=== PATIENT | female | born 1935 | race Caucasian/White ===

== ENCOUNTER 2016-08-13 13:37 | Outpatient (CLI) | payer MEDICARE, OTHER | END 2016-08-13 13:38 | disposition home or self-care (01) | DX: R25.2 Cramp and spasm (principal); I50.9 Heart failure, unspecified; Z79.899 Other long term (current) drug therapy ==

== ENCOUNTER 2016-08-30 20:01 | Outpatient (CLI) | payer MEDICARE, OTHER | END 2016-08-30 20:02 | disposition critical access hospital (66) | DX: R53.1 Weakness (principal); R42 Dizziness and giddiness | CPT/HCPCS: A0425; A0427 ==

== ENCOUNTER 2016-08-30 20:23 | Emergency (ER) | payer MEDICARE, OTHER ==
[2016-08-30] MEDS ORDERED: FUROSEMIDE 40 MG/4 ML VIAL IVP STA (21:07)
[2016-08-30] MEDS ORDERED: FUROSEMIDE 40 MG/4 ML VIAL ONE (21:08)
[2016-08-30] MEDS ORDERED: PANTOPRAZOLE 80 MG in SODIUM CHLORIDE 0.9% 100ML 100 ML IV STA (23:14)
[2016-08-30] MEDS ORDERED: SODIUM CHLORIDE 0.9% MINIBAG 100 ML IV ONE (23:16)
[2016-08-30] MEDS ORDERED: PANTOPRAZOLE 40 MG VIAL ONE (23:16)
== END 2016-08-31 01:40 | disposition short-term general hospital (02) ==
DX: I11.0 Hypertensive heart disease with heart failure (principal); I50.21 Acute systolic (congestive) heart failure; K92.1 Melena; D62 Acute posthemorrhagic anemia; I45.10 Unspecified right bundle-branch block; I48.91 Unspecified atrial fibrillation; Z79.01 Long term (current) use of anticoagulants; Z87.891 Personal history of nicotine dependence
CPT/HCPCS: 36415; 36430; 51702; 71020; 80053; 81003; 83690; 83880; 84484; 85025; 86850; 86900; 86901; 86920; 93005; 93010; 96365; 96366; 96375; 99285; P9016

== ENCOUNTER 2016-08-31 01:45 | Outpatient (CLI) | payer MEDICARE, OTHER | END 2016-08-31 01:46 | disposition short-term general hospital (02) | DX: Z75.1 Person awaiting admission to adequate facility elsewhere (principal) | CPT/HCPCS: A0425; A0426 ==

== ENCOUNTER 2016-09-14 15:12 | Outpatient (CLI) | payer MEDICARE, OTHER | END 2016-09-14 23:59 | disposition home or self-care (01) | DX: K92.2 Gastrointestinal hemorrhage, unspecified (principal); Z79.899 Other long term (current) drug therapy ==

== ENCOUNTER 2016-09-24 08:00 | Outpatient (CLI) | payer MEDICARE, OTHER | END 2016-09-24 23:59 | disposition home or self-care (01) | DX: Z79.899 Other long term (current) drug therapy (principal); N39.0 Urinary tract infection, site not specified; R53.1 Weakness; D64.9 Anemia, unspecified ==

== ENCOUNTER 2016-10-14 13:42 | Outpatient (CLI) | payer MEDICARE, OTHER | END 2016-10-14 13:43 | disposition home or self-care (01) | DX: N28.9 Disorder of kidney and ureter, unspecified (principal); D64.9 Anemia, unspecified ==

== ENCOUNTER 2016-11-03 08:00 | Outpatient (CLI) | payer MEDICARE, OTHER ==
[2016-11-03 19:07] LABS: CALCIUM 9.8 mg/dL (8.5-10.3); CREATININE 1.1 mg/dL (0.4-1.0); POTASSIUM 4.1 mmol/L (3.5-5.0)
== END 2016-11-03 08:01 | disposition home or self-care (01) ==
LOC: LAB.WCP 08:00
PROVIDERS: ATTEND Internal Medicine Cardiovascular Disease
DX: I48.91 Unspecified atrial fibrillation (principal); I10 Essential (primary) hypertension; I50.30 Unspecified diastolic (congestive) heart failure; I49.3 Ventricular premature depolarization; G47.33 Obstructive sleep apnea (adult) (pediatric); I45.2 Bifascicular block; E78.00 Pure hypercholesterolemia, unspecified; D50.9 Iron deficiency anemia, unspecified
CPT/HCPCS: 36415; 80048

== ENCOUNTER 2017-08-22 14:13 | Outpatient (CLI) | payer MEDICARE, OTHER | END 2017-08-22 14:14 | disposition home or self-care (01) | LOC: SC 14:13 | PROVIDERS: ATTEND Internal Medicine Pulmonary Disease | DX: G47.33 Obstructive sleep apnea (adult) (pediatric) (principal) | CPT/HCPCS: 99213; G0463; 99212 ==

== ENCOUNTER 2017-10-15 15:18 | Outpatient (CLI) | payer MEDICARE, OTHER | END 2017-10-15 15:19 | disposition critical access hospital (66) | LOC: EMS 15:18 | PROVIDERS: ATTEND Surgery | DX: R06.02 Shortness of breath (principal); R07.89 Other chest pain | CPT/HCPCS: A0425; A0427 ==

== ENCOUNTER 2017-10-15 15:39 | Emergency (ER) | payer MEDICARE, OTHER ==
--- NOTE | 2017-10-15 16:29 | XRAY Report ---
EXAM: CHEST RADIOGRAPHY EXAM DATE: 10/15/2017 04:11 PM. CLINICAL HISTORY: Dyspnea. COMPARISON: 08/30/2016. TECHNIQUE: 1 view. FINDINGS: Lungs/Pleura: Mild pulmonary edema and bibasilar atelectasis. Superimposed infiltrate in the left cristela g base is not excluded. Mediastinum: Stable cardiomegaly. Other: None. IMPRESSION: Mild pulmonary edema. Cardiomegaly. [facility] Referring Provider Line: [phone] SITE ID: [id number]
[2017-10-15 16:34] LABS: BASOPHILS % (AUTO) 0.4 %; EOSINOPHILS # (AUTO) 0.1 10^3/uL (0.0-0.7); EOSINOPHILS % (AUTO) 1.3 %; HGB - HEMOGLOBIN 13.6 g/dL (12.0-16.0); LYMPHOCYTES # (AUTO) 0.7 10^3/uL (1.5-3.5); LYMPHOCYTES % (AUTO) 7.7 %; MEAN CORPUSCULAR HEMOGLOBIN 27.4 pg (27.0-31.0); MEAN CORPUSCULAR VOLUME 85.7 fL (81.0-99.0); MEAN PLATELET VOLUME 9.6 fL (7.9-10.8); MONOCYTES # (AUTO) 0.6 10^3/uL (0.0-1.0); MONOCYTES % (AUTO) 6.2 %; NEUTROPHILS # (AUTO) 7.5 10^3/uL (1.5-6.6); NEUTROPHILS % (AUTO) 84.4 %; PLT - PLATELET COUNT 196 10^3/uL (130-450); RED BLOOD COUNT 4.97 10^6/uL (4.20-5.40); RED CELL DISTRIBUTION WIDTH 14.7 % (12.0-15.0); WHITE BLOOD COUNT 8.9 x10^3/uL (4.8-10.8)
[2017-10-15 16:48] LABS: ALBUMIN 3.9 g/dL (3.2-5.5); ALBUMIN/GLOBULIN RATIO 1.2 (1.0-2.2); BILIRUBIN,TOTAL 0.8 mg/dL (0.2-1.0); CALCIUM 9.2 mg/dL (8.5-10.3); CREATININE 0.7 mg/dL (0.4-1.0); TOTAL PROTEIN 7.2 g/dL (6.7-8.2)
--- NOTE | 2017-10-15 16:51 | ED Physician Documentation ---
History of Present Illness - Stated complaint Stated Complaint: SOA - Chief complaint Chief Complaint: Resp - History obtained from History obtained from: Patient, EMS - History of Present Illness Timing: Today Pain level max: 0 Pain level now: 0 Improved by: duoneb Worsened by: nothing - Additonal information Additional information: 82 year old female who is feeling weak today and was having trouble breathing earlier. Also had chest tightness. Called 911 and EMS gave duoneb. Symptoms resolved. Now feeling much better. No fevers, no chills, no cough. Review of Systems Ten Systems: 10 systems reviewed and negative Constitutional: denies: Fever, Chills Ears: denies: Ear pain Nose: denies: Rhinorrhea / runny nose, Congestion Cardiac: denies: Chest pain / pressure (tightness before the neb treatment) Respiratory: reports: Dyspnea. 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 - Present Medications Home Medications: Ambulatory Orders Medication Instructions Recorded Confirmed Bupropion HCl [Wellbutrin Xl] 150 mg PO DAILY 04/19/15 08/30/16 Telmisartan [Micardis] 40 mg PO DAILY 04/19/15 04/19/15 Verapamil HCl [Verapamil ER] 240 mg PO DAILY 04/19/15 08/30/16 Cholecalciferol (Vitamin D3) 1 mg PO DAILY 08/30/16 08/30/16 [Vitamin D3] Colestipol HCl 1 gm PO DAILY 08/30/16 08/30/16 Ellipta` 1 mcg INH DAILY 08/30/16 08/30/16 Fluticasone/Vilanterol [Breo 1 mg INH DAILY 08/30/16 08/30/16 Ellipta 200-25 Mcg INH] Furosemide 80 mg PO DAILY 08/30/16 08/30/16 Magnesium Oxide [Magnesium] 400 mg PO DAILY 08/30/16 08/30/16 Metoprolol Tartrate 50 mg PO BID 08/30/16 08/30/16 Omeprazole 20 mg PO DAILY 08/30/16 08/30/16 Potassium Chloride [Klor-Con 10] 2 tab PO DAILY 08/30/16 08/30/16 Rivaroxaban [Xarelto] 1 mg PO DAILY 08/30/16 08/30/16 Sertraline [Zoloft] 50 mg PO DAILY 08/30/16 08/30/16 Albuterol Sulf [Ventolin Hfa 1 - 2 puffs INH Q4HR PRN #1 inhaler 10/15/17 Inhaler] predniSONE [Prednisone] 40 mg PO DAILY #10 tablet 10/15/17 - Allergies Allergies/Adverse Reactions: Allergies Allergy/AdvReac Type Severity Reaction Status Date / Time No Known Drug Allergies Allergy Verified 08/30/16 21:14 - Social History Does the pt smoke?: No Smoking Status: Never smoker Does the pt drink ETOH?: No Does the pt have substance abuse?: No - Immunizations Immunizations are current?: Yes - POLST Patient has POLST: No PD ED PE NORMAL - Vitals Vital signs reviewed: Yes - General General: Alert and oriented X 3, No acute distress, Well developed/nourished - HEENT HEENT: PERRL, Moist mucous membranes - Neck Neck: Supple, no meningeal sign - Cardiac Cardiac: RRR, Strong equal pulses - Respiratory Respiratory: No respiratory distress, Other (diminished breath sounds B. ) - Abdomen Abdomen: Soft, Non tender, Non distended - Back Back: No spinal TTP - Derm Derm: Warm and dry - Extremities Extremities: Other (3+ B LE edema) - Neuro Neuro: Alert and oriented X 3 - Psych Psych: Normal mood, Normal affect Results - Vitals Vitals: Vital Signs - 24 hr 10/15/17 10/15/17 10/15/17 15:45 17:07 17:10 Temperature 36.0 C L Heart Rate 60 49 L 58 L Respiratory 24 20 16 Rate Blood Pressure 151/100 H 142/82 H O2 Saturation 97 97 10/15/17 18:18 Temperature 36.7 C Heart Rate 66 Respiratory 23 Rate Blood Pressure 157/88 H O2 Saturation 98 Oxygen O2 Source Nasal cannula Oxygen Flow Rate 2 - EKG (time done) 1549 Rate: Rate (enter#) (53) Rhythm: Atrial fibrillation Intervals: RBBB - Labs Labs: Laboratory Tests 10/15/17 10/15/17 10/15/17 16:28 16:28 16:28 WBC 8.9 RBC 4.97 Hgb 13.6 Hct 42.6 MCV 85.7 MCH 27.4 MCHC 32.0 RDW 14.7 Plt Count 196 MPV 9.6 Neut # 7.5 H Lymph # 0.7 L Jennings # 0.6 Eos # 0.1 Baso # 0.0 Absolute Nucleated RBC 0.00 Nucleated RBC % 0.0 Sodium 135 Potassium 4.8 Chloride 100 L Carbon Dioxide 25 Anion Gap 10.0 BUN 15 Creatinine 0.7 Estimated GFR (MDRD) 81 L Glucose 139 H Calcium 9.2 Total Bilirubin 0.8 AST 20 ALT 18 Alkaline Phosphatase 92 Troponin I < 0.04 B-Natriuretic Peptide Total Protein 7.2 Albumin 3.9 Globulin 3.3 Albumin/Globulin Ratio 1.2 Lipase 18 L 10/15/17 16:28 WBC RBC Hgb Hct MCV MCH MCHC RDW Plt Count MPV Neut # Lymph # Jennings # Eos # Baso # Absolute Nucleated RBC Nucleated RBC % Sodium Potassium Chloride Carbon Dioxide Anion Gap BUN Creatinine Estimated GFR (MDRD) Glucose Calcium Total Bilirubin AST ALT Alkaline Phosphatase Troponin I B-Natriuretic Peptide 334 H Total Protein Albumin Globulin Albumin/Globulin Ratio Lipase - Rads (name of study) cxr Radiology: Prelim report reviewed, EMP read contemporaneously, See rad report ( Mild pulmonary edema. Cardiomegaly. ) PD MEDICAL DECISION MAKING - ED course Complexity details: reviewed results, re-evaluated patient, considered differential, d/w patient, d/w family ED course: Patient is an 82-year-old female who presents to the emergency department with what appears to be a combination of mild CHF exacerbation and COPD exacerbation. Feels better after nebulizer treatments, steroids and Lasix. She is normally on 3 L of home O2, but was able to be weaned to 2 L and maintain 98% on her oxygen saturations even with ambulation. Will prescribe an inhaler for home as well as a short course of steroids. No evidence of pneumonia. Patient is very well-appearing, nontoxic. Ambulating very well. Patient and family counseled regarding signs and symptoms for which I believe and urgent re-evaluation would be necessary. Patient with good understanding of and agreement to plan and is comfortable going home at this time This document was made in part using voice recognition software. While efforts are made to proofread this document, sound alike and grammatical errors may occur. Departure - Departure Disposition: Home, Self Care Clinical Impression: COPD exacerbation Failure, heart acute, congestive Qualifiers: Heart failure type: unspecified Qualified Code(s): I50.9 - Heart failure, unspecified Condition: Good Instructions: ED CHF General, ED COPD Flare Follow-Up: Daljit Brizuela MD [Primary Care Provider] - Within 1 week Prescriptions: Albuterol Sulf [Ventolin Hfa Inhaler] 1 - 2 puffs INH Q4HR PRN #1 inhaler PRN Reason: Shortness Of Air/Wheezing predniSONE [Prednisone] 40 mg PO DAILY #10 tablet Comments: Return if you worsen. Use the inhalers as prescribed. This should continue to improve over the next few days. Discharge Date/Time: 10/15/17 18:30
[2017-10-15] MEDS ORDERED: FUROSEMIDE 40 MG/4 ML VIAL IVP STA (16:53)
[2017-10-15] MEDS ORDERED: IPRATROPIUM/ALBUTEROL 3 ML NEB INH STA (17:08)
[2017-10-15] MEDS ORDERED: predniSONE 20 MG TABLET PO STA (17:30)
[2017-10-15 18:18] VITALS: BP 157/88
== END 2017-10-15 18:30 | disposition home or self-care (01) ==
LOC: ED 15:39 → EDUNIT# 15:39 → ED 18:30
DX: J44.1 Chronic obstructive pulmonary disease with (acute) exacerbation (principal); I11.0 Hypertensive heart disease with heart failure; I50.9 Heart failure, unspecified; I48.91 Unspecified atrial fibrillation; I45.10 Unspecified right bundle-branch block; I10 Essential (primary) hypertension
CPT/HCPCS: 36415; 71045; 80053; 83690; 83880; 84484; 85025; 93005; 94640; 94664; 96374; 99284; J7512

== ENCOUNTER 2018-08-21 14:14 | Outpatient (CLI) | payer MEDICARE, OTHER | END 2018-08-21 14:15 | disposition home or self-care (01) | LOC: SC 14:14 | PROVIDERS: ATTEND Internal Medicine Pulmonary Disease | DX: G47.33 Obstructive sleep apnea (adult) (pediatric) (principal) | CPT/HCPCS: 99213; G0463; 99212 ==

== ENCOUNTER 2018-12-29 17:25 | Outpatient (CLI) | payer MEDICARE, OTHER | END 2018-12-29 17:26 | disposition critical access hospital (66) | LOC: EMS 17:25 | PROVIDERS: ATTEND Surgery | DX: R06.00 Dyspnea, unspecified (principal) | CPT/HCPCS: A0425; A0427 ==

== ENCOUNTER 2018-12-29 17:45 | Inpatient (IN) | payer MEDICARE, OTHER ==
--- NOTE | 2018-12-29 17:57 | ED Physician Documentation ---
PD HPI DYSPNEA - Stated complaint Stated Complaint: DIFF BREATHING - History obtained from History obtained from: Patient - History of Present Illness Timing - onset: How many days ago (2-3) Timing - onset during: Rest, Light activity Timing - duration: Days (2-3) Timing - details: Gradual onset, Still present Inciting event(s): URI (some cough at home and wheezing, but no fevers. Has had leg edema. No recent travel.) Improved by: O2. No: Inhaler/neb Worsened by: Exertion Associated symptoms: Cough, Wheezing, Bilateral edema. No: Fever, Hemoptysis, Chest pain / discomfort, Palpitations Similar symptoms before: Diagnosis (CHF and COPD) Review of Systems Ten Systems: 10 systems reviewed and negative Constitutional: denies: Fever, Chills Nose: denies: Rhinorrhea / runny nose, Congestion Throat: denies: Sore throat Cardiac: reports: Palpitations, Pedal edema. denies: Chest pain / pressure, C [facility] pain Respiratory: reports: Dyspnea, Cough, Wheezing GI: denies: Nausea, Vomiting, Diarrhea, Bloody / black stool Skin: denies: Rash, Abrasion (s) Musculoskeletal: reports: Extremity swelling Neurologic: reports: Generalized weakness. 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 - Present Medications Home Medications: Ambulatory Orders Medication Instructions Recorded Confirmed Bupropion HCl [Wellbutrin Xl] 150 mg PO DAILY 04/19/15 12/30/18 Telmisartan [Micardis] 40 mg PO DAILY 04/19/15 12/30/18 Verapamil HCl [Verapamil ER] 240 mg PO DAILY 04/19/15 12/30/18 Cholecalciferol (Vitamin D3) 1,000 units PO DAILY 08/30/16 12/30/18 [Vitamin D3] Furosemide 80 mg PO DAILY 08/30/16 12/30/18 Magnesium Oxide [Magnesium] 800 mg PO QDBREAKFAST 08/30/16 12/30/18 Potassium Chloride [Klor-Con 10] 20 meq PO QDBREAKFAST 08/30/16 12/30/18 Rivaroxaban [Xarelto] 20 mg PO 1700 08/30/16 12/30/18 Sertraline [Zoloft] 50 mg PO DAILY 08/30/16 12/30/18 Potassium Chloride [Klor-Con 10] 10 meq PO QDDINNER 12/29/18 12/30/18 Ascorbic Acid 1,000 mg PO DAILY 12/30/18 12/30/18 Ferrous Sulfate [High Potency Iron] 27 mg PO DAILY 12/30/18 12/30/18 Loperamide HCl [Loperamide] 2 mg PO PRN PRN 12/30/18 12/30/18 Nitroglycerin [Nitrostat] 0.4 mg PO Q5MX3 PRN 12/30/18 12/30/18 - Allergies Allergies/Adverse Reactions: Allergies Allergy/AdvReac Type Severity Reaction Status Date / Time No Known Drug Allergies Allergy Verified 12/29/18 18:00 - Social History Does the pt smoke?: No Smoking Status: Never smoker Does the pt drink ETOH?: No Does the pt have substance abuse?: No - Immunizations Immunizations are current?: Yes - POLST Patient has POLST: No PD ED PE NORMAL - Vitals Vital signs reviewed: Yes (BP and heart rate elevated) - General General: Alert and oriented X 3, Well developed/nourished, Other (in distress, with work of breathing, partial sentence dyspnea, and sitting up in tripod position. BP elevated. ) Results - Vitals Vitals: Vital Signs - 24 hr 12/29/18 12/29/18 12/29/18 17:54 18:20 18:31 Temperature 36.9 C Heart Rate 120 H 104 H 104 H Respiratory 40 H 17 Rate Blood Pressure 221/157 H O2 Saturation 84 L 12/29/18 12/29/18 18:36 19:53 Temperature Heart Rate 106 H 84 Respiratory 20 17 Rate Blood Pressure 185/145 H 149/99 H O2 Saturation 90 L 97 Oxygen O2 Source BIPAP - EKG (time done) 18:07 Rate: Rate (enter#) (109) Rhythm: Atrial fibrillation Intervals: RBBB Ischemia: Non specific changes. No: ST elevation c/w ischemia Compare to prior EKG: Old EKG unavailable - Labs Labs: Laboratory Tests 12/29/18 12/29/18 12/29/18 18:28 18:28 18:28 WBC 13.4 H RBC 5.01 Hgb 13.9 Hct 44.3 MCV 88.4 MCH 27.7 MCHC 31.4 L RDW 13.7 Plt Count 215 MPV 11.4 H Neut # (Auto) 11.4 H Lymph # (Auto) 1.0 L Sutton # (Auto) 0.8 Eos # (Auto) 0.1 Baso # (Auto) 0.0 Absolute Nucleated RBC 0.00 Nucleated RBC % 0.0 Bld Gas Analysis Time Sample Site ABG pH ABG pCO2 ABG pO2 ABG HCO3 ABG Total CO2 ABG O2 Saturation ABG Base Excess Nikita Test O2 Delivery Device FiO2 EPAP IPAP Sodium 138 Potassium 5.1 H Chloride 104 Carbon Dioxide 22 Anion Gap 12.0 BUN 19 Creatinine 0.7 Estimated GFR (MDRD) 80 L Glucose 181 H Calcium 9.7 Magnesium 2.1 Total Bilirubin 1.3 H AST 38 ALT 25 Alkaline Phosphatase 86 Troponin I Troponin I High Sens B-Natriuretic Peptide 733 H Total Protein 7.5 Albumin 4.1 Globulin 3.4 Albumin/Globulin Ratio 1.2 Lipase 21 L 12/29/18 12/29/18 18:28 19:40 WBC RBC Hgb Hct MCV MCH MCHC RDW Plt Count MPV Neut # (Auto) Lymph # (Auto) Sutton # (Auto) Eos # (Auto) Baso # (Auto) Absolute Nucleated RBC Nucleated RBC % Bld Gas Analysis Time 1950 Sample Site RIGHT RADIAL ABG pH 7.34 L ABG pCO2 45 ABG pO2 122 H ABG HCO3 23.6 ABG Total CO2 24.9 ABG O2 Saturation 98 ABG Base Excess -2.3 L Nikita Test POSITIVE O2 Delivery Device BiPAP FiO2 50.00 EPAP 5 IPAP 12 Sodium Potassium Chloride Carbon Dioxide Anion Gap BUN Creatinine Estimated GFR (MDRD) Glucose Calcium Magnesium Total Bilirubin AST ALT Alkaline Phosphatase Troponin I < 0.04 Troponin I High Sens 27.0 H* B-Natriuretic Peptide Total Protein Albumin Globulin Albumin/Globulin Ratio Lipase - Rads (name of study) chest xray Radiology: Prelim report reviewed, EMP read contemporaneously (cardiomegaly, some congestive edema), See rad report PD MEDICAL DECISION MAKING - ED course Complexity details: reviewed old records, reviewed results, re-evaluated patient (improving with BP and heart rate down, neb treatment and also BiPAP. Resting more comfortably, with still good ventilations and improved oxygenation.), considered differential (CHF and /or COPD. GIven nebs and also nitro to lower BP, Metoprolol to help BP and heart rate. Initiate BiPAP. Brief targeted discussed to ensure no POLST or limitations.), d/w patient, d/w sales development consultant (Hospitalist about admission. ) - Critical Care Time(min): 45 Time Includes: Direct patient care, Reassess patient, Document care, Coordinate care, Medical consult, See progress note Data interpretation: Labs, Pulse ox, CXR Procedures excluded from critical care time: EKG Departure - Departure Disposition: 66 [facility] DC/Xfer Clinical Impression: COPD exacerbation, Acute respiratory distress Failure, heart acute, congestive Qualifiers: Heart failure type: unspecified Qualified Code(s): I50.9 - Heart failure, unspecified Dyspnea Qualifiers: Dyspnea type: shortness of breath Qualified Code(s): R06.02 - Shortness of breath Atrial fibrillation Qualifiers: Atrial fibrillation type: permanent Qualified Code(s): I48.2 - Chronic atrial fibrillation Condition: Stable Record reviewed to determine appropriate education?: Yes Discharge Date/Time: 12/29/18 20:38
[2018-12-29] MEDS ORDERED: MORPHINE 2 MG/ML CARPUJECT IVP STA (18:02)
[2018-12-29] MEDS ORDERED: IPRATROPIUM/ALBUTEROL 3 ML NEB INH STA (18:02)
[2018-12-29] MEDS ORDERED: NITROGLYCERIN SL 0.4 MG TABLET SL STA (18:03)
[2018-12-29 18:35] LABS: BASOPHILS % (AUTO) 0.2 %; EOSINOPHILS # (AUTO) 0.1 10^3/uL (0.0-0.7); EOSINOPHILS % (AUTO) 0.9 %; HGB - HEMOGLOBIN 13.9 g/dL (12.0-16.0); LYMPHOCYTES % (AUTO) 7.4 %; MEAN CORPUSCULAR HEMOGLOBIN 27.7 pg (27.0-31.0); MEAN CORPUSCULAR HGB CONC 31.4 g/dL (32.0-36.0); MEAN CORPUSCULAR VOLUME 88.4 fL (81.0-99.0); MEAN PLATELET VOLUME 11.4 fL (7.9-10.8); MONOCYTES # (AUTO) 0.8 10^3/uL (0.0-1.0); MONOCYTES % (AUTO) 5.8 %; NEUTROPHILS # (AUTO) 11.4 10^3/uL (1.5-6.6); NEUTROPHILS % (AUTO) 85.2 %; PLT - PLATELET COUNT 215 10^3/uL (130-450); RED BLOOD COUNT 5.01 10^6/uL (4.20-5.40); RED CELL DISTRIBUTION WIDTH 13.7 % (12.0-15.0); WHITE BLOOD COUNT 13.4 x10^3/uL (4.8-10.8)
[2018-12-29] MEDS ORDERED: METOPROLOL 5 MG/5 ML VIAL IVP STA (18:37)
--- NOTE | 2018-12-29 18:51 | XRAY Report ---
Reason: dyspnea and wheezing Procedure Date: 12/29/2018 Accession Number: [id number] / [id number] Procedure: XR - Chest 1 View X-Ray CPT Code: 47479 FULL RESULT: EXAM: CHEST RADIOGRAPHY EXAM DATE: 12/29/2018 06:27 PM. CLINICAL HISTORY: Dyspnea and wheezing. COMPARISON: CHEST 1 VIEW 10/15/2017 4:01 PM CHEST 2 VIEW PA/LAT 08/30/2016 9:20 PM. TECHNIQUE: 1 view. FINDINGS: Lungs/Pleura: Mild diffuse bilateral airspace disease, could represent mild pulmonary edema, slightly increased. Mild obscuration of the right lateral base, similar to the prior, could be overlap versus small pleural effusion. Mediastinum: Stable cardiomegaly. IMPRESSION: Lungs/Pleura: Mild diffuse bilateral airspace disease, could represent mild pulmonary edema, slightly increased. Mild obscuration of the right lateral base, similar to the prior, could be overlap versus small pleural effusion. Mediastinum: Stable cardiomegaly. [facility]
[2018-12-29 18:54] LABS: ALBUMIN 4.1 g/dL (3.2-5.5); ALBUMIN/GLOBULIN RATIO 1.2 (1.0-2.2); BILIRUBIN,TOTAL 1.3 mg/dL (0.2-1.0); CALCIUM 9.7 mg/dL (8.5-10.3); CREATININE 0.7 mg/dL (0.4-1.0); MAGNESIUM 2.1 mg/dL (1.7-2.8); TOTAL PROTEIN 7.5 g/dL (6.7-8.2)
[2018-12-29 19:09] LABS: TROPONIN I < 0.04 ng/mL (<0.49)
[2018-12-29] MEDS ORDERED: FUROSEMIDE 40 MG/4 ML VIAL IVP STA (19:09)
[2018-12-29 19:48] LABS: ABG BASE EXCESS -2.3 mmol/L (-2.0-3.0); ABG HCO3 23.6 mmol/L (22.0-26.0); ABG PCO2 45 mmHg (34-45); ABG PH 7.34 (7.35-7.45); ABG PO2 122 mmHg (80-100); ABG TCO2 24.9 MMOL/L (21.0-29.0)
[2018-12-29 19:49] LABS: ABG OXYGEN SATURATION 98 % (94-98); ALLEN TEST POSITIVE
[2018-12-29] MEDS ORDERED: SODIUM CHLORIDE FLUSH 0.9% 10 ML SYRINGE IVP PRN (19:56)
[2018-12-29] MEDS ORDERED: IPRATROPIUM/ALBUTEROL 3 ML NEB INH PRN (20:51)
[2018-12-29] MEDS ORDERED: METOPROLOL TARTRATE 50 MG TABLET PO SCH (21:00)
--- NOTE | 2018-12-29 21:05 | HISTORY & PHYSICAL EXAMINATION ---
Chief Complaint - Chief Complaint Chief Complaint: Shortness of breath History of Present Illness - Admitted From Admitted From:: Home - History Obtained From Records Reviewed: Yes History obtained from: Patient, Family Exam Limitations: Patient on BiPAP - History of Present Illness HPI Comment/Other: This is a 83 year old female with a past medical history significant for CHFpEF, atrial fibrillation (on Xarelto), COPD (on 3L), and GUILLERMO (on CPAP) who presents from home complaining of dyspnea that began yesterday. She reports feeling short of breath yesterday but that today it became more severe. She has occasional cough but denies fevers, chills, chest pain. She noticed worsening lower extremity edema but denies orthopnea. Her ambulation has been limited due to her dyspnea. She denies missing any of her medications or an increase in salt consumption. She denies wheezing but reports that she usually does not wheeze much. In the ER, she reportedly looked very ill and in respiratory distress. She was immediately placed on BiPAP. Her vitals were concerning for a systolic blood pressure >200. She was given nitroglycerin, Lasix IV, and a breathing treatment with improvement. Her chest x-ray showed mild pulmonary edema and possible small pleural effusion. Labs were significant for a BNP in the 700's. She will be admitted for further management for her acute on chronic respiratory failure with hypoxia. I spoke with the patient and her family at bedside to discuss code status. The patient would like to be full code and would want CPR or mechanical ventilation if deemed necessary. 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 Her parents lived well into their 80's. Living arrangement: At home Living Situation: Alone Social History Notes: She lives alone here on [address] although her family lives just down the street. She was a smoker but quit over 20 years ago. - Substance History Use: Uses substance without health or social issues: NONE - POLST Patient has POLST: No Meds/Allgy - Home Medications Home Medications: Ambulatory Orders Medication Instructions Recorded Confirmed Bupropion HCl [Wellbutrin Xl] 150 mg PO DAILY 04/19/15 08/30/16 Telmisartan [Micardis] 40 mg PO DAILY 04/19/15 04/19/15 Verapamil HCl [Verapamil ER] 240 mg PO DAILY 04/19/15 08/30/16 Cholecalciferol (Vitamin D3) 1 mg PO DAILY 08/30/16 08/30/16 [Vitamin D3] Colestipol HCl 1 gm PO DAILY 08/30/16 08/30/16 Ellipta` 1 mcg INH DAILY 08/30/16 08/30/16 Fluticasone/Vilanterol [Breo 1 mg INH DAILY 08/30/16 08/30/16 Ellipta 200-25 Mcg INH] Furosemide 80 mg PO DAILY 08/30/16 08/30/16 Magnesium Oxide [Magnesium] 400 mg PO DAILY 08/30/16 08/30/16 Metoprolol Tartrate 50 mg PO BID 08/30/16 08/30/16 Omeprazole 20 mg PO DAILY 08/30/16 08/30/16 Potassium Chloride [Klor-Con 10] 2 tab PO DAILY 08/30/16 08/30/16 Rivaroxaban [Xarelto] 1 mg PO DAILY 08/30/16 08/30/16 Sertraline [Zoloft] 50 mg PO DAILY 08/30/16 08/30/16 Albuterol Sulf [Ventolin Hfa 1 - 2 puffs INH Q4HR PRN #1 inhaler 10/15/17 Inhaler] predniSONE [Prednisone] 40 mg PO DAILY #10 tablet 10/15/17 - Allergies Allergies/Adverse Reactions: Allergies Allergy/AdvReac Type Severity Reaction Status Date / Time No Known Drug Allergies Allergy Verified 12/29/18 18:00 Review of Systems - Constitutional Constitutional: denies: Fever, Chills - Ears, Nose & Throat Ears, Nose & Throat: reports: Nasal congestion - Cardiovascular Cariovascular: reports: Palpitations, Edema, Exertional dyspnea, Decr. exercise tolerance. denies: Chest pain, Lightheadedness, Orthopnea - Respiratory Respiratory: reports: Cough, SOB with exertion. denies: Wheezing - Gastrointestinal Gastrointestinal: denies: Abdominal pain, Nausea, Vomiting - Genitourinary Genitourinary: denies: Dysuria, Frequency, Urgency - Integumentary Integumentary: denies: Rash - Neurological Neurological: denies: General weakness, Focal weakness - All Other Systems All Other Systems: reports: Reviewed and negative Prior Level of Functionality: Ambulates with a walker at baseline. Exam - Vital Signs Reviewed Vital Signs: Yes Vital Signs: Vital Signs x48h Temp Pulse Pulse Resp BP BP Pulse Ox 12/29/18 20:38 36.2 C L 80 18 143/97 H 97 12/29/18 20:04 96 149/99 H 97 12/29/18 19:53 84 17 149/99 H 97 12/29/18 18:36 106 H 20 185/145 H 90 L 12/29/18 18:31 104 H 17 12/29/18 18:20 104 H 12/29/18 17:54 36.9 C 120 H 40 H 221/157 H 84 L - Physical Exam General Appearance: positive: Alert. negative: Mild distress Eyes Bilateral: positive: Normal inspection ENT: positive: ENT inspection nml Respiratory: positive: No respiratory distress, Other (Diminished breath sounds bilaterally). negative: Wheezes, Rales Cardiovascular: positive: No murmur, Irregularly irregular, Tachycardia. negative: Bradycardia Abdomen: positive: Non-tender, No distention. negative: Tenderness Skin: positive: No rash, Warm, Dry. negative: Skin rash Extremities: positive: Pedal edema (+2 pitting edema in bilateral lower extremities up to her knees). negative: No pedal edema Neurologic/Psychiatric: positive: Oriented x3, Motor nml. negative: Disoriented to person, Disoriented to place, Disoriented to time Conclusion/Plan - Problem List (1) Acute on chronic respiratory failure with hypoxia Conclusion/Plan: Suspect that this is secondary to exacerbation of her diastolic heart failure than COPD exacerbation. Initially required BiPAP with FiO2 of 50%. X-ray concerning for mild pulmonary edema. BNP elevated in the 700's, baseline is 3- 400. Now off of BiPAP and saturating mid 90's on 5L NC. - IV diuresis with Lasix - Duoneb PRN - Fluid restriction - BiPAP as needed (2) Acute on chronic diastolic CHF (congestive heart failure) Conclusion/Plan: Suspect that her hypoxia is caused by acute on chronic CHFpEF given her elevated BNP and x-ray findings. Last Echo showed preserved EF, unable to assess diastolic function due to her atrial fibrillation. Troponin mildly elevated. EKG without ischemic changes. - IV diuresis with Lasix - Resume home metoprolol - Hold home cardizem in setting of heart failure exacerbation - Trend troponin - Check BNP prior to discharge - Will consider repeating echo on Tuesday given her clinical course and that echo is not available over the weekend (3) Hypertensive emergency Conclusion/Plan: Suspect that her poorly controlled blood pressure may have lead to exacerbation of her heart failure and consequently pulmonary edema. Presented with systolics >200. Now in the 150's after receiving Lasix and Nitro. - Hold off on IV antihypertensives as blood pressure has improved by 25% - Resume home oral antihypertensives except for cardizem - Goal reduction in blood pressure of 25% over next 24 hours (4) COPD (chronic obstructive pulmonary disease) Conclusion/Plan: She has history of COPD and requires 3L of O2 at baseline. On Breo at home. Does not appear to be in exacerbation. - Resume home inhalers - Duoneb PRN (5) Atrial fibrillation Conclusion/Plan: She appears to have permanent atrial fibrillation and is rate controlled with Cardizem and Metoprolol. On Xarelto for anticoagulation. EKG shows atrial fibrillation with RBBB which was present on prior EKG. - Resume Metoprolol and Xarelto - Restart Cardizem when she improves from heart failure standpoint Qualifiers: Atrial fibrillation type: permanent Qualified Code(s): I48.2 - Chronic atrial fibrillation (6) GERD (gastroesophageal reflux disease) Conclusion/Plan: Stable. On Omeprazole. - Continue Protonix (7) GUILLERMO (obstructive sleep apnea) Conclusion/Plan: Stable. On CPAP. - CPAP at night - Lab Results Lab results reviewed: Yes Fish Bones: 12/29/18 18:28 12/29/18 18:28 - Diagnostic Imaging Results Diagnostic Imaging Results: positive: Final report reviewed, Read independently - EKG Results EKG Interpreted Independently: Yes EKG Findings: Atrial fibrillation with right bundle branch block which was present on prior EKG. Core Measures - Anticipated LOS I expect patient to be DC'd or transferred within 96 hours.: Yes - Issues Hospital Issues and Management Plan: Acute on chronic respiratory failure w/ hypoxia secondary to acute on chronic CH FpEF requiring IV diuresis. - DVT/VTE - Prophylaxis VTE/DVT Device ordered at admit?: Yes VTE/DVT Prophylaxis med ordered at admit?: Yes
[2018-12-29] MEDS: RIVAROXABAN 10 MG TABLET PO SCH (21:57)
[2018-12-29] MEDS: SODIUM CHLORIDE FLUSH 0.9% 10 ML SYRINGE IVP SCH (22:06)
[2018-12-29] MEDS: NYSTATIN POWDER 15 GM TOP SCH (22:06)
[2018-12-30 00:33] LABS: BASOPHILS % (AUTO) 0.3 %; EOSINOPHILS % (AUTO) 0.2 %; HGB - HEMOGLOBIN 12.6 g/dL (12.0-16.0); LYMPHOCYTES # (AUTO) 0.7 10^3/uL (1.5-3.5); LYMPHOCYTES % (AUTO) 7.8 %; MEAN CORPUSCULAR HEMOGLOBIN 28.1 pg (27.0-31.0); MEAN CORPUSCULAR HGB CONC 31.3 g/dL (32.0-36.0); MEAN CORPUSCULAR VOLUME 89.5 fL (81.0-99.0); MEAN PLATELET VOLUME 11.7 fL (7.9-10.8); MONOCYTES # (AUTO) 0.9 10^3/uL (0.0-1.0); MONOCYTES % (AUTO) 9.3 %; NEUTROPHILS # (AUTO) 7.8 10^3/uL (1.5-6.6); NEUTROPHILS % (AUTO) 82.1 %; PLT - PLATELET COUNT 196 10^3/uL (130-450); RED BLOOD COUNT 4.49 10^6/uL (4.20-5.40); RED CELL DISTRIBUTION WIDTH 13.7 % (12.0-15.0); WHITE BLOOD COUNT 9.5 x10^3/uL (4.8-10.8)
[2018-12-30 00:49] LABS: CALCIUM 9.2 mg/dL (8.5-10.3); CREATININE 0.9 mg/dL (0.4-1.0); MAGNESIUM 1.8 mg/dL (1.7-2.8); PHOSPHORUS 4.1 mg/dL (2.5-4.6)
[2018-12-30 00:53] LABS: TROPONIN I < 0.04 ng/mL (<0.49)
--- NOTE | 2018-12-30 07:14 | CT Report ---
Reason: Left sided weakness Procedure Date: 12/30/2018 Accession Number: [id number] / [id number] Procedure: CT - HEAD WO CPT Code: FULL RESULT: EXAM: CT HEAD EXAM DATE: 12/30/2018 06:54 AM. CLINICAL HISTORY: Left-sided weakness. COMPARISON: None. TECHNIQUE: Multiaxial CT images were obtained from the foramen magnum to the vertex. Reformats: Sagittal and coronal. IV contrast: None. In accordance with CT protocol optimization, one or more of the following dose reduction techniques were utilized for this exam: automated exposure control, adjustment of mA and/or KV based on patient size, or use of iterative reconstructive technique. FINDINGS: There are mucous retention cyst demonstrated at the base of the right maxillary sinus. The bilateral mastoid air cells are normally aerated. There is no acute fracture of the calvaria. Bilateral parotid spaces exhibit normal densities. The imaged portions of the orbits are normal in appearance. There is loss of oropeza-white differentiation at the right frontoparietal junction (23, 3). This would be consistent with an area of late acute to early subacute cerebral infarction. Recommend correlation with the onset of the patient's symptoms. There is no evidence of overt hemorrhagic transformation within this area of suspected cerebral infarction. There are periventricular, subcortical, deep white matter hypodensities consistent with a moderate degree of chronic small vessel ischemia. There is moderate generalized volume loss. IMPRESSION: 1. There is loss of oropeza-white differentiation in the right frontoparietal junction involving areas of the precentral and postcentral gyrus. This would be consistent with an area of late acute to early subacute cerebral infarction. There is no evidence of overt hemorrhagic transformation. Recommend correlation with clinical symptoms. Further evaluation can be obtained with MRI of the brain as seen clinically appropriate. 2. There is a moderate degree of chronic small vessel ischemia and moderate generalized volume loss. The critical result notification system was initiated by Dr. Shar Francisco at 07:12 AM on 12/30/2018. The above critical result findings were discussed with Kiel Field by Dr. Shar Francisco at 07:15 AM on 12/30/2018.
[2018-12-30] MEDS ORDERED: ASPIRIN CHEW 81 MG TABLET PO SCH (07:23)
[2018-12-30 08:26] LABS: PT - PROTHROMBIN TIME 22.4 secs (9.9-12.6)
[2018-12-30] MEDS ORDERED: ATORVASTATIN 40 MG TABLET PO SCH ×2 (08:26→21:00)
[2018-12-30] MEDS ORDERED: NITROGLYCERIN SL 0.4 MG TABLET SL PRN (08:27)
[2018-12-30] MEDS: SERTRALINE 50 MG TABLET PO SCH (08:28)
[2018-12-30] MEDS: buPROPion XL 150 MG TABLET PO SCH (08:28)
[2018-12-30] MEDS: PANTOPRAZOLE 40 MG TABLET PO SCH (08:30)
[2018-12-30 08:33] LABS: PARTIAL THROMBOPLASTIN TIME 50.1 secs (24.9-33.3)
--- NOTE | 2018-12-30 08:34 | PROVIDER PROGRESS NOTE ---
Assessment/Plan - Problem List (1) Acute CVA (cerebrovascular accident) Assessment/Plan: The READING INTERVENTION TEACHER overnight noticed that the patient was using her left arm and hand and then unable to use it, which repeated itself. The Vulnerability Researcher was notified and she had a stat head CT to evaluate for stroke. The findings are positive for a subacute stroke. She received 4 baby aspirin and statin. I notified the patient of this new diagnosis. Plan to manage with starting daily baby aspirin and high-dose statin. Check a fasting lipid panel. Allow permissive HTN now. Her BP was finally controlled since the admission BP was malignant. But will stop the ARB now. Echo will be ordered, but Echo not available over the weekend, and it would not change her management. Plan to continue Xarelto. We will start OT and PT. She is [id number] therefore Social Work was informed that she may need SNF depending on evaluation of PT and OT. Remain in ICU today. (2) Acute on chronic diastolic CHF (congestive heart failure) Assessment/Plan: This patient's last Echo showed a preserved LVEF and diastolic dysfunction present. Her presentation is consistent with flash pulmonary edema due to malignant hypertension in a patient with underlying diastolic LV dysfunction. She needed BiPAP and IV diuresis. She was already able to be taken off BiPAP and back on her baseline nasal cannula supplemental oxygen at 3 to 4 L. Echo will be ordered, but Echo not available over the weekend (today is Sat), and it would not change her management. I am not suspecting new systolic heart f ailure, since she has neg troponins (she did not have an DE). Continue Lasix IV bid today. Continue a lower dose of her beta-nanette and Verapamil today (for permissive HTN for the stroke) in order to keep the heart rate controlled. Remain in ICU today (3) Flash pulmonary edema Assessment/Plan: As in #2 (4) Hypertensive emergency Assessment/Plan: She presented with a blood pressure of 230 systolic. This probably led to the flash pulmonary edema and to the stroke. Her BP was finally controlled since the admission BP was malignant. Allow permissive HTN now (170-180 systolic is OK), will stop the ARB for now. (5) COPD (chronic obstructive pulmonary disease) Assessment/Plan: She did not have a COPD exacerbation. We will continue her inhalers/nebulizers as needed or as she use them at home (6) Chronic a-fib Assessment/Plan: Heart rate is under control. Continue her HR meds but at a slightly lower dose temporarily, to allow pe rmissive HTN for 1-2 days, for the CVA. Continue Xarelto (7) GUILLERMO (obstructive sleep apnea) Assessment/Plan: Will order her home CPAP device to be brought in and used here. (8) Depression Assessment/Plan: She remains on her home dose of Wellbutrin XL while here - Current Meds Current Meds: Current Medications Generic Name Dose Route Start Last Admin Trade Name Dayana PRN Reason Stop Dose Admin Aspirin 324 mg 12/30/18 07:23 12/30/18 08:00 [place] Aspirin PO 12/30/18 09:00 324 mg ONCE ALVA Administration Nystatin 1 applic 12/29/18 22:00 12/29/18 22:06 Nystop TOP 1 applic BID ALVA Administration Rivaroxaban 20 mg 12/29/18 21:27 12/29/18 21:57 Xarelto PO 20 mg 1700 ALVA Administration Sodium Chloride 10 ml 12/30/18 01:00 12/29/18 22:06 Normal Saline Flush 0.9% IVP 10 ml 0100,0900,1700 ALVA Administration - Lab Result Fish Bone Diagrams: 12/30/18 00:25 12/30/18 09:50 - Diagnostic Imaging Results Diagnostic Imaging Results: Final report reviewed - Additional Planning My Orders: My Active Orders 12/30/18 05:00 BNP - B-NATRIURETIC PEPTIDE [IAI] Routine 12/30/18 08:26 Atorvastatin [Lipitor] 80 mg PO ONCE ONE 12/30/18 08:27 Nitroglycerin [Nitrostat] 0.4 mg SL [id number] PRN 12/30/18 09:00 Sertraline [Zoloft] 50 mg PO DAILY buPROPion [Wellbutrin Xl] 150 mg PO DAILY 12/31/18 21:00 Atorvastatin [Lipitor] 80 mg PO QPM Subjective - Subjective Patient Reports: Feeling Better Nursing Reports: Other (The left hand is occasionally in a contracted position. The physical therapist however noted she has fair strength and fine motor dexterity per) Objective Vital Signs: Vital Signs - 24 hr 12/29/18 12/29/18 12/29/18 17:54 18:20 18:31 Temperature 36.9 C Heart Rate 120 H 104 H 104 H Heart Rate [ Monitoring electrodes] Respiratory 40 H 17 Rate Blood Pressure 221/157 H Blood Pressure [Left Radial artery] O2 Saturation 84 L 12/29/18 12/29/18 12/29/18 18:36 19:53 20:04 Temperature Heart Rate 106 H 84 96 Heart Rate [ Monitoring electrodes] Respiratory 20 17 Rate Blood Pressure 185/145 H 149/99 H 149/99 H Blood Pressure [Left Radial artery] O2 Saturation 90 L 97 97 12/29/18 12/29/18 12/29/18 20:38 20:55 21:00 Temperature 36.2 C L Heart Rate 68 Heart Rate [ 80 72 Monitoring electrodes] Respiratory 18 17 17 Rate Blood Pressure Blood Pressure 143/97 H 144/83 H [Left Radial artery] O2 Saturation 97 98 12/29/18 12/29/18 12/29/18 21:57 22:00 22:13 Temperature Heart Rate Heart Rate [ 78 Monitoring electrodes] Respiratory 20 11 L Rate Blood Pressure 137/80 H Blood Pressure 146/82 H [Left Radial artery] O2 Saturation 97 96 12/29/18 12/30/18 12/30/18 23:00 00:00 00:15 Temperature 36.3 C L Heart Rate Heart Rate [ 68 81 Monitoring electrodes] Respiratory 17 16 Rate Blood Pressure Blood Pressure 121/82 H 123/83 H [Left Radial artery] O2 Saturation 98 4 L 12/30/18 12/30/18 12/30/18 01:00 01:57 03:05 Temperature Heart Rate Heart Rate [ 66 63 Monitoring electrodes] Respiratory 14 14 13 Rate Blood Pressure Blood Pressure 141/99 H 140/88 H [Left Radial artery] O2 Saturation 99 99 100 12/30/18 12/30/18 12/30/18 04:00 04:05 05:00 Temperature 36.4 C L Heart Rate Heart Rate [ 73 71 Monitoring electrodes] Respiratory 15 16 Rate Blood Pressure Blood Pressure 95/85 H 121/95 H [Left Radial artery] O2 Saturation 99 97 12/30/18 12/30/18 06:33 08:00 Temperature 36.4 C L 36.3 C L Heart Rate Heart Rate [ 85 84 Monitoring electrodes] Respiratory 16 22 Rate Blood Pressure Blood Pressure 166/110 H [Left Radial artery] O2 Saturation 100 100 Oxygen O2 Source Room air Oxygen Flow Rate 4 I&O (Last 24 Hrs): Intake and Output Totals x24h 12/28/18 12/29/18 12/30/18 23:59 23:59 23:59 Intake Total 500 Output Total 150 300 Balance -150 200 General: Alert, Oriented x3 HEENT: Mucous membr. moist/pink, Other (On O2 per n.c.) Neck: Supple, Other (Obese) Cardiovascular: No murmurs, Other (Irreg irreg) Respiratory: Other (Clear but she is using accessory muscles) Abdomen: Soft, Other (Obese with pannus) Extremities: Other (Trace ankle edema) - Results Results: Laboratory Results WBC 9.5 x10^3/uL (4.8-10.8) 12/30/18 00:25 RBC 4.49 10^6/uL (4.20-5.40) 12/30/18 00:25 Hgb 12.6 g/dL (12.0-16.0) 12/30/18 00:25 Hct 40.2 % (37.0-47.0) 12/30/18 00:25 MCV 89.5 fL (81.0-99.0) 12/30/18 00:25 MCH 28.1 pg (27.0-31.0) 12/30/18 00:25 MCHC 31.3 g/dL (32.0-36.0) L 12/30/18 00:25 RDW 13.7 % (12.0-15.0) 12/30/18 00:25 Plt Count 196 10^3/uL (130-450) 12/30/18 00:25 MPV 11.7 fL (7.9-10.8) H 12/30/18 00:25 Neut # (Auto) 7.8 10^3/uL (1.5-6.6) H 12/30/18 00:25 Lymph # (Auto) 0.7 10^3/uL (1.5-3.5) L 12/30/18 00:25 [place] # (Auto) 0.9 10^3/uL (0.0-1.0) 12/30/18 00:25 Eos # (Auto) 0.0 10^3/uL (0.0-0.7) 12/30/18 00:25 Baso # (Auto) 0.0 10^3/uL (0.0-0.1) 12/30/18 00:25 Absolute Nucleated RBC 0.00 x10^3/uL 12/30/18 00:25 Nucleated RBC % 0.0 /100WBC 12/30/18 00:25 Bld Gas Analysis Time 1950 12/29/18 19:40 Sample Site RIGHT RADIAL 12/29/18 19:40 ABG pH 7.34 (7.35-7.45) L 12/29/18 19:40 ABG pCO2 45 mmHg (34-45) 12/29/18 19:40 ABG pO2 122 mmHg (80-100) H 12/29/18 19:40 ABG HCO3 23.6 mmol/L (22.0-26.0) 12/29/18 19:40 ABG Total CO2 24.9 MMOL/L (21.0-29.0) 12/29/18 19:40 ABG O2 Saturation 98 % (94-98) 12/29/18 19:40 ABG Base Excess -2.3 mmol/L (-2.0-3.0) L 12/29/18 19:40 Nikita Test POSITIVE 12/29/18 19:40 O2 Delivery Device BiPAP 12/29/18 19:40 FiO2 50.00 12/29/18 19:40 EPAP 5 cmH2O 12/29/18 19:40 IPAP 12 cmH2O 12/29/18 19:40 Sodium 141 mmol/L (135-145) 12/30/18 00:25 Potassium 4.3 mmol/L (3.5-5.0) 12/30/18 00:25 Chloride 102 mmol/L (101-111) 12/30/18 00:25 Carbon Dioxide 26 mmol/L (21-32) 12/30/18 00:25 Anion Gap 13.0 (6-13) 12/30/18 00:25 BUN 18 mg/dL (6-20) 12/30/18 00:25 Creatinine 0.9 mg/dL (0.4-1.0) 12/30/18 00:25 Estimated GFR (MDRD) 60 (>89) L 12/30/18 00:25 Glucose 114 mg/dL (70-100) H 12/30/18 00:25 Calcium 9.2 mg/dL (8.5-10.3) 12/30/18 00:25 Phosphorus 4.1 mg/dL (2.5-4.6) 12/30/18 00:25 Magnesium 1.8 mg/dL (1.7-2.8) 12/30/18 00:25 Total Bilirubin 1.3 mg/dL (0.2-1.0) H 12/29/18 18:28 AST 38 IU/L (10-42) 12/29/18 18:28 ALT 25 IU/L (10-60) 12/29/18 18:28 Alkaline Phosphatase 86 IU/L (42-121) 12/29/18 18:28 Troponin I < 0.04 ng/mL (<0.49) 12/30/18 00:25 Troponin I High Sens 36.1 pg/mL (2.3-14.8) H* 12/30/18 06:05 B-Natriuretic Peptide 733 pg/mL (5-100) H 12/29/18 18:28 Total Protein 7.5 g/dL (6.7-8.2) 12/29/18 18:28 Albumin 4.1 g/dL (3.2-5.5) 12/29/18 18:28 Globulin 3.4 g/dL (2.1-4.2) 12/29/18 18:28 Albumin/Globulin Ratio 1.2 (1.0-2.2) 12/29/18 18:28 Lipase 21 U/L (22-51) L 12/29/18 18:28 Nasal Screen MRSA (PCR) NEGATIVE (NEGATIVE) 12/29/18 20:35
[2018-12-30] MEDS ORDERED: SERTRALINE 50 MG TABLET PO SCH (09:00)
[2018-12-30] MEDS ORDERED: LOSARTAN 50 MG TABLET PO SCH (09:00)
[2018-12-30] MEDS ORDERED: FUROSEMIDE 40 MG/4 ML VIAL IVP SCH (09:00)
[2018-12-30] MEDS ORDERED: buPROPion XL 150 MG TABLET PO SCH (09:00)
[2018-12-30] MEDS: SODIUM CHLORIDE FLUSH 0.9% 10 ML SYRINGE IVP SCH ×3 (09:01→21:33)
[2018-12-30 11:04] LABS: CALCIUM 9.2 mg/dL (8.5-10.3); CREATININE 0.8 mg/dL (0.4-1.0)
[2018-12-30] MEDS ORDERED: POTASSIUM CHLORIDE 20 MEQ TABLET PO SCH (11:42)
[2018-12-30] MEDS: METOPROLOL SUCCINATE 25 MG TABLET PO SCH ×2 (12:14→21:33)
[2018-12-30] MEDS: VERAPAMIL ER 120 MG TABLET PO SCH (15:59)
[2018-12-30] MEDS: NYSTATIN POWDER 15 GM TOP SCH ×2 (17:05→21:33)
[2018-12-30] MEDS: RIVAROXABAN 10 MG TABLET PO SCH (17:05)
[2018-12-31 05:17] LABS: LYMPHOCYTES # (AUTO) 0.9 10^3/uL (1.5-3.5); LYMPHOCYTES % (AUTO) 12.7 %; PLT - PLATELET COUNT 176 10^3/uL (130-450)
[2018-12-31 05:24] LABS: BASOPHILS % (AUTO) 0.1 %; EOSINOPHILS # (AUTO) 0.1 10^3/uL (0.0-0.7); EOSINOPHILS % (AUTO) 1.4 %; HGB - HEMOGLOBIN 12.4 g/dL (12.0-16.0); MEAN CORPUSCULAR HEMOGLOBIN 27.4 pg (27.0-31.0); MEAN CORPUSCULAR HGB CONC 31.2 g/dL (32.0-36.0); MEAN CORPUSCULAR VOLUME 87.9 fL (81.0-99.0); MEAN PLATELET VOLUME 12.2 fL (7.9-10.8); MONOCYTES # (AUTO) 0.8 10^3/uL (0.0-1.0); MONOCYTES % (AUTO) 11.4 %; NEUTROPHILS # (AUTO) 5.2 10^3/uL (1.5-6.6); NEUTROPHILS % (AUTO) 74.3 %; RED BLOOD COUNT 4.53 10^6/uL (4.20-5.40); RED CELL DISTRIBUTION WIDTH 13.9 % (12.0-15.0)
[2018-12-31 05:26] LABS: CALCIUM 9.1 mg/dL (8.5-10.3); CREATININE 0.8 mg/dL (0.4-1.0); MAGNESIUM 1.9 mg/dL (1.7-2.8); PHOSPHORUS 3.1 mg/dL (2.5-4.6)
[2018-12-31 05:35] LABS: CHOL/HDL RATIO 3.2 (<4.4); CHOLESTEROL 111 mg/dL; HDL CHOLESTEROL 35 mg/dL; LDL CHOLESTEROL,CALCULATED 51 mg/dL; LDL/HDL RATIO 1.5 (<4.4); VLDL CHOLESTEROL 25 mg/dL
--- NOTE | 2018-12-31 06:21 | XRAY Report ---
Reason: F/U CHF Procedure Date: 12/31/2018 Accession Number: [id number] / [id number] Procedure: XR - Chest 1 View X-Ray CPT Code: 08525 FULL RESULT: EXAM: CHEST RADIOGRAPHY EXAM DATE: 12/31/2018 05:43 AM. CLINICAL HISTORY: Follow-up congestive heart failure. COMPARISON: 12/29/2018. TECHNIQUE: 1 view. FINDINGS: Lungs/Pleura: Mild pulmonary vascular congestion. Possible mild atelectasis or infiltrate at the left base. Minimal pleural effusions are not excluded. No pneumothorax. Mediastinum: Within exam limitations, there is mild to moderate cardiomegaly. Aortic atherosclerosis is seen. Other: Osteopenia. IMPRESSION: 1. Cardiomegaly and mild pulmonary vascular congestion. 2. Possible mild atelectasis or infiltrate at the left base. RADIA
[2018-12-31] MEDS: PANTOPRAZOLE 40 MG TABLET PO SCH (06:30)
[2018-12-31] MEDS: ASPIRIN EC 81 MG TABLET PO SCH (08:27)
[2018-12-31] MEDS: SERTRALINE 50 MG TABLET PO SCH (08:28)
[2018-12-31] MEDS: POLYETHYLENE GLYCOL 3350 17 GM PACKET PO SCH (08:28)
[2018-12-31] MEDS: METOPROLOL SUCCINATE 25 MG TABLET PO SCH (08:28)
[2018-12-31] MEDS: buPROPion XL 150 MG TABLET PO SCH (08:28)
[2018-12-31] MEDS: VERAPAMIL ER 120 MG TABLET PO SCH (08:28)
[2018-12-31] MEDS: SODIUM CHLORIDE FLUSH 0.9% 10 ML SYRINGE IVP SCH ×2 (08:32→16:58)
[2018-12-31] MEDS: NYSTATIN POWDER 15 GM TOP SCH ×2 (08:54→21:14)
[2018-12-31] MEDS ORDERED: VERAPAMIL ER 120 MG TABLET PO SCH (09:00)
--- NOTE | 2018-12-31 11:44 | PROVIDER PROGRESS NOTE ---
Assessment/Plan - Problem List (1) Acute CVA (cerebrovascular accident) Assessment/Plan: There was improvement in her overall weakness when she walked with PT but she still had trouble coordinating utensils with breakfast. OT evaluation pending tomorrow. (2) Acute on chronic diastolic CHF (congestive heart failure) Assessment/Plan: IV Lasix today, changed to p.o. Lasix tomorrow. Continue her beta-nanette . (3) Dysuria Assessment/Plan: Will obtain urinalysis and culture if indicated. Start Pyridium (4) Flash pulmonary edema Assessment/Plan: Improved, will recheck a chest (5) Hypertensive emergency Assessment/Plan: Improved from the 200s at presentation. Now we are allowing permissive hypertension because of the acute stroke. We will start titrating up her blood pressure medication doses slowly (6) COPD (chronic obstructive pulmonary disease) Assessment/Plan: No wheezing, no cough or sputum. Continue PRN nebulized (7) Chronic a-fib Assessment/Plan: Heart rate is controlled. She continues on her anticoagulant. (8) GUILLERMO (obstructive sleep apnea) Assessment/Plan: She is using her home CPAP device while (9) Depression Assessment/Plan: She remains in good spirits. She is on her home antidepressants while here - Current Meds Current Meds: Current Medications Generic Name Dose Route Start Last Admin Trade Name Dayana PRN Reason Stop Dose Admin Aspirin 81 mg 12/31/18 09:00 12/31/18 08:27 Ecotrin PO 81 mg DAILY ALVA Administration Bupropion HCl 150 mg 12/30/18 09:00 12/31/18 08:28 Wellbutrin Xl PO 150 mg DAILY ALVA Administration Metoprolol Succinate 25 mg 12/30/18 12:00 12/31/18 08:28 Toprol Xl PO 12/31/18 16:00 25 mg BID ALVA Administration Nystatin 1 applic 12/29/18 22:00 12/31/18 08:54 Nystop TOP 1 applic BID ALVA Administration Pantoprazole Sodium 40 mg 12/30/18 07:00 12/31/18 06:30 Protonix PO 40 mg QDAC ALVA Administration Polyethylene Glycol 17 gm 12/31/18 09:00 12/31/18 08:28 Miralax PO 17 gm DAILY ALVA Administration Rivaroxaban 20 mg 12/29/18 21:27 12/30/18 17:05 Xarelto PO 20 mg 1700 ALVA Administration Sertraline HCl 50 mg 12/30/18 09:00 12/31/18 08:28 Zoloft PO 50 mg DAILY ALVA Administration Sodium Chloride 10 ml 12/30/18 01:00 12/31/18 08:32 Normal Saline Flush 0.9% IVP 10 ml 0100,0900,1700 ALVA Administration Verapamil HCl 120 mg 12/30/18 16:00 12/31/18 08:28 Calan Sa PO 12/31/18 20:00 120 mg DAILY ALVA Administration - Lab Result Fish Bone Diagrams: 12/31/18 04:25 12/31/18 04:25 - Additional Planning My Orders: My Active Orders 12/30/18 12:00 Metoprolol Succinate [Toprol Xl] 25 mg PO BID 12/30/18 16:00 Verapamil ER [Calan SA] 120 mg PO DAILY 12/31/18 09:00 Aspirin EC [Ecotrin] 81 mg PO DAILY 12/31/18 11:42 UA w/ MICROSCOPIC, CULT IF [URIN] Stat 12/31/18 12:00 Phenazopyridine [Pyridium] 100 mg PO TID 12/31/18 21:00 Atorvastatin [Lipitor] 80 mg PO QPM Metoprolol Tartrate [Lopressor] 50 mg PO BID 01/01/19 08:00 Echo Complete w/Bubble Study [ECHO] Routine 01/01/19 09:00 Verapamil ER [Calan SA] 240 mg PO DAILY Subjective - Subjective Patient Reports: Feeling Better, Other (c/o "urethral pain" reported to her RN, who noted area is redened) Objective Vital Signs: Vital Signs - 24 hr 12/30/18 12/30/18 12/30/18 11:53 12:00 13:00 Temperature Heart Rate Heart Rate [ 107 H Activity] Heart Rate [ 98 95 Monitoring electrodes] Respiratory 25 H 18 Rate Respiratory 14 Rate [With Activity] Blood Pressure 180/118 H [Activity] Blood Pressure 162/122 H 157/93 H [Left Radial artery] O2 Saturation 98 98 12/30/18 12/30/18 12/30/18 14:00 15:00 16:00 Temperature 97.6 C H Heart Rate Heart Rate [ Activity] Heart Rate [ 83 88 78 Monitoring electrodes] Respiratory 15 14 23 Rate Respiratory Rate [With Activity] Blood Pressure [Activity] Blood Pressure 160/98 H 172/125 H 171/107 H [Left Radial artery] O2 Saturation 98 100 100 12/30/18 12/30/18 12/30/18 17:00 18:00 19:00 Temperature Heart Rate Heart Rate [ Activity] Heart Rate [ 91 83 77 Monitoring electrodes] Respiratory 20 16 18 Rate Respiratory Rate [With Activity] Blood Pressure [Activity] Blood Pressure 181/131 H 154/87 H 161/95 H [Left Radial artery] O2 Saturation 99 100 97 12/30/18 12/30/18 12/30/18 20:00 20:30 21:00 Temperature Heart Rate 81 Heart Rate [ Activity] Heart Rate [ 75 81 Monitoring electrodes] Respiratory 12 18 18 Rate Respiratory Rate [With Activity] Blood Pressure [Activity] Blood Pressure 162/94 H 177/129 H [Left Radial artery] O2 Saturation 100 100 12/30/18 12/30/18 12/30/18 22:00 22:41 23:00 Temperature 36.4 C L Heart Rate Heart Rate [ Activity] Heart Rate [ 87 88 78 Monitoring electrodes] Respiratory 22 21 23 Rate Respiratory Rate [With Activity] Blood Pressure [Activity] Blood Pressure 189/116 H 167/94 H 158/96 H [Left Radial artery] O2 Saturation 95 96 99 12/31/18 12/31/18 12/31/18 00:00 01:00 02:00 Temperature Heart Rate Heart Rate [ Activity] Heart Rate [ 79 82 78 Monitoring electrodes] Respiratory 12 13 15 Rate Respiratory Rate [With Activity] Blood Pressure [Activity] Blood Pressure 154/82 H 146/91 H 155/101 H [Left Radial artery] O2 Saturation 95 99 100 12/31/18 12/31/18 12/31/18 03:00 03:30 04:00 Temperature 36.6 C Heart Rate Heart Rate [ Activity] Heart Rate [ 86 88 Monitoring electrodes] Respiratory 18 19 Rate Respiratory Rate [With Activity] Blood Pressure [Activity] Blood Pressure 164/92 H 172/101 H [Left Radial artery] O2 Saturation 99 100 12/31/18 12/31/18 12/31/18 05:00 05:59 06:08 Temperature Heart Rate Heart Rate [ Activity] Heart Rate [ 86 88 Monitoring electrodes] Respiratory 11 L 21 21 Rate Respiratory Rate [With Activity] Blood Pressure [Activity] Blood Pressure 163/94 H 166/98 H [Left Radial artery] O2 Saturation 100 99 100 12/31/18 12/31/18 07:00 08:00 Temperature Heart Rate Heart Rate [ Activity] Heart Rate [ 87 88 Monitoring electrodes] Respiratory 13 16 Rate Respiratory Rate [With Activity] Blood Pressure [Activity] Blood Pressure 160/112 H 169/119 H [Left Radial artery] O2 Saturation 100 100 Oxygen O2 Source [With Activity] Nasal cannula O2 Source NC with humidity Oxygen Flow Rate 4 I&O (Last 24 Hrs): Intake and Output Totals x24h 12/29/18 12/30/18 12/31/18 23:59 23:59 23:59 Intake Total 1340 400 Output Total 150 700 Balance -150 640 400 General: Alert, Oriented x3 HEENT: Mucous membr. moist/pink Neck: Supple, No JVD Neuro: Other (L hand strength 4/5 but discoordination) Cardiovascular: No murmurs Respiratory: Breath sounds nml, Other (RR 20's) Abdomen: Soft, Other (Obese) Extremities: No edema - Results Results: Laboratory Results WBC 7.0 x10^3/uL (4.8-10.8) 12/31/18 04:25 RBC 4.53 10^6/uL (4.20-5.40) 12/31/18 04:25 Hgb 12.4 g/dL (12.0-16.0) 12/31/18 04:25 Hct 39.8 % (37.0-47.0) 12/31/18 04:25 MCV 87.9 fL (81.0-99.0) 12/31/18 04:25 MCH 27.4 pg (27.0-31.0) 12/31/18 04:25 MCHC 31.2 g/dL (32.0-36.0) L 12/31/18 04:25 RDW 13.9 % (12.0-15.0) 12/31/18 04:25 Plt Count 176 10^3/uL (130-450) 12/31/18 04:25 MPV 12.2 fL (7.9-10.8) H 12/31/18 04:25 Neut # (Auto) 5.2 10^3/uL (1.5-6.6) 12/31/18 04:25 Lymph # (Auto) 0.9 10^3/uL (1.5-3.5) L 12/31/18 04:25 [place] # (Auto) 0.8 10^3/uL (0.0-1.0) 12/31/18 04:25 Eos # (Auto) 0.1 10^3/uL (0.0-0.7) 12/31/18 04:25 Baso # (Auto) 0.0 10^3/uL (0.0-0.1) 12/31/18 04:25 Absolute Nucleated RBC 0.00 x10^3/uL 12/31/18 04:25 Nucleated RBC % 0.0 /100WBC 12/31/18 04:25 PT 22.4 secs (9.9-12.6) H 12/30/18 08:15 INR 2.0 (0.8-1.2) H 12/30/18 08:15 APTT 50.1 secs (24.9-33.3) H 12/30/18 08:15 Bld Gas Analysis Time 1950 12/29/18 19:40 Sample Site RIGHT RADIAL 12/29/18 19:40 ABG pH 7.34 (7.35-7.45) L 12/29/18 19:40 ABG pCO2 45 mmHg (34-45) 12/29/18 19:40 ABG pO2 122 mmHg (80-100) H 12/29/18 19:40 ABG HCO3 23.6 mmol/L (22.0-26.0) 12/29/18 19:40 ABG Total CO2 24.9 MMOL/L (21.0-29.0) 12/29/18 19:40 ABG O2 Saturation 98 % (94-98) 12/29/18 19:40 ABG Base Excess -2.3 mmol/L (-2.0-3.0) L 12/29/18 19:40 Nikita Test POSITIVE 12/29/18 19:40 O2 Delivery Device BiPAP 12/29/18 19:40 FiO2 50.00 12/29/18 19:40 EPAP 5 cmH2O 12/29/18 19:40 IPAP 12 cmH2O 12/29/18 19:40 Sodium 139 mmol/L (135-145) 12/31/18 04:25 Potassium 4.2 mmol/L (3.5-5.0) 12/31/18 04:25 Chloride 102 mmol/L (101-111) 12/31/18 04:25 Carbon Dioxide 25 mmol/L (21-32) 12/31/18 04:25 Anion Gap 12.0 (6-13) 12/31/18 04:25 BUN 16 mg/dL (6-20) 12/31/18 04:25 Creatinine 0.8 mg/dL (0.4-1.0) 12/31/18 04:25 Estimated GFR (MDRD) 69 (>89) L 12/31/18 04:25 Glucose 115 mg/dL (70-100) H 12/31/18 04:25 Calcium 9.1 mg/dL (8.5-10.3) 12/31/18 04:25 Phosphorus 3.1 mg/dL (2.5-4.6) 12/31/18 04:25 Magnesium 1.9 mg/dL (1.7-2.8) 12/31/18 04:25 Total Bilirubin 1.3 mg/dL (0.2-1.0) H 12/29/18 18:28 AST 38 IU/L (10-42) 12/29/18 18:28 ALT 25 IU/L (10-60) 12/29/18 18:28 Alkaline Phosphatase 86 IU/L (42-121) 12/29/18 18:28 Troponin I < 0.04 ng/mL (<0.49) 12/30/18 00:25 Troponin I High Sens 36.1 pg/mL (2.3-14.8) H* 12/30/18 06:05 B-Natriuretic Peptide 689 pg/mL (5-100) H 12/31/18 04:25 Total Protein 7.5 g/dL (6.7-8.2) 12/29/18 18:28 Albumin 4.1 g/dL (3.2-5.5) 12/29/18 18:28 Globulin 3.4 g/dL (2.1-4.2) 12/29/18 18:28 Albumin/Globulin Ratio 1.2 (1.0-2.2) 12/29/18 18:28 Triglycerides 123 mg/dL (-149) 12/31/18 04:25 Cholesterol 111 mg/dL (-199) 12/31/18 04:25 LDL Cholesterol, Calc 51 mg/dL (-129) 12/31/18 04:25 VLDL Cholesterol 25 mg/dL 12/31/18 04:25 HDL Cholesterol 35 mg/dL (60-) L 12/31/18 04:25 LDL/HDL Ratio 1.5 (<4.4) 12/31/18 04:25 Cholesterol/HDL Ratio 3.2 (<4.4) 12/31/18 04:25 Lipase 21 U/L (22-51) L 12/29/18 18:28 Nasal Screen MRSA (PCR) NEGATIVE (NEGATIVE) 12/29/18 20:35
[2018-12-31] MEDS ORDERED: FUROSEMIDE 20 MG/2 ML VIAL IVP SCH (12:00)
[2018-12-31] MEDS: PHENAZOPYRIDINE 100 MG TABLET PO SCH ×3 (12:09→21:14)
[2018-12-31] MEDS: RIVAROXABAN 10 MG TABLET PO SCH (16:58)
[2018-12-31 18:33] LABS: BILIRUBIN,URINE NEGATIVE (NEGATIVE); GLUCOSE, URINE (UA) NEGATIVE (NEGATIVE); KETONES,URINE (UA) NEGATIVE (NEGATIVE); LEUKOCYTE ESTERASE, URINE SMALL (NEGATIVE); NITRITE,URINE POSITIVE (NEGATIVE); OCCULT BLOOD,URINE NEGATIVE (NEGATIVE); PROTEIN,URINE NEGATIVE (NEGATIVE); UROBILINOGEN,URINE 1 (NORMAL) E.U./dL (NORMAL)
[2018-12-31 18:43] LABS: BACTERIA,URINE Few /HPF (None Seen); CLARITY,URINE HAZY (CLEAR); RBC,URINE 0-5 /HPF (0-5); SQUAMOUS EPITHELIAL CELL,UR FEW Squamous (<= Few)
[2018-12-31] MEDS: ATORVASTATIN 40 MG TABLET PO SCH (21:13)
[2018-12-31] MEDS: METOPROLOL TARTRATE 50 MG TABLET PO SCH (21:13)
[2018-12-31] MEDS ORDERED: MIN OIL/DIMETHICON/COCONUT OIL 92 GM TUBE TOP PRN (22:33)
[2019-01-01] MEDS: SODIUM CHLORIDE FLUSH 0.9% 10 ML SYRINGE IVP SCH ×3 (02:09→16:34)
[2019-01-01] MEDS ORDERED: ACETAMINOPHEN 500 MG TABLET PO PRN (02:13)
[2019-01-01] MEDS: PHENAZOPYRIDINE 100 MG TABLET PO SCH ×3 (06:02→20:38)
[2019-01-01] MEDS: PANTOPRAZOLE 40 MG TABLET PO SCH (06:02)
[2019-01-01 06:22] LABS: BASOPHILS % (AUTO) 0.2 %; EOSINOPHILS # (AUTO) 0.1 10^3/uL (0.0-0.7); EOSINOPHILS % (AUTO) 1.8 %; LYMPHOCYTES # (AUTO) 0.8 10^3/uL (1.5-3.5); LYMPHOCYTES % (AUTO) 11.5 %; MEAN CORPUSCULAR HEMOGLOBIN 27.5 pg (27.0-31.0); MEAN CORPUSCULAR HGB CONC 31.3 g/dL (32.0-36.0); MEAN CORPUSCULAR VOLUME 87.6 fL (81.0-99.0); MEAN PLATELET VOLUME 12.1 fL (7.9-10.8); MONOCYTES # (AUTO) 0.7 10^3/uL (0.0-1.0); NEUTROPHILS # (AUTO) 4.9 10^3/uL (1.5-6.6); NEUTROPHILS % (AUTO) 75.3 %; PLT - PLATELET COUNT 176 10^3/uL (130-450); RED BLOOD COUNT 4.37 10^6/uL (4.20-5.40); RED CELL DISTRIBUTION WIDTH 13.6 % (12.0-15.0); WHITE BLOOD COUNT 6.5 x10^3/uL (4.8-10.8)
[2019-01-01 06:31] LABS: CREATININE 0.8 mg/dL (0.4-1.0); MAGNESIUM 1.9 mg/dL (1.7-2.8); PHOSPHORUS 3.4 mg/dL (2.5-4.6)
[2019-01-01] MEDS ORDERED: POTASSIUM CHLORIDE 20 MEQ TABLET PO ONE (06:40)
[2019-01-01] MEDS: METOPROLOL TARTRATE 50 MG TABLET PO SCH ×2 (06:51→20:39)
[2019-01-01] MEDS: SERTRALINE 50 MG TABLET PO SCH (09:38)
[2019-01-01] MEDS: buPROPion XL 150 MG TABLET PO SCH (09:38)
[2019-01-01] MEDS: ASPIRIN EC 81 MG TABLET PO SCH (09:39)
[2019-01-01] MEDS: NYSTATIN POWDER 15 GM TOP SCH ×2 (09:39→20:39)
[2019-01-01] MEDS: VERAPAMIL ER 120 MG TABLET PO SCH (09:40)
[2019-01-01] MEDS: POLYETHYLENE GLYCOL 3350 17 GM PACKET PO SCH (09:40)
[2019-01-01] MEDS: FUROSEMIDE 40 MG TABLET PO SCH (11:53)
[2019-01-01] MEDS: RIVAROXABAN 10 MG TABLET PO SCH (16:34)
--- NOTE | 2019-01-01 17:50 | PROVIDER PROGRESS NOTE ---
Assessment/Plan - Problem List (1) Acute CVA (cerebrovascular accident) Assessment/Plan: She has had some recovery of fine motor ability of the L hand, since admission, but needs more rehab. Special adaptions for fork and spoon were ordered by the Occupational Therapist for her, which she used for meals today. The patient wanted to go home with Home Health and therefore a Referral was ordered for Home Health yesterday. Today, when the daughter was at bedside, and they both heard what the caregiver will need to do to help her with ADLs, from the Occupational Therapist, and the daughter stated she could not perform those things, due to her own medical problems. Then the patient agreed to go to a SNF. I told SW, and they need to choice her. Possible DCh to SNF tomorrow. She was continued on her home anticoagulant this entire admission and baby ASA daily was started. (2) Acute on chronic diastolic CHF (congestive heart failure) Assessment/Plan: She is able to lay supine and is not SOBN. Continue with po Lasix and her other cardiac meds. (3) Dysuria Assessment/Plan: The Pyridium helped her symptoms. The urine culture grew skin organisms; no antibiotic had been started. (4) Flash pulmonary edema Assessment/Plan: Resolved with treatment of HTN and with iv diuretics. Continue po diuretics as pre-admission now. (5) Hypertensive emergency Assessment/Plan: Resolved with meds and BP improved to 120's systolic. Then her BP meds were put on hold and resumed by titrating up to her usual doses, to allow permissive HTN for several days, due to the he subacute CVA this admission. (6) COPD (chronic obstructive pulmonary disease) Assessment/Plan: No exacerbation. She is on nebs. (7) Chronic a-fib Assessment/Plan: Rate is controlled and she was continued on her home anticoagulant this entire admission. (8) GUILLERMO (obstructive sleep apnea) Assessment/Plan: Home CPAP device used while here. (9) Depression Assessment/Plan: Home anti-depressants used while here. - Current Meds Current Meds: Current Medications Generic Name Dose Route Start Last Admin Trade Name Freq PRN Reason Stop Dose Admin Acetaminophen 500 mg 01/01/19 02:13 01/01/19 09:39 Tylenol PO 500 mg Q4HR PRN Administration Pain or Fever > 38C (100.4F) Aspirin 81 mg 12/31/18 09:00 01/01/19 09:39 Ecotrin PO 81 mg DAILY ALVA Administration Atorvastatin Calcium 80 mg 12/31/18 21:00 12/31/18 21:13 Lipitor PO 80 mg QPM ALVA Administration Bupropion HCl 150 mg 12/30/18 09:00 01/01/19 09:38 Wellbutrin Xl PO 150 mg DAILY ALVA Administration Furosemide 80 mg 01/01/19 11:00 01/01/19 11:53 Lasix PO 80 mg DAILY ALVA Administration Metoprolol Tartrate 50 mg 12/31/18 21:00 01/01/19 06:51 Lopressor PO 50 mg BID ALVA Administration Nystatin 1 applic 12/29/18 22:00 01/01/19 09:39 Nystop TOP 1 applic BID ALVA Administration Pantoprazole Sodium 40 mg 12/30/18 07:00 01/01/19 06:02 Protonix PO 40 mg QDAC ALVA Administration Phenazopyridine HCl 100 mg 12/31/18 12:00 01/01/19 14:15 Pyridium PO 100 mg TID ALVA Administration Polyethylene Glycol 17 gm 12/31/18 09:00 01/01/19 09:40 Miralax PO 17 gm DAILY ALVA Administration Rivaroxaban 20 mg 12/29/18 21:27 01/01/19 16:34 Xarelto PO 20 mg 1700 ALVA Administration Sertraline HCl 50 mg 12/30/18 09:00 01/01/19 09:38 Zoloft PO 50 mg DAILY ALVA Administration Sodium Chloride 10 ml 12/29/18 19:56 01/01/19 09:39 Normal Saline Flush 0.9% IVP 10 ml PRN PRN Administration NEEDED PER PROVIDER ORDERS Sodium Chloride 10 ml 12/30/18 01:00 01/01/19 16:34 Normal Saline Flush 0.9% IVP 10 ml 0100,0900,1700 ALVA Administration Verapamil HCl 240 mg 01/01/19 09:00 01/01/19 09:40 Calan Sa PO 240 mg DAILY ALVA Administration - Lab Result Fish Bone Diagrams: 01/01/19 05:40 01/01/19 05:40 - Additional Planning My Orders: My Active Orders 12/31/18 17:51 CUL, URINE [RM] Stat 12/31/18 21:00 Atorvastatin [Lipitor] 80 mg PO QPM Metoprolol Tartrate [Lopressor] 50 mg PO BID 01/01/19 Home Health Referral [CONS] Routine 01/01/19 09:00 Verapamil ER [Calan SA] 240 mg PO DAILY 01/01/19 11:00 Furosemide [Lasix] 80 mg PO DAILY 01/02/19 08:00 Echo Complete w/Bubble Study [ECHO] Routine Subjective - Subjective Patient Reports: Feeling Better, Resting Comfortably Nursing Reports: Other (PT and OT both noted that she is very deconditioned and gets SOB easily.) Objective Vital Signs: Vital Signs - 24 hr 12/31/18 12/31/18 01/01/19 20:34 23:53 05:42 Temperature 36.7 C 36.9 C 36.8 C Heart Rate Heart Rate [ Activity] Heart Rate [ 94 87 91 Monitoring electrodes] Respiratory 20 18 18 Rate Respiratory Rate [With Activity] Blood Pressure Blood Pressure [Activity] Blood Pressure 152/85 H 156/97 H 169/106 H [Left Radial artery] Blood Pressure [Right Radial artery] O2 Saturation 100 98 93 01/01/19 01/01/19 01/01/19 06:13 06:51 07:50 Temperature 36.6 C Heart Rate Heart Rate [ Activity] Heart Rate [ 88 Monitoring electrodes] Respiratory 18 Rate Respiratory Rate [With Activity] Blood Pressure 180/99 H Blood Pressure [Activity] Blood Pressure 180/99 H 151/106 H [Left Radial artery] Blood Pressure [Right Radial artery] O2 Saturation 99 01/01/19 01/01/19 01/01/19 10:30 11:54 11:58 Temperature 36.4 C L Heart Rate 86 Heart Rate [ 107 H Activity] Heart Rate [ 71 Monitoring electrodes] Respiratory 16 18 Rate Respiratory 14 Rate [With Activity] Blood Pressure Blood Pressure 180/118 H [Activity] Blood Pressure 152/108 H [Left Radial artery] Blood Pressure [Right Radial artery] O2 Saturation 99 01/01/19 15:35 Temperature 36.6 C Heart Rate Heart Rate [ Activity] Heart Rate [ 78 Monitoring electrodes] Respiratory 18 Rate Respiratory Rate [With Activity] Blood Pressure Blood Pressure [Activity] Blood Pressure [Left Radial artery] Blood Pressure 148/81 H [Right Radial artery] O2 Saturation 98 Oxygen O2 Source [With Activity] Nasal cannula O2 Source Nasal cannula Oxygen Flow Rate 4 I&O (Last 24 Hrs): Intake and Output Totals x24h 12/30/18 12/31/18 01/01/19 23:59 23:59 23:59 Intake Total 1340 1030 480 Output Total 700 1300 275 Balance 640 -270 205 General: Alert, Oriented x3 HEENT: Mucous membr. moist/pink Neck: Supple Neuro: Other (L fingers have mild motor problems grossly.) Cardiovascular: No murmurs Respiratory: No respiratory distress, Breath sounds nml Abdomen: Soft, Other (Obese) Extremities: Other (Trace ankle edema) - Results Results: Laboratory Results WBC 6.5 x10^3/uL (4.8-10.8) 01/01/19 05:40 RBC 4.37 10^6/uL (4.20-5.40) 01/01/19 05:40 Hgb 12.0 g/dL (12.0-16.0) 01/01/19 05:40 Hct 38.3 % (37.0-47.0) 01/01/19 05:40 MCV 87.6 fL (81.0-99.0) 01/01/19 05:40 MCH 27.5 pg (27.0-31.0) 01/01/19 05:40 MCHC 31.3 g/dL (32.0-36.0) L 01/01/19 05:40 RDW 13.6 % (12.0-15.0) 01/01/19 05:40 Plt Count 176 10^3/uL (130-450) 01/01/19 05:40 MPV 12.1 fL (7.9-10.8) H 01/01/19 05:40 Neut # (Auto) 4.9 10^3/uL (1.5-6.6) 01/01/19 05:40 Lymph # (Auto) 0.8 10^3/uL (1.5-3.5) L 01/01/19 05:40 [place] # (Auto) 0.7 10^3/uL (0.0-1.0) 01/01/19 05:40 Eos # (Auto) 0.1 10^3/uL (0.0-0.7) 01/01/19 05:40 Baso # (Auto) 0.0 10^3/uL (0.0-0.1) 01/01/19 05:40 Absolute Nucleated RBC 0.00 x10^3/uL 01/01/19 05:40 Nucleated RBC % 0.0 /100WBC 01/01/19 05:40 PT 22.4 secs (9.9-12.6) H 12/30/18 08:15 INR 2.0 (0.8-1.2) H 12/30/18 08:15 APTT 50.1 secs (24.9-33.3) H 12/30/18 08:15 Bld Gas Analysis Time 1950 12/29/18 19:40 Sample Site RIGHT RADIAL 12/29/18 19:40 ABG pH 7.34 (7.35-7.45) L 12/29/18 19:40 ABG pCO2 45 mmHg (34-45) 12/29/18 19:40 ABG pO2 122 mmHg (80-100) H 12/29/18 19:40 ABG HCO3 23.6 mmol/L (22.0-26.0) 12/29/18 19:40 ABG Total CO2 24.9 MMOL/L (21.0-29.0) 12/29/18 19:40 ABG O2 Saturation 98 % (94-98) 12/29/18 19:40 ABG Base Excess -2.3 mmol/L (-2.0-3.0) L 12/29/18 19:40 Nikita Test POSITIVE 12/29/18 19:40 O2 Delivery Device BiPAP 12/29/18 19:40 FiO2 50.00 12/29/18 19:40 EPAP 5 cmH2O 12/29/18 19:40 IPAP 12 cmH2O 12/29/18 19:40 Sodium 139 mmol/L (135-145) 01/01/19 05:40 Potassium 3.5 mmol/L (3.5-5.0) 01/01/19 05:40 Chloride 99 mmol/L (101-111) L 01/01/19 05:40 Carbon Dioxide 27 mmol/L (21-32) 01/01/19 05:40 Anion Gap 13.0 (6-13) 01/01/19 05:40 BUN 14 mg/dL (6-20) 01/01/19 05:40 Creatinine 0.8 mg/dL (0.4-1.0) 01/01/19 05:40 Estimated GFR (MDRD) 69 (>89) L 01/01/19 05:40 Glucose 112 mg/dL (70-100) H 01/01/19 05:40 Calcium 9.0 mg/dL (8.5-10.3) 01/01/19 05:40 Phosphorus 3.4 mg/dL (2.5-4.6) 01/01/19 05:40 Magnesium 1.9 mg/dL (1.7-2.8) 01/01/19 05:40 Total Bilirubin 1.3 mg/dL (0.2-1.0) H 12/29/18 18:28 AST 38 IU/L (10-42) 12/29/18 18:28 ALT 25 IU/L (10-60) 12/29/18 18:28 Alkaline Phosphatase 86 IU/L (42-121) 12/29/18 18:28 Troponin I < 0.04 ng/mL (<0.49) 12/30/18 00:25 Troponin I High Sens 36.1 pg/mL (2.3-14.8) H* 12/30/18 06:05 B-Natriuretic Peptide 689 pg/mL (5-100) H 12/31/18 04:25 Total Protein 7.5 g/dL (6.7-8.2) 12/29/18 18:28 Albumin 4.1 g/dL (3.2-5.5) 12/29/18 18:28 Globulin 3.4 g/dL (2.1-4.2) 12/29/18 18:28 Albumin/Globulin Ratio 1.2 (1.0-2.2) 12/29/18 18:28 Triglycerides 123 mg/dL (-149) 12/31/18 04:25 Cholesterol 111 mg/dL (-199) 12/31/18 04:25 LDL Cholesterol, Calc 51 mg/dL (-129) 12/31/18 04:25 VLDL Cholesterol 25 mg/dL 12/31/18 04:25 HDL Cholesterol 35 mg/dL (60-) L 12/31/18 04:25 LDL/HDL Ratio 1.5 (<4.4) 12/31/18 04:25 Cholesterol/HDL Ratio 3.2 (<4.4) 12/31/18 04:25 Lipase 21 U/L (22-51) L 12/29/18 18:28 Urine Color ORANGE 12/31/18 17:51 Urine Clarity HAZY (CLEAR) 12/31/18 17:51 Urine pH 5.0 PH (5.0-7.5) 12/31/18 17:51 Ur Specific [place] 1.010 (1.002-1.030) 12/31/18 17:51 Urine Protein NEGATIVE mg/dL (NEGATIVE) 12/31/18 17:51 Urine Glucose (UA) NEGATIVE mg/dL (NEGATIVE) 12/31/18 17:51 Urine Ketones NEGATIVE mg/dL (NEGATIVE) 12/31/18 17:51 Urine Occult Blood NEGATIVE (NEGATIVE) 12/31/18 17:51 Urine Nitrite POSITIVE (NEGATIVE) H 12/31/18 17:51 Urine Bilirubin NEGATIVE (NEGATIVE) 12/31/18 17:51 Urine Urobilinogen 1 (NORMAL) E.U./dL (NORMAL) 12/31/18 17:51 Ur Leukocyte Esterase SMALL (NEGATIVE) H 12/31/18 17:51 Urine RBC 0-5 /HPF (0-5) 12/31/18 17:51 Urine WBC 6-10 /HPF (0-5) H 12/31/18 17:51 Ur Squamous Epith Cells FEW Squamous (<= Few) 12/31/18 17:51 Urine Bacteria Few /HPF (None Seen) 12/31/18 17:51 Urine Culture Comments INDICATED 12/31/18 17:51 Nasal Screen MRSA (PCR) NEGATIVE (NEGATIVE) 12/29/18 20:35
[2019-01-01] MEDS: ATORVASTATIN 40 MG TABLET PO SCH (20:39)
[2019-01-02] MEDS: SODIUM CHLORIDE FLUSH 0.9% 10 ML SYRINGE IVP SCH ×2 (00:18→10:09)
[2019-01-02] MEDS: PANTOPRAZOLE 40 MG TABLET PO SCH (06:06)
[2019-01-02] MEDS: PHENAZOPYRIDINE 100 MG TABLET PO SCH ×2 (06:06→14:47)
--- NOTE | 2019-01-02 09:22 | Discharge Plan ---
"Discharge Plan for SNF / [facility] - Discharge Plan And Transition Orders Problem Reviewed?: Yes Disposition: 03 SNF DC/Xfer Condition: Stable Allergies and Adverse Reactions: Allergies Allergy/AdvReac Type Severity Reaction Status Date / Time No Known Drug Allergies Allergy Verified 12/29/18 18:00 Health Concerns: You were brought to the hospital emergency room because of concerns of shortness of breath. After evaluating you we have found you to be with congestive heart failure, as well as a new stroke that is affected your left arm and has made you weak. Plan of Treatment: 1. For the acute congestive heart failure, your Lasix was changed to a pill to intravenous form. We also did an echocardiogram to reevaluate the pump function of your heart. We will try to see how strong the muscle is working. The results of that study, called an echocardiogram are pending at discharge. Please make sure Dr. Brizuela looks at that result to discuss that with you. You are now changed back to the pill form of Lasix. He will also take the other medications for congestive heart failure which include metoprolol and Micardis. Sometimes medicines like verapamil interfere with the treatment for congestive heart failure. Please discuss with your dice dealer if verapamil should be changed to something else. 2. CAT scan of your head is confirmed that you have had a small acute stroke. 3. Your atrial fibrillation rate was controlled with metoprolol. You are continued on Xarelto. 4. Because the stroke is left weekly, and needing help, he will be [facility] for a short time. 5. You have obstructive sleep apnea, has been using a CPAP machine while here. He will continue that at the rehab facility. Care Goals: To be able to be independent again, and to return to home. He will need to be able to dress herself, feed herself, and go to the bathroom by herself. - SNF / CUSTODIAL Transition Orders Admit to (Facility): [facility] Discharge Diagnosis: 1. Acute cerebrovascular accident with left body weakness 2. Acute on chronic diastolic congestive heart failure 3. Flash pulmonary edema 4. Hypertensive emergency 5. COPD without exacerbation 6. Chronic atrial fibrillation 7. Obstructive sleep apnea 8. Depression 9. Hypokalemia Medicare Certification Statement: I certify that [facility] is medically necessary on a continuing basis for any of the conditions for which she/he is receiving care during hospitalization. Notify PCP of admission and forward orders to primary provider for signature. Weight on admission and: Weekly Call PCP immediately if weight increases by: 2.2 kg Other Notification Orders: Call PCP immediately if patient develops dyspnea, chest pain/tightness or edema. House Bowel Program: Yes Additional Bowel Program Orders: If no BM after 2 days, nurse may give M.O.M. 30ml PO PRN and/or ducolax Supp 1 NV and/or MORGAN 250mg P.O., and/or senna 1-2 tabs PO. On day 3 nurse may give repeat above order until residents constipation is resolved. Annual Influenza Vaccine (between Jan 28 and August 27): Yes Two-step PPD per [facility] [id number] or approved exception documents: Yes Lab Tests or X-ray Orders: Weekly BMP and BNP Medication Orders: PLEASE REFER TO THE DISCHARGE MEDICATION LIST. Insulin Orders?: No - Medications New Prescriptions: Ipratropium/Albuterol [Duoneb] 3 ml INH Q6H PRN #1 neb PRN Reason: Wheezing - Diet Type: Geriatric Texture: Regular Liquids: Thin May have monthly special meal: Yes - Therapies | Activity Therapy: Evaluation | Treat if indicated: Speech, PT, OT Rehabilitation Potential: Return to independent living Activity: Activity as Tolerated Weight Bearing: Full Weight Assistance Devices: Wheelchair, Walker, Other (CPAP for GUILLERMO)"
[2019-01-02] MEDS: POLYETHYLENE GLYCOL 3350 17 GM PACKET PO SCH (10:07)
[2019-01-02] MEDS: buPROPion XL 150 MG TABLET PO SCH (10:07)
[2019-01-02] MEDS: SERTRALINE 50 MG TABLET PO SCH (10:08)
[2019-01-02] MEDS: METOPROLOL TARTRATE 50 MG TABLET PO SCH (10:08)
[2019-01-02] MEDS: FUROSEMIDE 40 MG TABLET PO SCH (10:08)
[2019-01-02] MEDS: VERAPAMIL ER 120 MG TABLET PO SCH (10:08)
[2019-01-02] MEDS: ASPIRIN EC 81 MG TABLET PO SCH (10:09)
[2019-01-02] MEDS: NYSTATIN POWDER 15 GM TOP SCH (10:09)
[2019-01-02 11:30] VITALS: BP 160/98
--- NOTE | 2019-01-08 01:48 | DISCHARGE SUMMARY ---
Physician: Juany Castillo MD DATE OF ADMISSION: 12/29/2018 DATE OF DISCHARGE: 01/02/2019 PRIMARY CARE PROVIDER: Daljit Brizuela MD DISCHARGE DIAGNOSES 1. Acute cerebrovascular accident with left body weakness. 2. Acute on chronic diastolic congestive heart failure. 3. Dysuria. 4. Acute pulmonary edema. 5. Hypertensive emergency. 6. Chronic obstructive pulmonary disease without exacerbation. 7. Chronic atrial fibrillation. 8. Obstructive sleep apnea. 9. Major depressive disorder. 10. Hypokalemia. DISCHARGE MEDICATIONS 1. Vitamin C 1000 mg daily. 2. Wellbutrin XL 150 mg daily. 3. Vitamin D 1000 units daily. 4. Ferrous sulfate 27 mg daily. 5. Lasix 80 mg daily. 6. Magnesium oxide 800 mg daily. 7. Metoprolol tartrate 50 mg p.o. b.i.d. 8. Sublingual nitroglycerin every 5 minutes p.r.n. chest pain. 9. KLor-Con 20 mEq in the morning and 10 mEq at night. 10. Xarelto 20 mg nightly. 11. Zoloft 50 mg daily. 12. Micardis 40 mg daily. 13. Verapamil extended release 240 mg daily. 14. Atorvastatin 80 mg nightly. 15. DuoNeb via nebulizer every 6 hours as needed. 16. Loperamide 2 mg p.r.n. diarrhea, max 6 a day. 17. Nystop application to affected [place]ah area b.i.d. topically. PRINCIPAL PROCEDURES 1. Echocardiogram with mild concentric left ventricular hypertrophy. Normal systolic function. Eje ction fraction 55%. Left atrium, mild to moderately dilated. Mild mitral and aortic regurgitation. Mild pulmonary hypertension with PASP 44 mmHg. 2. Chest x-ray: Stable cardiomegaly with mild diffuse bilateral airspace disease, could represent m ild pulmonary edema. Mild obscuration of right lateral base similar to prior x-ray. Second chest x- ray done 2 days later showed continued cardiomegaly and mild pulmonary edema/vascular congestion. 3. Head CT: Loss of oropeza-white differentiation at the right frontoparietal junction consistent with an area of late acute to early subacute cerebral infarction. Recommend correlation with the onset o f the patient's symptoms. There is no overt hemorrhagic transformation. Moderate degree of chronic small vessel ischemia and moderate generalized volume loss. 4. Urine culture with 10-50,000 colonies mL with polymicrobial growth indicating skin or other conta mination. REASON FOR ADMISSION: She is an 83-year-old female who has a past medical history for congestive hea rt failure with preserved ejection fraction, chronic atrial fibrillation on Xarelto, COPD on 3 liters per minute, obstructive sleep apnea on CPAP, who presents from home complaining of severe shortness of breath that began yesterday. Yesterday, it began mildly, but as the day progressed and into today , it became more severe. She has an occasional cough, but denies fever, chills, chest pain. She not iced worsening lower extremity edema, but denies orthopnea. Ambulation is limited due to her dyspnea . She says that she is compliant with her medications and she denies any increased salt consumption. She denies wheezing. In the emergency room, she looked very ill with respiratory distress. She wa s immediately placed on BiPAP. Vital signs were concerning for systolic blood pressure greater than 200. She was given nitroglycerin, Lasix IV, and DuoNeb with improvement. Chest x-ray showed mild pu lmonary edema and possible small pleural effusion. Labs were significant for a BNP in the 700s. She was admitted for further management of her acute on chronic respiratory failure with hypoxia. She w as felt to have had a hypertensive urgency causing the congestive heart failure. Family at the [facility] did discuss code status. The patient and the family wanted her to be a FULL CODE and they did wan t CPR or mechanical ventilation. HOSPITAL COURSE: The patient initially responded quite nicely to her treatment from the emergency ro om and that treatment was continued over the next day. Overnight, however, the patient began having left arm and hand weakness. She was unable to use it. She got better, and then the inability to use it was present again. Photograph Mounter was notified and she had a stat CT of the head to evaluate for str tej. CT confirmed subtle findings of stroke. She received 4 baby aspirin and a statin. She was robel nged to allow permissive hypertension. By then, blood pressure was much more controlled and ARB was discontinued to allow blood pressure to drift a little bit further up. Echocardiogram was ordered an d results were as above. OT and PT were started. She was able to sit with contact guard assist, nee ding verbal and tactile cues for positioning and technique. Able to perform a sit to stand transfer contact guard assist, but refused to walk for long distances because she was so tired and afraid of f alling. She walked maybe 20 feet. O2 tank was present with 3 liters of oxygen to ensure her saturat ion did not drop. Her acute on chronic diastolic heart failure improved on physical exam. BNP started at 733 and was 514 by the time of discharge. Echocardiogram is as above. She was kept on her Lasix with potassium supplement. She did complain of dysuria and was started on Pyridium. Urine culture was with contamination. She did not receive antibiotics. Her acute pulmonary edema/flash pulmonary edema was felt to be caused by her hypertensive urgency. I n retrospect, she may have been starting the beginnings of a stroke to cause the hypertensive emergen cy. That resolved. COPD remained without exacerbation during her stay. She received nebulizers on a scheduled basis 3 t imes a day, as well as p.r.n. She did not have any need for steroids or antibiotics. Chronic atrial fibrillation remained rate controlled. Xarelto had been present when she was admitted . Continued during her stay in spite of her stroke. Heart rate remained between the 80s and 90s. Obstructive sleep apnea was monitored. She did have her home CPAP brought in for her to use. When s he went to [facility] facility, that was sent with her. Major depressive disorder was without any exacerbation. She was continued on her home medications wh ile here. At discharge, temperature was 36.5, pulse 83 and irregular, blood pressure 160/98, respirations 20, 9 8% saturation with 2.5 liters nasal cannula. She required a 2-person assist to get out of bed, was a ble to follow commands. Oriented to place and why she was here. She used a walker to ambulate with two contact guard assist. She had prolonged exhalation on breathing, but no crackles, rhonchi, wheez ing or increased respiratory effort. She was irregularly irregular. Soft abdomen with hypoactive lito wel sounds. She was occasionally incontinent of urine and had a brief or a pad. She had mild nonpit ting bilateral lower extremity edema. Left body weakness in comparison to the right. No significant facial droop, and swallowing was still intact. On transfer to the [facility] facility, we are asking for PT, OT, and speech evaluation. We req uest her to followup with her primary care provider, Dr. Brizuela. Greater than 30 minutes was spent coordinating discharge. cc: Daljit Brizuela MD TD: 01/07/2019 15:30
== END 2019-01-02 14:40 | DRG 291 ==
LOC: EDUNIT# → ED 17:45 → ICU 19:56 → MS2 12-31 13:14
PROVIDERS: ADMIT Internal Medicine; ATTEND Specialist
DX: J44.1 Chronic obstructive pulmonary disease with (acute) exacerbation (principal); I11.0 Hypertensive heart disease with heart failure; I50.9 Heart failure, unspecified; J96.21 Acute and chronic respiratory failure with hypoxia; I63.9 Cerebral infarction, unspecified; I16.1 Hypertensive emergency; I50.33 Acute on chronic diastolic (congestive) heart failure; G83.22 Monoplegia of upper limb affecting left dominant side; R30.0 Dysuria; E87.5 Hyperkalemia; B37.9 Candidiasis, unspecified; J44.9 Chronic obstructive pulmonary disease, unspecified; I48.2 Chronic atrial fibrillation; G47.33 Obstructive sleep apnea (adult) (pediatric); F32.9 Major depressive disorder, single episode, unspecified; I27.20 Pulmonary hypertension, unspecified; I45.10 Unspecified right bundle-branch block; K21.9 Gastro-esophageal reflux disease without esophagitis; Z79.01 Long term (current) use of anticoagulants; Z99.81 Dependence on supplemental oxygen; Z79.899 Other long term (current) drug therapy; Z87.891 Personal history of nicotine dependence; Z79.51 Long term (current) use of inhaled steroids
CPT/HCPCS: 36415; 36600; 70450; 71045; 80048; 80053; 80061; 81001; 82803; 83690; 83735; 83880; 84100; 84484; 85025; 85610; 85730; 87086; 87150; 92610; 93005; 93306; 94660; 96374; 96375; 97116; 97162; 97166; 97530; 99285; 99291; A6250; A9270; 83721; 94640

== ENCOUNTER 2019-02-12 22:44 | Outpatient (CLI) | payer MEDICARE, OTHER | END 2019-02-12 22:45 | disposition critical access hospital (66) | LOC: EMS 22:44 | PROVIDERS: ATTEND Surgery | DX: R06.02 Shortness of breath (principal) | CPT/HCPCS: A0425; A0427 ==

== ENCOUNTER 2019-02-12 22:59 | Emergency (ER) | payer MEDICARE, OTHER ==
[2019-02-12] MEDS ORDERED: IPRATROPIUM/ALBUTEROL 3 ML NEB INH STA (23:05)
--- NOTE | 2019-02-12 23:05 | ED Physician Documentation ---
PD HPI DYSPNEA - Stated complaint Stated Complaint: SOA/ NAUSEA - History obtained from History obtained from: Patient, Family - History of Present Illness Timing - onset: Yesterday Timing - details: Gradual onset, Constant, Waxing and waning Pain level max: 0 Pain level now: 0 Inciting event(s): Other (no apparent inciting event) Improved by: Other (no ameliorating factors) Worsened by: Exertion Associated symptoms: Wheezing. No: Fever, Cough, Hemoptysis, Chest pain / discomfort, Palpitations Similar symptoms before: Diagnosis (CHF, COPD) Recently seen: Admitted (last month to [facility] for similar problem) - Additional information Additional information: BIBA. Patient c/o increasing dyspnea since yesterday, not improving with neb treatments at home. EMS gave duoneb en route without improvement. Patient uses 3 liters / minute [place] oxygen due to COPD. Review of Systems Constitutional: denies: Fever, Chills, Sweats Eyes: reports: Reviewed and negative Ears: reports: Reviewed and negative Nose: reports: Reviewed and negative Throat: reports: Reviewed and negative Cardiac: reports: Pedal edema. denies: Chest pain / pressure, Palpitations Respiratory: reports: Dyspnea, Wheezing. 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 - Present Medications Home Medications: Ambulatory Orders Medication Instructions Recorded Confirmed Bupropion HCl [Wellbutrin Xl] 150 mg PO DAILY 04/19/15 12/30/18 Telmisartan [Micardis] 40 mg PO DAILY 04/19/15 12/30/18 Nitroglycerin [Nitrostat] 0.4 mg PO Q5MX3 PRN 12/30/18 12/30/18 Atorvastatin [Lipitor] 80 mg PO QPM tablet 01/02/19 Metoprolol Tartrate 50 mg PO BID #1 01/02/19 12/30/18 Potassium Chloride [Klor-Con 10] 10 meq PO QDDINNER #1 01/02/19 12/30/18 Potassium Chloride [Klor-Con 10] 20 meq PO QDBREAKFAST 1 Days 01/02/19 12/30/18 Rivaroxaban [Xarelto] 20 mg PO 1700 #1 01/02/19 12/30/18 Verapamil HCl [Verapamil ER] 240 mg PO DAILY #1 01/02/19 12/30/18 Fluticasone/Salmeterol [Advair PRN 02/13/19 250-50 Diskus] Omeprazole 20 mg PO DAILY 02/13/19 02/13/19 - Allergies Allergies/Adverse Reactions: Allergies Allergy/AdvReac Type Severity Reaction Status Date / Time No Known Drug Allergies Allergy Verified 02/12/19 23:09 - Social History Does the pt smoke?: No Smoking Status: Never smoker Does the pt drink ETOH?: No Does the pt have substance abuse?: No - Immunizations Immunizations are current?: Yes - POLST Patient has POLST: No PD ED PE NORMAL - Vitals Vital signs reviewed: Yes - General General: Alert and oriented X 3, Well developed/nourished, Other (moderate respiratory distress, speaking in 1-2 word (abbreviated) answers) - HEENT HEENT: Moist mucous membranes - Neck Neck: Supple, no meningeal sign - Abdomen Abdomen: Soft, Non tender - Derm Derm: Other (mild cyanosis of bilateral feet, toes) - Neuro Neuro: Alert and oriented X 3 PD ED PE EXPANDED - Cardiac Cardiac: Tachy - Respiratory Respiratory: Distress, Wheezing, Rales, Decreased breath sounds - Extremities Extremities: Pedal edema bilateral (3+ BLE pitting edema with 3 second capillary refill, toes are cool and cyanotic) Results - Vitals Vitals: Vital Signs - 24 hr 02/12/19 02/12/19 02/13/19 23:02 23:52 00:02 Temperature 36.7 C Heart Rate 118 H 117 H 113 H Respiratory 28 H 20 Rate Blood Pressure 137/126 H 147/127 H O2 Saturation 99 98 02/13/19 02/13/19 02/13/19 00:09 00:39 00:42 Temperature Heart Rate 112 H 103 H 126 H Respiratory 12 12 25 H Rate Blood Pressure 164/122 H 146/86 H O2 Saturation 97 97 02/13/19 02/13/19 02/13/19 01:09 01:39 02:00 Temperature Heart Rate 90 98 95 Respiratory 11 L 21 16 Rate Blood Pressure 124/72 103/73 133/97 H O2 Saturation 93 93 93 02/13/19 02/13/19 02/13/19 02:30 03:00 03:30 Temperature Heart Rate 93 97 94 Respiratory 20 20 15 Rate Blood Pressure 153/97 H 156/108 H 154/97 H O2 Saturation 92 95 95 02/13/19 02/13/19 02/13/19 04:00 04:30 05:00 Temperature Heart Rate 94 89 91 Respiratory 15 16 20 Rate Blood Pressure 144/100 H 141/104 H 150/108 H O2 Saturation 95 96 96 02/13/19 02/13/19 05:30 06:00 Temperature Heart Rate 95 91 Respiratory 19 15 Rate Blood Pressure 148/97 H 154/96 H O2 Saturation 96 96 Oxygen O2 Source [With Activity] Nasal cannula O2 Source Nasal cannula Oxygen Flow Rate 15 - EKG (time done) No standard instances Rate: Rate (enter#) (125) Rhythm: Atrial fibrillation [place]: LAD, Anterior hemiblock Intervals: RBBB Ischemia: Q waves (II, III, aVF) Compare to prior EKG: Unchanged from prior EKG (unchanged compared to 12/29/18 (aside from heart rate)) - Labs Labs: Laboratory Tests 02/12/19 02/12/19 02/12/19 23:50 23:50 23:50 WBC 15.8 H RBC 5.27 Hgb 14.3 Hct 47.5 H MCV 90.1 MCH 27.1 MCHC 30.1 L RDW 14.0 Plt Count 253 MPV 11.7 H Neut # (Auto) 10.3 H Lymph # (Auto) 4.1 H [place] # (Auto) 1.0 Eos # (Auto) 0.2 Baso # (Auto) 0.0 Absolute Nucleated RBC 0.00 Nucleated RBC % 0.0 PT 17.4 H INR 1.5 H APTT 51.3 H VBG pH VBG pCO2 VBG pO2 VBG HCO3 VBG Total CO2 VBG O2 Saturation VBG Base Excess Sodium 137 Potassium 4.8 Chloride 101 Carbon Dioxide 22 Anion Gap 14.0 H BUN 15 Creatinine 0.8 Estimated GFR (MDRD) 69 L Glucose 350 H Calcium 9.9 Total Bilirubin 0.7 AST 26 ALT 20 Alkaline Phosphatase 94 Troponin I High Sens B-Natriuretic Peptide Total Protein 7.5 Albumin 3.9 Globulin 3.6 Albumin/Globulin Ratio 1.1 Lipase 27 02/12/19 02/12/19 02/13/19 23:50 23:50 01:56 WBC RBC Hgb Hct MCV MCH MCHC RDW Plt Count MPV Neut # (Auto) Lymph # (Auto) [place] # (Auto) Eos # (Auto) Baso # (Auto) Absolute Nucleated RBC Nucleated RBC % PT INR APTT VBG pH VBG pCO2 VBG pO2 VBG HCO3 VBG Total CO2 VBG O2 Saturation VBG Base Excess Sodium Potassium Chloride Carbon Dioxide Anion Gap BUN Creatinine Estimated GFR (MDRD) Glucose Calcium Total Bilirubin AST ALT Alkaline Phosphatase Troponin I High Sens 74.1 H* 92.9 H* B-Natriuretic Peptide 1341 H Total Protein Albumin Globulin Albumin/Globulin Ratio Lipase 02/13/19 01:56 WBC RBC Hgb Hct MCV MCH MCHC RDW Plt Count MPV Neut # (Auto) Lymph # (Auto) [place] # (Auto) Eos # (Auto) Baso # (Auto) Absolute Nucleated RBC Nucleated RBC % PT INR APTT VBG pH 7.303 L VBG pCO2 55.1 H VBG pO2 57.2 H VBG HCO3 26.7 VBG Total CO2 28.4 VBG O2 Saturation 89.6 H VBG Base Excess -0.7 Sodium Potassium Chloride Carbon Dioxide Anion Gap BUN Creatinine Estimated GFR (MDRD) Glucose Calcium Total Bilirubin AST ALT Alkaline Phosphatase Troponin I High Sens B-Natriuretic Peptide Total Protein Albumin Globulin Albumin/Globulin Ratio Lipase - Rads (name of study) chest xray Radiology: Prelim report reviewed, See rad report PD MEDICAL DECISION MAKING - ED course Complexity details: reviewed old records, reviewed results, re-evaluated patient, considered differential, d/w patient, d/w family ED course: arrives in moderate respiratory distress and steadily worsened early in ED stay despite IV solu-medrol, repeat duoneb, and 100% NRB oxygen. 1" NTP placed, IV morphine and ativan given (the latter to help tolerate BiPAP, which she initially could not tolerate). 40mg IV lasix given as well. Medications were prepared in anticipation of intubation due to her worsening respiratory distress. However, the morphine and ativan provided adequate anxiolysis such that she was able to tolerate the BiPAP, and she gradually but steadily improved with this and eventually was able to be weaned back to mask and then [place] oxygen. D/W Dr. Baxter ([facility] hospitalist); he is concerned regarding the elevated high- sensitivity troponin. The repeat (2-hour) level returned even higher, and thus I contacted [facility] / [place] for transfer. I d/w Dr. Lyon at [facility], he accepts transfer. [facility] and [place] were not options due to bed availability. Departure - Departure Disposition: 02 Transfer Acute Care Hosp Clinical Impression: COPD (chronic obstructive pulmonary disease) Qualifiers: COPD type: COPD with acute exacerbation Qualified Code(s): J44.1 - Chronic obstructive pulmonary disease with (acute) exacerbation Failure, heart acute, congestive Qualifiers: Heart failure type: unspecified Qualified Code(s): I50.9 - Heart failure, unspecified Condition: Stable Discharge Date/Time: 02/13/19 06:29
[2019-02-12] MEDS ORDERED: methylPREDNISolone SUCCINATE 125 MG/2 ML VIAL IVP STA (23:12)
[2019-02-12] MEDS ORDERED: FUROSEMIDE 40 MG/4 ML VIAL IVP STA (23:17)
[2019-02-12] MEDS ORDERED: NITROGLYCERIN 2% PASTE TOP STA (23:17)
[2019-02-12] MEDS ORDERED: MORPHINE 2 MG/ML CARPUJECT IVP STA (23:29)
[2019-02-12] MEDS ORDERED: LORazepam 2 MG/ML VIAL IVP STA (23:30)
[2019-02-12] MEDS ORDERED: MIDAZOLAM 2 MG/2 ML VIAL ONE (23:46)
[2019-02-12] MEDS ORDERED: SUCCINYLCHOLINE 200 MG/10 ML VIAL ONE (23:47)
[2019-02-12] MEDS ORDERED: PROPOFOL 1000 MG/100 ML 0 ML IV ONE (23:47)
--- NOTE | 2019-02-12 23:48 | XRAY Report ---
Reason: dyspnea Procedure Date: 02/12/2019 Accession Number: [id number] / [id number] Procedure: XR - Chest 1 View X-Ray CPT Code: 04653 FULL RESULT: EXAM: CHEST RADIOGRAPHY EXAM DATE: 02/12/2019 11:35 PM. CLINICAL HISTORY: Dyspnea. COMPARISON: CHEST 1 VIEW 12/31/2018 5:43 AM. TECHNIQUE: 1 view. FINDINGS: Lungs/Pleura: Basilar haziness. No focal opacities evident. Suspect small pleural effusions. No pneumothorax. Mediastinum: Large heart with venous congestion. Other: None. IMPRESSION: Mild CHF. RADIA
[2019-02-12 23:54] LABS: BASOPHILS % (AUTO) 0.3 %; EOSINOPHILS # (AUTO) 0.2 10^3/uL (0.0-0.7); EOSINOPHILS % (AUTO) 1.1 %; HGB - HEMOGLOBIN 14.3 g/dL (12.0-16.0); LYMPHOCYTES # (AUTO) 4.1 10^3/uL (1.5-3.5); MEAN CORPUSCULAR HEMOGLOBIN 27.1 pg (27.0-31.0); MEAN CORPUSCULAR HGB CONC 30.1 g/dL (32.0-36.0); MEAN CORPUSCULAR VOLUME 90.1 fL (81.0-99.0); MEAN PLATELET VOLUME 11.7 fL (7.9-10.8); MONOCYTES % (AUTO) 6.6 %; NEUTROPHILS # (AUTO) 10.3 10^3/uL (1.5-6.6); NEUTROPHILS % (AUTO) 65.5 %; PLT - PLATELET COUNT 253 10^3/uL (130-450); RED BLOOD COUNT 5.27 10^6/uL (4.20-5.40); WHITE BLOOD COUNT 15.8 x10^3/uL (4.8-10.8)
[2019-02-13 00:03] LABS: INR 1.5 (0.8-1.2); PT - PROTHROMBIN TIME 17.4 secs (9.9-12.6)
[2019-02-13 00:06] LABS: ALBUMIN 3.9 g/dL (3.2-5.5); ALBUMIN/GLOBULIN RATIO 1.1 (1.0-2.2); BILIRUBIN,TOTAL 0.7 mg/dL (0.2-1.0); CALCIUM 9.9 mg/dL (8.5-10.3); CREATININE 0.8 mg/dL (0.4-1.0); TOTAL PROTEIN 7.5 g/dL (6.7-8.2)
[2019-02-13 00:10] LABS: PARTIAL THROMBOPLASTIN TIME 51.3 secs (24.9-33.3)
[2019-02-13 02:02] LABS: VBG BASE EXCESS -0.7 mmol/L (-2 - +2); VBG PCO2 55.1 mmHg (41-51); VBG PH 7.303 (7.31-7.41); VBG PO2 57.2 mmHg (25-47); VBG TOTAL CO2 28.4 mmol/L (24-29)
[2019-02-13 06:17] VITALS: BP 154/96
== END 2019-02-13 06:29 | disposition short-term general hospital (02) ==
LOC: EDUNIT# → ED 22:59
DX: J44.1 Chronic obstructive pulmonary disease with (acute) exacerbation (principal); I50.9 Heart failure, unspecified; Z99.81 Dependence on supplemental oxygen
CPT/HCPCS: 36415; 71045; 80053; 82803; 83690; 83880; 84484; 85025; 85610; 85730; 93005; 94640; 96374; 96375; 99285; A9270; J2060

== ENCOUNTER 2019-02-13 06:34 | Outpatient (CLI) | payer MEDICARE, OTHER | END 2019-02-13 06:35 | disposition short-term general hospital (02) | LOC: EMS 06:34 | PROVIDERS: ATTEND Surgery | DX: I50.9 Heart failure, unspecified (principal); J44.1 Chronic obstructive pulmonary disease with (acute) exacerbation; R79.89 Other specified abnormal findings of blood chemistry | CPT/HCPCS: A0425; A0426 ==

== ENCOUNTER 2019-02-21 08:00 | Outpatient (CLI) | payer MEDICARE, OTHER ==
[2019-02-21 18:29] LABS: BASOPHILS % (AUTO) 0.4 %; EOSINOPHILS # (AUTO) 0.1 10^3/uL (0.0-0.7); EOSINOPHILS % (AUTO) 1.5 %; HGB - HEMOGLOBIN 14.5 g/dL (12.0-16.0); LYMPHOCYTES # (AUTO) 1.1 10^3/uL (1.5-3.5); LYMPHOCYTES % (AUTO) 13.3 %; MEAN CORPUSCULAR HEMOGLOBIN 26.7 pg (27.0-31.0); MEAN CORPUSCULAR HGB CONC 30.4 g/dL (32.0-36.0); MEAN CORPUSCULAR VOLUME 87.8 fL (81.0-99.0); MEAN PLATELET VOLUME 12.2 fL (7.9-10.8); MONOCYTES # (AUTO) 0.7 10^3/uL (0.0-1.0); MONOCYTES % (AUTO) 7.8 %; NEUTROPHILS # (AUTO) 6.5 10^3/uL (1.5-6.6); NEUTROPHILS % (AUTO) 76.8 %; PLT - PLATELET COUNT 261 10^3/uL (130-450); RED BLOOD COUNT 5.43 10^6/uL (4.20-5.40); RED CELL DISTRIBUTION WIDTH 14.2 % (12.0-15.0); WHITE BLOOD COUNT 8.4 x10^3/uL (4.8-10.8)
[2019-02-21 18:54] LABS: CALCIUM 9.4 mg/dL (8.5-10.3); CREATININE 1.1 mg/dL (0.4-1.0)
== END 2019-02-21 08:01 | disposition home or self-care (01) ==
LOC: LAB.WCP 08:00
PROVIDERS: ATTEND Family Medicine
DX: I50.9 Heart failure, unspecified (principal); D64.9 Anemia, unspecified
CPT/HCPCS: 36415; 80048; 85025

== ENCOUNTER 2019-04-06 17:14 | Outpatient (CLI) | payer MEDICARE, OTHER ==
[2019-04-06 17:48] LABS: HGB - HEMOGLOBIN 14.3 g/dL (12.0-16.0); MEAN CORPUSCULAR HEMOGLOBIN 28.5 pg (27.0-31.0); MEAN CORPUSCULAR HGB CONC 33.1 g/dL (32.0-36.0); MEAN CORPUSCULAR VOLUME 86.1 fL (81.0-99.0); RED BLOOD COUNT 5.02 10^6/uL (4.20-5.40); RED CELL DISTRIBUTION WIDTH 14.1 % (12.0-15.0); WHITE BLOOD COUNT 8.3 x10^3/uL (4.8-10.8)
== END 2019-04-06 17:15 | disposition home or self-care (01) ==
LOC: LAB 17:14
PROVIDERS: ATTEND Family Medicine
DX: N28.9 Disorder of kidney and ureter, unspecified (principal); I50.9 Heart failure, unspecified; I48.91 Unspecified atrial fibrillation
CPT/HCPCS: 36415; 80048; 83880; 85027

== ENCOUNTER 2019-04-10 15:43 | Outpatient (CLI) | payer MEDICARE, OTHER | END 2019-04-10 23:59 | disposition home or self-care (01) | LOC: LAB.WCP 15:43 | PROVIDERS: ATTEND Family Medicine | DX: N28.9 Disorder of kidney and ureter, unspecified (principal); I50.9 Heart failure, unspecified; I48.91 Unspecified atrial fibrillation | CPT/HCPCS: 36415; 80048; 83880; 85027 ==

== ENCOUNTER 2019-06-24 17:36 | Outpatient (CLI) | payer MEDICARE, OTHER | END 2019-06-24 17:37 | disposition critical access hospital (66) | LOC: EMS 17:36 | PROVIDERS: ATTEND Surgery | DX: R53.1 Weakness (principal); R42 Dizziness and giddiness; R06.02 Shortness of breath; R19.7 Diarrhea, unspecified | CPT/HCPCS: A0425; A0427 ==

== ENCOUNTER 2019-06-24 17:54 | Inpatient (IN) | payer MEDICARE, OTHER ==
--- NOTE | 2019-06-24 18:06 | ED Physician Documentation ---
PD HPI DYSPNEA - Stated complaint Stated Complaint: WEAKNESS - Chief complaint Chief Complaint: Cardiac - History obtained from History obtained from: Patient, EMS - History of Present Illness Timing - onset: Other (83-year-old woman with history of atrial fibrillation on Xarelto, she is also supposed to be taking verapamil but ran out 3 days ago. Over the last 2 days she has felt "blah" with just low energy. She is had mild diarrhea about 2 episodes a day. She does feel short of breath. She denies chest or abdominal pain. No blood in the diarrhea. She is feeling just generally weak, she does not know if she has pedal edema when I asked her. (She does).) Review of Systems Ten Systems: 10 systems reviewed and negative Constitutional: reports: Fatigue. denies: Fever Ears: denies: Ear pain, Drainage/discharge Nose: denies: Rhinorrhea / runny nose, Congestion Throat: denies: Sore throat Cardiac: denies: Chest pain / pressure, Palpitations Respiratory: reports: Dyspnea. denies: Cough GI: reports: Diarrhea. 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 - Present Medications Home Medications: Ambulatory Orders Medication Instructions Recorded Confirmed Bupropion HCl [Wellbutrin Xl] 150 mg PO DAILY 04/19/15 12/30/18 Telmisartan [Micardis] 40 mg PO DAILY 04/19/15 12/30/18 Nitroglycerin [Nitrostat] 0.4 mg PO Q5MX3 PRN 12/30/18 12/30/18 Atorvastatin [Lipitor] 80 mg PO QPM tablet 01/02/19 Metoprolol Tartrate 50 mg PO BID #1 01/02/19 12/30/18 Potassium Chloride [Klor-Con 10] 10 meq PO QDDINNER #1 01/02/19 12/30/18 Potassium Chloride [Klor-Con 10] 20 meq PO QDBREAKFAST 1 Days 01/02/19 12/30/18 Rivaroxaban [Xarelto] 20 mg PO 1700 #1 01/02/19 12/30/18 Verapamil HCl [Verapamil ER] 240 mg PO DAILY #1 01/02/19 12/30/18 Fluticasone/Salmeterol [Advair PRN 02/13/19 250-50 Diskus] Omeprazole 20 mg PO DAILY 02/13/19 02/13/19 - Allergies Allergies/Adverse Reactions: Allergies Allergy/AdvReac Type Severity Reaction Status Date / Time No Known Drug Allergies Allergy Verified 02/12/19 23:09 - Living Situation Living Situation: reports: Alone (Lives in a duplex with her daughter next-door) - Social History Does the pt smoke?: No Smoking Status: Never smoker Does the pt drink ETOH?: No Does the pt have substance abuse?: No - Immunizations Immunizations are current?: Yes - POLST Patient has POLST: No PD ED PE NORMAL - Vitals Vital signs reviewed: Yes (Tachycardic, hypertensive) - General General: Alert and oriented X 3, No acute distress, Other (Incontinent of liquid brown stool) - HEENT HEENT: PERRL, EOMI - Neck Neck: Supple, no meningeal sign, No bony TTP - Cardiac Cardiac: Other (Irregularly irregular without murmur, rapid) - Respiratory Respiratory: Other (Rales at the bases) - Abdomen Abdomen: Normal bowel sounds, Soft, Non tender - Back Back: No CVA TTP, No spinal TTP - Derm Derm: Normal color, Warm and dry - Extremities Extremities: Other (Significant bilateral pitting pedal edema which is symmetric and nontender) - Neuro Neuro: Alert and oriented X 3, Normal speech Results - Vitals Vitals: Vital Signs - 24 hr 06/24/19 06/24/19 06/24/19 17:55 18:29 19:10 Temperature 37.3 C Heart Rate 128 H 108 H 110 H Respiratory 20 23 23 Rate Blood Pressure 164/105 H 133/95 H 154/100 H O2 Saturation 96 95 95 06/24/19 06/24/19 06/24/19 19:43 19:55 20:10 Temperature Heart Rate 91 86 84 Respiratory 20 12 21 Rate Blood Pressure 150/84 H 163/98 H 164/92 H O2 Saturation 97 96 96 Oxygen O2 Source [With Activity] Nasal cannula O2 Source Room air - EKG (time done) 1813 Rate: Rate (enter#) (125) Rhythm: Atrial fibrillation Intervals: Other (RBBB and LAFB) QRS: LVH Compare to prior EKG: Unchanged from prior EKG (from 02/12/19) Computer interpretation: Agree with computer - Labs Labs: Laboratory Tests 06/24/19 06/24/19 06/24/19 18:40 18:40 18:40 WBC 10.2 RBC 4.73 Hgb 13.2 Hct 41.3 MCV 87.3 MCH 27.9 MCHC 32.0 RDW 14.6 Plt Count 225 MPV 10.8 Neut # (Auto) 8.9 H Lymph # (Auto) 0.5 L [place] # (Auto) 0.7 Eos # (Auto) 0.0 Baso # (Auto) 0.0 Absolute Nucleated RBC 0.00 Nucleated RBC % 0.0 Sodium 137 Potassium 2.8 L Chloride 102 Carbon Dioxide 21 Anion Gap 14.0 H BUN 12 Creatinine 0.9 Estimated GFR (MDRD) 60 L Glucose 132 H Lactic Acid Calcium 9.2 Total Bilirubin 0.9 AST 16 ALT < 10 L Alkaline Phosphatase 69 Troponin I High Sens 29.6 H* B-Natriuretic Peptide Total Protein 6.9 Albumin 3.9 Globulin 3.0 Albumin/Globulin Ratio 1.3 Lipase 24 TSH Urine Color Urine Clarity Urine pH Ur Specific [place] Urine Protein Urine Glucose (UA) Urine Ketones Urine Occult Blood Urine Nitrite Urine Bilirubin Urine Urobilinogen Ur Leukocyte Esterase Urine RBC Urine WBC Ur Squamous Epith Cells Urine Bacteria Urine Casts Ur Microscopic Review Urine Culture Comments 06/24/19 06/24/19 06/24/19 18:40 18:40 18:40 WBC RBC Hgb Hct MCV MCH MCHC RDW Plt Count MPV Neut # (Auto) Lymph # (Auto) [place] # (Auto) Eos # (Auto) Baso # (Auto) Absolute Nucleated RBC Nucleated RBC % Sodium Potassium Chloride Carbon Dioxide Anion Gap BUN Creatinine Estimated GFR (MDRD) Glucose Lactic Acid 2.9 H Calcium Total Bilirubin AST ALT Alkaline Phosphatase Troponin I High Sens B-Natriuretic Peptide 467 H Total Protein Albumin Globulin Albumin/Globulin Ratio Lipase TSH 2.02 Urine Color Urine Clarity Urine pH Ur Specific [place] Urine Protein Urine Glucose (UA) Urine Ketones Urine Occult Blood Urine Nitrite Urine Bilirubin Urine Urobilinogen Ur Leukocyte Esterase Urine RBC Urine WBC Ur Squamous Epith Cells Urine Bacteria Urine Casts Ur Microscopic Review Urine Culture Comments 06/24/19 19:09 WBC RBC Hgb Hct MCV MCH MCHC RDW Plt Count MPV Neut # (Auto) Lymph # (Auto) [place] # (Auto) Eos # (Auto) Baso # (Auto) Absolute Nucleated RBC Nucleated RBC % Sodium Potassium Chloride Carbon Dioxide Anion Gap BUN Creatinine Estimated GFR (MDRD) Glucose Lactic Acid Calcium Total Bilirubin AST ALT Alkaline Phosphatase Troponin I High Sens B-Natriuretic Peptide Total Protein Albumin Globulin Albumin/Globulin Ratio Lipase TSH Urine Color YELLOW Urine Clarity CLEAR Urine pH 6.0 Ur Specific [place] 1.015 Urine Protein TRACE Urine Glucose (UA) NEGATIVE Urine Ketones NEGATIVE Urine Occult Blood NEGATIVE Urine Nitrite NEGATIVE Urine Bilirubin NEGATIVE Urine Urobilinogen 0.2 (NORMAL) Ur Leukocyte Esterase SMALL H Urine RBC None Seen Urine WBC 6-10 H Ur Squamous Epith Cells MOD Squamous H Urine Bacteria None Seen Urine Casts 0-2 Hyaline Casts Ur Microscopic Review INDICATED Urine Culture Comments NOT INDICATED - Rads (name of study) 1v chest Radiology: EMP read contemporaneously (unchanged left base dz, otherwise improved, no leni chf) PD MEDICAL DECISION MAKING - ED course ED course: 83yo F with h/o afib presents with fatigue/dyapnea, prob due to being out of verapamil now going into RVR with some CHF. Feeling somewhat better after 10 x 2 doses of diltiazem IV and lasix but still v tahcycardic with walking (130bpm at 20 feet and dyspneic with same). Will place in obs for continued rate control/diuresis and trop trending. Departure - Departure Disposition: ED Place in Observation Clinical Impression: Chronic a-fib, Atrial fibrillation with rapid ventricular response, Elevated troponin level not due myocardial infarction Failure, heart acute, congestive Qualifiers: Heart failure type: unspecified Qualified Code(s): I50.9 - Heart failure, unspecified Condition: Fair Discharge Date/Time: 06/24/19 21:20
[2019-06-24] MEDS ORDERED: diltiaZEM INJ 5 MG/ML VIAL IVP STA ×2 (18:07→19:28)
[2019-06-24] MEDS ORDERED: FUROSEMIDE 20 MG/2 ML VIAL IVP STA (18:07)
[2019-06-24 18:46] LABS: BASOPHILS % (AUTO) 0.4 %; EOSINOPHILS % (AUTO) 0.4 %; HGB - HEMOGLOBIN 13.2 g/dL (12.0-16.0); LYMPHOCYTES # (AUTO) 0.5 10^3/uL (1.5-3.5); LYMPHOCYTES % (AUTO) 4.6 %; MEAN CORPUSCULAR HEMOGLOBIN 27.9 pg (27.0-31.0); MEAN CORPUSCULAR VOLUME 87.3 fL (81.0-99.0); MEAN PLATELET VOLUME 10.8 fL (7.9-10.8); MONOCYTES # (AUTO) 0.7 10^3/uL (0.0-1.0); NEUTROPHILS # (AUTO) 8.9 10^3/uL (1.5-6.6); NEUTROPHILS % (AUTO) 87.1 %; PLT - PLATELET COUNT 225 10^3/uL (130-450); RED BLOOD COUNT 4.73 10^6/uL (4.20-5.40); RED CELL DISTRIBUTION WIDTH 14.6 % (12.0-15.0); WHITE BLOOD COUNT 10.2 x10^3/uL (4.8-10.8)
--- NOTE | 2019-06-24 18:58 | XRAY Report ---
Reason: dyspnea, RALES Procedure Date: 06/24/2019 Accession Number: [id number] / [id number] Procedure: XR - Chest 1 View X-Ray CPT Code: 68216 Final Report FULL RESULT: EXAM: CHEST RADIOGRAPHY EXAM DATE: 06/24/2019 06:35 PM. CLINICAL HISTORY: Dyspnea, RALES. COMPARISON: CHEST 1 VIEW 02/12/2019 11:18 PM. TECHNIQUE: 1 view. FINDINGS: Lungs/Pleura: Some mild persistent opacity in the left base with some obscuration of the left hemidiaphragm. Right lung is clear. No pneumothoraces. Mediastinum: Prominent size of the heart. Unchanged compared to the prior exam. Other: No acute bony abnormality. IMPRESSION: Some mild persistent left base pleural-parenchymal disease is unchanged compared to 02/12/2019. Better aeration of the right lung. RADIA
[2019-06-24 19:01] LABS: ALBUMIN 3.9 g/dL (3.2-5.5); ALBUMIN/GLOBULIN RATIO 1.3 (1.0-2.2); ALKALINE PHOSPHATASE 69 IU/L (42-121); ALT ALANINE AMINOTRANSFERASE < 10 IU/L (10-60); AST ASPARTATE AMINOTRANSFERASE 16 IU/L (10-42); BILIRUBIN,TOTAL 0.9 mg/dL (0.2-1.0); BUN - BLOOD UREA NITROGEN 12 mg/dL (6-20); CALCIUM 9.2 mg/dL (8.5-10.3); CARBON DIOXIDE - CO2 21 mmol/L (21-32); CHLORIDE 102 mmol/L (101-111); CREATININE 0.9 mg/dL (0.4-1.0); GFR - MDRD 60 (>89); GLUCOSE 132 mg/dL (70-100); LIPASE 24 U/L (22-51); SODIUM 137 mmol/L (135-145); TOTAL PROTEIN 6.9 g/dL (6.7-8.2)
[2019-06-24] MEDS ORDERED: POTASSIUM CHLORIDE 20 MEQ TABLET PO STA (19:04)
[2019-06-24 19:12] LABS: BILIRUBIN,URINE NEGATIVE (NEGATIVE); CLARITY,URINE CLEAR (CLEAR); GLUCOSE, URINE (UA) NEGATIVE (NEGATIVE); KETONES,URINE (UA) NEGATIVE (NEGATIVE); LEUKOCYTE ESTERASE, URINE SMALL (NEGATIVE); NITRITE,URINE NEGATIVE (NEGATIVE); OCCULT BLOOD,URINE NEGATIVE (NEGATIVE); PROTEIN,URINE TRACE mg/dL (NEGATIVE); UROBILINOGEN,URINE 0.2 (NORMAL) E.U./dL (NORMAL)
[2019-06-24 19:23] LABS: BACTERIA,URINE None Seen /HPF (None Seen); CASTS, URINE 0-2 Hyaline Casts /LPF; RBC,URINE None Seen /HPF (0-5); SQUAMOUS EPITHELIAL CELL,UR MOD Squamous (<= Few)
[2019-06-24] MEDS ORDERED: ONDANSETRON ODT 4 MG TABLET TL PRN (20:38)
[2019-06-24] MEDS ORDERED: oxyCODONE 5 MG TABLET PO PRN (20:38)
[2019-06-24] MEDS ORDERED: ONDANSETRON 4 MG/2 ML VIAL IVP PRN (20:38)
--- NOTE | 2019-06-24 20:50 | HISTORY & PHYSICAL EXAMINATION ---
Chief Complaint - Chief Complaint Chief Complaint: weakness and fatigue History of Present Illness - Admitted From Admitted From:: Home/ER - History Obtained From [facility] History obtained from: Dr. Nuñez Exam Limitations: none - History of Present Illness HPI Comment/Other: This is an 83-year-old female who was admitted with acute on chronic diastolic heart failure from hypertensive urgency in December 2018. At that time she also had the effects of a subacute stroke with left body weakness. She was discharged to a [facility] facility for physical therapy, Occupational Therapy and speech. At that time she had controlled atrial fibrillation and was anticoagulated. Control of her rate was with metoprolol, verapamil. After her discharge from [facility] facility, she has been seen in her primary care provider office but she has a probable 30 to 50% no-show rate in their office. She also was admitted to [facility] February 15, 2019 from acute respiratory failure from COPD exacerbation, afib with RVR, and acute diastolic heart failure. She initally requird BiPAP until they could control her rate. She was transitioned to her home meds of verapamil and meto prolol with metoprolol increased to 75 mg po bid. Lasix was 40 mg po daily. She has mild pedal edema at discharge. An echocardiogram done in follow-up with Dr. Arechiga, [facility] was done February 13. She has an ejection fraction of 55%. Dilated right ventricle. 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 Mild mitral and tricuspid regurgitation. She was seen at her PCP office 02/21 and was stable other than complaints of chronic diarrhea and omprazole was switched to ranitidine. Colestipol was restarted. Her metoprolol was increased from 75 mg twice daily to 50 mg, 2 tablets, twice daily This time, she forgot to fill her verapamil has been without it for 3 days. Over the last 2 days she has had low energy, mild diarrhea. She is gotten to be weaker and weaker and finally called EMS. She denies fever, chills, new congested cough. She denies abdominal pain, urgency, frequency, dysuria. In the emergency room blood pressure was 164/105. Mildly elevated temperature at 37.3. Heart rate was 128. Respirations were 20. And she was 96%. This lady has COPD and is on 3 L of oxygen at home. She was alert and oriented. Very weak. Significant bilateral pitting edema which was symmetric. She was incontinent of liquid brown stool. She was given diltiazem 2 doses. Lasix. She was felt to have mild congestive heart failure from the A. fib with RVR. Although rate was now controlled, the patient was too weak to try and get up on her own. When she did get up she would become tachycardic again. As that she is now placed in observation for her continued rate control until she can be stabilized enough to return to home. History - Past Medical History Cardiovascular: reports: Congestive heart failure (Chronic diastolic heart failure. Echo as in history of present illness.), Hypertension, High chol esterol, Atrial fibrillation (Diagnosed March 2015. She was admitted for CHF with new onset A. fib and started on Xarelto at that time. She had a cardioversion at [facility] August 2015. It was unsuccessful and she is been continued on calcium channel blockers, beta-blockers and lifelong a nticoagulation. Admitted here December 2018, January 2019, and today.) Respiratory: reports: COPD (continuous home O2 of 3L started 2016.), Sleep apnea (AHI 50.3 in 2016. ), CPAP use Neuro: reports: None Endocrine/Autoimmune: reports: Other (Morbid obesity) GI: reports: GERD, GI bleed (Lower GI bleed, profound anemia in 2017. 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 Treated with argon plasma coagulation.), Chronic diarrhea (Present since approximately 1997. Made worse by colon resection 2000.), Chronic constipation, Diverticulitis (05/2000 Perforated diverticular abscess treated with diverting colostomy and peritoneal needle lavage. 3 months later sigmoid colon resection for diverticular disease with colo-uterine vaginal fistula.), Cholelithiasis (, Status post cholecystectomy), Other (IBS. [place]-uterine fistula resulted in a hysterectomy and low anterior resection August,.) PUDDLER PILE DRIVING: reports: Other () : reports: Incontinence HEENT: reports: None Psych: reports: Depression Musculoskeletal: reports: Chronic back pain Derm: reports: Psoriasis MRSA Hx?: No - Past Surgical History General: reports: Cholecystectomy, Colonoscopy, Other (Partial colectomy And total hysterectomy for ruptured diverticulitis 2000. Huge ventral hernia repair with mesh April 2009) /PUDDLER PILE DRIVING: reports: Hysterectomy - Family & Social History Family History Comment/Other: Mother and father at age 85 and 86 respectively. Mom was morbidly obese and dad was skinny as a rail all of his life. No history of hypertension, diabetes, cancer, heart attack, or stroke. They seemed to have of old age. 3 sisters and 2 brothers. One sister has of old age. Again, no blood pressure, diabetes, cancer, heart attack, or stroke in them. 4 children. One daughter has of non-Hodgkin's lymphoma. Her other children may have problems with weight, but to her knowledge there is no diabetes, high blood pressure, heart attack, stroke. Living arrangement: At home Living Situation: Alone (Lives in a duplex with her daughter next-door) Social History Notes: She is from [place]. Ended up living on [address] with her when he retired from the [employer]. She worked before his and after his at the [employer]. 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 She started smoking at the age of 20 and quit the year she retired, approximately 1998. She smoked three quarters of a pack per day. She has no history of alcohol abuse or recreational substance abuse. She lives in a duplex with 1 daughter at the o ther end of the duplex. Another daughter a few houses down the road. - Substance History Use: Uses substance without health or social issues: NONE Abuse: Recurrent use of substance despite neg consequences: NONE Dependence: Experiences withdrawal or developed tolerances: NONE - POLST Patient has POLST: No POLST Status: DNR Meds/Allgy - Home Medications Home Medications: Ambulatory Orders Medication Instructions Recorded Confirmed Bupropion HCl [Wellbutrin Xl] 150 mg PO DAILY 04/19/15 12/30/18 Telmisartan [Micardis] 40 mg PO DAILY 04/19/15 12/30/18 Nitroglycerin [Nitrostat] 0.4 mg PO [id number] PRN 12/30/18 12/30/18 Atorvastatin [Lipitor] 80 mg PO QPM tablet 01/02/19 Metoprolol Tartrate 50 mg PO BID #1 01/02/19 12/30/18 Potassium Chloride [Klor-Con 10] 10 meq PO QDDINNER #1 01/02/19 12/30/18 Potassium Chloride [Klor-Con 10] 20 meq PO QDBREAKFAST 1 Days 01/02/19 12/30/18 Rivaroxaban [Xarelto] 20 mg PO 1700 #1 01/02/19 12/30/18 Verapamil HCl [Verapamil ER] 240 mg PO DAILY #1 01/02/19 12/30/18 Fluticasone/Salmeterol [Advair PRN 02/13/19 250-50 Diskus] Omeprazole 20 mg PO DAILY 02/13/19 02/13/19 Cholestyramine [Questran] 4 gm PO DAILY #30 packet 06/24/19 Metoprolol Tartrate 100 mg PO BID #60 tablet 06/24/19 Verapamil HCl [Verapamil ER] 240 mg PO DAILY #30 tablet.er 06/24/19 - Allergies Allergies/Adverse Reactions: Allergies Allergy/AdvReac Type Severity Reaction Status Date / Time No Known Drug Allergies Allergy Verified 02/12/19 23:09 Review of Systems - Constitutional Constitutional: denies: Fatigue, Fever, Chills, Malaise, Weakness, Poor appetite, Diaphoresis - Eyes Eyes: denies: Pain, Blurred vision, Field loss, Vision loss, Dipolpia - Ears, Nose & Throat Ears, Nose & Throat: denies: Ear pain, Hearing loss, Hearing aids, Tinnitus, Sore throat, Hoarseness - Cardiovascular Cariovascular: reports: Irregular heart rate, Palpitations, Edema, Exertional dyspnea (She walks anywhere from 15 to 20 feet, maximum.). denies: Chest pain, Syncope - Respiratory Respiratory: reports: Wheezing, SOB with exertion (Again, she walks 15 to 20 feet. Uses 3 L nasal cannula.), Apnea. denies: Cough, Sputum production - Gastrointestinal Gastrointestinal: reports: Constipation, Diarrhea, Reflux/heartburn. denies: Abdominal pain, Abdominal distention, Change in bowel habits, Rectal bleeding, Black stools, Bloody stools, Nausea, Vomiting - Genitourinary Genitourinary: reports: Urgency, Incontinence. denies: Dysuria, Frequency, Hematuria, Flank pain, Nocturia - Musculoskeletal Musculoskeletal: reports: Stiffness, Joint pain. denies: Muscle pain, Back pain, Muscle aches - Integumentary Integumentary: denies: Rash, Pruritis, Lesions, Dryness - Neurological Neurological: denies: General weakness, Focal weakness, Headache, Dizziness, Memory problems - Psychiatric Psychiatric: denies: Depression, Anxiety, Hallucinations - Endocrine Endocrine: denies: Polyuria, Polydypsia, Polyphagia - Hematologic/Lymphatic Hematologic/Lymphatic: denies: Anemia, Bruising, Petechiae Prior Level of Functionality: She says that she is able to feed herself and dress herself within the home. She is responsible for her own bills and taking her own medication. Although she has a limited mobility because of dyspnea on exertion, she is able to get up and do simple chores within her own home. She uses daily oxygen. Uses a walker. One daughter is a night owl and lives next door. Another daughter lives down the street. The patient is adamant that she is still able to give herself her own medications. I have explained to her that she has now been admitted 4 times in less than a year for the same problem. And there is note in her office chart that she is a no-show. I am concerned about her ability to take care of herself. Exam - Vital Signs Reviewed Vital Signs: Yes Vital Signs: Vital Signs x48h Temp Pulse Resp BP Pulse Ox 06/24/19 20:10 84 21 164/92 H 96 06/24/19 19:55 86 12 163/98 H 96 06/24/19 19:43 91 20 150/84 H 97 06/24/19 19:10 110 H 23 154/100 H 95 06/24/19 18:29 108 H 23 133/95 H 95 06/24/19 17:55 37.3 C 128 H 20 164/105 H 96 - Physical Exam General Appearance: positive: No acute distress, Alert, Other (Morbidly obese elderly female transferred from the emergency room to [facility]. Wearing glasses, comfortable, and no tachypnea or increased respiratory effort and speaking to me.) Eyes Bilateral: positive: PERRL, EOMI ENT: positive: Dry mucous membranes Neck: positive: No JVD. negative: Stiff neck, Carotid bruit Respiratory: positive: Chest non-tender, Other (She had bibasilar rales with presentation of her A. fib with RVR, those appear to have resolved when she is received Lasix in the ER and her heart rate is now controlled.). negative: Wheezes, Rales Cardiovascular: positive: Irregularly irregular. negative: Systolic murmur, Gallop/S4 Peripheral Pulses: positive: 1+ Abdomen: positive: Non-tender, No organomegaly, Nml bowel sounds, No distention, Other (Large, obese pannus with multiple scars. She has an open cholecystectomy scar, port insertion sites, and diffuse loss of muscle in the anterior abdominal wall.) Skin: positive: Warm, Dry Extremities: positive: Full ROM, Pedal edema Neurologic/Psychiatric: positive: Oriented x3, CN's nml (2-12), Motor nml (Except for diffuse generalized weakness where she needs a two-person assist to even sit up in the bed.) Conclusion/Plan - Problem List (1) Atrial fibrillation with rapid ventricular response Conclusion/Plan: Lack of control of rate due to no verapamil for 3 days. This lady is on 100 mg metoprolol twice daily and verapamil 240 mg a day. Now that she has been in the emergency room, she is received diltiazem twice, Lasix once, and improvement in her heart rate and overall status at rest. However when she tries to get up and walk, heart rate becomes uncontrolled again. Plan: Observation stay Resumption of verapamil Resumption of her usual home medications Telemetry to monitor heart rate. Plan is for her to be discharged once rate stays controlled when she gets up. (2) Acute on chronic diastolic CHF (congestive heart failure) Conclusion/Plan: She has documented preserved ejection fraction. Minimal tricuspid and mitral regurgitation. Treatment is consisted of rate control as well as diuretics. BNP is mildly elevated in the 400s for her. She also has pedal edema. She had temporary rales, no JVD. From her time in the emergency room to now on MedSurg, she appears to have improved. Plan: BNP in the morning Continue her usual medications with no change (3) COPD (chronic obstructive pulmonary disease) Conclusion/Plan: She denies any decompensation symptoms. There is no cough, wheezing, chest congestion, URI symptomatology. Her O2 sats have actually improved. She is usually on 3 L at home at rest and with exertion. Right now she is 95% saturated on room air. Plan: Consider no oxygen at rest, and only use oxygen with exertion. I have explained this to her. Qualifiers: COPD type: COPD with acute exacerbation Qualified Code(s): J44.1 - Chronic obstructive pulmonary disease with (acute) exacerbation (4) Non compliance w medication regimen Conclusion/Plan: I have asked her if anything is going on at home. Is there a memory problem on her part? Is there an unidentified need that were not aware of that we can help her? She states that she is compliant with her medications and this was just a moment of memory lapse. She says that she really does not want to ask her family to help her. The daughter that lives in the duplex with her is a "night owl" and they live separate lives to monitor the. They are on "different schedules". I also pointed out to her that she has missed a couple of appointments and has had no-show letters from her primary care provider. For me, that indicates that she may be needing help that she is not getting. She is adamant that she is "fine". That she does not need help. But she promises to reach out to her daughter who lives next door to be used as "a reminder" when she needs to see her doctor or refill her medications. She does not want me to call her daughter. She said that "I will take care of it". (5) Hypokalemia Conclusion/Plan: Supplemented in the emergency room. Will repeat level tomorrow morning. (6) GUILLERMO (obstructive sleep apnea) Conclusion/Plan: On home CPAP. We will ask her to use her own mask while here. (7) Elevated troponin level not due myocardial infarction Conclusion/Plan: Most likely from demand of her myocardium with her fast heart rate. We will rep eat in 6 hours. (8) Do not resuscitate discussion Conclusion/Plan: When I asked her about her resuscitative status, she is apparently by telling me that she does not want to be resuscitated with intubation, CPR, chest compressions, etc. I had met her before in December, she had wanted to be a full code. She pointed out that that was her daughter saying she wanted mom to be a full code. She recognizes that her daughter loves her very much and that she does not want to lose her mother. However the patient states that she does not want to be resuscitated and is very firm about this. While she is willing to receive aggressive measures to treat any illness such as sepsis, pneumonia, GI bleed, broken hip, etc., she does not want us to resuscitate her if we have done everything possible to keep her going, and she still fails to go on to have cardiac or pulmonary arrest. - Lab Results Lab results reviewed: Yes Fish Bones: 06/24/19 18:40 06/24/19 18:40 - Diagnostic Imaging Results Diagnostic Imaging Results: positive: Final report reviewed Diagnostic Imaging Results Comments: CXR:Mild persistent left base pleuralparenchymal disease unchanged compared to February 12, 2019. Better aeration of right lung. - EKG Results EKG Interpreted Independently: No Core Measures - Anticipated LOS I expect patient to be DC'd or transferred within 96 hours.: Yes - DVT/VTE - Prophylaxis VTE/DVT Device ordered at admit?: Yes
--- NOTE | 2019-06-24 23:02 | ADVANCE CARE PLANNING NOTE ---
Advance Care Planning - Planning Encounter Date: 06/24/19 Time: 23:00 Purpose: Establish CODE STATUS in front of her daughter since her daughter does not agree with mom Parties in Attendance: Daughter (Samantha), patient, and hospitalist Dr. Juany Castillo Decisional Capacity of the Patient: Intact. She is alert, oriented. Still making her own decisions regards to finances, philosophy of life. Daughter says that she trust mom's judgment. - Diagnosis for Encounter (1) Do not resuscitate discussion Summary: This is now the fourth admission for Domenico perkins with RVR resulting in congestive heart failure. This is been since summer 2018. Initial CODE STATUS in December 2018 was FULL CODE. Patient now wishes to be DO NOT RESUSCITATE and wants us to noted in the medical record to make sure that her children understand what she wants. - Encounter Subjective/Patient's Story: She describes her self as a character. Loves people, love joking around with them. 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 Unfortunately, she was at a young age. She had been born in [place] and and [employer] man. He ended up being stationed here at [facility] and then never left. He at the age of 53 of heart attack and she was 50 years old. She never left the [place] [facility]. Worked at the [employer] on the [email or web address]. She has always been heavy, overweight. Was an ex-smoker. Gradually developed bowel complaints with diarrhea from having her gallbladder taken out, and having diverticulitis with subsequent bowel resection. She has intermittent and alternating constipation with diarrhea. She also developed COPD from her smoking history. Also developed obstructive sleep apnea. So she uses a walker, uses oxygen at night for her CPAP mask. But she describes her self is still independent with thought process. She is able to make her own decisions, pay her own bills. While she does have a will, she has not designated any of her children to be DURABLE POWER OF PUBLIC SERVICE REPRESENTATIVE. She has also not truly sat down with them to discuss her advanced care planning wishes. While they do know, in general, that she never wanted to be alive if she were a vegetable or severely demented, they have always wanted "everything done" if something were to happen to her. Daughter, who is present today, is a little bit uncomfortable with this conversation. She remonstrates mom to say "do not be so rene about this mom". Her mother responds to her to tell her that she really believes in these things. She really wants her children to respect her wishes when the time comes. She does not mind living in a fdc if she is so disabled that she needs somebody to turn her body, change her diapers, or feed her. While she is uncomfortable at the idea of losing her independence, she is willing to accept that as long as she remains "my own person". She defines being her own person as someone who is alert, oriented, and able to lucidly express her desires and wishes. While she does not mind having memory loss, if she no longer recognizes her children, she wants us to let her go. She wants everything done with regards to treatment and would like surgeries such as hip replacements/hernia repairs/ruptured bowel, pacemakers, blood transfusions, antibiotics, and even te mporary tube feedings for up to 3 months. She is willing to be placed in ICU on pressors with BiPAP. But she does not want dialysis. Objective/Medical Story: This is an 83-year-old female who was admitted with acute on chronic diastolic heart failure from hypertensive urgency in December 2018. At that time she also had the effects of a subacute stroke with left body weakness. She was discharged to a alf facility for physical therapy, Occupational Therapy and speech. At that time she had controlled atrial fibrillation and was anticoagulated. Control of her rate was with metoprolol, verapamil. After her discharge from alf facility, she has been seen in her primary care provider office but she has a probable 30 to 50% no-show rate in th eir office. She also was admitted to [facility] February 15, 2019 from acute respiratory failure from COPD exacerbation, afib with RVR, and acute diastolic heart failure. She initally requird BiPAP until they could control her rate. She was transitioned to her home meds of verapamil and metoprolol with metoprolol increased to 75 mg po bid. Lasix was 40 mg po daily. She has mild pedal edema at discharge. [facility] She has an ejection fraction of 55%. Dilated right ventricle. 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 Mild mitral and tricuspid regurgitation. She was seen at her PCP office 02/21 and was stable other than complaints of chronic diarrhea and omprazole was switched to ranitidine. Colestipol was restarted. Her metoprolol was increased from 75 mg twice daily to 50 mg, 2 tablets, twice daily This time, she forgot to fill her verapamil has been without it for 3 days. Over the last 2 days she has had low energy, mild diarrhea. She is gotten to be weaker and weaker and finally called EMS. She denies fever, chills, new congested cough. She denies abdominal pain, urgency, frequency, dysuria. In the emergency room blood pressure was 164/105. Mildly elevated temperature at 37.3. Heart rate was 128. Respirations were 20. And she was 96%. This lady has COPD and is on 3 L of oxygen at home. She was alert and oriented. Very weak. Significant bilateral pitting edema which was symmetric. She was incontinent of liquid brown stool. She was given diltiazem 2 doses. Lasix. She was felt to have mild congestive heart failure from the A. fib with RVR. Although rate was now controlled, the patient was too weak to try and get up on her own. When she did get up she would become tachycardic again. As that she is now placed in observation for her continued rate control until she can be stabilized enough to return to home. - Past Medical History Cardiovascular: reports: Congestive heart failure (Chronic diastolic heart failure. Echo as in history of present illness.), Hypertension, High cholesterol, Atrial fibrillation (Diagnosed March 2015. She was admitted for CHF with new onset A. fib and started on Xarelto at that time. She had a cardioversion at [facility] August 2015. It was unsuccessful and she is b een continued on calcium channel blockers, beta-blockers and lifelong anticoagulation. Admitted here December 2018, January 2019, and today.) Respiratory: reports: COPD (continuous home O2 of 3L started 2016.), Sleep apnea (AHI 50.3 in 2016. ), CPAP use Neuro: reports: None Endocrine/Autoimmune: reports: Other (Morbid obesity) GI: reports: GERD, GI bleed (Lower GI bleed, profound anemia in 2017. 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 Treated with argon plasma coagulation.), Chronic diarrhea (Present since approximately 1997. Made worse by colon resection 2000.), Chronic constipation, Diverticulitis (05/2000 Perforated diverticular abscess treated with diverting colostomy and peritoneal needle lavage. 3 months later sigmoid colon resection for diverticular disease with colo-uterine vaginal fistula.), Cholelithiasis (, Status post cholecystectomy), Other (IBS. 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 Huge ventral hernia repair with mesh April 2009) /AFTER SCHOOL PROGRAM TEACHER: reports: Hysterectomy Goals of Care: 1. To remain living in the duplex with her daughter as long as possible. 2. Willing to have in-home care if she and her family can afford it 3. If she is still physically disabled that she can no longer remain at home for 24/ care, she will allow her family to place her in a alf facility 4. DO NOT RESUSCITATE Plan: 1. POLST form filled out 2. I have advised her to sit down with her family and reiterate this conversation with them so that her other children can hear her. They need to do some further discussions about philosophy of life for her, and making plans for the future 3. Designated DURABLE POWER OF PUBLIC SERVICE REPRESENTATIVE 4. Discuss what practical plans of family has if she will become disabled enough that she can no longer control her finances. Does she need to designate a "power of personal injury attorney"? 5. There is a suggestion that there may be some noncompliance with her medication regime. Daughter states that she is going to sit down with her sister and brother to start making some practical plans about how to make sure mom makes her office visits, takes her medication, etc. Code Status: Do Not Attempt Resuscitation Time spent on advance care plannin minutes
[2019-06-24] MEDS ORDERED: VERAPAMIL ER 120 MG TABLET PO SCH (23:26)
[2019-06-24] MEDS: NYSTATIN POWDER 15 GM TOP SCH (23:56)
[2019-06-24] MEDS: SODIUM CHLORIDE FLUSH 0.9% 10 ML SYRINGE IVP SCH (23:57)
[2019-06-25 05:34] LABS: CALCIUM 9.2 mg/dL (8.5-10.3); CREATININE 0.8 mg/dL (0.4-1.0)
[2019-06-25] MEDS ORDERED: POTASSIUM CHLORIDE 20 MEQ TABLET PO STA (07:08)
[2019-06-25] MEDS: SODIUM CHLORIDE FLUSH 0.9% 10 ML SYRINGE IVP SCH ×2 (08:17→18:04)
[2019-06-25] MEDS: NYSTATIN POWDER 15 GM TOP SCH ×2 (08:17→20:47)
[2019-06-25] MEDS: ACETAMINOPHEN 325 MG TABLET PO PRN ×2 (08:21→18:02)
[2019-06-25] MEDS ORDERED: METOPROLOL TARTRATE 50 MG TABLET PO SCH ×2 (09:00→17:00)
[2019-06-25] MEDS ORDERED: FUROSEMIDE 40 MG/4 ML VIAL IVP SCH ×3 (09:00→18:12)
[2019-06-25] MEDS ORDERED: VERAPAMIL ER 120 MG TABLET PO SCH (09:00)
[2019-06-25] MEDS: SPIRONOLACTONE 25 MG TABLET PO SCH (10:31)
[2019-06-25] MEDS: CHOLESTYRAMINE 4 GM PACKET PO SCH ×2 (12:27→20:45)
--- NOTE | 2019-06-25 13:00 | PROVIDER PROGRESS NOTE ---
Subjective - Prog Note Date Prog Note Date: 06/25/19 Prog Note Time: 12:55 - Subjective Pt reports feeling: Improved Subjective: Jayna complains of being very tired this morning since being up all night since in the ED and getting admitted. She admits to shortness of breath, denies chest pain, nausea, vomiting, a new rash, confusion, or constipation. She notes that she has chronic diarrhea, and has had 3 stools since admission. Current Medications - Current Medications Current Medications: Active Medications: Acetaminophen (Tylenol) 650 mg PO Q4HR PRN Cholestyramine/Sucrose (Questran) 4 gm PO 1100,2100 ALVA Famotidine (Pepcid) 20 mg PO BID ALVA Furosemide (Lasix Inj 40 Mg Vial) 40 mg IVP BIDDIURETIC ALVA Metoprolol Tartrate (Lopressor) 100 mg PO BID ALVA Nystatin (Nystop) 1 applic TOP BID ALVA Ondansetron HCl (Zofran Inj) 4 mg IVP Q6HR PRN Ondansetron HCl (Zofran Odt) 4 mg TL Q6HR PRN Oxycodone HCl (Roxicodone) 5 mg PO Q4HR PRN Spironolactone (Aldactone) 25 mg PO DAILY ALVA Verapamil HCl (Calan Sa) 240 mg PO DAILY ALVA HOME meds: Unknown since no pharmacy review, only going off of past admissions and what the patients daughter can recall. Objective - Vital Signs/Intake & Output Reviewed Vital Signs: Yes Vital Signs: Vital Signs x48h Temp Pulse Pulse Resp BP BP Pulse Ox 06/25/19 08:25 36.5 C 123 H 20 157/114 H 97 06/25/19 08:16 157/114 H 06/25/19 05:30 36.7 C 108 H 24 159/91 H 97 06/25/19 05:04 36.5 C 91 20 98 Intake & Output: Intake & Output 06/22/19 06/23/19 06/24/19 06/25/19 23:59 23:59 23:59 23:59 Intake Total 600 Output Total 50 475 Balance -50 125 - Objective General Appearance: positive: Alert, Moderate distress Eyes Bilateral: positive: No lid inflammation Eyes: OU Conjunctivae pale ENT: positive: Pharyngeal erythema, Dry mucous membranes Neck: positive: Trachea midline, Stiff neck Respiratory: positive: Chest non-tender, Other (coarse crackles, bilaterally, +respiratory distress with activity or moving in bed) Cardiovascular: positive: Irregularly irregular, Tachycardia, JVD present, Systolic murmur, Gallop/S3, Decreased pulse(s) Peripheral Pulses: 1+ Radial (R), 1+ Radial (L) Abdomen: positive: Non-tender, Abnml bowel sounds, Other (obese, soft) Back: positive: Nml inspection Skin: positive: Warm, Dry, Pallor, Other (pale, flushed cheeks, yeasty groin folds) Extremities: positive: Pedal edema (+pitting edema, +2 to BLEs, profound abdominal edema), Joint swelling Neurologic/Psychiatric: positive: Oriented x3, CN's nml (2-12), Motor nml, Weakness, Sensory loss, Depressed mood/affect (flat, short term memory loss), Other (baseline dementia) Reflexes: Bicep (R): 2+, Bicep (L): 2+ - Lab Results Fish Bones: 06/24/19 18:40 06/25/19 04:45 Other Labs: Lab Results x24hrs 06/25/19 06/25/19 06/25/19 Range/Units 04:45 04:45 00:57 WBC (4.8-10.8) x10^3/uL RBC (4.20-5.40) 10^6/uL Hgb (12.0-16.0) g/dL Hct (37.0-47.0) % MCV (81.0-99.0) fL MCH (27.0-31.0) pg MCHC (32.0-36.0) g/dL RDW (12.0-15.0) % Plt Count (130-450) 10^3/uL MPV (7.9-10.8) fL Neut # (Auto) (1.5-6.6) 10^3/uL Lymph # (Auto) (1.5-3.5) 10^3/uL [place] # (Auto) (0.0-1.0) 10^3/uL Eos # (Auto) (0.0-0.7) 10^3/uL Baso # (Auto) (0.0-0.1) 10^3/uL Absolute Nucleated RBC x10^3/uL Nucleated RBC % /100WBC Sodium 140 (135-145) mmol/L Potassium 2.9 L (3.5-5.0) mmol/L Chloride 105 (101-111) mmol/L Carbon Dioxide 24 (21-32) mmol/L Anion Gap 11.0 (6-13) BUN 12 (6-20) mg/dL Creatinine 0.8 (0.4-1.0) mg/dL Estimated GFR (MDRD) 69 L (>89) Glucose 126 H (70-100) mg/dL Lactic Acid 1.4 (0.5-2.2) mmol/L Calcium 9.2 (8.5-10.3) mg/dL Total Bilirubin (0.2-1.0) mg/dL AST (10-42) IU/L ALT (10-60) IU/L Alkaline Phosphatase (42-121) IU/L Troponin I High Sens (2.3-14.8) ng/L B-Natriuretic Peptide 483 H (5-100) pg/mL Total Protein (6.7-8.2) g/dL Albumin (3.2-5.5) g/dL Globulin (2.1-4.2) g/dL Albumin/Globulin Ratio (1.0-2.2) Lipase (22-51) U/L TSH (0.34-5.60) uIU/mL Urine Color Urine Clarity (CLEAR) Urine pH (5.0-7.5) PH Ur Specific [place] (1.002-1.030) Urine Protein (NEGATIVE) mg/dL Urine Glucose (UA) (NEGATIVE) mg/dL Urine Ketones (NEGATIVE) mg/dL Urine Occult Blood (NEGATIVE) Urine Nitrite (NEGATIVE) Urine Bilirubin (NEGATIVE) Urine Urobilinogen (NORMAL) E.U./dL Ur Leukocyte Esterase (NEGATIVE) Urine RBC (0-5) /HPF Urine WBC (0-5) /HPF Ur Squamous Epith Cells (<= Few) Urine Bacteria (None Seen) /HPF Urine Casts /LPF Ur Microscopic Review Urine Culture Comments 06/25/19 06/24/19 06/24/19 Range/Units 00:57 19:09 18:40 WBC (4.8-10.8) x10^3/uL RBC (4.20-5.40) 10^6/uL Hgb (12.0-16.0) g/dL Hct (37.0-47.0) % MCV (81.0-99.0) fL MCH (27.0-31.0) pg MCHC (32.0-36.0) g/dL RDW (12.0-15.0) % Plt Count (130-450) 10^3/uL MPV (7.9-10.8) fL Neut # (Auto) (1.5-6.6) 10^3/uL Lymph # (Auto) (1.5-3.5) 10^3/uL [place] # (Auto) (0.0-1.0) 10^3/uL Eos # (Auto) (0.0-0.7) 10^3/uL Baso # (Auto) (0.0-0.1) 10^3/uL Absolute Nucleated RBC x10^3/uL Nucleated RBC % /100WBC Sodium (135-145) mmol/L Potassium (3.5-5.0) mmol/L Chloride (101-111) mmol/L Carbon Dioxide (21-32) mmol/L Anion Gap (6-13) BUN (6-20) mg/dL Creatinine (0.4-1.0) mg/dL Estimated GFR (MDRD) (>89) Glucose (70-100) mg/dL Lactic Acid (0.5-2.2) mmol/L Calcium (8.5-10.3) mg/dL Total Bilirubin (0.2-1.0) mg/dL AST (10-42) IU/L ALT (10-60) IU/L Alkaline Phosphatase (42-121) IU/L Troponin I High Sens 37.8 H* (2.3-14.8) ng/L B-Natriuretic Peptide (5-100) pg/mL Total Protein (6.7-8.2) g/dL Albumin (3.2-5.5) g/dL Globulin (2.1-4.2) g/dL Albumin/Globulin Ratio (1.0-2.2) Lipase (22-51) U/L TSH 2.02 (0.34-5.60) uIU/mL Urine Color YELLOW Urine Clarity CLEAR (CLEAR) Urine pH 6.0 (5.0-7.5) PH Ur Specific [place] 1.015 (1.002-1.030) Urine Protein TRACE (NEGATIVE) mg/dL Urine Glucose (UA) NEGATIVE (NEGATIVE) mg/dL Urine Ketones NEGATIVE (NEGATIVE) mg/dL Urine Occult Blood NEGATIVE (NEGATIVE) Urine Nitrite NEGATIVE (NEGATIVE) Urine Bilirubin NEGATIVE (NEGATIVE) Urine Urobilinogen 0.2 (NORMAL) (NORMAL) E.U./dL Ur Leukocyte Esterase SMALL H (NEGATIVE) Urine RBC None Seen (0-5) /HPF Urine WBC 6-10 H (0-5) /HPF Ur Squamous Epith Cells MOD Squamous H (<= Few) Urine Bacteria None Seen (None Seen) /HPF Urine Casts 0-2 Hyaline Casts /LPF Ur Microscopic Review INDICATED Urine Culture Comments NOT INDICATED 06/24/19 06/24/19 06/24/19 Range/Units 18:40 18:40 18:40 WBC (4.8-10.8) x10^3/uL RBC (4.20-5.40) 10^6/uL Hgb (12.0-16.0) g/dL Hct (37.0-47.0) % MCV (81.0-99.0) fL MCH (27.0-31.0) pg MCHC (32.0-36.0) g/dL RDW (12.0-15.0) % Plt Count (130-450) 10^3/uL MPV (7.9-10.8) fL Neut # (Auto) (1.5-6.6) 10^3/uL Lymph # (Auto) (1.5-3.5) 10^3/uL [place] # (Auto) (0.0-1.0) 10^3/uL Eos # (Auto) (0.0-0.7) 10^3/uL Baso # (Auto) (0.0-0.1) 10^3/uL Absolute Nucleated RBC x10^3/uL Nucleated RBC % /100WBC Sodium (135-145) mmol/L Potassium (3.5-5.0) mmol/L Chloride (101-111) mmol/L Carbon Dioxide (21-32) mmol/L Anion Gap (6-13) BUN (6-20) mg/dL Creatinine (0.4-1.0) mg/dL Estimated GFR (MDRD) (>89) Glucose (70-100) mg/dL Lactic Acid 2.9 H (0.5-2.2) mmol/L Calcium (8.5-10.3) mg/dL Total Bilirubin (0.2-1.0) mg/dL AST (10-42) IU/L ALT (10-60) IU/L Alkaline Phosphatase (42-121) IU/L Troponin I High Sens 29.6 H* (2.3-14.8) ng/L B-Natriuretic Peptide 467 H (5-100) pg/mL Total Protein (6.7-8.2) g/dL Albumin (3.2-5.5) g/dL Globulin (2.1-4.2) g/dL Albumin/Globulin Ratio (1.0-2.2) Lipase (22-51) U/L TSH (0.34-5.60) uIU/mL Urine Color Urine Clarity (CLEAR) Urine pH (5.0-7.5) PH Ur Specific [place] (1.002-1.030) Urine Protein (NEGATIVE) mg/dL Urine Glucose (UA) (NEGATIVE) mg/dL Urine Ketones (NEGATIVE) mg/dL Urine Occult Blood (NEGATIVE) Urine Nitrite (NEGATIVE) Urine Bilirubin (NEGATIVE) Urine Urobilinogen (NORMAL) E.U./dL Ur Leukocyte Esterase (NEGATIVE) Urine RBC (0-5) /HPF Urine WBC (0-5) /HPF Ur Squamous Epith Cells (<= Few) Urine Bacteria (None Seen) /HPF Urine Casts /LPF Ur Microscopic Review Urine Culture Comments 06/24/19 06/24/19 Range/Units 18:40 18:40 WBC 10.2 (4.8-10.8) x10^3/uL RBC 4.73 (4.20-5.40) 10^6/uL Hgb 13.2 (12.0-16.0) g/dL Hct 41.3 (37.0-47.0) % MCV 87.3 (81.0-99.0) fL MCH 27.9 (27.0-31.0) pg MCHC 32.0 (32.0-36.0) g/dL RDW 14.6 (12.0-15.0) % Plt Count 225 (130-450) 10^3/uL MPV 10.8 (7.9-10.8) fL Neut # (Auto) 8.9 H (1.5-6.6) 10^3/uL Lymph # (Auto) 0.5 L (1.5-3.5) 10^3/uL [place] # (Auto) 0.7 (0.0-1.0) 10^3/uL Eos # (Auto) 0.0 (0.0-0.7) 10^3/uL Baso # (Auto) 0.0 (0.0-0.1) 10^3/uL Absolute Nucleated RBC 0.00 x10^3/uL Nucleated RBC % 0.0 /100WBC Sodium 137 (135-145) mmol/L Potassium 2.8 L (3.5-5.0) mmol/L Chloride 102 (101-111) mmol/L Carbon Dioxide 21 (21-32) mmol/L Anion Gap 14.0 H (6-13) BUN 12 (6-20) mg/dL Creatinine 0.9 (0.4-1.0) mg/dL Estimated GFR (MDRD) 60 L (>89) Glucose 132 H (70-100) mg/dL Lactic Acid (0.5-2.2) mmol/L Calcium 9.2 (8.5-10.3) mg/dL Total Bilirubin 0.9 (0.2-1.0) mg/dL AST 16 (10-42) IU/L ALT < 10 L (10-60) IU/L Alkaline Phosphatase 69 (42-121) IU/L Troponin I High Sens (2.3-14.8) ng/L B-Natriuretic Peptide (5-100) pg/mL Total Protein 6.9 (6.7-8.2) g/dL Albumin 3.9 (3.2-5.5) g/dL Globulin 3.0 (2.1-4.2) g/dL Albumin/Globulin Ratio 1.3 (1.0-2.2) Lipase 24 (22-51) U/L TSH (0.34-5.60) uIU/mL Urine Color Urine Clarity (CLEAR) Urine pH (5.0-7.5) PH Ur Specific [place] (1.002-1.030) Urine Protein (NEGATIVE) mg/dL Urine Glucose (UA) (NEGATIVE) mg/dL Urine Ketones (NEGATIVE) mg/dL Urine Occult Blood (NEGATIVE) Urine Nitrite (NEGATIVE) Urine Bilirubin (NEGATIVE) Urine Urobilinogen (NORMAL) E.U./dL Ur Leukocyte Esterase (NEGATIVE) Urine RBC (0-5) /HPF Urine WBC (0-5) /HPF Ur Squamous Epith Cells (<= Few) Urine Bacteria (None Seen) /HPF Urine Casts /LPF Ur Microscopic Review Urine Culture Comments ABX Reporting Has patient been on IV antibiotics over the past 48 hours?: No Assessment/Plan - Problem List (1) Atrial fibrillation with rapid ventricular response Impression: -Patient states that her usual mail-order supply of verapamil ran out and she has heard there has been a shortage -She states, maybe the whole world is out of verapamil -Home meds for rate control are; 100 mg metoprolol twice daily and verapamil 240 mg daily -Initially, the patient received diltiazem twice, Lasix once, which improved her rate -Heart rate continued in the 100-120s this AM -After resumption of verapamil, metoprolol, spironolactone, and IV Lasix, her heart rate has been in the 70s (around 1030AM) -Continue telemetry to monitor heart rate, and now treating fluid overload Acute on chronic diastolic CHF (congestive heart failure) -Echocardiogram dated 01/02/2019 shows an EF of 55%, LVH, and a LA which is moderately dilated -It is believed that she takes Lasix & spironolactone at home -Mild mitral & aortic regurg -BNP is elevated at 467 on admission, now 467 this AM -Profound abdominal edema, pitting BLE edema, slight +JVD, coarse crackles to lower lung bases, requires oxygen, dyspnea on exertion, and poor activity tolerance -Added both Spironolactone (may also help her low K+), and IV Lasix of 40mg BID -Routine labs, consider echo to rule out a new cause of this exacerbation Pulmonary hypertension -Elevated RVSP of 44 mmHg from the last echo done in December -Patient daughter notes that her mother should be on a diuretic at home, still awaiting home med list -She was started on Spironolacone and IV lasix this AM Chronic diarrhea -Admitting physician prescribed Questran for home use -With having at least 3 loose stools today, now prescribed here -Likely diarrhea is contributing to her K+ loss COPD (chronic obstructive pulmonary disease) -The patient admits to a chronic cough, no wheezing, no chest congestion, no recent illness -At home, she is usually on 3 L at home at rest and with exertion -This AM, she still required 2-3L to keep oxygen greater than 90% -Likely due to fluid overload Dementia -A head CT from December shows loss of oropeza-white differentiation in the right frontoparietal junction involving areas of the precentral and postcentral gyrus; moderate degree of chronic small vessel ischemia and moderate generalized volume loss -Patients daughter notes that since her stroke, she has had residual short term memory loss -Social work consult for setting up at least a bath aide at home to ensure that patient gets cleaned, possible home health PT or OT if needed -Patients daughter states that from now on, she will be in charge of her home meds to prevent hospital stays -Palliative care should be considered Medical non-compliance -Likely due to dementia since having her stroke last December per daughter -Patients daughter also notes that her mother just does not get around to taking a shower and has had a decline in her appetite with weight loss since her stroke Hypokalemia -Upon arrival serum K+ was very low at 2.8 -After supplement, still only 2.8 -Likely due to IV Lasix, and chronic diarrhea -Repeating labs at 1400 today GUILLERMO (obstructive sleep apnea) -Family is to bring in home CPAP -Supplemental oxygen while here Elevated troponin level not due myocardial infarction -Likely from demand ischemia caused by tachycardia -Repeat troponin remained flat, no chest pain Do not resuscitate status -New POLST form filled out stating DNR/DNI -Limited interventions, awaiting a scanned copy for the chart
--- NOTE | 2019-06-25 13:42 | PHARMACY PROGRESS NOTE ---
- Best Possible Medication History Admit Date and Time: 06/25/19 1007 Processed by: Pharmacy Medication History completed: In progress As the person ultimately responsible for medication therapy, providers are able to order a medication from an existing home medication list in [facility] via the "Reconcile Routine" prior to Confirmation of that medication by system support developer. Such practice is discouraged except when the physician, in their clinical judgment, deems that a medical need exists for a medication without regard to previous use.
[2019-06-25 14:38] LABS: CALCIUM 9.1 mg/dL (8.5-10.3)
[2019-06-25] MEDS: METOPROLOL TARTRATE 50 MG TABLET PO SCH (16:31)
[2019-06-25] MEDS ORDERED: IPRATROPIUM/ALBUTEROL 3 ML NEB INH PRN (18:24)
[2019-06-25] MEDS: FAMOTIDINE 20 MG TABLET PO SCH (20:45)
[2019-06-26] MEDS: SODIUM CHLORIDE FLUSH 0.9% 10 ML SYRINGE IVP SCH ×3 (00:06→16:50)
[2019-06-26] MEDS: ACETAMINOPHEN 325 MG TABLET PO PRN (03:18)
[2019-06-26] MEDS ORDERED: LOPERAMIDE 2 MG CAPSULE PO PRN ×2 (08:19→19:36)
[2019-06-26] MEDS: SODIUM CHLORIDE FLUSH 0.9% 10 ML SYRINGE IVP PRN ×2 (08:52→12:12)
[2019-06-26] MEDS: METOPROLOL TARTRATE 50 MG TABLET PO SCH (08:52)
[2019-06-26] MEDS: SPIRONOLACTONE 25 MG TABLET PO SCH (08:52)
[2019-06-26] MEDS: FAMOTIDINE 20 MG TABLET PO SCH ×2 (08:52→20:14)
--- NOTE | 2019-06-26 10:17 | PROVIDER PROGRESS NOTE ---
Assessment/Plan - Problem List (1) Atrial fibrillation with rapid ventricular response Assessment/Plan: This was related to having no Verapimil at home for 3 days, and possibly forgetting other meds. Will start extended release B-nanette at maximum dose and stop the Metoprolol Tartrate and possibly the Verapamil entirely, for ease of administration. (2) Junctional bradycardia Assessment/Plan: When her usual dose of Metoprolol Tartrtae and Verapimil were resumed, she went into bradycardic Afib rates in the 30's yesterday, and so her discharge was cancelled, she was made an inpatient. This morning, her Verapimil and Metoprolol were on hold and her HR is now 60's. Will start extended release B-nanette tonite and stop the Metoprolol Tartrate and possibly the Verapamil entirely, for ease of administration. (3) Acute on chronic diastolic CHF (congestive heart failure) Assessment/Plan: This is likely related to the tachycardia she presented with. Will start extended release B-nanette at maximum dose and stop the Metoprolol Tartrate and possibly the Verapamil entirely, for ease of administration. Stop iv Lasix today and restart her oral regimen tomorrow. Assess with activity. (4) Non compliance w medication regimen Assessment/Plan: She had run out of her Verapamil, there was none being used for 3 days. It is unclear if she was using her other prescribed medications, given her poor memory. (5) History of CVA with residual deficit Assessment/Plan: She does have memory problems and possibly fine motor control problems and t herefore an OT consult has been requested. PT to evaluate as well, regarding independent ambulation. (6) HTN (hypertension) Assessment/Plan: B elevated today, since metoprolol and Verapimil were not given due to bradtcardia. Will give one-time iv Hydralazine (7) Chronic diarrhea Assessment/Plan: This is been ongoing for greater than 6 months. Her PCP ordered cholestyramine for this. Will add Imodium as needed (8) Hypokalemia Assessment/Plan: Related to diuresis and chronic diarrhea. Replace. Follow BMP daily. (9) Dementia, vascular Assessment/Plan: Her head CT in 01/15 showed small vessel ischemia of the brain plus the subacute stroke. I have asked OT to perform a mini-mental status exam on her and she scored 16/30, indicating significant impairment. Therefore OT advised 24 hour supervision. I have discussed this with SW, and family may need to be decide what type of 24 hour supervision she will receive. Also, she would benefit from OT rehab, given the fine motor problems we see here (she fed herself using the wrong side of the fork). - Current Meds Current Meds: Current Medications Generic Name Dose Route Start Last Admin Trade Name Freq PRN Reason Stop Dose Admin Acetaminophen 650 mg 06/24/19 20:38 06/26/19 03:18 Tylenol PO 650 mg Q4HR PRN Administration Pain 1 to 4 Cholestyramine/Sucrose 4 gm 06/25/19 11:00 06/25/19 20:45 Questran PO 4 gm 1100,2100 ALVA Administration Famotidine 20 mg 06/25/19 21:00 06/26/19 08:52 Pepcid PO 20 mg BID ALVA Administration Nystatin 1 applic 06/24/19 23:00 06/25/19 20:47 Nystop TOP 1 applic BID ALVA Administration Sodium Chloride 10 ml 06/24/19 20:38 06/26/19 08:52 Normal Saline Flush 0.9% IVP 10 ml PRN PRN Administration NEEDED PER PROVIDER ORDERS Sodium Chloride 10 ml 06/25/19 01:00 06/26/19 08:53 Normal Saline Flush 0.9% IVP 10 ml 0100,0900,1700 ALVA Administration Spironolactone 25 mg 06/25/19 09:00 06/26/19 08:52 Aldactone PO 25 mg DAILY ALVA Administration - Lab Result Fish Bone Diagrams: 06/24/19 18:40 06/26/19 11:05 - Additional Planning My Orders: My Active Orders 06/26/19 BMP - BASIC METABOLIC PANEL [CHEM] Urgent Evaluate and Treat OT [OT] Routine Evaluate and Treat PT [PT] Routine 06/26/19 08:19 Loperamide [Imodium] 2 mg PO QID PRN 06/26/19 10:11 BMP - BASIC METABOLIC PANEL [CHEM] Urgent BNP - B-NATRIURETIC PEPTIDE [IAI] Urgent 06/26/19 21:00 Metoprolol Succinate [Toprol Xl] 100 mg PO BID Subjective - Subjective Patient Reports: Resting Comfortably, No Complaints Nursing Reports: Other (RN reports that patient does not follow cues and commends well (ate with her fork turned backward).) Objective Vital Signs: Vital Signs - 24 hr 06/25/19 06/25/19 06/25/19 13:00 14:52 16:12 Temperature 36.4 C L 36.6 C Heart Rate [ Monitoring electrodes] Heart Rate [ 75 55 L 104 H Radial] Heart Rate [ Sitting (After 1 Minute)] Heart Rate [ Supine] Respiratory 22 20 Rate Blood Pressure Blood Pressure [Left Radial artery] Blood Pressure 133/85 H 115/70 118/77 [Right Radial artery] Blood Pressure [Sitting (After 1 Minute)] Blood Pressure [Supine] O2 Saturation 98 92 06/25/19 06/25/19 06/25/19 16:31 17:16 18:15 Temperature Heart Rate [ 37 L Monitoring electrodes] Heart Rate [ Radial] Heart Rate [ 55 L Sitting (After 1 Minute)] Heart Rate [ 52 L Supine] Respiratory 16 Rate Blood Pressure 109/64 Blood Pressure [Left Radial artery] Blood Pressure 103/50 L [Right Radial artery] Blood Pressure 109/75 [Sitting (After 1 Minute)] Blood Pressure 103/53 L [Supine] O2 Saturation 94 06/25/19 06/25/19 06/25/19 19:20 22:42 23:50 Temperature 36.8 C 37.2 C Heart Rate [ 41 L 40 L 60 Monitoring electrodes] Heart Rate [ Radial] Heart Rate [ Sitting (After 1 Minute)] Heart Rate [ Supine] Respiratory 16 20 20 Rate Blood Pressure Blood Pressure 147/84 H [Left Radial artery] Blood Pressure 123/64 110/58 L [Right Radial artery] Blood Pressure [Sitting (After 1 Minute)] Blood Pressure [Supine] O2 Saturation 98 97 94 06/26/19 06/26/19 06/26/19 02:45 02:46 04:25 Temperature Heart Rate [ Monitoring electrodes] Heart Rate [ Radial] Heart Rate [ Sitting (After 1 Minute)] Heart Rate [ Supine] Respiratory Rate Blood Pressure Blood Pressure [Left Radial artery] Blood Pressure [Right Radial artery] Blood Pressure [Sitting (After 1 Minute)] Blood Pressure [Supine] O2 Saturation 88 L 95 95 06/26/19 06/26/19 04:35 07:48 Temperature 37.1 C 36.5 C Heart Rate [ 62 59 L Monitoring electrodes] Heart Rate [ Radial] Heart Rate [ Sitting (After 1 Minute)] Heart Rate [ Supine] Respiratory 18 18 Rate Blood Pressure Blood Pressure [Left Radial artery] Blood Pressure 153/96 H 146/92 H [Right Radial artery] Blood Pressure [Sitting (After 1 Minute)] Blood Pressure [Supine] O2 Saturation 95 100 Oxygen O2 Source [With Activity] Nasal cannula O2 Source Nasal cannula I&O (Last 24 Hrs): Intake and Output Totals x24h 06/24/19 06/25/19 06/26/19 23:59 23:59 23:59 Intake Total 1530 350 Output Total 50 900 50 Balance -50 630 300 General: Other (Lethargic, awakens easily.) HEENT: Mucous membr. moist/pink Neck: Supple, No JVD Neuro: Alert, Disoriented, Non Focal Cardiovascular: No murmurs Respiratory: No respiratory distress, Breath sounds nml Abdomen: Normal bowel sounds, Soft Extremities: No edema - Results Results: Laboratory Results WBC 10.2 x10^3/uL (4.8-10.8) 06/24/19 18:40 RBC 4.73 10^6/uL (4.20-5.40) 06/24/19 18:40 Hgb 13.2 g/dL (12.0-16.0) 06/24/19 18:40 Hct 41.3 % (37.0-47.0) 06/24/19 18:40 MCV 87.3 fL (81.0-99.0) 06/24/19 18:40 MCH 27.9 pg (27.0-31.0) 06/24/19 18:40 MCHC 32.0 g/dL (32.0-36.0) 06/24/19 18:40 RDW 14.6 % (12.0-15.0) 06/24/19 18:40 Plt Count 225 10^3/uL (130-450) 06/24/19 18:40 MPV 10.8 fL (7.9-10.8) 06/24/19 18:40 Neut # (Auto) 8.9 10^3/uL (1.5-6.6) H 06/24/19 18:40 Lymph # (Auto) 0.5 10^3/uL (1.5-3.5) L 06/24/19 18:40 [place] # (Auto) 0.7 10^3/uL (0.0-1.0) 06/24/19 18:40 Eos # (Auto) 0.0 10^3/uL (0.0-0.7) 06/24/19 18:40 Baso # (Auto) 0.0 10^3/uL (0.0-0.1) 06/24/19 18:40 Absolute Nucleated RBC 0.00 x10^3/uL 06/24/19 18:40 Nucleated RBC % 0.0 /100WBC 06/24/19 18:40 Sodium 139 mmol/L (135-145) 06/25/19 14:22 Potassium 3.8 mmol/L (3.5-5.0) 06/25/19 14:22 Chloride 101 mmol/L (101-111) 06/25/19 14:22 Carbon Dioxide 24 mmol/L (21-32) 06/25/19 14:22 Anion Gap 14.0 (6-13) H 06/25/19 14:22 BUN 14 mg/dL (6-20) 06/25/19 14:22 Creatinine 1.0 mg/dL (0.4-1.0) 06/25/19 14:22 Estimated GFR (MDRD) 53 (>89) L 06/25/19 14:22 Glucose 147 mg/dL (70-100) H 06/25/19 14:22 Lactic Acid 1.4 mmol/L (0.5-2.2) 06/25/19 00:57 Calcium 9.1 mg/dL (8.5-10.3) 06/25/19 14:22 Total Bilirubin 0.9 mg/dL (0.2-1.0) 06/24/19 18:40 AST 16 IU/L (10-42) 06/24/19 18:40 ALT < 10 IU/L (10-60) L 06/24/19 18:40 Alkaline Phosphatase 69 IU/L (42-121) 06/24/19 18:40 Troponin I High Sens 37.8 ng/L (2.3-14.8) H* 06/25/19 00:57 B-Natriuretic Peptide 483 pg/mL (5-100) H 06/25/19 04:45 Total Protein 6.9 g/dL (6.7-8.2) 06/24/19 18:40 Albumin 3.9 g/dL (3.2-5.5) 06/24/19 18:40 Globulin 3.0 g/dL (2.1-4.2) 06/24/19 18:40 Albumin/Globulin Ratio 1.3 (1.0-2.2) 06/24/19 18:40 Lipase 24 U/L (22-51) 06/24/19 18:40 TSH 2.02 uIU/mL (0.34-5.60) 06/24/19 18:40 Urine Color YELLOW 06/24/19 19:09 Urine Clarity CLEAR (CLEAR) 06/24/19 19:09 Urine pH 6.0 PH (5.0-7.5) 06/24/19 19:09 Ur Specific [place] 1.015 (1.002-1.030) 06/24/19 19:09 Urine Protein TRACE mg/dL (NEGATIVE) 06/24/19 19:09 Urine Glucose (UA) NEGATIVE mg/dL (NEGATIVE) 06/24/19 19:09 Urine Ketones NEGATIVE mg/dL (NEGATIVE) 06/24/19 19:09 Urine Occult Blood NEGATIVE (NEGATIVE) 06/24/19 19:09 Urine Nitrite NEGATIVE (NEGATIVE) 06/24/19 19:09 Urine Bilirubin NEGATIVE (NEGATIVE) 06/24/19 19:09 Urine Urobilinogen 0.2 (NORMAL) E.U./dL (NORMAL) 06/24/19 19:09 Ur Leukocyte Esterase SMALL (NEGATIVE) H 06/24/19 19:09 Urine RBC None Seen /HPF (0-5) 06/24/19 19:09 Urine WBC 6-10 /HPF (0-5) H 06/24/19 19:09 Ur Squamous Epith Cells MOD Squamous (<= Few) H 06/24/19 19:09 Urine Bacteria None Seen /HPF (None Seen) 06/24/19 19:09 Urine Casts 0-2 Hyaline Casts /LPF 06/24/19 19:09 Ur Microscopic Review INDICATED 06/24/19 19:09 Urine Culture Comments NOT INDICATED 06/24/19 19:09
[2019-06-26] MEDS: NYSTATIN POWDER 15 GM TOP SCH ×2 (10:49→20:14)
[2019-06-26] MEDS: CHOLESTYRAMINE 4 GM PACKET PO SCH ×2 (10:58→20:14)
[2019-06-26 11:19] LABS: CREATININE 1.3 mg/dL (0.4-1.0)
[2019-06-26] MEDS ORDERED: hydrALAZINE INJ 20 MG/ML VIAL IVP ONE (11:51)
[2019-06-26] MEDS: POTASSIUM CHLORIDE 20 MEQ/15 ML UDC PO STA ×3 (16:50→19:04)
[2019-06-26] MEDS: POTASSIUM CHLOR 10 MEQ/100 ML 10 MEQ/100 ML BAG IV SCH ×2 (19:05→19:06)
[2019-06-26] MEDS: METOPROLOL SUCCINATE 50 MG TABLET PO SCH (20:14)
[2019-06-27] MEDS: SODIUM CHLORIDE FLUSH 0.9% 10 ML SYRINGE IVP SCH ×3 (00:09→18:11)
[2019-06-27] MEDS: METOPROLOL SUCCINATE 50 MG TABLET PO SCH ×2 (08:38→20:58)
[2019-06-27] MEDS: SPIRONOLACTONE 25 MG TABLET PO SCH (08:38)
[2019-06-27] MEDS: FAMOTIDINE 20 MG TABLET PO SCH (08:38)
[2019-06-27] MEDS: NYSTATIN POWDER 15 GM TOP SCH ×2 (08:38→20:58)
[2019-06-27 08:58] LABS: BASOPHILS % (AUTO) 0.3 %; EOSINOPHILS # (AUTO) 0.2 10^3/uL (0.0-0.7); EOSINOPHILS % (AUTO) 2.2 %; HGB - HEMOGLOBIN 12.6 g/dL (12.0-16.0); LYMPHOCYTES # (AUTO) 0.7 10^3/uL (1.5-3.5); LYMPHOCYTES % (AUTO) 10.6 %; MEAN CORPUSCULAR HEMOGLOBIN 28.1 pg (27.0-31.0); MEAN CORPUSCULAR HGB CONC 31.7 g/dL (32.0-36.0); MEAN CORPUSCULAR VOLUME 88.6 fL (81.0-99.0); MEAN PLATELET VOLUME 11.3 fL (7.9-10.8); MONOCYTES # (AUTO) 0.8 10^3/uL (0.0-1.0); MONOCYTES % (AUTO) 11.3 %; NEUTROPHILS # (AUTO) 5.2 10^3/uL (1.5-6.6); NEUTROPHILS % (AUTO) 75.5 %; PLT - PLATELET COUNT 203 10^3/uL (130-450); RED BLOOD COUNT 4.48 10^6/uL (4.20-5.40); RED CELL DISTRIBUTION WIDTH 15.1 % (12.0-15.0); WHITE BLOOD COUNT 6.8 x10^3/uL (4.8-10.8)
[2019-06-27 09:04] LABS: CALCIUM 8.8 mg/dL (8.5-10.3); CREATININE 0.8 mg/dL (0.4-1.0); MAGNESIUM 1.5 mg/dL (1.7-2.8)
[2019-06-27] MEDS: CHOLESTYRAMINE 4 GM PACKET PO SCH ×2 (13:08→20:58)
[2019-06-27] MEDS: diltiaZEM CD 120 MG CAPSULE PO SCH (13:08)
--- NOTE | 2019-06-27 18:09 | PROVIDER PROGRESS NOTE ---
Assessment/Plan - Problem List (1) Atrial fibrillation with rapid ventricular response Assessment/Plan: At presentation she had A. fib with RVR from not taking her medications. When the medications were started, this caused junctional bradycardia with heart rates in the 30s. Since then I have changed her medications for rate control and but hopefully avoiding bradycardia Heart rate is 70-90 today on the adjusted medications which I changed empirically and described this to the family: Toprol tartrate was changed to metoprolol succinate. Verapamil was stopped since there has been and will be a national shortage. Cardizem CD at lowest dose was chosen and staggered use ordered to prevent hypotension. Assess heart rate with activity. Continue telemetry. If this current combination of medications is producing adequate HR control at rest and with activity, she may be ready for discharge tomorrow (2) Acute on chronic diastolic CHF (congestive heart failure) Assessment/Plan: Will recheck echo for LVEF and diastolic function (3) Non compliance w medication regimen Assessment/Plan: Patient now admits she did not take some of her medicines for 5 to 8 days. The daughter (who lives next door) then asked me why her PCP did not supply her with Verapamil in the 3 days that they were not sent to her house as prescribed. I suspect that it was due to a shortage and explained that the PCP does not know of that specific patients pill supply among his or her huge group of office patients. (4) History of CVA with residual deficit Assessment/Plan: December 2018, she had left-sided weakness. I suspect the stroke led to worsening memory as well. (5) HTN (hypertension) Assessment/Plan: Good control of blood pressure with current medication combination. (6) Dementia, vascular Assessment/Plan: As per CT of the head from 12/2018, she has evidence of ischemic/vascular dementia (7) Sleep apnea Assessment/Plan: The reprographics technician evaluated the patient's home CPAP device and found it to be in very dirty condition: The filter was black, the tubing was brown. This is another sign of poor hygiene, likely due to her dementia. Patient is continuing to use her home CPAP while here and benefits from the use of CPAP. The patient is in need of CPAP supplies at home. Will order on specific CPAP forms. (8) Chronic diarrhea Assessment/Plan: Resolved (9) Hypokalemia Assessment/Plan: Resolved (10) Junctional bradycardia Assessment/Plan: Resolved - Current Meds Current Meds: Current Medications Generic Name Dose Route Start Last Admin Trade Name Yannq PRN Reason Stop Dose Admin Acetaminophen 650 mg 06/24/19 20:38 06/26/19 03:18 Tylenol PO 650 mg Q4HR PRN Administration Pain 1 to 4 Cholestyramine/Sucrose 4 gm 06/25/19 11:00 06/27/19 13:08 Questran PO Not Given 1100,2100 ALVA Diltiazem HCl 120 mg 06/27/19 12:16 06/27/19 13:08 Cardizem Cd PO 120 mg 1200 ALVA Administration Famotidine 20 mg 06/27/19 09:00 06/27/19 08:38 Pepcid PO 20 mg DAILY ALVA Administration Metoprolol Succinate 100 mg 06/26/19 21:00 06/27/19 08:38 Toprol Xl PO 100 mg BID ALVA Administration Nystatin 1 applic 06/24/19 23:00 06/27/19 08:38 Nystop TOP 1 applic BID ALVA Administration Sodium Chloride 10 ml 06/24/19 20:38 06/26/19 12:12 Normal Saline Flush 0.9% IVP 10 ml PRN PRN Administration NEEDED PER PROVIDER ORDERS Sodium Chloride 10 ml 06/25/19 01:00 06/27/19 08:38 Normal Saline Flush 0.9% IVP 10 ml 0100,0900,1700 ALVA Administration Spironolactone 25 mg 06/25/19 09:00 06/27/19 08:38 Aldactone PO 25 mg DAILY ALVA Administration - Lab Result Fish Bone Diagrams: 06/27/19 08:35 06/27/19 08:35 - Additional Planning My Orders: My Active Orders 06/26/19 19:36 Loperamide [Imodium] 2 mg PO Q12H PRN 06/26/19 21:00 Metoprolol Succinate [Toprol Xl] 100 mg PO BID 06/27/19 12:14 Echo Transthoracic Complete [ECHO] Routine 06/27/19 12:16 diltiaZEM CD [Cardizem Cd] 120 mg PO 1200 06/27/19 Lunch DIET [Low Sodium Diet] [DIET] Subjective - Subjective Patient Reports: Feeling Better Nursing Reports: Other (Patient told me that she liked her breakfast and lunch but family and nurse confirmed that she pushed away her breakfast and lunch because she did not like what was on the tray.) Objective Vital Signs: Vital Signs - 24 hr 06/26/19 06/26/19 06/26/19 18:19 19:30 23:50 Temperature 37.0 C 37.2 C Heart Rate Heart Rate [ 81 Monitoring electrodes] Heart Rate [ 92 Radial] Heart Rate [ 107 H Sitting (After 1 Minute)] Heart Rate [ 112 H Standing (After 1 Minute)] Heart Rate [ 108 H Supine] Respiratory 18 18 Rate Blood Pressure [Left Radial artery] Blood Pressure 149/95 H 152/97 H [Right Radial artery] Blood Pressure 137/80 H [Sitting (After 1 Minute)] Blood Pressure 148/87 H [Standing ( After 1 Minute) ] Blood Pressure 135/90 H [Supine] O2 Saturation 97 98 06/27/19 06/27/19 06/27/19 03:10 04:50 07:45 Temperature 37.0 C 36.4 C L Heart Rate Heart Rate [ 74 80 Monitoring electrodes] Heart Rate [ Radial] Heart Rate [ 80 Sitting (After 1 Minute)] Heart Rate [ 87 Standing (After 1 Minute)] Heart Rate [ 74 Supine] Respiratory 16 18 Rate Blood Pressure [Left Radial artery] Blood Pressure 151/86 H 153/87 H [Right Radial artery] Blood Pressure 155/113 H [Sitting (After 1 Minute)] Blood Pressure 154/115 H [Standing ( After 1 Minute) ] Blood Pressure 151/86 H [Supine] O2 Saturation 98 95 94 06/27/19 06/27/19 06/27/19 11:00 11:55 15:55 Temperature 36.6 C 36.9 C Heart Rate 89 Heart Rate [ 96 Monitoring electrodes] Heart Rate [ 88 Radial] Heart Rate [ Sitting (After 1 Minute)] Heart Rate [ Standing (After 1 Minute)] Heart Rate [ Supine] Respiratory 22 16 16 Rate Blood Pressure 185/98 H [Left Radial artery] Blood Pressure 154/106 H [Right Radial artery] Blood Pressure [Sitting (After 1 Minute)] Blood Pressure [Standing ( After 1 Minute) ] Blood Pressure [Supine] O2 Saturation 100 98 06/27/19 16:08 Temperature Heart Rate Heart Rate [ Monitoring electrodes] Heart Rate [ Radial] Heart Rate [ Sitting (After 1 Minute)] Heart Rate [ Standing (After 1 Minute)] Heart Rate [ Supine] Respiratory Rate Blood Pressure 155/97 H [Left Radial artery] Blood Pressure [Right Radial artery] Blood Pressure [Sitting (After 1 Minute)] Blood Pressure [Standing ( After 1 Minute) ] Blood Pressure [Supine] O2 Saturation Oxygen O2 Source [With Activity] Nasal cannula O2 Source Nasal cannula I&O (Last 24 Hrs): Intake and Output Totals x24h 06/25/19 06/26/19 06/27/19 23:59 23:59 23:59 Intake Total 1530 1240 790 Output Total 900 1450 475 Balance 630 -210 315 General: Alert, No acute distress, Other (Disoriented) HEENT: Mucous membr. moist/pink Neck: Supple, No JVD Neuro: Alert, Disoriented, Non Focal Cardiovascular: No murmurs Respiratory: No respiratory distress, Breath sounds nml Abdomen: Soft Extremities: Other (Trace R leg edema) - Results Results: Laboratory Results WBC 6.8 x10^3/uL (4.8-10.8) 06/27/19 08:35 RBC 4.48 10^6/uL (4.20-5.40) 06/27/19 08:35 Hgb 12.6 g/dL (12.0-16.0) 06/27/19 08:35 Hct 39.7 % (37.0-47.0) 06/27/19 08:35 MCV 88.6 fL (81.0-99.0) 06/27/19 08:35 MCH 28.1 pg (27.0-31.0) 06/27/19 08:35 MCHC 31.7 g/dL (32.0-36.0) L 06/27/19 08:35 RDW 15.1 % (12.0-15.0) H 06/27/19 08:35 Plt Count 203 10^3/uL (130-450) 06/27/19 08:35 MPV 11.3 fL (7.9-10.8) H 06/27/19 08:35 Neut # (Auto) 5.2 10^3/uL (1.5-6.6) 06/27/19 08:35 Lymph # (Auto) 0.7 10^3/uL (1.5-3.5) L 06/27/19 08:35 [place] # (Auto) 0.8 10^3/uL (0.0-1.0) 06/27/19 08:35 Eos # (Auto) 0.2 10^3/uL (0.0-0.7) 06/27/19 08:35 Baso # (Auto) 0.0 10^3/uL (0.0-0.1) 06/27/19 08:35 Absolute Nucleated RBC 0.00 x10^3/uL 06/27/19 08:35 Nucleated RBC % 0.0 /100WBC 06/27/19 08:35 Sodium 137 mmol/L (135-145) 06/27/19 08:35 Potassium 3.7 mmol/L (3.5-5.0) 06/27/19 08:35 Chloride 101 mmol/L (101-111) 06/27/19 08:35 Carbon Dioxide 25 mmol/L (21-32) 06/27/19 08:35 Anion Gap 11.0 (6-13) 06/27/19 08:35 BUN 17 mg/dL (6-20) 06/27/19 08:35 Creatinine 0.8 mg/dL (0.4-1.0) 06/27/19 08:35 Estimated GFR (MDRD) 69 (>89) L 06/27/19 08:35 Glucose 151 mg/dL (70-100) H 06/27/19 08:35 Lactic Acid 1.4 mmol/L (0.5-2.2) 06/25/19 00:57 Calcium 8.8 mg/dL (8.5-10.3) 06/27/19 08:35 Magnesium 1.5 mg/dL (1.7-2.8) L 06/27/19 08:35 Total Bilirubin 0.9 mg/dL (0.2-1.0) 06/24/19 18:40 AST 16 IU/L (10-42) 06/24/19 18:40 ALT < 10 IU/L (10-60) L 06/24/19 18:40 Alkaline Phosphatase 69 IU/L (42-121) 06/24/19 18:40 Troponin I High Sens 37.8 ng/L (2.3-14.8) H* 06/25/19 00:57 B-Natriuretic Peptide 356 pg/mL (5-100) H 06/26/19 11:05 Total Protein 6.9 g/dL (6.7-8.2) 06/24/19 18:40 Albumin 3.9 g/dL (3.2-5.5) 06/24/19 18:40 Globulin 3.0 g/dL (2.1-4.2) 06/24/19 18:40 Albumin/Globulin Ratio 1.3 (1.0-2.2) 06/24/19 18:40 Lipase 24 U/L (22-51) 06/24/19 18:40 TSH 2.02 uIU/mL (0.34-5.60) 06/24/19 18:40 Urine Color YELLOW 06/24/19 19:09 Urine Clarity CLEAR (CLEAR) 06/24/19 19:09 Urine pH 6.0 PH (5.0-7.5) 06/24/19 19:09 Ur Specific [place] 1.015 (1.002-1.030) 06/24/19 19:09 Urine Protein TRACE mg/dL (NEGATIVE) 06/24/19 19:09 Urine Glucose (UA) NEGATIVE mg/dL (NEGATIVE) 06/24/19 19:09 Urine Ketones NEGATIVE mg/dL (NEGATIVE) 06/24/19 19:09 Urine Occult Blood NEGATIVE (NEGATIVE) 06/24/19 19:09 Urine Nitrite NEGATIVE (NEGATIVE) 06/24/19 19:09 Urine Bilirubin NEGATIVE (NEGATIVE) 06/24/19 19:09 Urine Urobilinogen 0.2 (NORMAL) E.U./dL (NORMAL) 06/24/19 19:09 Ur Leukocyte Esterase SMALL (NEGATIVE) H 06/24/19 19:09 Urine RBC None Seen /HPF (0-5) 06/24/19 19:09 Urine WBC 6-10 /HPF (0-5) H 06/24/19 19:09 Ur Squamous Epith Cells MOD Squamous (<= Few) H 06/24/19 19:09 Urine Bacteria None Seen /HPF (None Seen) 06/24/19 19:09 Urine Casts 0-2 Hyaline Casts /LPF 06/24/19 19:09 Ur Microscopic Review INDICATED 06/24/19 19:09 Urine Culture Comments NOT INDICATED 06/24/19 19:09
[2019-06-28] MEDS: SODIUM CHLORIDE FLUSH 0.9% 10 ML SYRINGE IVP SCH ×2 (03:14→08:21)
[2019-06-28] MEDS: MIN OIL/DIMETHICON/COCONUT OIL 92 GM TUBE TOP PRN ×2 (06:08→08:21)
[2019-06-28] MEDS: FAMOTIDINE 20 MG TABLET PO SCH (08:17)
[2019-06-28] MEDS: SPIRONOLACTONE 25 MG TABLET PO SCH (08:17)
[2019-06-28] MEDS: METOPROLOL SUCCINATE 50 MG TABLET PO SCH (08:17)
[2019-06-28] MEDS: NYSTATIN POWDER 15 GM TOP SCH (08:21)
--- NOTE | 2019-06-28 08:36 | Discharge Plan ---
"Discharge Plan for SNF / [facility] - Discharge Plan And Transition Orders Problem Reviewed?: Yes Disposition: 03 SNF DC/Xfer Condition: Stable Allergies and Adverse Reactions: Allergies Allergy/AdvReac Type Severity Reaction Status Date / Time No Known Drug Allergies Allergy Verified 02/12/19 23:09 Health Concerns: Admitted with Domenico perkins with RVR due to noncompliance with taking medications, non- compliance due to poor memory, and the RVR caused mild heart failure. Plan of Treatment: Heart rate control meds and heart failure medications have been adjusted and she improved, therefore follow new med list. Medications were sent electronically to her [facility] pharmacy. Further management for ambulation, fine motor control and memory loss should continue at a nursing home facility, then she needs supervised care lifelong. Care Goals: Stabilization in symptoms and a safe discharge are the goals. Assessment: The family understands and agrees with the plan. - SNF / [facility] Transition Orders Admit to (Facility): [facility] Under the care of (Name): Dr Francisco Orellnaa or covering Provider Discharge Diagnosis: (1) Atrial fibrillation with rapid ventricular response (2) Junctional bradycardia (3) Acute on chronic diastolic CHF (congestive heart failure) (4) Non compliance w medication regimen (5) History of CVA with residual deficit (6) Dementia, vascular (7) HTN (hypertension) (8) Sleep apnea, on CPAP (9) Hx of chronic diarrhea (10) Hypokalemia (11) Hypomagnesemia (12) Asthma (13) Code status: DNR Medicare Certification Statement: I certify that [facility] nursing home care is medically necessary on a continuing basis for any of the conditions for which she/he is receiving care during hospitalization. Notify PCP of admission and forward orders to primary provider for signature. Weight on admission and: Daily Call PCP immediately if weight increases by: 4 kg Other Notification Orders: Call PCP immediately if patient develops dyspnea, chest pain/tightness or edema. House Bowel Program: Yes Additional Bowel Program Orders: If no BM after 2 days, nurse may give M.O.M. 30ml PO PRN and/or ducolax Supp 1 NM and/or MORGAN 250mg P.O., and/or senna 1-2 tabs PO. On day 3 nurse may give repeat above order until residents constipation is resolved. Annual Influenza Vaccine (between Jan 28 and August 27): Yes Two-step PPD per [facility] [phone] or approved exception documents: Yes Treatments & Other Orders: Daily PT and OT Oxygen Orders: O2 at 2L per n.c. prn SOB. Uses CPAP device qhs. Lab Tests or X-ray Orders: BMP and Magnesium every Mon and Fri Medication Orders: PLEASE REFER TO THE DISCHARGE MEDICATION LIST. Insulin Orders?: No - Medications New Prescriptions: Atorvastatin [Lipitor] 40 mg PO QPM #30 tablet Cholestyramine [Questran] 4 gm PO DAILY #30 packet [id number] CD [Cardizem Cd] 120 mg PO 1200 #30 capsule Magnesium Oxide [Mag Ox] 400 mg PO DAILY #30 tablet Metoprolol Succinate [Toprol Xl] 100 mg PO BID #60 tablet Potassium Chloride [Klor-Con 10] 10 meq PO BID #60 tablet.er - Diet Type: No added salt (Eggs and toast for breakfast daily, please. No tunafish ever, please.) - Therapies | Activity Therapy: Evaluation | Treat if indicated: PT, OT Rehabilitation Potential: Maximize functional status Activity: Activity as Tolerated Weight Bearing: Full Weight Assistance Devices: Walker Follow Up: See Dr Brizuela after Dch from [facility]."
[2019-06-28] MEDS ORDERED: MAGNESIUM SULFATE 2 GRAM 2 GM/50 ML BAG IV ONE (09:00)
[2019-06-28] MEDS ORDERED: RIVAROXABAN 10 MG TABLET PO SCH ×2 (09:00)
[2019-06-28] MEDS ORDERED: LOSARTAN 50 MG TABLET PO SCH (09:00)
[2019-06-28] MEDS ORDERED: FUROSEMIDE 40 MG TABLET PO SCH (09:00)
[2019-06-28] MEDS ORDERED: POTASSIUM CHLORIDE 20 MEQ TABLET PO SCH (09:00)
--- NOTE | 2019-06-28 09:07 | DISCHARGE SUMMARY ---
Discharge Summary Admit Date: 06/24/19 Discharge Date: 06/28/19 Discharging Provider: Dr Kia Concepcion Primary Care Provider: Dr Daljit Brizuela Code Status: Do Not Attempt Resuscitation Condition at Discharge: Stable Discharge Disposition: SNF DC/Xfer Discharge Facility Name: [facility] - DIAGNOSES Admission Diagnoses: (1) Atrial fibrillation with rapid ventricular response (2) Acute on chronic diastolic congestive heart failure (3) COPD (4) Non compliance with medication regimen (5) Hypokalemia (6) Obstructive sleep apnea (7) Elevated troponin level not due myocardial infarction Discharge Diagnoses with Status of Each Condition: See below - HPI History of Present Illness: From the admission H&P of Dr Juany Castillo: This is an 83-year-old female who was admitted with acute on chronic diastolic heart failure from hypertensive urgency in December 2018. At that time she also had the effects of a subacute stroke with left body weakness. She was discharged to a nursing home facility for Physical Therapy, Occupational Therapy and speech. At that time she had controlled atrial fibrillation and was anticoagulated. Control of her rate was with metoprolol and verapamil. After her discharge from nursing home facility, she has been seen in her primary care provider office but she has a probable 30 to 50% no-show rate in their office. She also was admitted to [facility] February 15, 2019 from acute respiratory failure from COPD exacerbation, afib with RVR, and acute diastolic heart failure. She initally requird BiPAP until they could control her rate. She was transitioned to her home meds of verapamil and metoprolol with metoprolol increased to 75 mg po bid. Lasix was 40 mg po daily. She has mild pedal edema at discharge. An Echocardiogramordered by Dr. Arechiga, [facility], was done February 13. She has an ejection fraction of 55%. Dilated right ventricle. 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 Mild mitral and tricuspid regurgitation. She was seen at her PCP office 02/21 and was stable other than complaints of chronic diarrhea and omprazole was switched to ranitidine and colestipol was restarted. Her metoprolol was increased from 75 mg twice daily to 50 mg, 2 tablets, twice daily This presentation to the ER, she did not receive her mailed verapamil and had been without it for 3 days. Over the last 2 days she has had low energy, mild diarrhea. She is gotten to be weaker and weaker and finally called EMS. She denies fever, chills, new congested cough. She denies abdominal pain, urgency, frequency, dysuria. In the emergency room blood pressure was 164/105. Mildly elevated temperature at 37.3. Heart rate was 128 in Afib. Respirations were 20. O2 sat was 96% This lady has COPD and is on 3 L of oxygen at home. She was alert and oriented. Very weak. Significant bilateral pitting edema which was symmetric. She was incontinent of liquid brown stool. She was given diltiazem iv x2 doses and Lasix. She was felt to have mild congestive heart failure from the A. fib with RVR. Although her heart rate became controlled, the patient was too weak to get up on her own. When she did get up she would become tachycardic again. Admission labs were remarkable for potassium of 2.8 (possibly from diarrhea), hs-troponin of 29 and BNP 467. Therefore, she was placed in Observation status on telemetry for continued rate control and CHF management, until she can be stabilized enough to return to home. - HOSPITAL COURSE Hospital Course: (1) Atrial fibrillation with rapid ventricular response At presentation she had A. fib with RVR from not taking her medications. When the medications were restarted here, this caused junctional bradycardia with heart rates in the 30s. She was then changed to Inpatient status and her medications for rate control were stopped for a day then needed adjusting to avoid bradycardia. The change was empirically made as such: Metoprlol tartrate was changed to Metoprolol succinate. Verapamil was stopped since there has been and will be a national shortage. Cardizem CD at lowest dose was chosen and staggered in dosing ordered to prevent hypotension. With this combination of medications, she had adequate HR control at rest and with activity, and was stable for discharge. (2) Junctional bradycardia The excessive drop in heart rate occurred when her supposed home medication dos es were all resumed. Because that caused severe junctional bradycardia, there was suspicion that she had actually not taking all of her medications in the proper dose or sequence. (3) Acute on chronic diastolic CHF (congestive heart failure) She did require several days of iv diuretics, then her home regimen was resumed. An Echo was rechecked for LVEF and it again showed preserved LV EF but diastolic dysfunction was present. These types of heart failure cases are very heart rate-sensitive. The hs-troponins are mildly elevated at 40 and 30 but did not double. The BNP was 400's then 300's. (4) Non compliance with medication regimen She admitted she did not take some of her medicines for 5 to 8 days. There was discussion with the providers, Social Workers and the daughter who lives next door and is her DPOA, plus a son and another daughter, that the patient now needs supervision to remember to take her medications. The DPOA daughter was looking into whether the patient would go to Assisted Living memory care after the SNF or come home and have more caregivers hired. (5) History of CVA with residual deficit In December 2018, she had left-sided weakness. Possibly that stroke led to worsening memory. Occupational Therapy performed a Mini-Mental exam and she scored 16/30 indicating that she would need 24-hour supervision and more frequent caregiving support. She was evaluated by PT while here and recommended to have PT and OT rehab at [facility], and she was discharged to [facility] in stable condition. (6) Dementia, vascular As per CT of the head from 12/2018, she has evidence of ischemic/vascular dementia (7) HTN (hypertension) She had good control of blood pressure with current medication combination. (8) Sleep apnea The junior technical writer evaluated the patient's home CPAP device and found it to be in very dirty condition: The filter was black, the tubing was brown. This was another sign of poor hygiene, likely due to her dementia. She continued to use her home CPAP. The patient is in need of CPAP supplies, which were ordered. (9) Chronic diarrhea Resolved, none while here. (9) Hypokalemia Related to diuresis, was replaced and resolved. (10) Hypomagnesemia Also related to diuresis and was repleced and resolved. (11) Asthma/COPD Her inhaler orders were for as needed use during this hospitalization. - ALLERGIES Allergies/Adverse Reactions: Allergies Allergy/AdvReac Type Severity Reaction Status Date / Time No Known Drug Allergies Allergy Verified 06/30/19 07:15 - MEDICATIONS Home Medications: Ambulatory Orders Medication Instructions Recorded Confirmed Telmisartan [Micardis] 40 mg PO DAILY 04/19/15 06/30/19 Nitroglycerin [Nitrostat] 0.4 mg PO Q5MX3 PRN MDD 3 doses 12/30/18 06/30/19 Rivaroxaban [Xarelto] 20 mg PO DAILY #1 01/02/19 06/30/19 Fluticasone/Salmeterol [Advair 1 inh INH BID 02/13/19 06/30/19 250-50 Diskus] Ranitidine HCl [Heartburn Relief] 150 mg PO DAILY PRN 06/25/19 06/30/19 Atorvastatin [Lipitor] 40 mg PO QPM #30 tablet 06/28/19 06/30/19 Magnesium Oxide [Mag Ox] 400 mg PO DAILY #30 tablet 06/28/19 06/30/19 Metoprolol Succinate [Toprol Xl] 100 mg PO BID #60 tablet 06/28/19 06/30/19 diltiaZEM CD [Cardizem Cd] 120 mg PO 1200 #30 capsule 06/28/19 06/30/19 Bisacodyl Supp [Dulcolax Supp] 10 mg GA DAILY PRN 06/30/19 06/30/19 Magnesium Hydroxide [Milk of 2,400 mg PO DAILY PRN 06/30/19 06/30/19 Magnesia] Mineral Oil 135 ml RC DAILY PRN 06/30/19 06/30/19 Potassium Chloride [Klor-Con 10] 10 meq PO BID 06/30/19 06/30/19 Senna [Senokot] 8.6 - 17.2 mg PO BID PRN 06/30/19 06/30/19 - PHYSICAL EXAM AT DISCHARGE General Appearance: positive: No acute distress, Alert Eyes Bilateral: positive: Normal inspection, EOMI ENT: positive: ENT inspection nml, No signs of dehydration Neck: positive: Nml inspection, No JVD Respiratory: positive: No respiratory distress, Breath sounds nml Cardiovascular: positive: No murmur, Irregularly irregular Abdomen: positive: Non-tender, No distention, Other (Obese with pannus) Skin: positive: Color nml Extremities: positive: Other (Trace R pretibial edema) Neurologic/Psychiatric: positive: Motor nml, Other (Disoriented to time and poss to place) - LABS Result Diagrams: 06/27/19 08:35 06/28/19 11:21 - DIAGNOSTIC IMAGING Diagnostic Imaging Results: Final report reviewed - FOLLOW UP Follow Up: See PCP after DCh from SNF. - TIME SPENT Time Spent in Discharge (Minutes): 60
[2019-06-28] MEDS ORDERED: MAGNESIUM OXIDE 400 MG TABLET PO SCH (09:08)
[2019-06-28 11:39] LABS: CALCIUM 9.2 mg/dL (8.5-10.3); CREATININE 0.7 mg/dL (0.4-1.0); MAGNESIUM 1.5 mg/dL (1.7-2.8)
[2019-06-28 11:49] VITALS: BP 161/92
[2019-06-28] MEDS: CHOLESTYRAMINE 4 GM PACKET PO SCH (12:25)
[2019-06-28] MEDS: diltiaZEM CD 120 MG CAPSULE PO SCH (12:25)
== END 2019-06-28 13:30 | DRG 293 ==
LOC: EDUNIT# → ED 17:54 → MS2 20:38 → OBSVTOIN 06-25 10:07 → MS2 06-28 07:58
PROVIDERS: ADMIT Specialist; ATTEND Internal Medicine
DX: I48.20 Chronic atrial fibrillation, unspecified (principal); I11.0 Hypertensive heart disease with heart failure; I48.91 Unspecified atrial fibrillation; R79.89 Other specified abnormal findings of blood chemistry; I50.33 Acute on chronic diastolic (congestive) heart failure; T46.1X6A Underdosing of calcium-channel blockers, initial encounter; Y92.009 Unspecified place in unspecified non-institutional (private) residence as the place of occurrence of the external cause; E83.42 Hypomagnesemia; T50.2X5A Adverse effect of carbonic-anhydrase inhibitors, benzothiadiazides and other diuretics, initial encounter; R15.9 Full incontinence of feces; Y92.230 Patient room in hospital as the place of occurrence of the external cause; E87.6 Hypokalemia; I08.3 Combined rheumatic disorders of mitral, aortic and tricuspid valves; I27.20 Pulmonary hypertension, unspecified; J44.9 Chronic obstructive pulmonary disease, unspecified; I69.311 Memory deficit following cerebral infarction; R41.3 Other amnesia; I08.1 Rheumatic disorders of both mitral and tricuspid valves; F01.50 Vascular dementia, unspecified severity, without behavioral disturbance, psychotic disturbance, mood disturbance, and anxiety; G47.33 Obstructive sleep apnea (adult) (pediatric); K58.2 Mixed irritable bowel syndrome; E78.00 Pure hypercholesterolemia, unspecified; K21.9 Gastro-esophageal reflux disease without esophagitis; F32.9 Major depressive disorder, single episode, unspecified; E66.01 Morbid (severe) obesity due to excess calories; Z66 Do not resuscitate; Z60.2 Problems related to living alone; Z91.130 Patient's unintentional underdosing of medication regimen due to age-related debility; Z79.899 Other long term (current) drug therapy; Z86.73 Personal history of transient ischemic attack (TIA), and cerebral infarction without residual deficits; Z99.81 Dependence on supplemental oxygen; Z91.19 Patient's noncompliance with other medical treatment and regimen; Z79.01 Long term (current) use of anticoagulants; Z79.51 Long term (current) use of inhaled steroids; Z87.19 Personal history of other diseases of the digestive system; Z90.49 Acquired absence of other specified parts of digestive tract; Z90.710 Acquired absence of both cervix and uterus; Z87.891 Personal history of nicotine dependence; Z68.34 Body mass index [BMI] 34.0-34.9, adult
CPT/HCPCS: 36415; 71045; 80048; 80053; 81001; 83605; 83690; 83735; 83880; 84443; 84484; 85025; 93005; 93306; 94761; 96374; 96375; 96376; 97116; 97161; 97165; 97530; 99285; A6250; A9270; G0378; 81003; 82565; 87086

== ENCOUNTER 2019-06-30 05:46 | Outpatient (CLI) | payer MEDICARE, OTHER | END 2019-06-30 05:47 | disposition critical access hospital (66) | LOC: EMS 05:46 | PROVIDERS: ATTEND Surgery | DX: R06.00 Dyspnea, unspecified (principal) | CPT/HCPCS: A0425; A0427 ==

== ENCOUNTER 2019-06-30 05:49 | Inpatient (IN) | payer MEDICARE, OTHER ==
--- NOTE | 2019-06-30 05:53 | ED Physician Documentation ---
PD HPI DYSPNEA - Stated complaint Stated Complaint: SOA - History obtained from History obtained from: EMS, Caregiver - History of Present Illness Timing - onset: Today (tonight) Timing - onset during: Rest Timing - details: Gradual onset Improved by: Other (no ameliorating factors) Worsened by: Other (no obvious exacerbating factors (per caregivers and EMS; patient is unresponsive and thus unable to contribute to HPI/ROS)) Recently seen: Admitted - Additional information Additional information: patient was discharged from [facility] 06/28/19 to [facility]. Per staff at [facility], patient had increasing shortness of breath tonight, did not improve with albuterol. Also exhibiting altered mental status. 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 However, she has ongoing severely altered mental status and on arrival is not responding to verbal/tactile stimuli Review of Systems Unable to obtain: AMS PD PAST MEDICAL HISTORY - Past Medical History Cardiovascular: Congestive heart failure Respiratory: COPD (continuous home O2 of 3L started 2017.), Sleep apnea (AHI 50.3 in 2016. ), CPAP use Neuro: CVA Endocrine/Autoimmune: Other (Morbid obesity) GI: GERD, GI bleed (Lower GI bleed, profound anemia in 2017. 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 Treated with argon plasma coagulation.), Chronic diarrhea (Present since approximately 1997. Made worse by colon resection 2000.), Chronic constipation, Diverticulitis (05/2000 Perforated diverticular abscess treated with diverting colostomy and peritoneal needle lavage. 3 months later sigmoid colon resection for diverticular disease with colo-uterine vaginal fistula.), Cholelithiasis (, Status post cholecystectomy), Other (IBS. 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: Hysterectomy - Present Medications Home Medications: Ambulatory Orders Medication Instructions Recorded Confirmed Telmisartan [Micardis] 40 mg PO DAILY 04/19/15 06/30/19 Nitroglycerin [Nitrostat] 0.4 mg PO Q5MX3 PRN MDD 3 doses 12/30/18 06/30/19 Rivaroxaban [Xarelto] 20 mg PO DAILY #1 01/02/19 06/30/19 Fluticasone/Salmeterol [Advair 1 inh INH BID 02/13/19 06/30/19 250-50 Diskus] Ranitidine HCl [Heartburn Relief] 150 mg PO DAILY PRN 06/25/19 06/30/19 Atorvastatin [Lipitor] 40 mg PO QPM #30 tablet 06/28/19 06/30/19 Magnesium Oxide [Mag Ox] 400 mg PO DAILY #30 tablet 06/28/19 06/30/19 Metoprolol Succinate [Toprol Xl] 100 mg PO BID #60 tablet 06/28/19 06/30/19 diltiaZEM CD [Cardizem Cd] 120 mg PO 1200 #30 capsule 06/28/19 06/30/19 Bisacodyl Supp [Dulcolax Supp] 10 mg [place] DAILY PRN 06/30/19 06/30/19 Magnesium Hydroxide [Milk of 2,400 mg PO DAILY PRN 06/30/19 06/30/19 Magnesia] Mineral Oil 135 ml RC DAILY PRN 06/30/19 06/30/19 Potassium Chloride [Klor-Con 10] 10 meq PO BID 06/30/19 06/30/19 Senna [Senokot] 8.6 - 17.2 mg PO BID PRN 06/30/19 06/30/19 - Allergies Allergies/Adverse Reactions: Allergies Allergy/AdvReac Type Severity Reaction Status Date / Time No Known Drug Allergies Allergy Verified 06/30/19 07:15 - Social History Does the pt smoke?: No Smoking Status: Never smoker Does the pt drink ETOH?: No Does the pt have substance abuse?: No - Immunizations Immunizations are current?: Yes - POLST Patient has POLST: No POLST Status: DNR PD ED PE NORMAL - Vitals Vital signs reviewed: Yes - HEENT HEENT: PERRL, Other (dry mucous membranes) - Cardiac Cardiac: No murmur - Abdomen Abdomen: Soft, Non distended - Derm Derm: Normal color, Warm and dry, No rash PD ED PE EXPANDED - General General: Other (obese; moderate/severe respiratory distress. tremulous) - Cardiac Cardiac: Tachy, Irregularly irregular - Respiratory Respiratory: Distress, Rhonchi - Neuro Neuro: Unresponsive - GCS Eye Opening: Spontaneous Motor: Withdraws to Pain Verbal: None Total: 9 Results - Vitals Vitals: Vital Signs - 24 hr 06/30/19 06/30/19 06/30/19 05:51 05:55 06:03 Temperature 37.3 C Heart Rate 104 H 172 H Respiratory 45 H Rate Blood Pressure 188/170 H O2 Saturation 95 06/30/19 06/30/19 06/30/19 06:04 06:06 06:07 Temperature Heart Rate 162 H 170 H 154 H Respiratory 27 H 33 H 28 H Rate Blood Pressure O2 Saturation 93 93 90 L 06/30/19 06/30/19 06/30/19 06:10 06:21 06:28 Temperature Heart Rate 132 H 161 H 143 H Respiratory 99 H 35 H Rate Blood Pressure O2 Saturation 32 L 93 06/30/19 06/30/19 06/30/19 06:31 06:36 06:38 Temperature 39.7 C H Heart Rate 149 H 163 H Respiratory 36 H 38 H Rate Blood Pressure 134/115 H O2 Saturation 96 96 06/30/19 06/30/19 06/30/19 06:45 06:56 07:05 Temperature 40.1 C H Heart Rate 168 H 174 H Respiratory 31 H 26 H Rate Blood Pressure 150/94 H 154/99 H O2 Saturation 93 97 06/30/19 06/30/19 06/30/19 08:00 08:28 08:30 Temperature 38.9 C H 39 C H 39 C H Heart Rate 143 H 164 H 144 H Respiratory 28 H 26 H 28 H Rate Blood Pressure 168/82 H 139/107 H 151/79 H O2 Saturation 97 96 97 06/30/19 06/30/19 06/30/19 09:30 10:00 10:30 Temperature 38.5 C H 38.3 C H 38.1 C H Heart Rate 139 H 141 H 137 H Respiratory 23 30 H 30 H Rate Blood Pressure 157/96 H 172/148 H 155/105 H O2 Saturation 97 97 96 06/30/19 06/30/19 06/30/19 10:36 10:50 11:00 Temperature 38.1 C H 38 C H 37.9 C H Heart Rate 146 H 125 H 126 H Respiratory 24 22 20 Rate Blood Pressure 155/105 H 170/105 H 163/103 H O2 Saturation 98 97 97 06/30/19 06/30/19 06/30/19 11:15 11:19 11:20 Temperature 37.8 C H Heart Rate 125 H 170 H 160 H Respiratory 20 30 H 26 H Rate Blood Pressure 139/117 H 160/102 H 168/82 H O2 Saturation 97 97 96 06/30/19 06/30/19 06/30/19 11:33 12:05 12:20 Temperature 37.7 C H 37.6 C H 37.5 C Heart Rate 116 H 120 H 109 H Respiratory 20 18 32 H Rate Blood Pressure 166/100 H 188/107 H 146/92 H O2 Saturation 97 97 96 Oxygen O2 Source [With Activity] Nasal cannula O2 Source Non-rebreather mask Oxygen Flow Rate 15 - EKG (time done) No standard instances Rate: Rate (enter#) (187) Rhythm: Wide complex tachycardia Hustle: LAD Intervals: RBBB - Labs Labs: Laboratory Tests 06/30/19 06/30/19 06/30/19 07:35 07:35 07:35 WBC 16.9 H RBC 4.87 Hgb 13.9 Hct 43.1 MCV 88.5 MCH 28.5 MCHC 32.3 RDW 14.3 Plt Count 278 MPV 11.5 H Neut # (Auto) 14.4 H Lymph # (Auto) 1.2 L Boundary # (Auto) 1.1 H Eos # (Auto) 0.0 Baso # (Auto) 0.1 Absolute Nucleated RBC 0.00 Nucleated RBC % 0.0 PT INR APTT Sodium 135 Potassium 4.3 Chloride 99 L Carbon Dioxide 21 Anion Gap 15.0 H BUN 20 Creatinine 1.1 H Estimated GFR (MDRD) 48 L Glucose 197 H Lactic Acid Calcium 8.7 Total Bilirubin 1.0 AST 89 H ALT 58 Alkaline Phosphatase 91 B-Natriuretic Peptide 1132 H Total Protein 7.0 Albumin 3.7 Globulin 3.3 Albumin/Globulin Ratio 1.1 Lipase 39 Urine Color Urine Clarity Urine pH Ur Specific [place] Urine Protein Urine Glucose (UA) Urine Ketones Urine Occult Blood Urine Nitrite Urine Bilirubin Urine Urobilinogen Ur Leukocyte Esterase Urine RBC Urine WBC Ur Squamous Epith Cells Amorphous Sediment Urine Bacteria Urine Casts Ur Microscopic Review Urine Culture Comments Influenza A (Rapid) Influenza B (Rapid) 06/30/19 06/30/19 06/30/19 07:35 07:35 07:55 WBC RBC Hgb Hct MCV MCH MCHC RDW Plt Count MPV Neut # (Auto) Lymph # (Auto) Boundary # (Auto) Eos # (Auto) Baso # (Auto) Absolute Nucleated RBC Nucleated RBC % PT 19.7 H INR 1.8 H APTT 33.6 H Sodium Potassium Chloride Carbon Dioxide Anion Gap BUN Creatinine Estimated GFR (MDRD) Glucose Lactic Acid 3.5 H* Calcium Total Bilirubin AST ALT Alkaline Phosphatase B-Natriuretic Peptide Total Protein Albumin Globulin Albumin/Globulin Ratio Lipase Urine Color YELLOW Urine Clarity CLOUDY Urine pH 6.5 Ur Specific [place] 1.020 Urine Protein >=300 H Urine Glucose (UA) 100 H Urine Ketones NEGATIVE Urine Occult Blood TRACE-INTA Urine Nitrite NEGATIVE Urine Bilirubin NEGATIVE Urine Urobilinogen 0.2 (NORMAL) Ur Leukocyte Esterase NEGATIVE Urine RBC 6-10 H Urine WBC 6-10 H Ur Squamous Epith Cells MANY Squamous H Amorphous Sediment Marked Urine Bacteria Few Urine Casts 0-2 Hyaline Casts Ur Microscopic Review INDICATED Urine Culture Comments NOT INDICATED Influenza A (Rapid) Influenza B (Rapid) 06/30/19 07:55 WBC RBC Hgb Hct MCV MCH MCHC RDW Plt Count MPV Neut # (Auto) Lymph # (Auto) Boundary # (Auto) Eos # (Auto) Baso # (Auto) Absolute Nucleated RBC Nucleated RBC % PT INR APTT Sodium Potassium Chloride Carbon Dioxide Anion Gap BUN Creatinine Estimated GFR (MDRD) Glucose Lactic Acid Calcium Total Bilirubin AST ALT Alkaline Phosphatase B-Natriuretic Peptide Total Protein Albumin Globulin Albumin/Globulin Ratio Lipase Urine Color Urine Clarity Urine pH Ur Specific [place] Urine Protein Urine Glucose (UA) Urine Ketones Urine Occult Blood Urine Nitrite Urine Bilirubin Urine Urobilinogen Ur Leukocyte Esterase Urine RBC Urine WBC Ur Squamous Epith Cells Amorphous Sediment Urine Bacteria Urine Casts Ur Microscopic Review Urine Culture Comments Influenza A (Rapid) Negative Influenza B (Rapid) Negative - Rads (name of study) chest xray Radiology: Prelim report reviewed, See rad report CT head Radiology: Prelim report reviewed, See rad report PD MEDICAL DECISION MAKING - ED course Complexity details: reviewed old records, reviewed results, re-evaluated patient, considered differential ED course: patient arrives without IV access. she is in severe respiratory distress, unr esponsive to verbal/tactile. she is tremulous with seizure-like activity. tachycardic 170s-190s (brief periods as high as 200). RNs unable to obtain peripheral IV access and thus I inserted right tibia IO. She was given diltiazem and lorazepam through the IO. Pulse improved to 150s; she required a second dose of lorazepam before seizure-like activity ceased (and this did not recur during remainder of ED stay). I attempted to place right IJ but was unsuccessful. RNs were able to place LUE peripheral IV. CXR reveals bilateral infiltrates. Early in ED stay she was put on bipap with good results and she was able to be put back on NRB mask prior to transfer to ICU. She has fever of over 104 (rectal) in ED, improved with IV ofirmev. Dr. Lorenzo contacted and he will come to ED to get further IV access. D/W Dr. Landin who accepts patient to [facility] provided CTH is performed and unremarkable for acute pathology. - Critical Care Time(min): 70 Time Includes: Direct patient care, Review records, Reassess patient, Document care, Coordinate care Data interpretation: Labs, Pulse ox, CXR, Prior EKG, See progress note Procedures included in critical care time: See progress note Procedures excluded from critical care time: See progress note Departure - Departure Disposition: 66 [facility] DC/Xfer Clinical Impression: Fever Qualifiers: Fever type: unspecified Qualified Code(s): R50.9 - Fever, unspecified Altered mental status Qualifiers: Altered mental status type: unspecified Qualified Code(s): R41.82 - Altered mental status, unspecified Pneumonia Qualifiers: Pneumonia type: due to unspecified organism Laterality: bilateral Lung location: unspecified part of lung Qualified Code(s): J18.9 - Pneumonia, uns pecified organism Condition: Serious Discharge Date/Time: 06/30/19 13:45
[2019-06-30] MEDS ORDERED: ALBUTEROL NEB 2.5 MG/3 ML INH ONE (05:57)
[2019-06-30] MEDS ORDERED: diltiaZEM INJ 5 MG/ML VIAL IVP STA ×2 (06:21→07:59)
[2019-06-30] MEDS ORDERED: LORazepam 2 MG/ML VIAL IVP STA ×4 (06:25→10:24)
[2019-06-30] MEDS ORDERED: ALBUTEROL NEB 2.5 MG/3 ML INH STA ×2 (06:27→06:41)
[2019-06-30] MEDS ORDERED: SODIUM CHLORIDE 0.9% 1,000 ML IV ONE (06:38)
[2019-06-30] MEDS ORDERED: ACETAMINOPHEN 1,000 MG/100 ML 100 ML IV STA (06:49)
--- NOTE | 2019-06-30 06:55 | XRAY Report ---
Reason: chest pain Procedure Date: 06/30/2019 Accession Number: [id number] / [id number] Procedure: XR - Chest 1 View X-Ray CPT Code: 34987 Final Report FULL RESULT: EXAM: CHEST RADIOGRAPHY EXAM DATE: 06/30/2019 06:41 AM. CLINICAL HISTORY: Chest pain. COMPARISON: CHEST 1 VIEW 06/24/2019 6:21 PM. TECHNIQUE: 1 view. FINDINGS: Lungs/Pleura: Retrocardiac consolidation left greater than right upper lobe infiltrates. Hyperinflation. Mediastinum: Cardiomegaly. Atherosclerotic calcifications. Other: None. IMPRESSION: Left lower and bilateral upper lobe airspace disease, superimposed upon hyperinflation. Cardiomegaly. RADIA
[2019-06-30 07:47] LABS: BASOPHILS # (AUTO) 0.1 10^3/uL (0.0-0.1); BASOPHILS % (AUTO) 0.4 %; EOSINOPHILS % (AUTO) 0.1 %; HGB - HEMOGLOBIN 13.9 g/dL (12.0-16.0); LYMPHOCYTES # (AUTO) 1.2 10^3/uL (1.5-3.5); LYMPHOCYTES % (AUTO) 7.4 %; MEAN CORPUSCULAR HEMOGLOBIN 28.5 pg (27.0-31.0); MEAN CORPUSCULAR HGB CONC 32.3 g/dL (32.0-36.0); MEAN CORPUSCULAR VOLUME 88.5 fL (81.0-99.0); MEAN PLATELET VOLUME 11.5 fL (7.9-10.8); MONOCYTES # (AUTO) 1.1 10^3/uL (0.0-1.0); MONOCYTES % (AUTO) 6.6 %; NEUTROPHILS # (AUTO) 14.4 10^3/uL (1.5-6.6); PLT - PLATELET COUNT 278 10^3/uL (130-450); RED BLOOD COUNT 4.87 10^6/uL (4.20-5.40); RED CELL DISTRIBUTION WIDTH 14.3 % (12.0-15.0); WHITE BLOOD COUNT 16.9 x10^3/uL (4.8-10.8)
[2019-06-30 07:54] LABS: INR 1.8 (0.8-1.2); PT - PROTHROMBIN TIME 19.7 secs (9.9-12.6)
[2019-06-30] MEDS ORDERED: SODIUM CHLORIDE 0.9% 1,000 ML IV STA (07:58)
[2019-06-30] MEDS ORDERED: SODIUM CHLORIDE 0.9% 500 ML IV STA (08:00)
[2019-06-30 08:01] LABS: PARTIAL THROMBOPLASTIN TIME 33.6 secs (24.9-33.3)
[2019-06-30 08:02] LABS: ALBUMIN 3.7 g/dL (3.2-5.5); ALBUMIN/GLOBULIN RATIO 1.1 (1.0-2.2); CALCIUM 8.7 mg/dL (8.5-10.3); CREATININE 1.1 mg/dL (0.4-1.0)
[2019-06-30] MEDS ORDERED: PIPERACILLIN/TAZOBACTAM 3.375 GM in SODIUM CHLORIDE 0.9% MINIBAG 100 ML IV STA (08:08)
[2019-06-30] MEDS ORDERED: VANCOMYCIN INJ 1 GM in SODIUM CHLORIDE 0.9% 500 ML IV STA (08:10)
[2019-06-30 08:15] LABS: BILIRUBIN,URINE NEGATIVE (NEGATIVE); GLUCOSE, URINE (UA) 100 mg/dL (NEGATIVE); KETONES,URINE (UA) NEGATIVE (NEGATIVE); LEUKOCYTE ESTERASE, URINE NEGATIVE (NEGATIVE); NITRITE,URINE NEGATIVE (NEGATIVE); OCCULT BLOOD,URINE TRACE-INTA (NEGATIVE); PH,URINE 6.5 PH (5.0-7.5); PROTEIN,URINE >=300 mg/dL (NEGATIVE); UROBILINOGEN,URINE 0.2 (NORMAL) E.U./dL (NORMAL)
[2019-06-30 08:18] LABS: CLARITY,URINE CLOUDY (CLEAR)
[2019-06-30 08:25] LABS: SQUAMOUS EPITHELIAL CELL,UR MANY Squamous (<= Few)
[2019-06-30 08:26] LABS: AMORPHOUS SEDIMENT,UR Marked /LPF; BACTERIA,URINE Few /HPF (None Seen); CASTS, URINE 0-2 Hyaline Casts /LPF
[2019-06-30] MEDS ORDERED: diltiaZEM INJ 125 MG in DEXTROSE 5% 100 ML IV STA (08:37)
--- NOTE | 2019-06-30 09:34 | CT Report ---
Reason: AMS Procedure Date: 06/30/2019 Accession Number: [id number] / [id number] Procedure: CT - HEAD WO CPT Code: Final Report FULL RESULT: EXAM: CT HEAD EXAM DATE: 06/30/2019 09:16 AM. CLINICAL HISTORY: AMS. COMPARISON: HEAD W/O 12/30/2018 6:48 AM. TECHNIQUE: Multiaxial CT images were obtained from the foramen magnum to the vertex. Reformats: Sagittal and coronal. IV contrast: None. In accordance with CT protocol optimization, one or more of the following dose reduction techniques were utilized for this exam: automated exposure control, adjustment of mA and/or KV based on patient size, or use of iterative reconstructive technique. FINDINGS: Parenchyma: No intraparenchymal hemorrhage. No evidence of mass, midline shift, or CT findings of acute infarction. There has been progressive transcortical hypodensity within the right frontoparietal region consistent with encephalomalacia and evolution of the prior infarct. Villegas-white differentiation otherwise is distinct. Diffuse chronic microangiopathic white matter changes are evident. Extraaxial Spaces: Normal for age. No subdural or epidural collections identified. Ventricles: The ventricles and cortical sulci are enlarged, consistent with age-related tissue loss. Sinuses and orbits: Stable mild lobulated density within the inferior right maxillary sinus. Otherwise, imaged paranasal sinuses, orbits, and mastoids show no significant abnormality. Bones: No evidence of fracture or calvarial defect. Other: None. IMPRESSION: 1. Chronic right frontoparietal infarct, evolved compared with 12/30/2018. 2. Generalized age-related cortical atrophic changes without evidence of acute intracranial abnormality. RADIA
[2019-06-30] MEDS ORDERED: ONDANSETRON 4 MG/2 ML VIAL IVP PRN (12:47)
[2019-06-30] MEDS ORDERED: MINERAL OIL ENEMA 133 ML BOTTLE RC PRN (13:04)
[2019-06-30] MEDS: diltiaZEM INJ 125 MG in DEXTROSE 5% 100 ML IV SCH (13:45)
--- NOTE | 2019-06-30 13:56 | PHARMACY PROGRESS NOTE ---
- Best Possible Medication History Admit Date and Time: 06/30/19 1238 Medication History completed: Yes Patient Interview: Pt unable to participate Secondary Source(s): Pharmacy records, Facility MAR as ONLY source As the person ultimately responsible for medication therapy, providers are able to order a medication from an existing home medication list in [facility] via the "Reconcile Routine" prior to Confirmation of that medication by is support analyst. Such practice is discouraged except when the physician, in their clinical judgment, deems that a medical need exists for a medication without regard to previous use.
[2019-06-30] MEDS ORDERED: VANCOMYCIN PER PHARMACY 100 GM in SODIUM CHLORIDE 0.9% 250 ML IV SCH (14:00)
[2019-06-30] MEDS: PIPERACILLIN/TAZOBACTAM 4.5 GM in SODIUM CHLORIDE 0.9% MINIBAG 100 ML IV SCH ×2 (14:35→21:27)
[2019-06-30] MEDS: D5NS W/20 MEQ KCL 1,000 ML IV SCH (16:03)
[2019-06-30] MEDS: SODIUM CHLORIDE FLUSH 0.9% 10 ML SYRINGE IVP SCH ×2 (16:07→21:29)
--- NOTE | 2019-06-30 17:34 | ED Physician Documentation ---
ED Addendum - Addendum Addendum: 06/30/19 17:34 The patient was handed off to me by Dr. Wright who had talked with the hospitalist and the patient was to be admitted. However that she was going to the ICU and 1 of the floor patients had problems and went to the ICU ahead and took up are available bed. At that point were looking to try to place the patient in another facility due to lack of appropriate bed space here. I talked with her daughter who is agreeable for the patient to "be wherever she needs to be to get better". Looking at nearby resources, they were not beds available in other places. [facility] potentially had some beds available in several hours after discharges and would accept the patient and let us know when beds were available. During this interval of time in ICU bed became available again at our facility so the patient went to our ICU as originally planned only several hours later. There were no complications during this interval of time. She has maintained on the diltiazem drip with a heart rate in the 1 10-1 15. Oxygenation was adequate. Her respirations were unlabored. Patient remained stable in the ER during the interval of time.
[2019-06-30] MEDS: METOPROLOL 5 MG/5 ML VIAL IVP SCH (17:37)
[2019-06-30] MEDS: NYSTATIN POWDER 15 GM TOP SCH ×2 (17:37→21:59)
--- NOTE | 2019-06-30 19:54 | XRAY Report ---
Reason: NG placement Procedure Date: 06/30/2019 Accession Number: [id number] / [id number] Procedure: XR - No-Charge 1V Abdomen CPT Code: 91730 Final Report FULL RESULT: EXAM: ABDOMEN RADIOGRAPHY EXAM DATE: 06/30/2019 06:40 PM. CLINICAL HISTORY: NG placement. COMPARISON: None. TECHNIQUE: 1 view. FINDINGS: Bowel Gas Pattern: Within normal limits. No dilated loops. Other: Enteric tube projecting over the left upper quadrant in the abdomen. Temperature probe projects over the pelvis. IMPRESSION: 1. Enteric tube projects over the left upper quadrant in the abdomen. [facility]
[2019-06-30] MEDS ORDERED: LORazepam 2 MG/ML VIAL IVP ONE (20:00)
[2019-06-30] MEDS ORDERED: LORazepam 2 MG/ML VIAL IVP SCH (20:00)
[2019-06-30] MEDS: MORPHINE 2 MG/ML CARPUJECT IVP PRN (20:15)
--- NOTE | 2019-06-30 20:34 | HISTORY & PHYSICAL EXAMINATION ---
DATE OF SERVICE: 06/30/2019 Physician: Kia Concepcion MD HISTORY OF PRESENT ILLNESS: This is an 83-year-old white female who is just discharged from here two days ago after admission for atrial fibrillation with rapid ventricular response caused by noncompliance with medications, confusion related to an old stroke, mild congestive heart failure, who required physical therapy rehab. At [facility] today she developed increased shortness of breath and also altered mental status and "twitching." She was brought to the emergency room and noted to be in respiratory distress, be in atrial fibrillation with rapid ventricular response at rates of 180-200 and was having either seizures or rigors. She received iv Ativan x2 for the presumed seizure, got nebulizer treatment, required a BIPAP, got Ofirmev IV for very high fever of 104 Fahrenheit, an IV line could not be started peripherally or by IJ line; therefore, an intraosseous IV was been started in the ER. The seizures stopped. Head CT was done that shows progressive worsening of her stroke area and aging changes, but no acute findings were seen. Chest x-ray showed new bilateral pneumonia. She had blood cultures done and was started on IV Zosyn and IV vancomycin and is being admitted to the ICU. PAST MEDICAL HISTORY 1. Chronic atrial fibrillation, on anticoagulant. 2. Poor memory and intermittent confusion after a stroke that she had in December 2018. 3. Asthma/COPD history. 4. Recent admission for CHF exacerbation caused by rapid atrial fibrillation. 5. Diastolic heart failure 6. Obesity. ALLERGIES: NONE. MEDICATIONS 1. Senna daily 2. Mineral oil prn. 3. Magnesium daily. 4. Diltiazem CD 120 mg at noon. 5. Metoprolol succinate 100 mg b.i.d. 6. Potassium chloride 10 mEq b.i.d. 7. Advair Diskus b.i.d. 8. Micardis 40 mg daily. 9. Xarelto 20 mg daily. 10. Sublingual nitroglycerin p.r.n. 11. Ranitidine 150 mg daily p.r.n. heartburn. 12. Lipitor 40 mg q.p.m. 13. Dulcolax suppository p.r.n. REVIEW OF SYSTEMS: A comprehensive review of systems was done by chart review and discussion with the ER doctor since she is now somnolent after Ativan and could not give her own history and no family is present. Pertinent positives are listed above, the rest are negative. SOCIAL HISTORY: She came from [facility] where she was for just two days. Prior to her last admission, she lived at home and her daughter lived next door. She did not have caregiving at home; however, because "the daughter was a night owl and the patient had usual waking hours." The family was aware after the last admission, she would need more caregiving support either at assisted living or at home with caregivers. The patient is a nonsmoker, drinks no alcohol. No illicit drug use history. PHYSICAL EXAMINATION GENERAL: Obese white female. She is moving all extremities, she wearing a Ventimask, appears disheveled, has occasional moaning, but does not follow commands or open her eyes or communicate. She is on IV diltiazem drip. VITAL SIGNS: Blood pressure 150/100, heart rate 90 in atrial fibrillation, afebrile currently. Oxygen saturation 95% on 5 liters OxyMask. HEENT: Shows her to look disheveled. Oral mucosa is moist. She is not opening her eyes. NECK: Shows no JVD. Supple, moving it spontaneously. CHEST: Clear at the anterior bases. HEART: Irregular. No audible murmur. ABDOMEN: Obese. There is a red rash under the bilateral breasts and in the groin. There is no guarding or rebound of the abdomen. She has a pannus. Bowel sounds are neg. EXTREMITIES: Trace pretibial edema. No clubbing or cyanosis. NEUROLOGIC: Moves all extremities spontaneously, does not open her eyes or follow commands. LABORATORY DATA: Sodium 135, potassium 4.3, BUN 20, creatinine 1.1. Lactic acid 3.5, AST 89, ALT 58. BNP 1132. Troponin 193. White blood count 16.9 with 14% neutrophils, hemoglobin 13.9, platelet count normal at 278. INR was done, but is not accurate on Xarelto. Urinalysis showed positive urine protein, positive urine glucose, high RBCs and WBCs, but many squamous cells. Serology was negative for influenza A or B. IMAGING: Chest x-ray: Left lower and bilateral upper lobe opacities and hyperinflation. Cardiomegaly present. Head CT: Chronic right frontoparietal infarct, which has evolved compared to December 2018. Generalized age-related cortical atrophy. No evidence of acute intracranial abnormality. EKG: Atrial fibrillation with rapid rate at 187, right bundle branch block, right axis deviation, poor R-wave progression. Compared to the last EKG, the rate is faster and the axis is different. IMPRESSION/DIAGNOSES 1. New onset of seizure, possible febrile seizure or from a focus where the stroke was. 2. Healthcare-associated pneumonia vs aspiration pneumonia. 3. Atrial fibrillation with rapid ventricular response. 4. Sepsis by virtue of elevated lactic acid, tachycardia and fever, the source is likely the pneumonia. 5. Elevated troponin. 6. Altered mental status after seizure and Ativan dosing. 7. History of sleep apnea. 8. Yeast dermatitis. 9. History of asthma/COPD. 10. Dementia. PLAN: Admit the patient to the ICU on telemetry. Stop her p.o. medication and use parenteral forms if possible. Will use Lopressor IV every six hours for rate control and to treat her heart failure. Will continue diltiazem drip, which was already started in the ER. We will obtain sputum culture if she makes it. Otherwise, await blood culture results. Continue with IV Zosyn and IV vancomycin to treat a healthcare-associated pneumonia. Continue with oxygen support as needed. We will treat empirically for new onset of seizures with IV Keppra b.i.d. Treat fever with IV Tylenol. Continue with nebulizer treatments p.r.n. Cycle troponins. Neuro checks to assess if her mentation is improving. Use her sleep apnea CPAP device while in the ICU. Continue with topical Nystatin for her yeast dermatitis. Stop the oral anticoagulant Xarelto, and will use Lovenox b.i.d. after 24 hours of stopping the Xarelto. The Lovenox dose will need to be adjusted for renal insufficiency. Insert ng tube as there may be an ileus. Obtain a central iv line since the IO access will need to stop in 24 hours maximum. CODE STATUS: DNR. DEEP VENOUS THROMBOSIS PROPHYLAXIS: SCDs and pharmacotherapy. ATTESTATION: The patient is expected to be discharged or transferred to another facility within 96 hours: Yes. TD: 06/30/2019 16:56 LUZMARIA
--- NOTE | 2019-06-30 21:24 | ANESTHESIA PROCEDURE NOTE ---
Anesth Central Line Template - Central Line Central Line Preparation: Consent Obtained Central line type: Double lumen Central line catheter tip site resides: Superior vena cava (SVC) Central line aftercare: Secured, Placement confirmed, No pneumothorax, No complications, Bundle checklist complete, Pt tolerated well (Awaiting report from [facility], ports flush and aspirate well.)
[2019-06-30] MEDS: SODIUM CHLORIDE FLUSH 0.9% 10 ML SYRINGE IVP PRN (21:28)
--- NOTE | 2019-06-30 21:31 | CONSULTATION NOTE ---
Consultation Report: Called to place IJ in an 83 y/o female with recent hx of seizures and suspected sepsis. Pt anticoagulated so a PICC was decided rather than an IJ. Consent signed by daughter since patient unable to verbalize. Left are prepped with chlorohexidine, sterile drapem mask, gloves gown. Left basilic vein identified with ultrasound, 1% lido injected SQ and deep, 20 ga needle used to stafford vein, modified Seldinger technique used, vein dilated. Unable to utilize the tip tracker due to a malfunction. Advanced double lumen 5 FR. cath until resistance encountered, pulled back 5 cm, previously trimmed to 46.5 cm. CXR done and verified to be in the SVC, Awaiting official radiologist report. Both ports aspirate and flush easily. Shefali secured with stat lock and tegaderm and c opious amounts of tape. Patient tolerated procedure well.
--- NOTE | 2019-06-30 21:47 | XRAY Report ---
Reason: PICC line Procedure Date: 06/30/2019 Accession Number: [id number] / [id number] Procedure: XR - Chest 1 View X-Ray CPT Code: 97383 Final Report FULL RESULT: EXAM: CHEST RADIOGRAPHY EXAM DATE: 06/30/2019 09:24 PM. CLINICAL HISTORY: PICC line. COMPARISON: CHEST 1 VIEW 06/30/2019 6:21 AM CHEST 1 VIEW 06/24/2019 6:21 PM CHEST 1 VIEW 02/12/2019 11:18 PM. TECHNIQUE: 1 view. FINDINGS: Lungs/Pleura: Moderate biapical pleural thickening/scarring. Pulmonary interstitial prominence is noted. Peribronchial cuffing is present. There is bibasilar airspace disease. There are small bilateral pleural effusions. Mediastinum: Moderate enlargement of the cardiac silhouette is stable from the prior study. Other: Orogastric tube extends below the inferior margin of the film. Left arm PICC line catheter tip projects over the medial most portion of the brachiocephalic vein. Moderate right shoulder degenerative change. IMPRESSION: 1. Moderate CHF pattern is noted, progressed from the prior exam. 2. Indistinct bibasilar opacity may be secondary to confluent pulmonary edema. Atelectasis, aspiration, or infection are in the differential diagnoses. [facility]
[2019-06-30 21:48] LABS: ABG BASE EXCESS -2.9 mmol/L (-2.0-3.0); ABG HCO3 21.7 mmol/L (22.0-26.0); ABG PCO2 37 mmHg (34-45); ABG PH 7.38 (7.35-7.45); ABG PO2 109 mmHg (80-100); ABG TCO2 22.9 MMOL/L (21.0-29.0)
[2019-06-30 21:49] LABS: ABG OXYGEN SATURATION 98 % (94-98); ALLEN TEST POSITIVE
[2019-06-30] MEDS ORDERED: SODIUM CHLORIDE 0.9% 100ML 100 ML IV ONE (21:53)
[2019-06-30] MEDS: levETIRAcetam INJ 500 MG in SODIUM CHLORIDE 0.9% 100ML 100 ML IV SCH (21:58)
[2019-06-30] MEDS: FAMOTIDINE 20 MG/2 ML VIAL IVP SCH (21:59)
--- NOTE | 2019-06-30 22:24 | CONSULTATION NOTE ---
Consultation Report: PICC at distal brachiocephalic, aspirates/flushes well, nurses given the clearance to use.
[2019-06-30] MEDS: VANCOMYCIN INJ 1 GM in SODIUM CHLORIDE 0.9% 250 ML IV SCH (22:28)
[2019-07-01] MEDS: METOPROLOL 5 MG/5 ML VIAL IVP SCH ×4 (00:36→18:16)
[2019-07-01] MEDS: PIPERACILLIN/TAZOBACTAM 4.5 GM in SODIUM CHLORIDE 0.9% MINIBAG 100 ML IV SCH ×4 (02:26→19:41)
[2019-07-01] MEDS: MORPHINE 2 MG/ML CARPUJECT IVP PRN ×2 (03:39→05:37)
[2019-07-01] MEDS: SODIUM CHLORIDE FLUSH 0.9% 10 ML SYRINGE IVP PRN ×4 (03:43→20:21)
[2019-07-01] MEDS: diltiaZEM INJ 125 MG in DEXTROSE 5% 100 ML IV SCH ×2 (04:00→22:16)
[2019-07-01 04:20] LABS: VBG PH 7.321 (7.31-7.41)
[2019-07-01 04:23] LABS: BASOPHILS % (AUTO) 0.3 %; EOSINOPHILS % (AUTO) 0.1 %; HGB - HEMOGLOBIN 11.8 g/dL (12.0-16.0); LYMPHOCYTES # (AUTO) 0.6 10^3/uL (1.5-3.5); LYMPHOCYTES % (AUTO) 5.4 %; MEAN CORPUSCULAR VOLUME 90.3 fL (81.0-99.0); MEAN PLATELET VOLUME 11.8 fL (7.9-10.8); MONOCYTES # (AUTO) 1.1 10^3/uL (0.0-1.0); MONOCYTES % (AUTO) 10.1 %; NEUTROPHILS # (AUTO) 9.1 10^3/uL (1.5-6.6); NEUTROPHILS % (AUTO) 83.7 %; PLT - PLATELET COUNT 180 10^3/uL (130-450); RED BLOOD COUNT 4.22 10^6/uL (4.20-5.40); RED CELL DISTRIBUTION WIDTH 14.6 % (12.0-15.0); WHITE BLOOD COUNT 10.9 x10^3/uL (4.8-10.8)
[2019-07-01 04:32] LABS: CALCIUM 8.1 mg/dL (8.5-10.3); CREATININE 0.8 mg/dL (0.4-1.0); MAGNESIUM 1.7 mg/dL (1.7-2.8); PHOSPHORUS 2.7 mg/dL (2.5-4.6)
[2019-07-01] MEDS ORDERED: MAGNESIUM SULFATE 2 GRAM 2 GM/50 ML BAG IV ONE (04:35)
[2019-07-01] MEDS: D5NS W/20 MEQ KCL 1,000 ML IV SCH ×3 (06:16→11:14)
[2019-07-01] MEDS: SODIUM CHLORIDE FLUSH 0.9% 10 ML SYRINGE IVP SCH ×3 (08:33→18:16)
[2019-07-01] MEDS: ENOXAPARIN 100 MG/ML SYRINGE SUBQ SCH ×2 (08:33→20:17)
[2019-07-01] MEDS: NYSTATIN POWDER 15 GM TOP SCH ×2 (08:36→20:20)
[2019-07-01] MEDS: levETIRAcetam INJ 500 MG in SODIUM CHLORIDE 0.9% 100ML 100 ML IV SCH ×2 (09:00→20:20)
--- NOTE | 2019-07-01 09:09 | PROVIDER PROGRESS NOTE ---
Assessment/Plan - Problem List (1) New onset seizure Assessment/Plan: May have been a febrile seizure because of her very high fever of 104 F. Alternatively her old stroke now could be a focus for seizure activity. She received Ativan in the ER for the seizures. She received Ativan overnight for anxiety and agitation. Keppra to start today empirically (2) HCAP (healthcare-associated pneumonia) Assessment/Plan: She has a multilobar pneumonia which developed 48 hours after discharge from hospitalization therefore it is healthcare associated. She is on empiric Vanco and Zosyn IV. Await culture results. Continue O2 supplemental. When she can swallow, will order Mucinex. (3) Acute on chronic diastolic CHF (congestive heart failure) Assessment/Plan: At the last, recent admission, an Echo was done that showed preserved LVEF and diastolic dysfunction present She is nearly 4L (+) in fluid balance since this admission. CXR done last night, already reported moderate volume overload, increased from previous CXR same day. Will decrease iv fluids from 83/hr to 40/hr and give iv bid Lasix. (4) Atrial fibrillation with rapid ventricular response Assessment/Plan: HR is well controlled at 70-80 on iv Dilt drip. Will request a swallow eval to stop iv Dilt and resume po meds for HR control. Her Xarelto was stopped at admission, while npo, and Lovenox at 0.5 mg/kg (renally adjusted dose) to start today for anticoagulation. (5) Altered mental status Qualifiers: Altered mental status type: unspecified Qualified Code(s): R41.82 - Altered mental status, unspecified Assessment/Plan: This is likely multifactorial: from fever, Ativan doses, possibly from being post-ictal and from baseline dementia. Remain in ICU and with neuro checks. (6) Hematuria Assessment/Plan: This is likely related to Pena placement and being on Xarelto yesterday. Urinalysis was unremarkable for a source of infection. Follow CBC daily for drop in hemoglobin, since she will remain on anticoagulants with the Lovenox to start today. (7) COPD (chronic obstructive pulmonary disease) Qualifiers: COPD type: COPD with acute exacerbation Qualified Code(s): J44.1 - Chronic obstructive pulmonary disease with (acute) exacerbation Assessment/Plan: She has known COPD and was on inhalers. Nebs with RT ordered while here (8) HTN (hypertension) Assessment/Plan: BP is controlled on current IV fluids and IV meds (9) Sleep apnea Assessment/Plan: Her home CPAP device was ordered to be used while here (10) Dementia Assessment/Plan: At the last, recent admission, OT did a Mini-Mental exam and she scored 16/30 indicating moderate impairment. This is probably from cerebrovascular atherosclerosis plus her stroke which occurred December 2018. The family was told during that last admission that the patient now needs constant supervision and caregiving, she can no longer live alone. - Current Meds Current Meds: Current Medications Generic Name Dose Route Start Last Admin Trade Name Freq PRN Reason Stop Dose Admin Enoxaparin Sodium 50 mg 07/01/19 09:00 07/01/19 08:33 Lovenox SUBQ 50 mg BID ALVA Administration Famotidine 20 mg 06/30/19 21:00 06/30/19 21:59 Pepcid IVP 20 mg BID ALVA Administration Diltiazem HCl 125 mg/ Dextrose 125 mls @ 5 mls/hr 06/30/19 13:06 07/01/19 08:39 IV 7 mg/hr .Q25H ALVA 7 mls/hr Titration Protocol 5 MG/HR Levetiracetam 500 mg/ Sodium 105 mls @ 400 mls/hr 06/30/19 21:00 07/01/19 09:00 Chloride IV 400 mls/hr BID ALVA Administration Piperacillin Sod/Tazobactam 100 mls @ 200 mls/hr 06/30/19 14:00 07/01/19 08:34 Sod 4.5 gm/ Sodium Chloride IV 200 mls/hr Q6H ALVA Administration Vancomycin HCl 1 gm/ Sodium 250 mls @ 167 mls/hr 06/30/19 20:00 07/01/19 00:20 Chloride IV Infused Q12H ALVA Infusion Metoprolol Tartrate 5 mg 06/30/19 18:00 07/01/19 06:20 Lopressor Inj IVP 5 mg Q6HR ALVA Administration Morphine Sulfate 2 mg 06/30/19 12:47 07/01/19 05:37 Morphine (Carpuject) IVP 2 mg Q2HR PRN Administration Dyspnea Nystatin 1 applic 06/30/19 16:30 07/01/19 08:36 Nystop TOP 1 applic BID ALVA Administration Sodium Chloride 10 ml 06/30/19 17:00 07/01/19 08:33 Normal Saline Flush 0.9% IVP 10 ml 0100,0900,1700 ALVA Administration Sodium Chloride 10 ml 06/30/19 12:47 07/01/19 06:21 Normal Saline Flush 0.9% IVP 10 ml PRN PRN Administration NEEDED PER PROVIDER ORDERS Sodium Chloride 20 ml 07/01/19 01:51 07/01/19 03:43 Normal Saline Flush 0.9% IVP 20 ml PRN PRN Administration After Blood Draw - Lab Result Fish Bone Diagrams: 07/01/19 03:45 07/01/19 03:45 - Additional Planning My Orders: My Active Orders 06/30/19 12:40 DIET [NPO] [DIET] 06/30/19 12:47 Activity Orders [RC] Q2HR Blood Glucose POC [RC] 0000,0600,1200,1800 Daily Weight [RC] 0600 Pena Insertion [RC] QSHIFT Home CPAP/BiPAP/NPPV [RC] .ONCE IO [RC] Q1HR Initiate Bowel Care Protocol [RC] QSHIFT Initiate Bronchodialator Mary Alice [RC] .PROTOCOL Initiate ICU Electrolyte Prot. [RC] .protocol Initiate Lung Inflation Protoc [RC] .PROTOCOL Initiate Personal Care Protoco [RC] .protocol Initiate Secretion Clearance P [RC] .PROTOCOL Morphine Inj (Carpuject) [Morphine (Carpuject)] 2 mg IVP Q2HR PRN Ondansetron Inj [Zofran Inj] 4 mg IVP Q6HR PRN Sodium Chloride Flush 0.9% [Normal Saline Flush 0.9%] 10 ml IVP PRN PRN Code Status [OTHERS] Routine Condition of Patient [OTHERS] Routine DVT Prophylaxis [OTHERS] Routine 06/30/19 12:48 Turn, Cough and Deep Breathe [RC] Routine 06/30/19 12:49 Oral Care - Nursing [RC] Routine Oxygen Therapy [RC] Routine Turn and Reposition [RC] Routine 06/30/19 12:50 SCDs [RC] QSHIFT 06/30/19 12:52 Initiate Line Care Protocol [RC] QSHIFT 06/30/19 13:04 Mineral Oil [Mineral Oil Enema] 135 ml RC DAILY PRN 06/30/19 13:06 Miscellaenous Nursing Order [RC] QSHIFT Dextrose 5% [D5w] 100 ml diltiaZEM INJ [Cardizem Inj] 125 mg IV 5 mg/hr 06/30/19 14:00 Piperacillin/Tazobactam [Zosyn] 4.5 gm Sodium Chloride 0.9% Minibag [Normal Saline 0.9% Minibag] 100 ml IV Q6H 06/30/19 16:30 Nystatin [Nystop] 1 applic TOP BID 06/30/19 16:55 Restraints [RC] Q24H 06/30/19 16:56 Restraints Safety Check [RC] Q1H 06/30/19 17:00 Sodium Chloride Flush 0.9% [Normal Saline Flush 0.9%] 10 ml IVP 0100,0900,1700 06/30/19 18:00 Metoprolol Inj [Lopressor Inj] 5 mg IVP Q6HR 06/30/19 20:00 Vancomycin Inj [Vancomycin] 1 gm Sodium Chloride 0.9% [Normal Saline 0.9%] 250 ml IV Q12H 06/30/19 21:00 Famotidine [Pepcid] 20 mg IVP BID levETIRAcetam INJ [Keppra Inj] 500 mg Sodium Chloride 0.9% 100Ml [Normal Saline 0.9% 100Ml] 100 ml IV BID 07/01/19 Clinical Swallow Evaluation [ST] Routine 07/01/19 01:51 Sodium Chloride 0.9% [Normal Saline 0.9%] 500 ml IV Q24H Sodium Chloride Flush 0.9% [Normal Saline Flush 0.9%] 20 ml IVP PRN PRN 07/01/19 09:00 Enoxaparin [Lovenox] 50 mg SUBQ BID 07/01/19 09:04 Miscellaenous Nursing Order [RC] ONCE 07/01/19 09:05 D5ns W/20 Meq KCl 1,000 ml IV 40 mls/hr 07/01/19 10:00 FUROSEMIDE INJ 20mg VIAL [LASIX INJ 20mg VIAL] 20 mg IVP BIDDIURETIC 07/01/19 19:30 VANCOMYCIN TROUGH [CHEM] Timed 07/02/19 05:00 BMP - BASIC METABOLIC PANEL [CHEM] DAILYLAB CALCIUM, IONIZED ([facility]) [BG] DAILYLAB CBC - COMP BLD CT W/AUTO DIFF [HEME] DAILYLAB 07/03/19 05:00 BMP - BASIC METABOLIC PANEL [CHEM] DAILYLAB CALCIUM, IONIZED ([facility]) [BG] DAILYLAB CBC - COMP BLD CT W/AUTO DIFF [HEME] DAILYLAB Subjective - Subjective Nursing Reports: Other (Rhonchi at bases and wheezing) Objective Vital Signs: Vital Signs - 24 hr 06/30/19 06/30/19 06/30/19 09:30 10:00 10:30 Temperature 38.5 C H 38.3 C H 38.1 C H Heart Rate 139 H 141 H 137 H Heart Rate [ Monitoring electrodes] Respiratory 23 30 H 30 H Rate Blood Pressure 157/96 H 172/148 H 155/105 H Blood Pressure [Right Brachial artery] Blood Pressure [Right Radial artery] O2 Saturation 97 97 96 06/30/19 06/30/19 06/30/19 10:36 10:50 11:00 Temperature 38.1 C H 38 C H 37.9 C H Heart Rate 146 H 125 H 126 H Heart Rate [ Monitoring electrodes] Respiratory 24 22 20 Rate Blood Pressure 155/105 H 170/105 H 163/103 H Blood Pressure [Right Brachial artery] Blood Pressure [Right Radial artery] O2 Saturation 98 97 97 06/30/19 06/30/19 06/30/19 11:15 11:19 11:20 Temperature 37.8 C H Heart Rate 125 H 170 H 160 H Heart Rate [ Monitoring electrodes] Respiratory 20 30 H 26 H Rate Blood Pressure 139/117 H 160/102 H 168/82 H Blood Pressure [Right Brachial artery] Blood Pressure [Right Radial artery] O2 Saturation 97 97 96 06/30/19 06/30/19 06/30/19 11:33 12:05 12:20 Temperature 37.7 C H 37.6 C H 37.5 C Heart Rate 116 H 120 H 109 H Heart Rate [ Monitoring electrodes] Respiratory 20 18 32 H Rate Blood Pressure 166/100 H 188/107 H 146/92 H Blood Pressure [Right Brachial artery] Blood Pressure [Right Radial artery] O2 Saturation 97 97 96 06/30/19 06/30/19 06/30/19 13:06 13:20 13:30 Temperature 37.4 C 37.4 C Heart Rate 129 H 116 H Heart Rate [ 115 H Monitoring electrodes] Respiratory 34 H 21 Rate Blood Pressure 151/121 H 165/98 H Blood Pressure [Right Brachial artery] Blood Pressure 147/95 H [Right Radial artery] O2 Saturation 98 98 06/30/19 06/30/19 06/30/19 14:00 15:00 16:00 Temperature 36.9 C 36.9 C Heart Rate Heart Rate [ 111 H 91 97 Monitoring electrodes] Respiratory 20 23 23 Rate Blood Pressure Blood Pressure [Right Brachial artery] Blood Pressure 146/93 H 150/105 H 151/84 H [Right Radial artery] O2 Saturation 95 98 98 06/30/19 06/30/19 06/30/19 17:00 17:35 17:37 Temperature 36.5 C Heart Rate Heart Rate [ 101 H 97 Monitoring electrodes] Respiratory 17 Rate Blood Pressure 162/95 H Blood Pressure [Right Brachial artery] Blood Pressure 168/68 H 162/95 H [Right Radial artery] O2 Saturation 98 06/30/19 06/30/19 06/30/19 17:40 17:45 18:00 Temperature 36.7 C Heart Rate Heart Rate [ 95 96 91 Monitoring electrodes] Respiratory 23 Rate Blood Pressure Blood Pressure [Right Brachial artery] Blood Pressure 173/97 H 166/102 H 165/96 H [Right Radial artery] O2 Saturation 96 06/30/19 06/30/19 06/30/19 18:15 18:30 18:45 Temperature Heart Rate Heart Rate [ 91 88 91 Monitoring electrodes] Respiratory 15 Rate Blood Pressure Blood Pressure [Right Brachial artery] Blood Pressure 150/83 H 156/105 H 156/97 H [Right Radial artery] O2 Saturation 96 06/30/19 06/30/19 06/30/19 19:00 20:00 21:00 Temperature 37.3 C Heart Rate Heart Rate [ 89 85 95 Monitoring electrodes] Respiratory 21 15 19 Rate Blood Pressure Blood Pressure [Right Brachial artery] Blood Pressure 152/110 H 124/103 H 147/94 H [Right Radial artery] O2 Saturation 96 97 06/30/19 06/30/19 06/30/19 21:23 21:57 22:00 Temperature 37.4 C Heart Rate Heart Rate [ 87 Monitoring electrodes] Respiratory 15 24 17 Rate Blood Pressure Blood Pressure [Right Brachial artery] Blood Pressure 155/93 H [Right Radial artery] O2 Saturation 99 99 98 06/30/19 07/01/19 07/01/19 23:00 00:00 00:35 Temperature 37.4 C 37.3 C Heart Rate Heart Rate [ 84 85 86 Monitoring electrodes] Respiratory 21 20 Rate Blood Pressure Blood Pressure [Right Brachial artery] Blood Pressure 157/94 H 157/90 H 151/89 H [Right Radial artery] O2 Saturation 98 97 07/01/19 07/01/19 07/01/19 00:36 00:40 00:45 Temperature Heart Rate Heart Rate [ 81 75 Monitoring electrodes] Respiratory Rate Blood Pressure 157/90 H Blood Pressure [Right Brachial artery] Blood Pressure 134/96 H 155/100 H [Right Radial artery] O2 Saturation 07/01/19 07/01/19 07/01/19 00:50 01:00 01:15 Temperature 37.3 C Heart Rate Heart Rate [ 75 81 79 Monitoring electrodes] Respiratory 18 Rate Blood Pressure Blood Pressure [Right Brachial artery] Blood Pressure 165/79 H 148/86 H 156/89 H [Right Radial artery] O2 Saturation 96 07/01/19 07/01/19 07/01/19 01:30 02:00 03:00 Temperature 37.3 C 37.2 C Heart Rate Heart Rate [ 86 87 Monitoring electrodes] Respiratory 21 Rate Blood Pressure Blood Pressure [Right Brachial artery] Blood Pressure 143/83 H 174/87 H [Right Radial artery] O2 Saturation 96 07/01/19 07/01/19 07/01/19 03:04 03:16 03:20 Temperature Heart Rate Heart Rate [ 89 88 91 Monitoring electrodes] Respiratory Rate Blood Pressure Blood Pressure 172/108 H 167/103 H 186/113 H [Right Brachial artery] Blood Pressure [Right Radial artery] O2 Saturation 07/01/19 07/01/19 07/01/19 03:35 04:00 04:52 Temperature 37.2 C Heart Rate Heart Rate [ 94 90 Monitoring electrodes] Respiratory 16 14 Rate Blood Pressure Blood Pressure 141/106 H 149/76 H [Right Brachial artery] Blood Pressure [Right Radial artery] O2 Saturation 93 97 07/01/19 07/01/19 07/01/19 05:00 06:00 06:20 Temperature 37.1 C 37 C Heart Rate Heart Rate [ 91 93 Monitoring electrodes] Respiratory 15 14 Rate Blood Pressure 171/73 H Blood Pressure 162/75 H 171/73 H [Right Brachial artery] Blood Pressure [Right Radial artery] O2 Saturation 96 95 07/01/19 07/01/19 07/01/19 06:22 06:25 06:30 Temperature Heart Rate Heart Rate [ 88 84 82 Monitoring electrodes] Respiratory Rate Blood Pressure Blood Pressure 151/83 H 135/74 H 145/93 H [Right Brachial artery] Blood Pressure [Right Radial artery] O2 Saturation 07/01/19 07/01/19 07/01/19 06:35 06:45 07:00 Temperature 37 C Heart Rate Heart Rate [ 81 84 82 Monitoring electrodes] Respiratory 15 Rate Blood Pressure Blood Pressure 161/95 H 149/105 H 101/50 L [Right Brachial artery] Blood Pressure [Right Radial artery] O2 Saturation 97 07/01/19 07/01/19 08:00 09:00 Temperature 37 C 36.9 C Heart Rate Heart Rate [ 78 87 Monitoring electrodes] Respiratory 19 21 Rate Blood Pressure Blood Pressure 144/70 H 148/92 H [Right Brachial artery] Blood Pressure [Right Radial artery] O2 Saturation 96 94 Oxygen O2 Source [With Activity] Nasal cannula O2 Source Nasal cannula Oxygen Flow Rate 15 I&O (Last 24 Hrs): Intake and Output Totals x24h 06/29/19 06/30/19 07/01/19 23:59 23:59 23:59 Intake Total 4114.032 1082.468 Output Total 450 396 Balance 3664.032 686.468 General: Other (Lethergic, appears comfortable, moans occaisionally) HEENT: Mucous membr. moist/pink, Other (Wearing O2 per n.c. and has ng tube) Neck: Supple Neuro: Other (Lethargic, moves all extrem spontaneously) Cardiovascular: No murmurs Respiratory: No respiratory distress, Breath sounds nml Abdomen: Soft, Other (No bowel sounds. Obese with pannus) Extremities: Other (Trace pretibial and hand edema) - Results Results: Laboratory Results WBC 10.9 x10^3/uL (4.8-10.8) H 07/01/19 03:45 RBC 4.22 10^6/uL (4.20-5.40) 07/01/19 03:45 Hgb 11.8 g/dL (12.0-16.0) L 07/01/19 03:45 Hct 38.1 % (37.0-47.0) 07/01/19 03:45 MCV 90.3 fL (81.0-99.0) 07/01/19 03:45 MCH 28.0 pg (27.0-31.0) 07/01/19 03:45 MCHC 31.0 g/dL (32.0-36.0) L 07/01/19 03:45 RDW 14.6 % (12.0-15.0) 07/01/19 03:45 Plt Count 180 10^3/uL (130-450) 07/01/19 03:45 MPV 11.8 fL (7.9-10.8) H 07/01/19 03:45 Neut # (Auto) 9.1 10^3/uL (1.5-6.6) H 07/01/19 03:45 Lymph # (Auto) 0.6 10^3/uL (1.5-3.5) L 07/01/19 03:45 [place] # (Auto) 1.1 10^3/uL (0.0-1.0) H 07/01/19 03:45 Eos # (Auto) 0.0 10^3/uL (0.0-0.7) 07/01/19 03:45 Baso # (Auto) 0.0 10^3/uL (0.0-0.1) 07/01/19 03:45 Absolute Nucleated RBC 0.00 x10^3/uL 07/01/19 03:45 Nucleated RBC % 0.0 /100WBC 07/01/19 03:45 PT 19.7 secs (9.9-12.6) H 06/30/19 07:35 INR 1.8 (0.8-1.2) H 06/30/19 07:35 APTT 33.6 secs (24.9-33.3) H 06/30/19 07:35 Bld Gas Analysis Time 213706/30/19 21:38 Sample Site RIGHT RADIAL 06/30/19 21:38 ABG pH 7.38 (7.35-7.45) 06/30/19 21:38 ABG pCO2 37 mmHg (34-45) 06/30/19 21:38 ABG pO2 109 mmHg (80-100) H 06/30/19 21:38 ABG HCO3 21.7 mmol/L (22.0-26.0) L 06/30/19 21:38 ABG Total CO2 22.9 MMOL/L (21.0-29.0) 06/30/19 21:38 ABG O2 Saturation 98 % (94-98) 06/30/19 21:38 ABG Base Excess -2.9 mmol/L (-2.0-3.0) L 06/30/19 21:38 Nikita Test POSITIVE 06/30/19 21:38 VBG pH 7.321 (7.31-7.41) 07/01/19 03:45 Ionized Calcium 1.08 mmol/L (1.15-1.33) L 07/01/19 03:45 O2 Delivery Device NASAL CANNULA 06/30/19 21:38 O2 Liters/Min 4.00 LPM 06/30/19 21:38 Sodium 141 mmol/L (135-145) 07/01/19 03:45 Potassium 3.5 mmol/L (3.5-5.0) 07/01/19 03:45 Chloride 106 mmol/L (101-111) 07/01/19 03:45 Carbon Dioxide 25 mmol/L (21-32) 07/01/19 03:45 Anion Gap 10.0 (6-13) 07/01/19 03:45 BUN 20 mg/dL (6-20) 07/01/19 03:45 Creatinine 0.8 mg/dL (0.4-1.0) 07/01/19 03:45 Estimated GFR (MDRD) 69 (>89) L 07/01/19 03:45 Glucose 135 mg/dL (70-100) H 07/01/19 03:45 Lactic Acid 1.7 mmol/L (0.5-2.2) 06/30/19 14:03 Calcium 8.1 mg/dL (8.5-10.3) L 07/01/19 03:45 Phosphorus 2.7 mg/dL (2.5-4.6) 07/01/19 03:45 Magnesium 1.7 mg/dL (1.7-2.8) 07/01/19 03:45 Total Bilirubin 1.0 mg/dL (0.2-1.0) 06/30/19 07:35 AST 89 IU/L (10-42) H 06/30/19 07:35 ALT 58 IU/L (10-60) 06/30/19 07:35 Alkaline Phosphatase 91 IU/L (42-121) 06/30/19 07:35 Troponin I High Sens 184.8 ng/L (2.3-14.8) H* 06/30/19 22:20 B-Natriuretic Peptide 1132 pg/mL (5-100) H 06/30/19 07:35 Total Protein 7.0 g/dL (6.7-8.2) 06/30/19 07:35 Albumin 3.7 g/dL (3.2-5.5) 06/30/19 07:35 Globulin 3.3 g/dL (2.1-4.2) 06/30/19 07:35 Albumin/Globulin Ratio 1.1 (1.0-2.2) 06/30/19 07:35 Lipase 39 U/L (22-51) 06/30/19 07:35 Urine Color YELLOW 06/30/19 07:55 Urine Clarity CLOUDY (CLEAR) 06/30/19 07:55 Urine pH 6.5 PH (5.0-7.5) 06/30/19 07:55 Ur Specific [place] 1.020 (1.002-1.030) 06/30/19 07:55 Urine Protein >=300 mg/dL (NEGATIVE) H 06/30/19 07:55 Urine Glucose (UA) 100 mg/dL (NEGATIVE) H 06/30/19 07:55 Urine Ketones NEGATIVE mg/dL (NEGATIVE) 06/30/19 07:55 Urine Occult Blood TRACE-INTA (NEGATIVE) 06/30/19 07:55 Urine Nitrite NEGATIVE (NEGATIVE) 06/30/19 07:55 Urine Bilirubin NEGATIVE (NEGATIVE) 06/30/19 07:55 Urine Urobilinogen 0.2 (NORMAL) E.U./dL (NORMAL) 06/30/19 07:55 Ur Leukocyte Esterase NEGATIVE (NEGATIVE) 06/30/19 07:55 Urine RBC 6-10 /HPF (0-5) H 06/30/19 07:55 Urine WBC 6-10 /HPF (0-5) H 06/30/19 07:55 Ur Squamous Epith Cells MANY Squamous (<= Few) H 06/30/19 07:55 Amorphous Sediment Marked /LPF 06/30/19 07:55 Urine Bacteria Few /HPF (None Seen) 06/30/19 07:55 Urine Casts 0-2 Hyaline Casts /LPF 06/30/19 07:55 Ur Microscopic Review INDICATED 06/30/19 07:55 Urine Culture Comments NOT INDICATED 06/30/19 07:55 Nasal Screen MRSA (PCR) NEGATIVE (NEGATIVE) 06/30/19 14:05 Influenza A (Rapid) Negative (Negative) 06/30/19 07:55 Influenza B (Rapid) Negative (Negative) 06/30/19 07:55
[2019-07-01] MEDS: FAMOTIDINE 20 MG/2 ML VIAL IVP SCH ×2 (09:18→20:19)
[2019-07-01] MEDS: FUROSEMIDE 20 MG/2 ML VIAL IVP SCH ×2 (09:23→13:41)
[2019-07-01] MEDS: VANCOMYCIN INJ 1 GM in SODIUM CHLORIDE 0.9% 250 ML IV SCH (09:27)
[2019-07-01] MEDS: ACETAMINOPHEN 1,000 MG/100 ML 100 ML IV PRN ×2 (16:43→22:33)
[2019-07-01] MEDS: SODIUM CHLORIDE 0.9% 500 ML IV PRN (19:00)
[2019-07-01 20:03] LABS: VANCOMYCIN,TROUGH 20.3 ug/mL (10.0-20.0)
[2019-07-01] MEDS ORDERED: SODIUM CHLORIDE 0.9% 100ML 100 ML IV ONE (20:16)
[2019-07-01] MEDS ORDERED: IPRATROPIUM/ALBUTEROL 3 ML NEB INH PRN (23:28)
[2019-07-02] MEDS: SODIUM CHLORIDE FLUSH 0.9% 10 ML SYRINGE IVP PRN ×5 (00:26→23:48)
[2019-07-02] MEDS: METOPROLOL 5 MG/5 ML VIAL IVP SCH ×5 (00:26→23:47)
[2019-07-02] MEDS: PIPERACILLIN/TAZOBACTAM 4.5 GM in SODIUM CHLORIDE 0.9% MINIBAG 100 ML IV SCH ×4 (02:36→19:59)
[2019-07-02] MEDS ORDERED: VANCOMYCIN INJ 1.75 GM in SODIUM CHLORIDE 0.9% 500 ML IV SCH (04:00)
[2019-07-02 05:08] LABS: BASOPHILS % (AUTO) 0.3 %; EOSINOPHILS # (AUTO) 0.1 10^3/uL (0.0-0.7); EOSINOPHILS % (AUTO) 0.8 %; HGB - HEMOGLOBIN 11.9 g/dL (12.0-16.0); LYMPHOCYTES # (AUTO) 0.5 10^3/uL (1.5-3.5); LYMPHOCYTES % (AUTO) 5.6 %; MEAN CORPUSCULAR HEMOGLOBIN 28.4 pg (27.0-31.0); MEAN CORPUSCULAR HGB CONC 31.3 g/dL (32.0-36.0); MEAN CORPUSCULAR VOLUME 90.7 fL (81.0-99.0); MEAN PLATELET VOLUME 11.8 fL (7.9-10.8); MONOCYTES # (AUTO) 0.9 10^3/uL (0.0-1.0); MONOCYTES % (AUTO) 9.7 %; NEUTROPHILS # (AUTO) 7.8 10^3/uL (1.5-6.6); NEUTROPHILS % (AUTO) 83.2 %; PLT - PLATELET COUNT 170 10^3/uL (130-450); RED BLOOD COUNT 4.19 10^6/uL (4.20-5.40); RED CELL DISTRIBUTION WIDTH 14.9 % (12.0-15.0); VBG PH 7.366 (7.31-7.41); WHITE BLOOD COUNT 9.3 x10^3/uL (4.8-10.8)
[2019-07-02 05:19] LABS: CREATININE 0.8 mg/dL (0.4-1.0)
[2019-07-02 05:54] LABS: ALBUMIN 3.6 g/dL (3.2-5.5); MAGNESIUM 1.7 mg/dL (1.7-2.8); PHOSPHORUS 1.9 mg/dL (2.5-4.6)
[2019-07-02] MEDS ORDERED: CALCIUM GLUCONATE 1,000 MG in SODIUM CHLORIDE 0.9% 50 ML IV ONE (05:58)
[2019-07-02] MEDS ORDERED: MAGNESIUM SULFATE 2 GRAM 2 GM/50 ML BAG IV ONE (05:58)
[2019-07-02] MEDS ORDERED: CALCIUM GLUCONATE 1000 MG/10 ML VIAL ONE (06:19)
[2019-07-02] MEDS: POTASSIUM CHLOR 20 MEQ/100 ML 20 MEQ/100 ML BAG IV SCH ×2 (06:43→08:15)
[2019-07-02] MEDS ORDERED: POTASSIUM PHOSPHATE 15 MMOL in SODIUM CHLORIDE 0.9% 250 ML IV ONE (08:00)
[2019-07-02] MEDS: FAMOTIDINE 20 MG/2 ML VIAL IVP SCH ×2 (08:48→20:54)
[2019-07-02] MEDS: ENOXAPARIN 100 MG/ML SYRINGE SUBQ SCH ×2 (08:54→20:55)
[2019-07-02] MEDS: SODIUM CHLORIDE FLUSH 0.9% 10 ML SYRINGE IVP SCH ×3 (08:56→20:55)
[2019-07-02] MEDS: FUROSEMIDE 20 MG/2 ML VIAL IVP SCH ×2 (09:07→16:06)
[2019-07-02] MEDS: levETIRAcetam INJ 500 MG in SODIUM CHLORIDE 0.9% 100ML 100 ML IV SCH ×2 (10:12→20:55)
[2019-07-02] MEDS: NYSTATIN POWDER 15 GM TOP SCH ×2 (10:21→19:40)
[2019-07-02] MEDS: ACETAMINOPHEN 1,000 MG/100 ML 100 ML IV PRN (10:34)
[2019-07-02] MEDS: D5NS W/20 MEQ KCL 1,000 ML IV SCH ×2 (11:45→18:16)
--- NOTE | 2019-07-02 14:29 | PROVIDER PROGRESS NOTE ---
Assessment/Plan - Problem List (1) New onset seizure Assessment/Plan: No further seizure activity since the time in the ER. She is on Keppra iv twice daily. (2) HCAP (healthcare-associated pneumonia) Assessment/Plan: She remains on broad-spectrum antibiotics. She has not coughed or made any sputum for culture. She is tolerating nasal cannula O2 (improved from BiPAP that was required in the ED). Await blood cultures. (3) Acute on chronic diastolic CHF (congestive heart failure) Assessment/Plan: Yesterday's chest x-ray showed moderate vascular congestion. Lasix IV twice daily was started yesterday. She appears much more comfortable today. The Echo was just done last week, during last admission, this confirmed normal EF and diastolic dysfunction present. A repeat Echo is not planned this admission. (4) Atrial fibrillation with rapid ventricular response Assessment/Plan: Will wean IV diltiazem to off, use IV scheduled Lopressor pushes for rate control. Remain on Lovenox at therapeutic doses for anticoagulation since she cannot swallow her Xarelto yet (5) Altered mental status Qualifiers: Altered mental status type: unspecified Qualified Code(s): R41.82 - Altered mental status, unspecified Assessment/Plan: She is slowly awakening, shows no focal deficits. Will try to avoid narcotics or other sedatives. Remain in ICU with neuro checks. Consider brain MRI if there is no improvement in mental status. (6) Hematuria Assessment/Plan: This is improved from yesterday. He was likely from traumatic Pena insertion and being on Xarelto. Follow hemoglobin daily (7) COPD (chronic obstructive pulmonary disease) Qualifiers: COPD type: COPD with acute exacerbation Qualified Code(s): J44.1 - Chronic obstructive pulmonary disease with (acute) exacerbation Assessment/Plan: She is getting PRN nebs. The respiratory status does not appear to be a COPD exacerbation but rather CHF from volume overload and she has the pneumonia (8) HTN (hypertension) Assessment/Plan: Blood pressure stable on current combination of medication (9) Sleep apnea Assessment/Plan: Her home CPAP device was ordered to be continued here. At the last recent admission the RT found the device to be very dirty, a sign of her poor hygiene and requiring more supervised help and caregiving. (10) Dementia Assessment/Plan: At the last, recent admission, OT did a Mini-Mental exam and she scored 16/30 indicating moderate impairment. This is probably from cerebrovascular atherosclerosis plus her stroke which occurred December 2018. The family was told during that last admission that the patient now needs constant supervision and caregiving, she can no longer live alone. - Current Meds Current Meds: Current Medications Generic Name Dose Route Start Last Admin Trade Name Freq PRN Reason Stop Dose Admin Albuterol/Ipratropium 3 ml 07/01/19 23:28 07/02/19 06:00 Duoneb INH 3 ml Q4HR PRN Administration Wheezing Enoxaparin Sodium 50 mg 07/01/19 09:00 07/02/19 08:54 Lovenox SUBQ 50 mg BID ALVA Administration Famotidine 20 mg 06/30/19 21:00 07/02/19 08:48 Pepcid IVP 20 mg BID ALVA Administration Furosemide 20 mg 07/01/19 10:00 07/02/19 09:07 Lasix Inj 20mg Vial IVP 20 mg BIDDIURETIC ALVA Administration Diltiazem HCl 125 mg/ Dextrose 125 mls @ 5 mls/hr 06/30/19 13:06 07/02/19 11:06 IV Infused .Q25H ALVA Titration Protocol 5 MG/HR Levetiracetam 500 mg/ Sodium 105 mls @ 400 mls/hr 06/30/19 21:00 07/02/19 10:28 Chloride IV Infused BID ALVA Infusion Piperacillin Sod/Tazobactam 100 mls @ 200 mls/hr 06/30/19 14:00 07/02/19 14:11 Sod 4.5 gm/ Sodium Chloride IV 200 mls/hr Q6H ALVA Administration Sodium Chloride 500 mls @ 0 mls/hr 07/01/19 01:51 07/01/19 19:00 Normal Saline 0.9% IV 10 mls/hr Q24H PRN Administration TKO RATE TKO Potassium Chloride/Dextrose/Sod Cl 1,000 mls @ 40 mls/hr 07/01/19 09:05 07/02/19 11:45 IV Not Given .Q25H ALVA Acetaminophen 100 mls @ 400 mls/hr 07/01/19 16:13 07/02/19 10:49 Ofirmev IV Infused Q6HR PRN Infusion PAIN Vancomycin HCl 1.75 gm/ Sodium 500 mls @ 250 mls/hr 07/02/19 04:00 07/02/19 06:00 Chloride IV Infused Q18H ALVA Infusion Metoprolol Tartrate 5 mg 06/30/19 18:00 07/02/19 14:03 Lopressor Inj IVP 5 mg Q6HR ALVA Administration Morphine Sulfate 2 mg 06/30/19 12:47 07/01/19 05:37 Morphine (Carpuject) IVP 2 mg Q2HR PRN Administration Dyspnea Nystatin 1 applic 06/30/19 16:30 07/02/19 10:21 Nystop TOP 1 applic BID ALVA Administration Sodium Chloride 10 ml 06/30/19 17:00 07/02/19 08:56 Normal Saline Flush 0.9% IVP Not Given 0100,0900,1700 ALVA Sodium Chloride 10 ml 06/30/19 12:47 07/02/19 06:29 Normal Saline Flush 0.9% IVP 10 ml PRN PRN Administration NEEDED PER PROVIDER ORDERS Sodium Chloride 20 ml 07/01/19 01:51 07/01/19 19:41 Normal Saline Flush 0.9% IVP 20 ml PRN PRN Administration After Blood Draw - Lab Result Fish Bone Diagrams: 07/02/19 05:00 07/02/19 05:00 - Additional Planning My Orders: My Active Orders 07/01/19 16:13 Acetaminophen 1,000 mg/100 ml [Ofirmev] 100 ml IV Q6HR 07/02/19 04:00 Vancomycin Inj [Vancomycin] 1.75 gm Sodium Chloride 0.9% [Normal Saline 0.9%] 500 ml IV Q18H 07/03/19 05:00 ALBUMIN [CHEM] DAILYLAB BMP - BASIC METABOLIC PANEL [CHEM] DAILYLAB CALCIUM, IONIZED ([facility]) [BG] DAILYLAB CBC - COMP BLD CT W/AUTO DIFF [HEME] DAILYLAB MAGNESIUM [CHEM] DAILYLAB PHOSPHORUS [CHEM] DAILYLAB 07/04/19 05:00 ALBUMIN [CHEM] DAILYLAB MAGNESIUM [CHEM] DAILYLAB PHOSPHORUS [CHEM] DAILYLAB Subjective - Subjective Patient Reports: Other (RN reports that she awakens and follows some commands but is mostly sleeping, not yet swallowing anything, ice chops were ordered.) Objective Vital Signs: Vital Signs - 24 hr 07/01/19 07/01/19 07/01/19 15:00 16:00 17:00 Temperature 37.2 C 37.2 C 37.3 C Heart Rate Heart Rate [ 100 111 H 98 Monitoring electrodes] Respiratory 15 14 15 Rate Blood Pressure Blood Pressure [Left Radial artery] Blood Pressure [Right Ankle] Blood Pressure 161/67 H 155/94 H 175/76 H [Right Brachial artery] O2 Saturation 97 100 99 07/01/19 07/01/19 07/01/19 18:00 18:16 19:00 Temperature 37.1 C 37.3 C Heart Rate Heart Rate [ 100 98 Monitoring electrodes] Respiratory 15 17 Rate Blood Pressure 163/77 H Blood Pressure [Left Radial artery] Blood Pressure [Right Ankle] Blood Pressure 163/77 H 175/87 H [Right Brachial artery] O2 Saturation 97 98 07/01/19 07/01/19 07/01/19 20:00 21:00 21:12 Temperature 37.2 C Heart Rate Heart Rate [ 102 H 101 H 100 Monitoring electrodes] Respiratory 21 13 Rate Blood Pressure Blood Pressure 163/100 H 160/77 H [Left Radial artery] Blood Pressure [Right Ankle] Blood Pressure [Right Brachial artery] O2 Saturation 100 99 07/01/19 07/01/19 07/01/19 21:30 21:45 22:00 Temperature 37.2 C Heart Rate Heart Rate [ 95 98 102 H Monitoring electrodes] Respiratory 15 Rate Blood Pressure Blood Pressure 152/97 H 173/91 H 176/97 H [Left Radial artery] Blood Pressure [Right Ankle] Blood Pressure [Right Brachial artery] O2 Saturation 100 07/01/19 07/02/19 07/02/19 23:00 00:00 00:25 Temperature 37.2 C Heart Rate Heart Rate [ 106 H 101 H 100 Monitoring electrodes] Respiratory 19 17 Rate Blood Pressure Blood Pressure 167/95 H 161/95 H 179/152 H [Left Radial artery] Blood Pressure [Right Ankle] Blood Pressure [Right Brachial artery] O2 Saturation 98 96 07/02/19 07/02/19 07/02/19 00:26 00:30 00:35 Temperature Heart Rate Heart Rate [ 91 89 Monitoring electrodes] Respiratory Rate Blood Pressure 161/95 H Blood Pressure 166/96 H 148/94 H [Left Radial artery] Blood Pressure [Right Ankle] Blood Pressure [Right Brachial artery] O2 Saturation 07/02/19 07/02/19 07/02/19 00:40 00:45 00:50 Temperature Heart Rate Heart Rate [ 90 100 91 Monitoring electrodes] Respiratory Rate Blood Pressure Blood Pressure 162/93 H 169/94 H 159/103 H [Left Radial artery] Blood Pressure [Right Ankle] Blood Pressure [Right Brachial artery] O2 Saturation 07/02/19 07/02/19 07/02/19 00:55 01:00 02:00 Temperature 37.0 C 36.9 C Heart Rate Heart Rate [ 96 96 83 Monitoring electrodes] Respiratory 21 15 Rate Blood Pressure Blood Pressure 166/104 H 179/96 H 162/87 H [Left Radial artery] Blood Pressure [Right Ankle] Blood Pressure [Right Brachial artery] O2 Saturation 98 98 07/02/19 07/02/19 07/02/19 02:53 03:00 04:00 Temperature 36.7 C Heart Rate Heart Rate [ 96 95 Monitoring electrodes] Respiratory 20 13 19 Rate Blood Pressure Blood Pressure 166/94 H 158/93 H [Left Radial artery] Blood Pressure [Right Ankle] Blood Pressure [Right Brachial artery] O2 Saturation 96 98 95 07/02/19 07/02/19 07/02/19 05:00 05:59 06:00 Temperature 36.4 C L 36.6 C Heart Rate 96 Heart Rate [ 108 H 95 Monitoring electrodes] Respiratory 20 22 18 Rate Blood Pressure Blood Pressure 163/93 H 151/131 H [Left Radial artery] Blood Pressure [Right Ankle] Blood Pressure [Right Brachial artery] O2 Saturation 100 98 07/02/19 07/02/19 07/02/19 06:29 06:35 06:40 Temperature Heart Rate Heart Rate [ 86 89 Monitoring electrodes] Respiratory Rate Blood Pressure 151/131 H Blood Pressure 165/90 H 179/92 H [Left Radial artery] Blood Pressure [Right Ankle] Blood Pressure [Right Brachial artery] O2 Saturation 07/02/19 07/02/19 07/02/19 06:45 06:50 06:55 Temperature Heart Rate Heart Rate [ 80 97 98 Monitoring electrodes] Respiratory Rate Blood Pressure Blood Pressure 194/172 H 177/105 H 173/110 H [Left Radial artery] Blood Pressure [Right Ankle] Blood Pressure [Right Brachial artery] O2 Saturation 07/02/19 07/02/19 07/02/19 07:00 07:06 07:10 Temperature 36.7 C Heart Rate Heart Rate [ 93 99 92 Monitoring electrodes] Respiratory 17 Rate Blood Pressure Blood Pressure 180/96 H 165/91 H 180/93 H [Left Radial artery] Blood Pressure [Right Ankle] Blood Pressure [Right Brachial artery] O2 Saturation 95 07/02/19 07/02/19 07/02/19 07:15 08:00 08:15 Temperature 36.7 C Heart Rate Heart Rate [ 95 87 92 Monitoring electrodes] Respiratory 15 Rate Blood Pressure Blood Pressure 169/126 H 188/95 H 190/100 H [Left Radial artery] Blood Pressure [Right Ankle] Blood Pressure [Right Brachial artery] O2 Saturation 95 07/02/19 07/02/19 07/02/19 08:25 08:30 08:35 Temperature 36.6 C Heart Rate Heart Rate [ 70 95 83 Monitoring electrodes] Respiratory Rate Blood Pressure Blood Pressure 188/95 H 171/111 H 175/100 H [Left Radial artery] Blood Pressure [Right Ankle] Blood Pressure [Right Brachial artery] O2 Saturation 91 L 07/02/19 07/02/19 07/02/19 09:00 10:00 11:00 Temperature 36.6 C 36.6 C 36.5 C Heart Rate Heart Rate [ 94 96 88 Monitoring electrodes] Respiratory 14 15 18 Rate Blood Pressure Blood Pressure [Left Radial artery] Blood Pressure 181/100 H 163/96 H 174/98 H [Right Ankle] Blood Pressure [Right Brachial artery] O2 Saturation 99 99 100 07/02/19 07/02/19 07/02/19 12:00 13:00 14:00 Temperature 36.7 C 36.7 C 36.7 C Heart Rate Heart Rate [ 84 102 H 105 H Monitoring electrodes] Respiratory 13 18 13 Rate Blood Pressure Blood Pressure [Left Radial artery] Blood Pressure 171/79 H 174/111 H 145/105 H [Right Ankle] Blood Pressure [Right Brachial artery] O2 Saturation 97 97 97 07/02/19 07/02/19 14:03 14:05 Temperature 36.7 C Heart Rate Heart Rate [ 100 Monitoring electrodes] Respiratory 15 Rate Blood Pressure 145/105 H Blood Pressure [Left Radial artery] Blood Pressure 167/93 H [Right Ankle] Blood Pressure [Right Brachial artery] O2 Saturation 98 Oxygen O2 Source [With Activity] Nasal cannula O2 Source Oxymask Oxygen Flow Rate 15 I&O (Last 24 Hrs): Intake and Output Totals x24h 06/30/19 07/01/19 07/02/19 23:59 23:59 23:59 Intake Total 4114.032 3672.701 1484.000 Output Total 450 8013 0718 Balance 3664.032 546.701 -1441.000 General: Other (somnolent, opens eyes to touch) HEENT: Mucous membr. moist/pink Neck: Supple, No JVD Neuro: Other (Lethergic, moans occaisionally, moves all extrem) Cardiovascular: No murmurs, Other (Irreg) Respiratory: No respiratory distress, Breath sounds nml Abdomen: Soft, Other (Obese with pannus) Extremities: No edema - Results Results: Laboratory Results WBC 9.3 x10^3/uL (4.8-10.8) 07/02/19 05:00 RBC 4.19 10^6/uL (4.20-5.40) L 07/02/19 05:00 Hgb 11.9 g/dL (12.0-16.0) L 07/02/19 05:00 Hct 38.0 % (37.0-47.0) 07/02/19 05:00 MCV 90.7 fL (81.0-99.0) 07/02/19 05:00 MCH 28.4 pg (27.0-31.0) 07/02/19 05:00 MCHC 31.3 g/dL (32.0-36.0) L 07/02/19 05:00 RDW 14.9 % (12.0-15.0) 07/02/19 05:00 Plt Count 170 10^3/uL (130-450) 07/02/19 05:00 MPV 11.8 fL (7.9-10.8) H 07/02/19 05:00 Neut # (Auto) 7.8 10^3/uL (1.5-6.6) H 07/02/19 05:00 Lymph # (Auto) 0.5 10^3/uL (1.5-3.5) L 07/02/19 05:00 Smith # (Auto) 0.9 10^3/uL (0.0-1.0) 07/02/19 05:00 Eos # (Auto) 0.1 10^3/uL (0.0-0.7) 07/02/19 05:00 Baso # (Auto) 0.0 10^3/uL (0.0-0.1) 07/02/19 05:00 Absolute Nucleated RBC 0.00 x10^3/uL 07/02/19 05:00 Nucleated RBC % 0.0 /100WBC 07/02/19 05:00 PT 19.7 secs (9.9-12.6) H 06/30/19 07:35 INR 1.8 (0.8-1.2) H 06/30/19 07:35 APTT 33.6 secs (24.9-33.3) H 06/30/19 07:35 Bld Gas Analysis Time 213706/30/19 21:38 Sample Site RIGHT RADIAL 06/30/19 21:38 ABG pH 7.38 (7.35-7.45) 06/30/19 21:38 ABG pCO2 37 mmHg (34-45) 06/30/19 21:38 ABG pO2 109 mmHg (80-100) H 06/30/19 21:38 ABG HCO3 21.7 mmol/L (22.0-26.0) L 06/30/19 21:38 ABG Total CO2 22.9 MMOL/L (21.0-29.0) 06/30/19 21:38 ABG O2 Saturation 98 % (94-98) 06/30/19 21:38 ABG Base Excess -2.9 mmol/L (-2.0-3.0) L 06/30/19 21:38 Nikita Test POSITIVE 06/30/19 21:38 VBG pH 7.366 (7.31-7.41) 07/02/19 05:00 Ionized Calcium 1.05 mmol/L (1.15-1.33) L 07/02/19 05:00 O2 Delivery Device NASAL CANNULA 06/30/19 21:38 O2 Liters/Min 4.00 LPM 06/30/19 21:38 Sodium 144 mmol/L (135-145) 07/02/19 05:00 Potassium 3.1 mmol/L (3.5-5.0) L 07/02/19 05:00 Chloride 104 mmol/L (101-111) 07/02/19 05:00 Carbon Dioxide 27 mmol/L (21-32) 07/02/19 05:00 Anion Gap 13.0 (6-13) 07/02/19 05:00 BUN 12 mg/dL (6-20) 07/02/19 05:00 Creatinine 0.8 mg/dL (0.4-1.0) 07/02/19 05:00 Estimated GFR (MDRD) 69 (>89) L 07/02/19 05:00 Glucose 135 mg/dL (70-100) H 07/02/19 05:00 Lactic Acid 1.7 mmol/L (0.5-2.2) 06/30/19 14:03 Calcium 8.0 mg/dL (8.5-10.3) L 07/02/19 05:00 Phosphorus 1.9 mg/dL (2.5-4.6) L 07/02/19 05:00 Magnesium 1.7 mg/dL (1.7-2.8) 07/02/19 05:00 Total Bilirubin 1.0 mg/dL (0.2-1.0) 06/30/19 07:35 AST 89 IU/L (10-42) H 06/30/19 07:35 ALT 58 IU/L (10-60) 06/30/19 07:35 Alkaline Phosphatase 91 IU/L (42-121) 06/30/19 07:35 Troponin I High Sens 184.8 ng/L (2.3-14.8) H* 06/30/19 22:20 B-Natriuretic Peptide 1132 pg/mL (5-100) H 06/30/19 07:35 Total Protein 7.0 g/dL (6.7-8.2) 06/30/19 07:35 Albumin 3.6 g/dL (3.2-5.5) 07/02/19 05:00 Globulin 3.3 g/dL (2.1-4.2) 06/30/19 07:35 Albumin/Globulin Ratio 1.1 (1.0-2.2) 06/30/19 07:35 Lipase 39 U/L (22-51) 06/30/19 07:35 Urine Color YELLOW 06/30/19 07:55 Urine Clarity CLOUDY (CLEAR) 06/30/19 07:55 Urine pH 6.5 PH (5.0-7.5) 06/30/19 07:55 Ur Specific [place] 1.020 (1.002-1.030) 06/30/19 07:55 Urine Protein >=300 mg/dL (NEGATIVE) H 06/30/19 07:55 Urine Glucose (UA) 100 mg/dL (NEGATIVE) H 06/30/19 07:55 Urine Ketones NEGATIVE mg/dL (NEGATIVE) 06/30/19 07:55 Urine Occult Blood TRACE-INTA (NEGATIVE) 06/30/19 07:55 Urine Nitrite NEGATIVE (NEGATIVE) 06/30/19 07:55 Urine Bilirubin NEGATIVE (NEGATIVE) 06/30/19 07:55 Urine Urobilinogen 0.2 (NORMAL) E.U./dL (NORMAL) 06/30/19 07:55 Ur Leukocyte Esterase NEGATIVE (NEGATIVE) 06/30/19 07:55 Urine RBC 6-10 /HPF (0-5) H 06/30/19 07:55 Urine WBC 6-10 /HPF (0-5) H 06/30/19 07:55 Ur Squamous Epith Cells MANY Squamous (<= Few) H 06/30/19 07:55 Amorphous Sediment Marked /LPF 06/30/19 07:55 Urine Bacteria Few /HPF (None Seen) 06/30/19 07:55 Urine Casts 0-2 Hyaline Casts /LPF 06/30/19 07:55 Ur Microscopic Review INDICATED 06/30/19 07:55 Urine Culture Comments NOT INDICATED 06/30/19 07:55 Nasal Screen MRSA (PCR) NEGATIVE (NEGATIVE) 06/30/19 14:05 Last Dose Date 07/01/19 07/01/19 19:45 Last Dose Time 1100 07/01/19 19:45 Vancomycin Trough 20.3 ug/mL (10.0-20.0) H 07/01/19 19:45 Influenza A (Rapid) Negative (Negative) 06/30/19 07:55 Influenza B (Rapid) Negative (Negative) 06/30/19 07:55
--- NOTE | 2019-07-02 17:02 | PHARMACY PROGRESS NOTE ---
- Therapy Status Vancomycin regimen day #: 3 Therapy status: Trough supratherapeutic (very slightly supratherapeutic) Basis for treatment: Empirical Treatment indication: HCAP Trough goal: 15-20 Concurrent antibiotics: zosyn - CHARLIE Risk Risk level for Acute Kidney Injury: High Acute Kidney Injury risk factors: Piperacillin/Tozobactam, Wt >100kg or BMI >40, Goal trough >15, Admission to ICU - Monitoring and Recommendation Clinical response to treatment: I&O Previous 24 hours 06/30/19 07/01/19 07/02/19 23:59 23:59 23:59 Intake Total 4114.032 3672.701 1939.000 Output Total 450 3126 3095 Balance 3664.032 546.701 -1156.000 Lab Results 07/02/19 07/01/19 06/30/19 05:00 03:45 07:35 BUN 12 20 20 Creatinine 0.8 0.8 1.1 H Estimated GFR (MDRD) 69 L 69 L 48 L Vancomycin Monitoring 07/01/19 19:45 Vancomycin Trough 20.3 H Cultures 06/30/19 07:35 Blood Blood Culture - Preliminary NO GROWTH AFTER 2 DAYS Monitoring plan: Daily serum creatinine Next trough due prior to maintenance dose #: 3 Next trough due (date/time): 07/03 at 1530 Areas for additional monitoring: IV to PO when appropriate, Therapy de- escalation based on culture results, Acute Kidney Injury Pharmacy recommendation: Continue current regime (Dosing interval had been changed from q12h to q18h due to slight high trough; monitor renal and drawing level early to ensure no longer in supratherapeutic range)
[2019-07-02] MEDS: diltiaZEM INJ 125 MG in DEXTROSE 5% 100 ML IV SCH (18:17)
[2019-07-02] MEDS: ZINC OXIDE 20% OINT 30 GM TUBE TOP PRN ×2 (19:41→23:40)
[2019-07-02] MEDS: MORPHINE 2 MG/ML CARPUJECT IVP PRN ×2 (20:56→23:22)
[2019-07-02] MEDS: VANCOMYCIN INJ 1.75 GM in SODIUM CHLORIDE 0.9% 500 ML IV SCH (21:58)
[2019-07-02] MEDS: hydrALAZINE INJ 20 MG/ML VIAL IVP PRN (22:23)
[2019-07-03] MEDS: PIPERACILLIN/TAZOBACTAM 4.5 GM in SODIUM CHLORIDE 0.9% MINIBAG 100 ML IV SCH ×4 (01:51→19:57)
[2019-07-03] MEDS: hydrALAZINE INJ 20 MG/ML VIAL IVP PRN ×3 (04:11→20:24)
[2019-07-03] MEDS: SODIUM CHLORIDE FLUSH 0.9% 10 ML SYRINGE IVP PRN ×9 (04:12→20:53)
[2019-07-03] MEDS: METOPROLOL 5 MG/5 ML VIAL IVP SCH ×4 (05:04→23:20)
[2019-07-03] MEDS: FUROSEMIDE 20 MG/2 ML VIAL IVP SCH ×2 (05:26→14:27)
[2019-07-03 06:14] LABS: BASOPHILS % (AUTO) 0.3 %; EOSINOPHILS # (AUTO) 0.1 10^3/uL (0.0-0.7); HGB - HEMOGLOBIN 12.2 g/dL (12.0-16.0); LYMPHOCYTES # (AUTO) 0.5 10^3/uL (1.5-3.5); LYMPHOCYTES % (AUTO) 5.7 %; MEAN CORPUSCULAR HEMOGLOBIN 27.5 pg (27.0-31.0); MEAN CORPUSCULAR HGB CONC 30.7 g/dL (32.0-36.0); MEAN CORPUSCULAR VOLUME 89.8 fL (81.0-99.0); MEAN PLATELET VOLUME 11.8 fL (7.9-10.8); MONOCYTES # (AUTO) 0.8 10^3/uL (0.0-1.0); MONOCYTES % (AUTO) 8.8 %; NEUTROPHILS # (AUTO) 7.9 10^3/uL (1.5-6.6); NEUTROPHILS % (AUTO) 83.8 %; PLT - PLATELET COUNT 198 10^3/uL (130-450); RED BLOOD COUNT 4.43 10^6/uL (4.20-5.40); RED CELL DISTRIBUTION WIDTH 14.9 % (12.0-15.0); VBG PH 7.376 (7.31-7.41); WHITE BLOOD COUNT 9.4 x10^3/uL (4.8-10.8)
[2019-07-03] MEDS: SODIUM CHLORIDE 0.9% 500 ML IV PRN (06:26)
[2019-07-03 06:28] LABS: ALBUMIN 3.8 g/dL (3.2-5.5); CALCIUM 8.4 mg/dL (8.5-10.3); CREATININE 0.8 mg/dL (0.4-1.0); MAGNESIUM 1.8 mg/dL (1.7-2.8); PHOSPHORUS 1.8 mg/dL (2.5-4.6)
[2019-07-03] MEDS: POTASSIUM CHLOR 20 MEQ/100 ML 20 MEQ/100 ML BAG IV SCH ×2 (06:48→08:08)
[2019-07-03] MEDS ORDERED: POTASSIUM PHOSPHATE 15 MMOL in SODIUM CHLORIDE 0.9% 250 ML IV ONE (09:00)
[2019-07-03] MEDS: NYSTATIN POWDER 15 GM TOP SCH ×2 (09:30→20:52)
[2019-07-03] MEDS: FAMOTIDINE 20 MG/2 ML VIAL IVP SCH ×2 (09:31→20:53)
[2019-07-03] MEDS: ENOXAPARIN 100 MG/ML SYRINGE SUBQ SCH ×2 (09:39→20:52)
[2019-07-03] MEDS: levETIRAcetam INJ 500 MG in SODIUM CHLORIDE 0.9% 100ML 100 ML IV SCH ×2 (09:39→20:53)
[2019-07-03] MEDS: SODIUM CHLORIDE FLUSH 0.9% 10 ML SYRINGE IVP SCH ×2 (09:45→18:30)
[2019-07-03] MEDS: ENALAPRILAT 1.25 MG/ML VIAL IVP SCH ×2 (14:06→18:30)
[2019-07-03 15:38] LABS: VANCOMYCIN,TROUGH 18.7 ug/mL (10.0-20.0)
[2019-07-03] MEDS: VANCOMYCIN INJ 1.75 GM in SODIUM CHLORIDE 0.9% 500 ML IV SCH (16:27)
--- NOTE | 2019-07-03 16:43 | PROVIDER PROGRESS NOTE ---
Subjective - Prog Note Date Prog Note Date: 07/03/19 Prog Note Time: 16:41 - Subjective Subjective: she is occasionally awake to say one word answers but sleeps most of the time. Consistently hypertensive in the 180s to the 190s. Occasionally tachycardic into the 130s but stays in the 1 teens in spite of Lopressor, Vasotec, and hydralazine. Not eating because she is not awake enough consistently to swallow safely No fever and requiring 3 L nasal cannula to maintain O2 sats at 99%. Current Medications - Current Medications Current Medications: Active Medications Albuterol/Ipratropium (Duoneb) 3 ml INH Q4HR PRN PRN Reason: Wheezing Last Admin: 07/02/19 06:00 Dose: 3 ml Enalaprilat (Vasotec Inj) 0.625 mg IVP Q6HR [facility] Last Admin: 07/03/19 14:06 Dose: 0.625 mg Enoxaparin Sodium (Lovenox) 50 mg SUBQ BID ALVA Last Admin: 07/03/19 09:39 Dose: 50 mg Famotidine (Pepcid) 20 mg IVP BID ALVA Last Admin: 07/03/19 09:31 Dose: 20 mg Furosemide (Lasix Inj 20mg Vial) 20 mg IVP BIDDIURETIC ALVA Last Admin: 07/03/19 14:27 Dose: 20 mg Hydralazine HCl (Apresoline Inj) 10 mg IVP Q4H PRN PRN Reason: PER PHYSICIAN ORDER Last Admin: 07/03/19 04:11 Dose: 10 mg Levetiracetam 500 mg/ Sodium (Chloride) 105 mls @ 400 mls/hr IV BID ALVA Last Infusion: 07/03/19 10:00 Dose: Infused Piperacillin Sod/Tazobactam (Sod 4.5 gm/ Sodium Chloride) 100 mls @ 200 mls/hr IV Q6H ALVA Last Infusion: 07/03/19 14:50 Dose: Infused Sodium Chloride (Normal Saline 0.9%) 500 mls @ 0 mls/hr IV Q24H PRN PRN Reason: TKO RATE Last Infusion: 07/03/19 14:40 Dose: 20 mls/hr Potassium Chloride/Dextrose/Sod Cl () 1,000 mls @ 40 mls/hr IV .Q25H ALVA Last Infusion: 07/03/19 15:32 Dose: 40 mls/hr Acetaminophen (Ofirmev) 100 mls @ 400 mls/hr IV Q6HR PRN PRN Reason: PAIN Last Infusion: 07/02/19 10:49 Dose: Infused Vancomycin HCl 1.75 gm/ Sodium (Chloride) 500 mls @ 250 mls/hr IV Q18H [facility] Last Admin: 07/03/19 16:27 Dose: 250 mls/hr Metoprolol Tartrate (Lopressor Inj) 5 mg IVP Q6HR [facility] Last Admin: 07/03/19 11:34 Dose: 5 mg Mineral Oil (Mineral Oil Enema) 135 ml RC DAILY PRN PRN Reason: Constipation Morphine Sulfate (Morphine (Carpuject)) 2 mg IVP Q2HR PRN PRN Reason: Dyspnea Last Admin: 07/02/19 23:22 Dose: 2 mg Multi-Ingredient Ointment (Zinc Oxide) 1 applic TOP PRN PRN PRN Reason: Skin Care Last Admin: 07/02/19 23:40 Dose: 1 applic Nystatin (Nystop) 1 applic TOP BID [facility] Last Admin: 07/03/19 09:30 Dose: 1 applic Ondansetron HCl (Zofran Inj) 4 mg IVP Q6HR PRN PRN Reason: Nausea / Vomiting Sodium Chloride (Normal Saline Flush 0.9%) 10 ml IVP 0100,0900,1700 [facility] Last Admin: 07/03/19 09:45 Dose: Not Given Sodium Chloride (Normal Saline Flush 0.9%) 10 ml IVP PRN PRN PRN Reason: NEEDED PER PROVIDER ORDERS Last Admin: 07/03/19 09:33 Dose: 10 ml Sodium Chloride (Normal Saline Flush 0.9%) 20 ml IVP PRN PRN PRN Reason: After Blood Draw Last Admin: 07/03/19 15:31 Dose: 30 ml Telmisartan [Micardis] 40 mg PO DAILY 04/19/15 Nitroglycerin [Nitrostat] 0.4 mg PO Q5MX3 PRN MDD 3 doses 12/30/18 Rivaroxaban [Xarelto] 20 mg PO DAILY #1 01/02/19 Fluticasone/Salmeterol [Advair 250-50 Diskus] 1 inh INH BID 09/17/19 Ranitidine HCl [Heartburn Relief] 150 mg PO DAILY PRN 06/25/19 Bisacodyl Supp [Dulcolax Supp] 10 mg [place] DAILY PRN 06/30/19 Magnesium Hydroxide [Milk of Magnesia] 2,400 mg PO DAILY PRN 06/30/19 Mineral Oil 135 ml RC DAILY PRN 06/30/19 Potassium Chloride [Klor-Con 10] 10 meq PO BID 06/30/19 Senna [Senokot] 8.6 - 17.2 mg PO BID PRN 06/30/19 My Active Orders 07/03/19 13:00 Enalaprilat [Vasotec Inj] 0.625 mg IVP Q6HR Objective - Vital Signs/Intake & Output Reviewed Vital Signs: Yes Vital Signs: Vital Signs x48h Temp Pulse Resp BP BP Pulse Ox 07/03/19 16:30 118 H 184/116 H 07/03/19 16:00 37.7 C H 113 H 19 180/116 H 99 07/03/19 15:23 111 H 190/133 H 07/03/19 15:00 37.1 C 113 H 15 190/114 H 99 07/03/19 14:45 117 H 198/112 H 07/03/19 14:30 111 H 180/98 H 07/03/19 14:25 113 H 196/101 H 07/03/19 14:22 114 H 194/122 H 07/03/19 14:13 110 H 200/115 H 07/03/19 14:00 37.2 C 118 H 14 192/119 H 99 07/03/19 13:47 119 H 172/113 H 07/03/19 13:00 37 C 111 H 17 171/106 H 100 07/03/19 12:32 102 H 182/110 H 07/03/19 12:15 99 182/105 H 07/03/19 12:06 106 H 183/107 H 07/03/19 12:00 37 C 105 H 24 163/113 H 100 07/03/19 11:40 102 H 159/99 H 07/03/19 11:34 185/103 H 07/03/19 11:00 37.1 C 121 H 28 H 185/103 H 97 07/03/19 10:25 110 H 159/96 H 07/03/19 10:00 115 H 18 188/167 H 99 07/03/19 09:00 37 C 121 H 16 150/99 H 93 Intake & Output: Intake & Output 06/30/19 07/01/19 07/02/19 07/03/19 23:59 23:59 23:59 23:59 Intake Total 4114.032 3672.701 2174.000 2477.665 Output Total 450 3126 3925 2314 Balance 3664.032 546.701 -1751.000 163.665 - Objective General Appearance: positive: No acute distress, Other (Occasionally awake, arousable,) Eyes Bilateral: positive: PERRL, EOMI ENT: positive: Dry mucous membranes (Dry lips), Other (Edentulous) Neck: negative: Stiff neck, Carotid bruit Respiratory: positive: Chest non-tender, Rhonchi. negative: Wheezes, Rales Cardiovascular: positive: Irregularly irregular, Tachycardia. negative: Gallop/S4, Friction rub Abdomen: positive: Non-tender, No organomegaly, Nml bowel sounds, No distention Skin: positive: Warm, Dry Extremities: positive: No pedal edema Neurologic/Psychiatric: positive: Motor nml (Reaches for things purposefully. No focal deficits. Moves legs to make herself comfortable.), Disoriented to person, Disoriented to place, Disoriented to time (Disoriented at times. But able to say who she is, and that she is sick and in the hospital sometimes.), Weakness (Generalized) - Lab Results Fish Bones: 07/03/19 06:03 07/03/19 06:03 Other Labs: Lab Results x24hrs 07/03/19 07/03/19 07/03/19 Range/Units 15:20 06:03 06:03 WBC (4.8-10.8) x10^3/uL RBC (4.20-5.40) 10^6/uL Hgb (12.0-16.0) g/dL Hct (37.0-47.0) % MCV (81.0-99.0) fL MCH (27.0-31.0) pg MCHC (32.0-36.0) g/dL RDW (12.0-15.0) % Plt Count (130-450) 10^3/uL MPV (7.9-10.8) fL Neut # (Auto) (1.5-6.6) 10^3/uL Lymph # (Auto) (1.5-3.5) 10^3/uL Giles # (Auto) (0.0-1.0) 10^3/uL Eos # (Auto) (0.0-0.7) 10^3/uL Baso # (Auto) (0.0-0.1) 10^3/uL Absolute Nucleated RBC x10^3/uL Nucleated RBC % /100WBC VBG pH 7.376 (7.31-7.41) Ionized Calcium 1.11 L (1.15-1.33) mmol/L Sodium 145 (135-145) mmol/L Potassium 3.1 L (3.5-5.0) mmol/L Chloride 104 (101-111) mmol/L Carbon Dioxide 27 (21-32) mmol/L Anion Gap 14.0 H (6-13) BUN 8 (6-20) mg/dL Creatinine 0.8 (0.4-1.0) mg/dL Estimated GFR (MDRD) 69 L (>89) Glucose 145 H (70-100) mg/dL Calcium 8.4 L (8.5-10.3) mg/dL Phosphorus 1.8 L (2.5-4.6) mg/dL Magnesium 1.8 (1.7-2.8) mg/dL Albumin 3.8 (3.2-5.5) g/dL Last Dose Date 07/03/19 Last Dose Time 0015 Vancomycin Trough 18.7 (10.0-20.0) ug/mL 07/03/19 Range/Units 06:03 WBC 9.4 (4.8-10.8) x10^3/uL RBC 4.43 (4.20-5.40) 10^6/uL Hgb 12.2 (12.0-16.0) g/dL Hct 39.8 (37.0-47.0) % MCV 89.8 (81.0-99.0) fL MCH 27.5 (27.0-31.0) pg MCHC 30.7 L (32.0-36.0) g/dL RDW 14.9 (12.0-15.0) % Plt Count 198 (130-450) 10^3/uL MPV 11.8 H (7.9-10.8) fL Neut # (Auto) 7.9 H (1.5-6.6) 10^3/uL Lymph # (Auto) 0.5 L (1.5-3.5) 10^3/uL Giles # (Auto) 0.8 (0.0-1.0) 10^3/uL Eos # (Auto) 0.1 (0.0-0.7) 10^3/uL Baso # (Auto) 0.0 (0.0-0.1) 10^3/uL Absolute Nucleated RBC 0.00 x10^3/uL Nucleated RBC % 0.0 /100WBC VBG pH (7.31-7.41) Ionized Calcium (1.15-1.33) mmol/L Sodium (135-145) mmol/L Potassium (3.5-5.0) mmol/L Chloride (101-111) mmol/L Carbon Dioxide (21-32) mmol/L Anion Gap (6-13) BUN (6-20) mg/dL Creatinine (0.4-1.0) mg/dL Estimated GFR (MDRD) (>89) Glucose (70-100) mg/dL Calcium (8.5-10.3) mg/dL Phosphorus (2.5-4.6) mg/dL Magnesium (1.7-2.8) mg/dL Albumin (3.2-5.5) g/dL Last Dose Date Last Dose Time Vancomycin Trough (10.0-20.0) ug/mL ABX Reporting Has patient been on IV antibiotics over the past 48 hours?: Yes Assessment/Plan - Problem List (1) Metabolic encephalopathy Impression: Due to pneumonia, congestive heart failure, seizures. She has been improving slowly over the last 48 hours. All of this may improve once all of her medical problems are treated. (2) New onset seizure Impression: Presenting as a seizure in the emergency room. Continue IV Keppra twice daily until able to transition to p.o. 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 There are no new lesions on CT. Her metabolic derangement was not severe enough to cause seizure. At home she was not on any medication such as Wellbutrin that would lower her seizure threshold (3) HCAP (healthcare-associated pneumonia) Impression: On Zosyn since June 30. Vancomycin since July 02. Blood culture negative after 2 days. White cell count started at 16.9 thousand is down to 9.4. Oxygen requirement has remained steady at 3 L by nasal cannula. When she is taking p.o., we will switch her to oral antibiotics (4) Acute on chronic diastolic CHF (congestive heart failure) Impression: Lasix IV started on July 01 after chest x-ray showed moderate vascular congestion. Continue IV Lasix until she can take oral medication. Check BNP in the morning. (5) Atrial fibrillation with rapid ventricular response Impression: Off the IV diltiazem, she has remained consistently tachycardic today. She is on Lopressor for rate control. I will add IV diltiazem. (6) HTN (hypertension) Impression: IV hydralazine being held for a pulse rate greater than 95. I will withdraw that holding parameter. I have already added Vasotec IV. On Lopressor IV as we ll. Qualifiers: Hypertension type: essential hypertension Qualified Code(s): I10 - Essential (primary) hypertension (7) Hypokalemia Impression: on ICU electrolyte replacement protocol.
--- NOTE | 2019-07-03 17:31 | PHARMACY PROGRESS NOTE ---
- Therapy Status Vancomycin regimen day #: 4 Therapy status: Trough therapeutic (very slightly supratherapeutic) Basis for treatment: Empirical Treatment indication: HCAP Trough goal: 15-20 Concurrent antibiotics: Zosyn - CHARLIE Risk Risk level for Acute Kidney Injury: High Acute Kidney Injury risk factors: Piperacillin/Tozobactam, Baseline CrCl <50, Wt >100kg or BMI >40, Goal trough >15, Admission to ICU - Monitoring and Recommendation Clinical response to treatment: I&O Previous 24 hours 07/01/19 07/02/19 07/03/19 23:59 23:59 23:59 Intake Total 3672.701 2174.000 2477.665 Output Total 3126 3925 2574 Balance 546.701 -1751.000 -96.335 Lab Results 07/03/19 07/02/19 07/01/19 06:03 05:00 03:45 BUN 8 12 20 Creatinine 0.8 0.8 0.8 Estimated GFR (MDRD) 69 L 69 L 69 L 06/30/19 07:35 BUN 20 Creatinine 1.1 H Estimated GFR (MDRD) 48 L Vancomycin Monitoring 07/03/19 07/01/19 15:20 19:45 Vancomycin Trough 18.7 20.3 H Cultures 06/30/19 07:35 Blood Blood Culture - Preliminary NO GROWTH AFTER 2 DAYS Monitoring plan: Daily serum creatinine Areas for additional monitoring: IV to PO when appropriate, Therapy de- escalation based on culture results, Acute Kidney Injury Pharmacy recommendation: Continue current regime (Dosing interval had been changed from q12h to q18h due to slight high trough; monitor renal and drawing level early to ensure no longer in supratherapeutic range)
[2019-07-03] MEDS: D5NS W/20 MEQ KCL 1,000 ML IV SCH (20:04)
[2019-07-03] MEDS: ZINC OXIDE 20% OINT 30 GM TUBE TOP PRN (20:53)
[2019-07-04] MEDS: ENALAPRILAT 1.25 MG/ML VIAL IVP SCH ×5 (00:03→20:05)
[2019-07-04] MEDS: SODIUM CHLORIDE FLUSH 0.9% 10 ML SYRINGE IVP SCH ×5 (00:03→20:25)
[2019-07-04] MEDS: SODIUM CHLORIDE FLUSH 0.9% 10 ML SYRINGE IVP PRN ×8 (00:49→23:13)
[2019-07-04] MEDS: PIPERACILLIN/TAZOBACTAM 4.5 GM in SODIUM CHLORIDE 0.9% MINIBAG 100 ML IV SCH ×4 (01:51→20:00)
[2019-07-04] MEDS: hydrALAZINE INJ 20 MG/ML VIAL IVP PRN ×4 (03:12→20:24)
[2019-07-04] MEDS: METOPROLOL 5 MG/5 ML VIAL IVP SCH ×4 (05:30→23:13)
[2019-07-04] MEDS: FUROSEMIDE 20 MG/2 ML VIAL IVP SCH ×2 (05:30→14:26)
[2019-07-04 05:42] LABS: ALBUMIN 3.7 g/dL (3.2-5.5); CALCIUM 8.6 mg/dL (8.5-10.3); CREATININE 0.7 mg/dL (0.4-1.0); MAGNESIUM 1.7 mg/dL (1.7-2.8); PHOSPHORUS 2.1 mg/dL (2.5-4.6)
[2019-07-04] MEDS: POTASSIUM CHLOR 20 MEQ/100 ML 20 MEQ/100 ML BAG IV SCH ×2 (06:18→07:34)
[2019-07-04] MEDS: NYSTATIN POWDER 15 GM TOP SCH ×2 (08:16→20:04)
[2019-07-04] MEDS: ZINC OXIDE 20% OINT 30 GM TUBE TOP PRN ×2 (08:16→20:04)
[2019-07-04] MEDS: ENOXAPARIN 100 MG/ML SYRINGE SUBQ SCH ×2 (08:53→20:23)
[2019-07-04] MEDS: FAMOTIDINE 20 MG/2 ML VIAL IVP SCH ×2 (08:56→20:24)
[2019-07-04] MEDS ORDERED: POTASSIUM PHOSPHATE 15 MMOL in SODIUM CHLORIDE 0.9% 250 ML IV ONE (09:00)
[2019-07-04] MEDS: levETIRAcetam INJ 500 MG in SODIUM CHLORIDE 0.9% 100ML 100 ML IV SCH (09:08)
[2019-07-04] MEDS: VANCOMYCIN INJ 1.75 GM in SODIUM CHLORIDE 0.9% 500 ML IV SCH (10:40)
--- NOTE | 2019-07-04 18:10 | PROVIDER PROGRESS NOTE ---
Subjective - Prog Note Date Prog Note Date: 07/04/19 Prog Note Time: 18:14 - Subjective Pt reports feeling: Improved Subjective: She is remarkably more awake this morning. She was smiling, joking with me. Exclaimed "hey!" When I walked in the room and said "I remember you". She does not remember my name. She still a little bit confused about dates and times. But she remembers I was the doctor from before. Through the course of the day she has done well. Continues to have tachycardia with her A. fib. Diuresing well. Afebrile. Eating 25 to 30% of the food that she asked for because she was hungry. Much more alert than the last 2 days. Current Medications - Current Medications Current Medications: Active Medications Albuterol/Ipratropium (Duoneb) 3 ml INH Q4HR PRN PRN Reason: Wheezing Last Admin: 07/02/19 06:00 Dose: 3 ml Enalaprilat (Vasotec Inj) 0.625 mg IVP Q6HR ALVA Last Admin: 07/04/19 11:48 Dose: 0.625 mg Enoxaparin Sodium (Lovenox) 50 mg SUBQ BID ALVA Last Admin: 07/04/19 08:53 Dose: 50 mg Famotidine (Pepcid) 20 mg IVP BID ALVA Last Admin: 07/04/19 08:56 Dose: 20 mg Furosemide (Lasix Inj 20mg Vial) 20 mg IVP BIDDIURETIC ALVA Last Admin: 07/04/19 14:26 Dose: 20 mg Hydralazine HCl (Apresoline Inj) 10 mg IVP Q4H PRN PRN Reason: PER PHYSICIAN ORDER Last Admin: 07/04/19 16:11 Dose: 10 mg Levetiracetam 500 mg/ Sodium (Chloride) 105 mls @ 400 mls/hr IV BID ALVA Last Infusion: 07/04/19 09:24 Dose: Infused Piperacillin Sod/Tazobactam (Sod 4.5 gm/ Sodium Chloride) 100 mls @ 200 mls/hr IV Q6H ALVA Last Infusion: 07/04/19 14:56 Dose: Infused Sodium Chloride (Normal Saline 0.9%) 500 mls @ 0 mls/hr IV Q24H PRN PRN Reason: TKO RATE Last Infusion: 07/03/19 18:30 Dose: 20 mls/hr Potassium Chloride/Dextrose/Sod Cl () 1,000 mls @ 40 mls/hr IV .Q25H [facility] Last Admin: 07/03/19 20:04 Dose: 40 mls/hr Acetaminophen (Ofirmev) 100 mls @ 400 mls/hr IV Q6HR PRN PRN Reason: PAIN Last Infusion: 07/02/19 10:49 Dose: Infused Vancomycin HCl 1.75 gm/ Sodium (Chloride) 500 mls @ 250 mls/hr IV Q18H [facility] Last Infusion: 07/04/19 12:40 Dose: Infused Metoprolol Tartrate (Lopressor Inj) 5 mg IVP Q6HR [facility] Last Admin: 07/04/19 17:16 Dose: 5 mg Mineral Oil (Mineral Oil Enema) 135 ml RC DAILY PRN PRN Reason: Constipation Morphine Sulfate (Morphine (Carpuject)) 2 mg IVP Q2HR PRN PRN Reason: Dyspnea Last Admin: 07/02/19 23:22 Dose: 2 mg Multi-Ingredient Ointment (Zinc Oxide) 1 applic TOP PRN PRN PRN Reason: Skin Care Last Admin: 07/04/19 08:16 Dose: 1 applic Nystatin (Nystop) 1 applic TOP BID [facility] Last Admin: 07/04/19 08:16 Dose: 1 applic Ondansetron HCl (Zofran Inj) 4 mg IVP Q6HR PRN PRN Reason: Nausea / Vomiting Sodium Chloride (Normal Saline Flush 0.9%) 10 ml IVP 0100,0900,1700 [facility] Last Admin: 07/04/19 16:43 Dose: Not Given Sodium Chloride (Normal Saline Flush 0.9%) 10 ml IVP PRN PRN PRN Reason: NEEDED PER PROVIDER ORDERS Last Admin: 07/04/19 06:18 Dose: 10 ml Sodium Chloride (Normal Saline Flush 0.9%) 20 ml IVP PRN PRN PRN Reason: After Blood Draw Last Admin: 07/04/19 04:21 Dose: 20 ml Telmisartan [Micardis] 40 mg PO DAILY 04/19/15 Nitroglycerin [Nitrostat] 0.4 mg PO Q5MX3 PRN MDD 3 doses 12/30/18 Rivaroxaban [Xarelto] 20 mg PO DAILY #1 08/06/19 Fluticasone/Salmeterol [Advair 250-50 Diskus] 1 inh INH BID 02/13/19 Ranitidine HCl [Heartburn Relief] 150 mg PO DAILY PRN 06/25/19 Bisacodyl Supp [Dulcolax Supp] 10 mg [place] DAILY PRN 06/30/19 Magnesium Hydroxide [Milk of Magnesia] 2,400 mg PO DAILY PRN 06/30/19 Mineral Oil 135 ml RC DAILY PRN 06/30/19 Potassium Chloride [Klor-Con 10] 10 meq PO BID 06/30/19 Senna [Senokot] 8.6 - 17.2 mg PO BID PRN 06/30/19 Objective - Vital Signs/Intake & Output Reviewed Vital Signs: Yes Vital Signs: Vital Signs x48h Temp Pulse Resp BP BP Pulse Ox 07/04/19 17:16 158/97 H 07/04/19 17:00 146 H 26 H 164/90 H 98 07/04/19 16:55 150/79 H 98 07/04/19 16:41 150/88 H 07/04/19 16:40 130 H 28 H 150/88 H 100 07/04/19 16:25 131 H 20 170/103 H 99 07/04/19 16:20 130 H 26 H 169/114 H 98 07/04/19 16:15 126 H 16 158/101 H 97 07/04/19 16:11 176/106 H 07/04/19 16:00 129 H 19 176/106 H 95 07/04/19 15:30 36.5 C 07/04/19 15:00 123 H 19 172/103 H 99 07/04/19 14:00 36.6 C 120 H 30 H 179/104 H 91 L 07/04/19 12:40 120 H 17 186/95 H 99 07/04/19 12:35 186/95 H 07/04/19 11:47 121 H 16 166/104 H 97 07/04/19 11:00 135 H 16 166/99 H 97 Intake & Output: Intake & Output 07/01/19 07/02/19 07/03/19 07/04/19 23:59 23:59 23:59 23:59 Intake Total 3672.701 2174.000 3643.332 1645 Output Total 3126 3925 3359 1355 Balance 546.701 -1751.000 284.332 290 - Objective General Appearance: positive: No acute distress, Alert Eyes Bilateral: positive: PERRL, EOMI Neck: positive: No JVD Respiratory: positive: Chest non-tender, Other (Diminished sounds at bases, crackles. No wheezing or rhonchi.) Cardiovascular: positive: Irregularly irregular, Tachycardia. negative: Gallop/S4, Friction rub Abdomen: positive: Non-tender, No organomegaly, Nml bowel sounds, No distention Skin: positive: Other (Ecchymosis and bruising on dorsum of hands, and daytime nurse is concerned about an increased girth of the biceps on the left arm where her venous access is as opposed to the right arm. Flexion extension at the elbow is normal. While there is ecchymosis of the skin underneath the Tegaderm, there is no redness, heat or pain. Subcutaneous skin feels normal. There is no induration, turgidity. No pain. There is no tenseness or edema.) Extremities: positive: Non-tender, Pedal edema (Trace nonpitting of ankles) Neurologic/Psychiatric: positive: CN's nml (2-12), Motor nml, Disoriented to t dank - Lab Results Fish Bones: 07/03/19 06:03 07/04/19 04:12 Other Labs: Lab Results x24hrs 07/04/19 07/04/19 Range/Units 04:12 04:12 Sodium 148 H (135-145) mmol/L Potassium 3.4 L (3.5-5.0) mmol/L Chloride 106 (101-111) mmol/L Carbon Dioxide 28 (21-32) mmol/L Anion Gap 14.0 H (6-13) BUN 8 (6-20) mg/dL Creatinine 0.7 (0.4-1.0) mg/dL Estimated GFR (MDRD) 80 L (>89) Glucose 140 H (70-100) mg/dL Calcium 8.6 (8.5-10.3) mg/dL Phosphorus 2.1 L (2.5-4.6) mg/dL Magnesium 1.7 (1.7-2.8) mg/dL B-Natriuretic Peptide 719 H (5-100) pg/mL Albumin 3.7 (3.2-5.5) g/dL ABX Reporting Has patient been on IV antibiotics over the past 48 hours?: Yes Assessment/Plan - Problem List (1) Metabolic encephalopathy Impression: Impression: Resolved Due to pneumonia, congestive heart failure, seizures. She has been improving slowly over the last 72 hours. Today she is appropriate, awake, alert. Smiling. Joking with me. In the first thing she asked me for was food because "I am hungry". Plan: Regular diet (2) New onset seizure Impression: Presenting as a seizure in the emergency room. Continue IV Keppra twice daily until able to transition to p.o. 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 There are no new lesions on CT. Her metabolic derangement was not severe enough to cause seizure. At home she was not on any medication such as Wellbutrin that would lower her seizure threshold She has not had any seizures since being admitted. Now that she is awake, I will change Keppra to p.o. (3) HCAP (healthcare-associated pneumonia) Impression: On Zosyn since June 30. Vancomycin since July 02. Blood culture negative after 2 days. White cell count started at 16.9 thousand is down to 9.4. Oxygen requirement has remained steady at 3 L by nasal cannula. When she is taking p.o., we will switch her to oral antibiotics. However, in reading the [place] antibiotic guide, antibiotics can be safely discontinued after 5 days in patients who are afebrile for 48 hours or more and have no more than 1 of the following: Systolic blood pressure later less than 90, heart rate greater than 100, respiratory rate greater than 24, O2 sat less than 90% on room air. Unfortunately she is still tachycardic. But I think her tachycardia is from uncontrolled A. fib and not from pneumonia. Today is day 4 of antibiotics. I will be stopping her antibiotics in the morning of July 06. (4) Acute on chronic diastolic CHF (congestive heart failure) Impression: Lasix IV started on July 01 after chest x-ray showed moderate vascular congestion. Continue IV Lasix until she can take oral medication. BNP this morning 719. Her intake and output was -1751 on July 02, +284 on July 03, and so far +254 today. (5) Atrial fibrillation with rapid ventricular response Impression: Off the IV diltiazem, she has remained consistently tachycardic to 130's at times. She is on Lopressor for rate control. With her last admission she went into a junctional rhythm because the use of diltiazem, Lopressor, digoxin. Anything to control her rate. I would like to avoid that this admission. But her heart rate of 130 is unacceptable in this lady this age., Will continue to add diltiazem and continue Lopressor (6) HTN (hypertension) Impression: IV hydralazine prn. I have already added Vasotec IV. On Lopressor IV as well.She is now in the 150s to 160 systolic as opposed to the 180s. Qualifiers: Hypertension type: essential hypertension Qualified Code(s): I10 - Essential (primary) hypertension (7) Hypokalemia Impression: on ICU electrolyte replacement protocol. (8) Obstructive Sleep Apnea with CPAP use Her CPAP tubing was quite dirty when she brought it in. She also has open mouth breathing, and a nasal cannula does not work. As such I am writing a new order for full facemask.
[2019-07-04] MEDS: diltiaZEM CD 120 MG CAPSULE PO SCH (20:01)
[2019-07-04] MEDS: levETIRAcetam 250 MG TABLET PO SCH (20:24)
[2019-07-04] MEDS: D5NS W/20 MEQ KCL 1,000 ML IV SCH (23:00)
[2019-07-04] MEDS: SODIUM CHLORIDE 0.9% 500 ML IV PRN (23:00)
[2019-07-05] MEDS: ENALAPRILAT 1.25 MG/ML VIAL IVP SCH ×4 (00:22→17:20)
[2019-07-05] MEDS: SODIUM CHLORIDE FLUSH 0.9% 10 ML SYRINGE IVP PRN ×7 (00:24→06:38)
[2019-07-05] MEDS: PIPERACILLIN/TAZOBACTAM 4.5 GM in SODIUM CHLORIDE 0.9% MINIBAG 100 ML IV SCH ×4 (01:47→19:50)
[2019-07-05] MEDS: hydrALAZINE INJ 20 MG/ML VIAL IVP PRN ×3 (02:40→22:01)
[2019-07-05] MEDS: VANCOMYCIN INJ 1.75 GM in SODIUM CHLORIDE 0.9% 500 ML IV SCH ×2 (03:57→22:09)
[2019-07-05] MEDS: METOPROLOL 5 MG/5 ML VIAL IVP SCH ×3 (05:19→18:00)
[2019-07-05] MEDS: FUROSEMIDE 20 MG/2 ML VIAL IVP SCH ×2 (05:21→14:04)
[2019-07-05 05:32] LABS: BASOPHILS % (AUTO) 0.5 %; EOSINOPHILS # (AUTO) 0.1 10^3/uL (0.0-0.7); EOSINOPHILS % (AUTO) 1.2 %; HGB - HEMOGLOBIN 11.8 g/dL (12.0-16.0); LYMPHOCYTES # (AUTO) 0.4 10^3/uL (1.5-3.5); LYMPHOCYTES % (AUTO) 5.3 %; MEAN CORPUSCULAR HEMOGLOBIN 27.8 pg (27.0-31.0); MEAN CORPUSCULAR HGB CONC 30.3 g/dL (32.0-36.0); MEAN PLATELET VOLUME 12.3 fL (7.9-10.8); MONOCYTES # (AUTO) 0.9 10^3/uL (0.0-1.0); MONOCYTES % (AUTO) 10.4 %; NEUTROPHILS # (AUTO) 6.8 10^3/uL (1.5-6.6); PLT - PLATELET COUNT 174 10^3/uL (130-450); RED BLOOD COUNT 4.24 10^6/uL (4.20-5.40); RED CELL DISTRIBUTION WIDTH 15.4 % (12.0-15.0); WHITE BLOOD COUNT 8.3 x10^3/uL (4.8-10.8)
[2019-07-05 05:47] LABS: CALCIUM 8.6 mg/dL (8.5-10.3); CREATININE 0.9 mg/dL (0.4-1.0); MAGNESIUM 1.5 mg/dL (1.7-2.8); PHOSPHORUS 2.3 mg/dL (2.5-4.6)
[2019-07-05] MEDS: POTASSIUM CHLOR 20 MEQ/100 ML 20 MEQ/100 ML BAG IV SCH ×2 (06:22→07:30)
[2019-07-05] MEDS ORDERED: MAGNESIUM SULFATE 2 GRAM 2 GM/50 ML BAG IV ONE (07:00)
[2019-07-05] MEDS: FAMOTIDINE 20 MG/2 ML VIAL IVP SCH ×2 (08:58→21:02)
[2019-07-05] MEDS: ENOXAPARIN 100 MG/ML SYRINGE SUBQ SCH (08:58)
[2019-07-05] MEDS: SODIUM CHLORIDE FLUSH 0.9% 10 ML SYRINGE IVP SCH ×2 (08:58→16:45)
[2019-07-05] MEDS ORDERED: POTASSIUM PHOSPHATE 15 MMOL in SODIUM CHLORIDE 0.9% 250 ML IV ONE (09:00)
[2019-07-05] MEDS: diltiaZEM CD 120 MG CAPSULE PO SCH (09:13)
[2019-07-05] MEDS: levETIRAcetam 250 MG TABLET PO SCH ×2 (09:13→21:03)
--- NOTE | 2019-07-05 11:33 | PHARMACY PROGRESS NOTE ---
- Therapy Status Vancomycin regimen day #: 6 Therapy status: Trough therapeutic Basis for treatment: Empirical Treatment indication: HCAP Trough goal: 15-20 - CHARLIE Risk Risk level for Acute Kidney Injury: High Acute Kidney Injury risk factors: Piperacillin/Tozobactam, Baseline CrCl <50, Wt >100kg or BMI >40, Goal trough >15, Admission to ICU - Monitoring and Recommendation Clinical response to treatment: I&O Previous 24 hours 07/03/19 07/04/19 07/05/19 23:59 23:59 23:59 Intake Total 3643.332 4601.001 2557.666 Output Total 3359 1615 1123 Balance 119.193 1001.001 1434.666 Lab Results 07/05/19 07/04/19 07/03/19 04:44 04:12 06:03 BUN 11 8 8 Creatinine 0.9 0.7 0.8 Estimated GFR (MDRD) 60 L 80 L 69 L 07/02/19 07/01/19 06/30/19 05:00 03:45 07:35 BUN 12 20 20 Creatinine 0.8 0.8 1.1 H Estimated GFR (MDRD) 69 L 69 L 48 L Vancomycin Monitoring 07/03/19 07/01/19 15:20 19:45 Vancomycin Trough 18.7 20.3 H Cultures 06/30/19 07:35 Blood Blood Culture - Final NO GROWTH AFTER 5 DAYS Monitoring plan: Daily serum creatinine Next trough due prior to maintenance dose #: 7 Next trough due (date/time): 07/06 at 1530 Areas for additional monitoring: IV to PO when appropriate, Therapy de- escalation based on culture results, Acute Kidney Injury Pharmacy recommendation: Continue current regime (Drawing trough 07/06- 2 renal to ensure trough in tx range)
[2019-07-05] MEDS: NYSTATIN POWDER 15 GM TOP SCH ×2 (14:48→21:03)
[2019-07-05] MEDS: ZINC OXIDE 20% OINT 30 GM TUBE TOP PRN ×2 (14:49→19:00)
--- NOTE | 2019-07-05 18:20 | PROVIDER PROGRESS NOTE ---
Subjective - Prog Note Date Prog Note Date: 07/05/19 Prog Note Time: 18:22 - Subjective Pt reports feeling: Improved Subjective: More than anything she is really tired. This morning she was very sleepy and not nearly as alert and cheerful as she was yesterday morning. But she is appropriate. She asked me "what else to expect, I am an old lady and I am tired". Her tachycardia is slightly better. The lowest she is gotten is in the 90s. She is now in the mid 1 teens with Cardizem CD. Current Medications - Current Medications Current Medications: Active Medications Albuterol/Ipratropium (Duoneb) 3 ml INH Q4HR PRN PRN Reason: Wheezing Last Admin: 07/02/19 06:00 Dose: 3 ml Diltiazem HCl (Cardizem Cd) 120 mg PO DAILY ALVA Last Admin: 07/05/19 09:13 Dose: 120 mg Enalaprilat (Vasotec Inj) 0.625 mg IVP Q6HR ALVA Last Admin: 07/05/19 17:20 Dose: 0.625 mg Enoxaparin Sodium (Lovenox) 50 mg SUBQ BID ALVA Last Admin: 07/05/19 08:58 Dose: 50 mg Famotidine (Pepcid) 20 mg IVP BID ALVA Last Admin: 07/05/19 08:58 Dose: 20 mg Furosemide (Lasix Inj 20mg Vial) 20 mg IVP BIDDIURETIC ALVA Last Admin: 07/05/19 14:04 Dose: 20 mg Hydralazine HCl (Apresoline Inj) 10 mg IVP Q4H PRN PRN Reason: PER PHYSICIAN ORDER Last Admin: 07/05/19 06:37 Dose: 10 mg Piperacillin Sod/Tazobactam (Sod 4.5 gm/ Sodium Chloride) 100 mls @ 200 mls/hr IV Q6H ALVA Last Infusion: 07/05/19 14:00 Dose: Infused Sodium Chloride (Normal Saline 0.9%) 500 mls @ 0 mls/hr IV Q24H PRN PRN Reason: TKO RATE Last Infusion: 07/05/19 17:00 Dose: 20 mls/hr Potassium Chloride/Dextrose/Sod Cl () 1,000 mls @ 40 mls/hr IV .Q25H ALVA Last Infusion: 07/05/19 17:00 Dose: 40 mls/hr Acetaminophen (Ofirmev) 100 mls @ 400 mls/hr IV Q6HR PRN PRN Reason: PAIN Last Infusion: 07/02/19 10:49 Dose: Infused Vancomycin HCl 1.75 gm/ Sodium (Chloride) 500 mls @ 250 mls/hr IV Q18H [facility] Last Infusion: 07/05/19 06:35 Dose: Infused Levetiracetam (Keppra) 750 mg PO BID [facility] Last Admin: 07/05/19 09:13 Dose: 750 mg Metoprolol Tartrate (Lopressor Inj) 5 mg IVP Q6HR [facility] Last Admin: 07/05/19 12:05 Dose: 5 mg Mineral Oil (Mineral Oil Enema) 135 ml RC DAILY PRN PRN Reason: Constipation Morphine Sulfate (Morphine (Carpuject)) 2 mg IVP Q2HR PRN PRN Reason: Dyspnea Last Admin: 07/02/19 23:22 Dose: 2 mg Multi-Ingredient Ointment (Zinc Oxide) 1 applic TOP PRN PRN PRN Reason: Skin Care Last Admin: 07/05/19 14:49 Dose: 1 applic Nystatin (Nystop) 1 applic TOP BID [facility] Last Admin: 07/05/19 14:48 Dose: 1 applic Ondansetron HCl (Zofran Inj) 4 mg IVP Q6HR PRN PRN Reason: Nausea / Vomiting Sodium Chloride (Normal Saline Flush 0.9%) 10 ml IVP 0100,0900,1700 [facility] Last Admin: 07/05/19 16:45 Dose: 10 ml Sodium Chloride (Normal Saline Flush 0.9%) 10 ml IVP PRN PRN PRN Reason: NEEDED PER PROVIDER ORDERS Last Admin: 07/05/19 06:38 Dose: 10 ml Sodium Chloride (Normal Saline Flush 0.9%) 20 ml IVP PRN PRN PRN Reason: After Blood Draw Last Admin: 07/05/19 05:04 Dose: 20 ml Telmisartan [Micardis] 40 mg PO DAILY 04/19/15 Nitroglycerin [Nitrostat] 0.4 mg PO Q5MX3 PRN MDD 3 doses 12/30/18 Rivaroxaban [Xarelto] 20 mg PO DAILY #1 01/02/19 Fluticasone/Salmeterol [Advair 250-50 Diskus] 1 inh INH BID 02/13/19 Ranitidine HCl [Heartburn Relief] 150 mg PO DAILY PRN 06/25/19 Bisacodyl Supp [Dulcolax Supp] 10 mg TN DAILY PRN 06/30/19 Magnesium Hydroxide [Milk of Magnesia] 2,400 mg PO DAILY PRN 06/30/19 Mineral Oil 135 ml RC DAILY PRN 06/30/19 Potassium Chloride [Klor-Con 10] 10 meq PO BID 06/30/19 Senna [Senokot] 8.6 - 17.2 mg PO BID PRN 06/30/19 Objective - Vital Signs/Intake & Output Reviewed Vital Signs: Yes Vital Signs: Vital Signs x48h Temp Pulse Pulse Pulse Resp BP BP 07/05/19 17:00 125 H 27 H 07/05/19 16:35 111 H 21 07/05/19 16:00 36.4 C L 117 H 22 07/05/19 15:00 115 H 20 07/05/19 14:00 105 H 22 07/05/19 13:00 108 H 23 07/05/19 12:10 115 H 20 07/05/19 12:05 152/90 H 07/05/19 12:00 36.4 C L 124 H 26 H 07/05/19 11:30 128 H 128 H 164/108 H 07/05/19 11:00 36.5 C 112 H 13 BP BP Pulse Ox 07/05/19 17:00 180/103 H 97 07/05/19 16:35 99 07/05/19 16:00 157/106 H 99 07/05/19 15:00 168/74 H 98 07/05/19 14:00 143/72 H 99 07/05/19 13:00 142/70 H 95 07/05/19 12:10 151/94 H 98 07/05/19 12:05 07/05/19 12:00 152/90 H 98 07/05/19 11:30 118/80 07/05/19 11:00 151/84 H 98 Intake & Output: Intake & Output 07/02/19 07/03/19 07/04/19 07/05/19 23:59 23:59 23:59 23:59 Intake Total 2174.000 3643.332 4601.001 3719.333 Output Total 3925 3359 1615 1948 Balance -1751.000 734.452 4625.001 1771.333 - Objective General Appearance: positive: No acute distress, Alert, Other (Red-faced elderly chubby female who looks her stated age. She says that she has been more awake today than yesterday and nursing confirms that as does her daughter. But she is tired.) Eyes Bilateral: positive: PERRL ENT: positive: Pharynx nml, Other (She is edentulous. But will put her dentures and to eat food.) Neck: positive: No JVD. negative: Stiff neck Respiratory: positive: Chest non-tender, Rhonchi, Other (Sometimes she has increased respiratory effort when she tries to roll over in bed or sit up). negative: Wheezes, Rales Cardiovascular: positive: Irregularly irregular, Tachycardia. negative: Gallop/S4, Friction rub Abdomen: positive: Non-tender, No organomegaly, Nml bowel sounds, No distention Skin: positive: Warm, Dry Extremities: positive: Full ROM Neurologic/Psychiatric: positive: Oriented x3, CN's nml (2-12), Motor nml (Except for generalized weakness) - Lab Results Fish Bones: 07/05/19 04:44 07/05/19 04:44 Other Labs: Lab Results x24hrs 07/05/19 07/05/19 Range/Units 04:44 04:44 WBC 8.3 (4.8-10.8) x10^3/uL RBC 4.24 (4.20-5.40) 10^6/uL Hgb 11.8 L (12.0-16.0) g/dL Hct 39.0 (37.0-47.0) % MCV 92.0 (81.0-99.0) fL MCH 27.8 (27.0-31.0) pg MCHC 30.3 L (32.0-36.0) g/dL RDW 15.4 H (12.0-15.0) % Plt Count 174 (130-450) 10^3/uL MPV 12.3 H (7.9-10.8) fL Neut # (Auto) 6.8 H (1.5-6.6) 10^3/uL Lymph # (Auto) 0.4 L (1.5-3.5) 10^3/uL [place] # (Auto) 0.9 (0.0-1.0) 10^3/uL Eos # (Auto) 0.1 (0.0-0.7) 10^3/uL Baso # (Auto) 0.0 (0.0-0.1) 10^3/uL Absolute Nucleated RBC 0.00 x10^3/uL Nucleated RBC % 0.0 /100WBC Sodium 142 (135-145) mmol/L Potassium 3.2 L (3.5-5.0) mmol/L Chloride 103 (101-111) mmol/L Carbon Dioxide 28 (21-32) mmol/L Anion Gap 11.0 (6-13) BUN 11 (6-20) mg/dL Creatinine 0.9 (0.4-1.0) mg/dL Estimated GFR (MDRD) 60 L (>89) Glucose 160 H (70-100) mg/dL Calcium 8.6 (8.5-10.3) mg/dL Phosphorus 2.3 L (2.5-4.6) mg/dL Magnesium 1.5 L (1.7-2.8) mg/dL ABX Reporting Has patient been on IV antibiotics over the past 48 hours?: Yes Assessment/Plan - Problem List (1) Atrial fibrillation with rapid ventricular response Impression: Off the IV diltiazem, she has remained consistently tachycardic to 130's at times. She is on Lopressor for rate control. With her last admission she went into a junctional rhythm because the use of diltiazem, Lopressor, digoxin. Anything to control her rate. I would like to avoid that this admission. But her heart rate of 130 is unacceptable in this lady this age. I added diltiazem and continued Lopressor and she is still too high. Will give once dose of dilt IV. (2) HTN (hypertension) Impression: IV hydralazine prn. I have already added Vasotec IV. On Lopressor IV as well.She is now in the 150s to 160 systolic as opposed to the 180s. No change for today. Qualifiers: Hypertension type: essential hypertension Qualified Code(s): I10 - Essential (primary) hypertension (3) Hypokalemia Impression: on ICU electrolyte replacement protocol. (4) Obstructive Sleep Apnea with CPAP use Her CPAP tubing was quite dirty when she brought it in. She also has open mouth breathing, and a nasal cannula does not work. As such I am writing a new order for full facemask. (5) New onset seizure Impression: Presenting as a seizure in the emergency room. Continue IV Keppra twice daily until able to transition to p.o. 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 There are no new lesions on CT. Her metabolic derangement was not severe enough to cause seizure. At home she was not on any medication such as Wellbutrin that would lower her seizure threshold She has not had any seizures since being admitted. Now that she is awake, I will change Keppra to p.o. (6) HCAP (healthcare-associated pneumonia) Impression: On Zosyn since June 30. Vancomycin since July 02. Blood culture negative after 2 days. White cell count started at 16.9 thousand is down to 9.4. Oxygen requirement has remained steady at 3 L by nasal cannula.Her O2 sat is 99% on this. I have asked nursing to reduce her flow to 2 L by nasal cannula. At home she is usually on 1 L at night with her CPAP mask and on no oxygen during the day. Will work on reducing her oxygen needs over the next day or 2. When she is taking p.o., we will switch her to oral antibiotics. However, in reading the [place] antibiotic guide, antibiotics can be safely discontinued after 5 days in patients who are afebrile for 48 hours or more and have no more than 1 of the following: Systolic blood pressure later less than 90, heart rate greater than 100, respiratory rate greater than 24, O2 sat less than 90% on room air. Unfortunately she is still tachycardic. But I think her tachycardia is from uncontrolled A. fib and not from pneumonia. Today is day 5 of antibiotics. I will be stopping her antibiotics in the morning of July 06. (7) Acute on chronic diastolic CHF (congestive heart failure) Impression: Lasix IV started on July 01 after chest x-ray showed moderate vascular congestion. Continue IV Lasix until she can take oral medication. BNP this morning 719. Her intake and output was -1751 on July 02, +284 on July 03, and so far +254 today. (8) Generalized Weakness. Between [facility], being here in the ICU intubated, and still in the ICU as her metabolic encephalopathy resolved, she is very weak. Plan: Physical therapy and occupational therapy order Family has stated they want their mom to go to a higher start rated facility for rehab. [place] let me know in the next couple of days where they would like her to go.
[2019-07-05] MEDS ORDERED: diltiaZEM INJ 5 MG/ML VIAL IVP ONE (18:25)
[2019-07-05] MEDS ORDERED: diazePAM INJ 5 MG/ML SYRINGE ONE (19:42)
[2019-07-06] MEDS: METOPROLOL 5 MG/5 ML VIAL IVP SCH ×2 (00:34→06:18)
[2019-07-06] MEDS: ENALAPRILAT 1.25 MG/ML VIAL IVP SCH ×2 (00:34→06:18)
[2019-07-06] MEDS: PIPERACILLIN/TAZOBACTAM 4.5 GM in SODIUM CHLORIDE 0.9% MINIBAG 100 ML IV SCH ×2 (02:43→07:45)
[2019-07-06] MEDS: D5NS W/20 MEQ KCL 1,000 ML IV SCH (02:44)
[2019-07-06] MEDS: SODIUM CHLORIDE FLUSH 0.9% 10 ML SYRINGE IVP SCH ×3 (02:45→17:21)
[2019-07-06] MEDS: FUROSEMIDE 20 MG/2 ML VIAL IVP SCH ×2 (06:18→14:01)
[2019-07-06] MEDS: SODIUM CHLORIDE 0.9% 500 ML IV PRN (07:00)
[2019-07-06 07:15] LABS: CREATININE 0.9 mg/dL (0.4-1.0)
[2019-07-06] MEDS: ZINC OXIDE 20% OINT 30 GM TUBE TOP PRN (07:15)
[2019-07-06 07:26] LABS: MAGNESIUM 1.7 mg/dL (1.7-2.8)
[2019-07-06 07:50] LABS: CREATININE 0.9 mg/dL (0.4-1.0)
[2019-07-06] MEDS ORDERED: ACETAMINOPHEN 500 MG TABLET PO PRN (07:58)
[2019-07-06] MEDS: hydrALAZINE INJ 20 MG/ML VIAL IVP PRN ×2 (08:40→15:15)
[2019-07-06] MEDS: levETIRAcetam 250 MG TABLET PO SCH ×2 (09:15→21:06)
[2019-07-06] MEDS: diltiaZEM CD 180 MG CAPSULE PO SCH (09:15)
[2019-07-06] MEDS: lisinopriL 5 MG TABLET PO SCH (09:15)
[2019-07-06] MEDS: METOPROLOL SUCCINATE 25 MG TABLET PO SCH ×2 (09:15→21:06)
[2019-07-06] MEDS: POTASSIUM CHLOR 20 MEQ/100 ML 20 MEQ/100 ML BAG IV SCH ×2 (09:40→10:50)
--- NOTE | 2019-07-06 10:08 | PROVIDER PROGRESS NOTE ---
Subjective - Prog Note Date Prog Note Date: 07/06/19 Prog Note Time: 10:31 - Subjective Subjective: she was up this am. Large BM and now exhausted by effort. BP up to over 200 systolic. Pulse rate still up and down. she is eating off and on. Current Medications - Current Medications Current Medications: My Active Orders 07/06/19 07:58 Acetaminophen [Tylenol] 500 mg PO Q4HR PRN 07/06/19 09:00 Metoprolol Succinate [Toprol Xl] 25 mg PO BID diltiaZEM CD [Cardizem Cd] 180 mg PO DAILY lisinopriL [Zestril] 5 mg PO DAILY 07/06/19 10:00 Potassium Chlor 20 Meq/100 ml [Potassium Chloride] 20 meq in 100 ml IV Q1H 07/07/19 05:00 MAGNESIUM [CHEM] DAILYLAB PHOSPHORUS [CHEM] DAILYLAB Objective - Vital Signs/Intake & Output Reviewed Vital Signs: Yes Vital Signs: Vital Signs x48h Temp Pulse Resp BP BP Pulse Ox 07/06/19 09:10 169/111 H 07/06/19 09:00 126 H 23 169/111 H 97 07/06/19 08:45 118 H 25 H 179/112 H 95 07/06/19 08:40 200/113 H 07/06/19 08:00 37.2 C 108 H 25 H 191/132 H 95 07/06/19 07:00 111 H 25 H 169/94 H 99 07/06/19 06:18 157/103 H 07/06/19 06:00 36.7 C 131 H 23 157/103 H 97 07/06/19 05:00 121 H 24 175/103 H 94 07/06/19 04:14 121 H 23 145/88 H 92 07/06/19 03:00 126 H 22 161/88 H 97 07/06/19 02:00 116 H 19 162/87 H 96 Intake & Output: Intake & Output 07/03/19 07/04/19 07/05/19 07/06/19 23:59 23:59 23:59 23:59 Intake Total 3643.332 4601.001 4454.333 1447.667 Output Total 3359 1615 2613 1165 Balance 275.025 9213.001 1841.333 282.667 - Objective General Appearance: positive: No acute distress, Other (asleep but wakens) Eyes Bilateral: positive: PERRL Neck: positive: No JVD Respiratory: positive: Chest non-tender, No respiratory distress, Rhonchi. negative: Wheezes, Rales Cardiovascular: positive: Irregularly irregular, Tachycardia. negative: Gallop/S4, Friction rub Abdomen: positive: Non-tender, No organomegaly, Nml bowel sounds, No distention Skin: positive: Warm, Dry, Pallor Extremities: positive: Full ROM, Pedal edema, Other (left biceps with PICC still larger but no swelling, no pain, FROM elbow) Neurologic/Psychiatric: positive: CN's nml (2-12), Motor nml, Disoriented to time - Lab Results Fish Bones: 07/05/19 04:44 07/06/19 06:55 Other Labs: Lab Results x24hrs 07/06/19 07/06/19 07/06/19 Range/Units 06:55 06:55 06:55 Sodium 143 (135-145) mmol/L Potassium 3.4 L (3.5-5.0) mmol/L Chloride 103 (101-111) mmol/L Carbon Dioxide 28 (21-32) mmol/L Anion Gap 12.0 (6-13) BUN 11 (6-20) mg/dL Creatinine 0.9 0.9 (0.4-1.0) mg/dL Estimated GFR (MDRD) 60 L 60 L (>89) Glucose 139 H (70-100) mg/dL Calcium 9.0 (8.5-10.3) mg/dL Phosphorus 3.0 (2.5-4.6) mg/dL Magnesium 1.7 (1.7-2.8) mg/dL ABX Reporting Has patient been on IV antibiotics over the past 48 hours?: Yes Assessment/Plan - Problem List (1) Atrial fibrillation with rapid ventricular response Impression: This has been the most difficult problem to control and continues in spite of meds and changes. Off the IV diltiazem, she has remained consistently tachycardic to 130's at times. She is on Lopressor for rate control. With her last admission she went into a junctional rhythm because the use of diltiazem, Lopressor, digoxin. Anything to control her rate. I would like to avoid that this admission. But her heart rate of 130 is unacceptable in this lady this age. I added diltiazem and continued Lopressor and she is still too high. I gave once dose of dilt IV. last night and temporary sucess. Will increase po dilt to 180 this am. change lopresssor to po bid. Will reassess this afternoon to see if I can transition to Med surg or keep in ICU. (2) HTN (hypertension) Impression: IV hydralazine prn. I have already added Vasotec IV. On Lopressor IV as well. I had temporary improvement from 180's to 160;s but this am over 200. i will still continue with change to po meds. continue IV hydralazaine prn Qualifiers: Hypertension type: essential hypertension Qualified Code(s): I10 - Essential (primary) hypertension (3) Hypokalemia Impression: on ICU electrolyte replacement protocol. still needed frequent daily supplements (4) Obstructive Sleep Apnea with CPAP use Her CPAP tubing was quite dirty when she brought it in. She also has open mouth breathing, and a nasal cannula does not work. As such I am writing a new order for full facemask. She is tolerating this better. (5) New onset seizure Impression: Presenting as a seizure in the emergency room. Continue IV Keppra twice daily until able to transition to p.o. 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 There are no new lesions on CT. Her metabolic derangement was not severe enough to cause seizure. At home she was not on any medication such as Wellbutrin that would lower her seizure threshold She has not had any seizures since being admitted. Now that she is awake, I changed Keppra to p.o. 07/05 (6) HCAP (healthcare-associated pneumonia) Impression: On Zosyn since June 30. Vancomycin since July 02. Blood culture negative after 2 days. White cell count started at 16.9 thousand is down to 9.4. Oxygen requirement has remained steady at 3 L by nasal cannula.Her O2 sat is 99% on this. I have asked nursing to reduce her flow to 2 L by nasal cannula. At home she is usually on 1 L at night with her CPAP mask and on no oxygen during the day. Will work on reducing her oxygen needs over the next day or 2. When she is taking p.o., we will switch her to oral antibiotics. However, in reading the [place] antibiotic guide, antibiotics can be safely discontinued after 5 days in patients who are afebrile for 48 hours or more and have no more than 1 of the following: Systolic blood pressure later less than 90, heart rate greater than 100, respiratory rate greater than 24, O2 sat less than 90% on room air. Unfortunately she is still tachycardic. But I think her tachycardia is from uncontrolled A. fib and not from pneumonia. Today is day 6 of antibiotics. I will be stopping her antibiotics this morning (7) Acute on chronic diastolic CHF (congestive heart failure) Impression: Lasix IV started on July 01 after chest x-ray showed moderate vascular congestion. Continue IV Lasix until she can take oral medication. BNP 07/05 719. Her intake and output was -1751 on July 02, +284 on July 03, In spite of being on IV Lasix, her balance was 2900+ on July 04, 1840+ yesterday. Give lasix tid for today. (8) Generalized Weakness. Between [facility], being here in the ICU intubated, and still in the ICU as her metabolic encephalopathy resolved, she is very weak. Plan: Physical therapy and occupational therapy slow ongoing since yesterday. Tired again today after getting up for large BM and continued tachy Family has stated they want their mom to go to a higher start rated facility for rehab. [place] facilities [place] social [place] let social work know the 3 they want and those have been faxed information.
[2019-07-06] MEDS ORDERED: FUROSEMIDE 40 MG/4 ML VIAL IVP STA (11:58)
[2019-07-06] MEDS ORDERED: DIGOXIN 500 MCG/2 ML AMP IVP STA (11:58)
[2019-07-06] MEDS: NYSTATIN POWDER 15 GM TOP SCH ×2 (12:00→21:06)
[2019-07-06] MEDS: SODIUM CHLORIDE FLUSH 0.9% 10 ML SYRINGE IVP PRN ×2 (12:26→18:03)
[2019-07-06] MEDS ORDERED: RIVAROXABAN 10 MG TABLET PO SCH (17:00)
[2019-07-06] MEDS ORDERED: DIGOXIN 500 MCG/2 ML AMP IVP ONE (17:59)
--- NOTE | 2019-07-06 19:12 | PHARMACY PROGRESS NOTE ---
- Monitoring Indication for anticoagulation: Atrial Fibrillation Potentially interacting medications: DILTIAZEM Risk factors for bleed: Hypertension, Renal insufficiency - Recommendations Dosing: Anticoagulation Monitoring 07/05/19 07/03/19 07/02/19 04:44 06:03 05:00 Hgb 11.8 L 12.2 11.9 L Hct 39.0 39.8 38.0 PT INR 07/01/19 06/30/19 06/30/19 03:45 07:35 07:35 Hgb 11.8 L 13.9 Hct 38.1 43.1 PT 19.7 H INR 1.8 H Last Dose Given: S&S of bleedin MG DAILY; CrCl is 58.89 ml/min (per [facility] global using cockroft & gault equation using adjBW); Recommending close monitoring for signs and symptoms of bleeding given renal function and dose adjustment accordingly as clinically appropriate as the renal function is borderline for dosage adjustment (Per micromedex: CrCl 50 ml/min or less in atrial fibrillation, dose = 15 mg daily); Also recommending evaluating alternative agent as clinically appropriate rivaroxaban also has a drug drug interaction with diltiazem which may inc effects of rivaroxaban including bleeding
[2019-07-07] MEDS: SODIUM CHLORIDE FLUSH 0.9% 10 ML SYRINGE IVP SCH ×3 (00:22→17:01)
[2019-07-07] MEDS: SODIUM CHLORIDE FLUSH 0.9% 10 ML SYRINGE IVP PRN ×5 (05:35→19:52)
[2019-07-07] MEDS: FUROSEMIDE 20 MG/2 ML VIAL IVP SCH ×2 (05:35→14:54)
[2019-07-07 05:58] LABS: BASOPHILS % (AUTO) 0.3 %; EOSINOPHILS # (AUTO) 0.1 10^3/uL (0.0-0.7); EOSINOPHILS % (AUTO) 1.9 %; HGB - HEMOGLOBIN 10.9 g/dL (12.0-16.0); LYMPHOCYTES # (AUTO) 0.4 10^3/uL (1.5-3.5); LYMPHOCYTES % (AUTO) 5.3 %; MEAN CORPUSCULAR HEMOGLOBIN 28.2 pg (27.0-31.0); MEAN CORPUSCULAR HGB CONC 30.7 g/dL (32.0-36.0); MEAN PLATELET VOLUME 11.7 fL (7.9-10.8); MONOCYTES # (AUTO) 0.8 10^3/uL (0.0-1.0); MONOCYTES % (AUTO) 11.7 %; NEUTROPHILS # (AUTO) 5.7 10^3/uL (1.5-6.6); NEUTROPHILS % (AUTO) 80.4 %; PLT - PLATELET COUNT 146 10^3/uL (130-450); RED BLOOD COUNT 3.86 10^6/uL (4.20-5.40)
[2019-07-07 06:09] LABS: CALCIUM 8.9 mg/dL (8.5-10.3); CREATININE 0.9 mg/dL (0.4-1.0); MAGNESIUM 1.4 mg/dL (1.7-2.8); PHOSPHORUS 3.3 mg/dL (2.5-4.6)
[2019-07-07] MEDS: lisinopriL 5 MG TABLET PO SCH (08:42)
[2019-07-07] MEDS: DIGOXIN 125 MCG TABLET PO SCH (08:43)
[2019-07-07] MEDS: levETIRAcetam 250 MG TABLET PO SCH ×2 (08:43→20:33)
[2019-07-07] MEDS: diltiaZEM CD 180 MG CAPSULE PO SCH (08:44)
[2019-07-07] MEDS: METOPROLOL SUCCINATE 25 MG TABLET PO SCH ×2 (08:44→20:33)
[2019-07-07] MEDS: NYSTATIN POWDER 15 GM TOP SCH ×2 (08:50→20:33)
[2019-07-07] MEDS ORDERED: APIXABAN 5 MG TABLET PO SCH (09:00)
--- NOTE | 2019-07-07 11:41 | PROVIDER PROGRESS NOTE ---
Subjective - Prog Note Date Prog Note Date: 07/07/19 Prog Note Time: 11:47 - Subjective Subjective: She was moved to [facility] last night from ICU because of bed needing ICU. Overnight there is been a gradual slowing of her heart rate. The digoxin is working. She is now on metoprolol, diltiazem, and digoxin. Main problem at this time is her weakness and fatigue after a prolonged hospital stay which was partly in ICU with intubation. Has had some diarrhea. But that has slowed down. Nutrition services working closely with her in improving her p.o. intake with regards to food. Although she was hungry a couple of days ago, she is only eating about 25% of her food unless someone sits there and prompt her. But she is cooperative. Current Medications - Current Medications Current Medications: Active Medications Acetaminophen (Tylenol) 500 mg PO Q4HR PRN PRN Reason: Pain or Fever > 38C (100.4F) Albuterol/Ipratropium (Duoneb) 3 ml INH Q4HR PRN PRN Reason: Wheezing Last Admin: 07/02/19 06:00 Dose: 3 ml Apixaban (Eliquis) 5 mg PO BID [facility] Digoxin (Lanoxin) 125 mcg PO DAILY [facility] Last Admin: 07/07/19 08:43 Dose: 125 mcg Diltiazem HCl (Cardizem Cd) 180 mg PO DAILY [facility] Last Admin: 07/07/19 08:44 Dose: 180 mg Furosemide (Lasix Inj 20mg Vial) 20 mg IVP BIDDIURETIC [facility] Last Admin: 07/07/19 05:35 Dose: 20 mg Hydralazine HCl (Apresoline Inj) 10 mg IVP Q4H PRN PRN Reason: PER PHYSICIAN ORDER Last Admin: 07/06/19 15:15 Dose: 10 mg Levetiracetam (Keppra) 750 mg PO BID [facility] Last Admin: 07/07/19 08:43 Dose: 750 mg Lisinopril (Zestril) 5 mg PO DAILY [facility] Last Admin: 07/07/19 08:42 Dose: 5 mg Metoprolol Succinate (Toprol Xl) 25 mg PO BID [facility] Last Admin: 07/07/19 08:44 Dose: 25 mg Mineral Oil (Mineral Oil Enema) 135 ml RC DAILY PRN PRN Reason: Constipation Morphine Sulfate (Morphine (Carpuject)) 2 mg IVP Q2HR PRN PRN Reason: Dyspnea Last Admin: 07/02/19 23:22 Dose: 2 mg Multi-Ingredient Ointment (Zinc Oxide) 1 applic TOP PRN PRN PRN Reason: Skin Care Last Admin: 07/06/19 07:15 Dose: 1 applic Nystatin (Nystop) 1 applic TOP BID [facility] Last Admin: 07/07/19 08:50 Dose: 1 applic Ondansetron HCl (Zofran Inj) 4 mg IVP Q6HR PRN PRN Reason: Nausea / Vomiting Last Admin: 07/06/19 08:32 Dose: 4 mg Potassium Chloride (K-Dur) 20 meq PO BIDWM [facility] Sodium Chloride (Normal Saline Flush 0.9%) 10 ml IVP 0100,0900,1700 [facility] Last Admin: 07/07/19 08:44 Dose: 10 ml Sodium Chloride (Normal Saline Flush 0.9%) 10 ml IVP PRN PRN PRN Reason: NEEDED PER PROVIDER ORDERS Last Admin: 07/07/19 05:35 Dose: 20 ml Sodium Chloride (Normal Saline Flush 0.9%) 20 ml IVP PRN PRN PRN Reason: After Blood Draw Last Admin: 07/07/19 05:35 Dose: 20 ml Telmisartan [Micardis] 40 mg PO DAILY 04/19/15 Nitroglycerin [Nitrostat] 0.4 mg PO Q5MX3 PRN MDD 3 doses 12/30/18 Rivaroxaban [Xarelto] 20 mg PO DAILY #1 01/02/19 Fluticasone/Salmeterol [Advair 250-50 Diskus] 1 inh INH BID 02/13/19 Ranitidine HCl [Heartburn Relief] 150 mg PO DAILY PRN 06/25/19 Bisacodyl Supp [Dulcolax Supp] 10 mg [place] DAILY PRN 06/30/19 Magnesium Hydroxide [Milk of Magnesia] 2,400 mg PO DAILY PRN 06/30/19 Mineral Oil 135 ml RC DAILY PRN 06/30/19 Potassium Chloride [Klor-Con 10] 10 meq PO BID 06/30/19 Senna [Senokot] 8.6 - 17.2 mg PO BID PRN 06/30/19 Objective - Vital Signs/Intake & Output Reviewed Vital Signs: Yes Vital Signs: Vital Signs x48h Temp Pulse Resp BP BP Pulse Ox 07/07/19 08:20 36.5 C 90 22 154/87 H 97 07/07/19 04:10 36.8 C 95 18 153/81 H 94 Intake & Output: Intake & Output 07/04/19 07/05/19 07/06/19 07/07/19 23:59 23:59 23:59 23:59 Intake Total 4601.001 4454.333 2349.337 600 Output Total 1615 2613 3900 1350 Balance 2986.001 1841.333 -1550.663 -750 - Lab Results Fish Bones: 07/07/19 05:35 07/07/19 05:35 Other Labs: Lab Results x24hrs 07/07/19 07/07/19 Range/Units 05:35 05:35 WBC 7.0 (4.8-10.8) x10^3/uL RBC 3.86 L (4.20-5.40) 10^6/uL Hgb 10.9 L (12.0-16.0) g/dL Hct 35.5 L (37.0-47.0) % MCV 92.0 (81.0-99.0) fL MCH 28.2 (27.0-31.0) pg MCHC 30.7 L (32.0-36.0) g/dL RDW 15.0 (12.0-15.0) % Plt Count 146 (130-450) 10^3/uL MPV 11.7 H (7.9-10.8) fL Neut # (Auto) 5.7 (1.5-6.6) 10^3/uL Lymph # (Auto) 0.4 L (1.5-3.5) 10^3/uL [place] # (Auto) 0.8 (0.0-1.0) 10^3/uL Eos # (Auto) 0.1 (0.0-0.7) 10^3/uL Baso # (Auto) 0.0 (0.0-0.1) 10^3/uL Absolute Nucleated RBC 0.00 x10^3/uL Nucleated RBC % 0.0 /100WBC Sodium 143 (135-145) mmol/L Potassium 3.3 L (3.5-5.0) mmol/L Chloride 99 L (101-111) mmol/L Carbon Dioxide 32 (21-32) mmol/L Anion Gap 12.0 (6-13) BUN 13 (6-20) mg/dL Creatinine 0.9 (0.4-1.0) mg/dL Estimated GFR (MDRD) 60 L (>89) Glucose 116 H (70-100) mg/dL Calcium 8.9 (8.5-10.3) mg/dL Phosphorus 3.3 (2.5-4.6) mg/dL Magnesium 1.4 L (1.7-2.8) mg/dL ABX Reporting Has patient been on IV antibiotics over the past 48 hours?: Yes Assessment/Plan - Problem List (1) Atrial fibrillation with rapid ventricular response Impression: This has been the most difficult problem to control and continues in spite of meds and changes. Off the IV diltiazem, she has remained consistently tachycardic to 130's at times. She is on Lopressor for rate control. With her last admission she went into a junctional rhythm because the use of diltiazem, Lopressor, digoxin. Anything to control her rate. I would like to avoid that this admission. But her heart rate of 130 is unacceptable in this lady this age. I added diltiazem and continued Lopressor and she was still too high. So then increased dilt from 120 to 180. Still too high. Added dig to lopressor/dilt and now pulse 90's and acceptable. But worry is still there for 2nd/3rd degree block and junctional rhythm. She was transferred to [facility] surg status last night. Still on tele and will monitor. (2) HTN (hypertension) Impression: IV hydralazine prn. I have already added Vasotec IV. On Lopressor IV as well. I had temporary improvement from 180's to 160;s but 07/06 am over 200. Changed to po meds dilt/metoprolol/lisinopril on 07/06 with prn hydralazine. 150s to 160s systolic this am Qualifiers: Hypertension type: essential hypertension Qualified Code(s): I10 - Essential (primary) hypertension (3) Hypokalemia Impression: was on ICU electrolyte replacement protocol and needed frequent daily s upplements. This am is 3.3 and she will be started of 20 meq bid. (4) Obstructive Sleep Apnea with CPAP use Her CPAP tubing was quite dirty when she brought it in. She also has open mouth breathing, and a nasal cannula does not work. As such I am writing a new order for full facemask. She is tolerating this better. (5) New onset seizure Impression: Presenting as a seizure in the emergency room. Continue IV Keppra twice daily until able to transition to p.o. 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 There are no new lesions on CT. Her metabolic derangement was not severe enough to cause seizure. At home she was not on any medication such as Wellbutrin that would lower her seizure threshold She has not had any seizures since being admitted. On Keppra p.o. 07/05 (6) HCAP (healthcare-associated pneumonia) Impression: On Zosyn since June 30. Vancomycin since July 02. Blood culture negative after 2 days. White cell count started at 16.9 thousand is down to 9.4. Oxygen requirement has remained steady at 3 L by nasal cannula.Her O2 sat is 99% on this. I have asked nursing to reduce her flow to 2 L by nasal cannula. At home she is usually on 1 L at night with her CPAP mask and on no oxygen during the day. Will work on reducing her oxygen needs over the next day or 2. When she is taking p.o., we will switch her to oral antibiotics. However, in reading the [place] antibiotic guide, antibiotics can be safely discontinued after 5 days in patients who are afebrile for 48 hours or more and have no more than 1 of the following: Systolic blood pressure later less than 90, heart rate greater than 100, respiratory rate greater than 24, O2 sat less than 90% on room air. Unfortunately she is still tachycardic. But I think her tachycardia is from uncontrolled A. fib and not from pneumonia. 07/06 was day 6 of antibiotics. Stopped that morning. (7) Acute on chronic diastolic CHF (congestive heart failure) Impression: Lasix IV started on July 01 after chest x-ray showed moderate vascular congestion. Continue IV Lasix until she can take oral medication. BNP 07/05 was 719. Her intake and output was -1751 on July 02, +284 on July 03, In spite of being on IV Lasix, her balance was 2900+ on July 04, 1840+ 0n 07/05. Given lasix tid for 07/06 and was -1550. So far this am - as well. (8) Generalized Weakness. Between [place], being here in the ICU intubated, and still in the ICU as her metabolic encephalopathy resolved, she is very weak. Plan: Physical therapy and occupational therapy slow ongoing since 07/05. Family has stated they want their mom to go to a higher start rated facility for rehab. [place] let social work know the 3 they want and those have been faxed information. Now that on med surg, will hopefully progress more with all po meds. Plan for dc on 07/08 or 07/09 depending on the recommendations of PT.
[2019-07-07] MEDS: hydrALAZINE INJ 20 MG/ML VIAL IVP PRN ×2 (16:09→19:51)
[2019-07-07] MEDS: POTASSIUM CHLORIDE 20 MEQ TABLET PO SCH (17:01)
[2019-07-07] MEDS ORDERED: MAGNESIUM SULFATE 1 GM in SODIUM CHLORIDE 0.9% 50 ML IV ONE (18:56)
[2019-07-07] MEDS: APIXABAN 5 MG TABLET PO SCH (20:33)
[2019-07-08] MEDS: SODIUM CHLORIDE FLUSH 0.9% 10 ML SYRINGE IVP PRN ×2 (05:39)
[2019-07-08] MEDS: FUROSEMIDE 20 MG/2 ML VIAL IVP SCH (05:39)
[2019-07-08] MEDS: SODIUM CHLORIDE FLUSH 0.9% 10 ML SYRINGE IVP SCH ×2 (05:39→09:42)
[2019-07-08 06:13] LABS: CREATININE 0.8 mg/dL (0.4-1.0); MAGNESIUM 1.8 mg/dL (1.7-2.8)
[2019-07-08] MEDS ORDERED: METOPROLOL SUCCINATE 25 MG TABLET PO SCH (09:00)
[2019-07-08] MEDS ORDERED: polyethylene glycoL 3350 17 GM PACKET PO SCH (09:00)
[2019-07-08] MEDS ORDERED: lisinopriL 5 MG TABLET PO SCH (09:00)
[2019-07-08] MEDS: POTASSIUM CHLOR 10 MEQ/100 ML 10 MEQ/100 ML BAG IV SCH ×3 (09:39→11:38)
[2019-07-08] MEDS: APIXABAN 5 MG TABLET PO SCH (09:42)
[2019-07-08] MEDS: DIGOXIN 125 MCG TABLET PO SCH (09:42)
[2019-07-08] MEDS: diltiaZEM CD 180 MG CAPSULE PO SCH (09:42)
[2019-07-08] MEDS: POTASSIUM CHLORIDE 20 MEQ TABLET PO SCH (09:44)
[2019-07-08] MEDS: levETIRAcetam 250 MG TABLET PO SCH (09:44)
[2019-07-08] MEDS: NYSTATIN POWDER 15 GM TOP SCH (09:48)
--- NOTE | 2019-07-08 10:18 | Discharge Plan ---
"Discharge Plan for SNF / [facility] - Discharge Plan And Transition Orders Problem Reviewed?: Yes Disposition: 03 SNF DC/Xfer Condition: Fair Allergies and Adverse Reactions: Allergies Allergy/AdvReac Type Severity Reaction Status Date / Time No Known Drug Allergies Allergy Verified 06/30/19 07:15 Health Concerns: Komal lady who has had episodes of A. fib with rapid ventricular response and subsequent acute diastolic heart failure due to noncompliance with medications. She required a prolonged hospitalization because of very difficult to control heart rate. She was discharged to [facility] facility. 2 days later she returns with pneumonia. While in ER she had a seizure. [place] to be irritated focus from previous stroke. She has been in our acute care facility for 9 days with acute respiratory failure, pneumonia, acute diastolic heart failure, A. fib with RVR. No further seizures. She did require short term intubation. You need to watch her carefully for rate control. It takes up to 3 medications to control her heart rate and she is on Cardizem, metoprolol, and digoxin. However be careful of AV andi blockage. She will need and She will need Physical therapy and occupational therapy to improve strength skills to return home. She lives in a duplex with her daughter. Son lives up the road. Son is power of assistant county attorney. She is a DO NOT RESUSCITATE Plan of Treatment: 1. Admission Cardizem CD was 120 mg and she is now 180 mg. Metoprolol succinate admission dose was 100 mg twice daily and she is now 50 mg twice daily. While in the hospital, Micardis was not continued to get is nonformulary. Micardis is resumed at discharge. Admission Xarelto was switched to Eliquis with renal dosing. 2. She is completed antibiotic therapy after 5 days. She has no fever, and white cell count is 7,000. 3. Glucose has been elevated during this admission. It is very between 116- 197. In the last 48 hours she was 116, 131, 139. Please evaluate her glucose at least once a week to make sure she does not need change in her medication. Care Goals: To have enough strength to be able to get up out of a chair without assistance, and ambulate a few feet with a walker that has a seat. She should be able to dress herself and feed herself. - SNF / [facility] Transition Orders Admit to (Facility): [facility] Discharge Diagnosis: 1. New onset seizure. 2. History of previous stroke 3. Healthcare associated pneumonia, resolved 4. Atrial fibrillation, chronic, with rapid ventricular response 5. Acute diastolic heart failure resolved, now with chronic diastolic heart failure 6. Abnormal troponin due to demand ischemia, resolved 7. Sleep apnea, on CPAP 8. COPD with asthma 9. Morbid obesity 10. Cognitive deficit of aging 11. Yeast dermatitis of intertriginous folds 12. Metabolic encephalopathy secondary to use of benzodiazepines, resolved 13. Hypertension 14. Hypokalemia, resolved Medicare Certification Statement: I certify that [facility] medically necessary on a continuing basis for any of the conditions for which she/he is receiving care during hospitalization. Notify PCP of admission and forward orders to primary provider for signature. Weight on admission and: Daily Call PCP immediately if weight increases by: 2 kg Other Notification Orders: Call PCP immediately if patient develops dyspnea, chest pain/tightness or edema. House Bowel Program: Yes Additional Bowel Program Orders: If no BM after 2 days, nurse may give M.O.M. 30ml PO PRN and/or ducolax Supp 1 [place] and/or MORGAN 250mg P.O., and/or senna 1-2 tabs PO. On day 3 nurse may give repeat above order until residents constipation is resolved. Annual Influenza Vaccine (between Jan 28 and August 27): Yes Two-step PPD per [facility] [phone] or approved exception documents: Yes Treatments & Other Orders: Albuterol/ipratropium via nebulizer every 4 hours as needed Oxygen Orders: Nasal cannula oxygen to maintain O2 sat above 92%. Most likely will need 1 L at night during sleep, and none during the day Lab Tests or X-ray Orders: Weekly BNP, BMP to start July 09 Medication Orders: PLEASE REFER TO THE DISCHARGE MEDICATION LIST. Insulin Orders?: No - Diet Type: Geriatric Texture: Dysphagia mech Liquids: Thin May have monthly special meal: Yes - Therapies | Activity Therapy: Evaluation | Treat if indicated: PT, OT Rehabilitation Potential: Maximize functional status, Return to independent living Activity: Activity as Tolerated Assistance Devices: Wheelchair, Walker Follow Up: Please see primary care provider, Daljit Brizuela MD after discharge."
[2019-07-08 12:07] VITALS: BP 174/95
[2019-07-08] MEDS ORDERED: FUROSEMIDE 20 MG TABLET PO SCH (14:00)
--- NOTE | 2019-07-08 15:32 | DISCHARGE SUMMARY ---
Discharge Summary Admit Date: 06/30/19 Discharge Date: 07/08/19 Condition at Discharge: Fair Discharge Disposition: 03 SNF DC/Xfer - DIAGNOSES Discharge Diagnoses with Status of Each Condition: 1. New onset seizure. 2. History of previous stroke 3. Healthcare associated pneumonia, resolved 4. Atrial fibrillation, chronic, with rapid ventricular response 5. Acute diastolic heart failure resolved, now with chronic diastolic heart failure 6. Abnormal troponin due to demand ischemia, resolved 7. Sleep apnea, on CPAP 8. COPD with asthma 9. Morbid obesity 10. Cognitive deficit of aging 11. Yeast dermatitis of intertriginous folds 12. Metabolic encephalopathy secondary to use of benzodiazepines, resolved 13. Hypertension 14. Hypokalemia, resolved - HPI History of Present Illness: 83-year-old white female who was just discharged from our facility 2 days ago. With that admission she was with mild congestive heart failure due to A. fib with RVR caused by noncompliance with medication. There was some confusion. And she has residuals of old stroke. Complications of that admission included junctional rhythm from all the use of her medication to get her A. fib under c ontrol. At carriage today, she developed increased shortness of breath and altered mental status and "twitching". She was brought to the emergency room and noted to be in respiratory distress, atrial fibrillation with RVR at rates of 180-200, and having seizures or Reiger's. She received Ativan for 2 doses to treat this presumed seizure. She received a nebulizer, BiPAP, and Tylenol for fever of 104. IV line could not be started and as such an intraosseous IJ was used. Seizures responded to Ativan. Head CT showed progressive worsening of her stroke area and aging changes but no acute findings. Chest x-ray showed new bilateral pneumonia. Blood cultures were done, and she was started on Zosyn and vancomycin and admitted to the ICU. - CONSULTS | PROCEDURES Procedures: 1. Chest x-ray. Left lower and bilateral upper lobe airway space disease superimposed on hyperinflation. Cardiomegaly. 2. Head CT chronic right frontoparietal infarct with progression of the transcortical hypodensity of that right frontoparietal region. Consistent with encephalomalacia and evolution of prior infarct. No acute changes. 3. And enteric tube projects over the left upper quadrant after NG tube placement 4. Follow-up chest x-ray for PICC line she has moderate biapical pleural thickening. Enlarged cardiac silhouette. Moderate CHF pattern progressed from prior exam on admission. 5. Blood cultures negative after 5 days - HOSPITAL COURSE Hospital Course: Komal lady who has had episodes of A. fib with rapid ventricular response and subsequent acute diastolic heart failure due to noncompliance with medications. There have been previous admissions for this. With her last stay before this one, she required a prolonged hospitalization because of very difficult to control heart rate. The complications of that combined therapy was a junctional rhythm that resolved with reduction and change in medication. She was discharged [facility]. 2 days later she returned with pneumonia for this admission. While in ER she had a seizure. [place] to be irritated focus from previous stroke. She has been treated for acute respiratory failure, health care associated pneumonia, acute diastolic heart failure, A. fib with RVR. No further seizures. She did require short term Bipap. Rate control was difficult to achieve in this patient. It took up to 3 medications to control her heart rate and she is on Cardizem, metoprolol, and digoxin. If she then develops another episode of AV block or junctional rhythm, she may be a candidate for pacer. I have let the [facility] to watch for AV andi blockage. She will need Physical therapy and occupational therapy to improve strength skills to return home. She lives in a duplex with her daughter. Son lives up the road. Son is power of commercial real estate attorney. She is a DO NOT RESUSCITATE Admission Cardizem CD was 120 mg and she is now 180 mg. Metoprolol succinate admission dose was 100 mg twice daily and she is now 50 mg twice daily. While in the hospital, Micardis was not continued to get is nonformulary. Micardis is resumed at discharge and lisinopril has been discontinued. Admission Xarelto was switched to Eliquis with renal dosing. She has completed antibiotic therapy after 5 days. She has no fever, and white cell count is 7,000. Using her own CPAP mask at night with success. Glucose has been elevated during this admission. It is very between 116-197. In the last 48 hours she was 116, 131, 139. Please evaluate her glucose at least once a week to make sure she does not need change in her medication. She is discharged in stable condition to [facility] facility chosen by children so that she may receive therapy to have enough strength to be able to get up out of a chair without assistance, and ambulate a few feet with a walker that has a seat. She should be able to dress herself and feed herself. Exam at discharge showed a moderately overweight female who is 5 feet 4 inches t all, 106.5 kg, who looks stated age. Pleasant, cooperative. Occasionally confused. Does follow commands. Temperature is 36.5, pulse is 96 and irregular, blood pressure 174/95 with respirations 17. She is 94% on room air. Neck does not have any JVD. Supple. Lungs have coarse upper airway sounds but otherwise clear without crackles rhonchi wheezing. She has an irregular rate and rhythm. Her abdomen is obese, soft, nontender with fading Khadijah in the intertriginous folds. Extremities have no edema. There are no focal deficits. She is able to scoot herself to the end of the bed, stand and require a minute of standing to get her bearings. She does follow verbal cues where she needs to put her hands and feet to use a walker. While she is making progress with increasing her distance with ambulation, she still requires skilled assistance with verbal cues and support for safe use of walker and standing/sitting. She will need continued physical therapy upon transfer to [facility]. Greater than 30 minutes was spent coordinating discharge. - ALLERGIES Allergies/Adverse Reactions: Allergies Allergy/AdvReac Type Severity Reaction Status Date / Time No Known Drug Allergies Allergy Verified 06/30/19 07:15 - MEDICATIONS Home Medications: Ambulatory Orders Medication Instructions Recorded Confirmed Telmisartan [Micardis] 40 mg PO DAILY 04/19/15 06/30/19 Nitroglycerin [Nitrostat] 0.4 mg PO Q5MX3 PRN MDD 3 doses 12/30/18 06/30/19 Fluticasone/Salmeterol [Advair 1 inh INH BID 02/13/19 06/30/19 250-50 Diskus] Ranitidine HCl [Heartburn Relief] 150 mg PO DAILY PRN 06/25/19 06/30/19 Atorvastatin [Lipitor] 40 mg PO QPM #30 tablet 06/28/19 06/30/19 Magnesium Oxide [Mag Ox] 400 mg PO DAILY #30 tablet 06/28/19 06/30/19 Bisacodyl Supp [Dulcolax Supp] 10 mg [place] DAILY PRN 06/30/19 06/30/19 Magnesium Hydroxide [Milk of 2,400 mg PO DAILY PRN 06/30/19 06/30/19 Magnesia] Apixaban [Eliquis] 5 mg PO BID tablet 07/08/19 Digoxin [Lanoxin] 125 mcg PO DAILY tablet 07/08/19 Furosemide [Lasix] 20 mg PO BIDDIURETIC tablet 07/08/19 Ipratropium/Albuterol [Duoneb] 3 ml INH Q4HR PRN neb 07/08/19 Metoprolol Succinate [Toprol Xl] 50 mg PO BID tablet 07/08/19 Nystatin [Nystop] 1 applic TOP BID bottle 07/08/19 Potassium Chloride [K-Dur] 20 meq PO BIDWM tablet 07/08/19 diltiaZEM CD [Cardizem Cd] 180 mg PO DAILY capsule 07/08/19 levETIRAcetam [Keppra] 750 mg PO BID tablet 07/08/19 - LABS Result Diagrams: 07/07/19 05:35 07/08/19 05:40
== END 2019-07-08 12:44 | DRG 56 ==
LOC: EDUNIT# → ED 05:49 → ICU 12:38 → MS2 07-06 21:51
PROVIDERS: ADMIT Internal Medicine; ATTEND Specialist
PROC: 02HV33Z Insertion of Infusion Device into Superior Vena Cava, Percutaneous Approach (ICD-10-PCS; principal; 2019-06-30)
DX: I69.398 Other sequelae of cerebral infarction (principal); J18.9 Pneumonia, unspecified organism; R40.2422 Glasgow coma scale score 9-12, at arrival to emergency department; R46.4 Slowness and poor responsiveness; I50.33 Acute on chronic diastolic (congestive) heart failure; I50.9 Heart failure, unspecified; G47.30 Sleep apnea, unspecified; G92 Toxic encephalopathy; J96.00 Acute respiratory failure, unspecified whether with hypoxia or hypercapnia; Z68.35 Body mass index [BMI] 35.0-35.9, adult; I48.20 Chronic atrial fibrillation, unspecified; J44.0 Chronic obstructive pulmonary disease with (acute) lower respiratory infection; I24.8 Other forms of acute ischemic heart disease; R56.9 Unspecified convulsions; E66.01 Morbid (severe) obesity due to excess calories; B37.2 Candidiasis of skin and nail; T42.4X5A Adverse effect of benzodiazepines, initial encounter; I11.0 Hypertensive heart disease with heart failure; E87.6 Hypokalemia; Y95 Nosocomial condition; I69.311 Memory deficit following cerebral infarction; F03.90 Unspecified dementia, unspecified severity, without behavioral disturbance, psychotic disturbance, mood disturbance, and anxiety; G47.33 Obstructive sleep apnea (adult) (pediatric); F41.9 Anxiety disorder, unspecified; R45.1 Restlessness and agitation; R31.9 Hematuria, unspecified; I67.2 Cerebral atherosclerosis; R19.7 Diarrhea, unspecified; Z51.5 Encounter for palliative care; Z66 Do not resuscitate; Z99.81 Dependence on supplemental oxygen; Z78.1 Physical restraint status; Z91.14 Patient's other noncompliance with medication regimen; Z68.38 Body mass index [BMI] 38.0-38.9, adult; Z79.899 Other long term (current) drug therapy; Z79.01 Long term (current) use of anticoagulants; Z79.51 Long term (current) use of inhaled steroids
CPT/HCPCS: 36415; 36600; 51702; 70450; 71045; 80048; 80053; 80202; 81001; 82040; 82330; 82565; 82803; 83605; 83690; 83735; 83880; 84100; 84484; 85025; 85610; 85730; 87040; 87150; 87275; 87276; 92526; 92610; 93005; 94640; 96361; 96365; 96366; 96367; 96375; 96376; 97161; 97530; 99285; 99291; A9270; C1751; J0131; J1650; J2060; J3370; J7040; 74018; 81003; 87086

== ENCOUNTER 2019-07-08 12:36 | Outpatient (CLI) | payer MEDICARE, OTHER | END 2019-07-08 12:37 | LOC: EMS 12:36 | PROVIDERS: ATTEND Surgery | DX: R53.1 Weakness (principal); Z74.01 Bed confinement status | CPT/HCPCS: A0425; A0428 ==

== ENCOUNTER 2019-08-06 23:10 | Outpatient (CLI) | payer MEDICARE, OTHER | END 2019-08-06 23:11 | disposition critical access hospital (66) | LOC: EMS 23:10 | PROVIDERS: ATTEND Surgery | DX: R41.82 Altered mental status, unspecified (principal) | CPT/HCPCS: A0425; A0429 ==

== ENCOUNTER 2019-08-06 23:27 | Inpatient (IN) | payer MEDICARE, OTHER ==
--- NOTE | 2019-08-06 23:55 | ED Physician Documentation ---
History of Present Illness - Stated complaint Stated Complaint: AMS - Chief complaint Chief Complaint: General - Additonal information Additional information: This is an 83-year-old female history of congestive heart failure, COPD, dementia, stroke, depression, who was brought in by her daughter due to worsening mental status and poor eating. Patient was hospitalized in the [facility] for cardiac rehab and was discharged 1 week ago, since going home sounds like she has been doing fairly poorly overall with regards to her mental status, at her baseline she is somewhat forgetful but it sounds like she has been confused and disoriented. This reportedly has worsened over the last day or she is not is clear in conversations with her daughter. She also apparently has generalized weakness which as been steady over the last week and her daughter has required additional assistance to help change the patient as patient is unable to toilet herself. She is not eating well since being [facility] the [facility] and reportedly has not eaten anything other than a scrambled egg over the last day. She has not had any fever or vomiting. She has a baseline intermittent dry cough but no change in this. There was a reported case of a patient transferred from the [facility] to the hospitalist then tested positive for Covid19, but it is unclear if Ms. Rao had overlap with this patient or not and just the [facility] did not provide details in this regard when we called. Patient denies chest pain, trouble breathing over her baseline. No abdominal pain vomiting or obvious urinary complaints. Review of Systems Unable to obtain: Dementia Constitutional: denies: Fever PD PAST MEDICAL HISTORY - Past Medical History Past Medical History: Yes Cardiovascular: Congestive heart failure Respiratory: COPD, Sleep apnea, CPAP use Neuro: Dementia, CVA Endocrine/Autoimmune: Other GI: GERD, GI bleed, Chronic diarrhea, Chronic constipation, Diverticulitis, Cholelithiasis, Other COUNTY ADVISER: Other : Incontinence HEENT: None Psych: Depression Musculoskeletal: Chronic back pain Derm: Psoriasis - Past Surgical History Past Surgical History: Yes General: Cholecystectomy, Colonoscopy, Other /COUNTY ADVISER: Hysterectomy - Present Medications Home Medications: Ambulatory Orders Medication Instructions Recorded Confirmed Telmisartan [Micardis] 40 mg PO DAILY 04/19/15 08/07/19 Nitroglycerin [Nitrostat] 0.4 mg PO Q5MX3 PRN MDD 3 doses 12/30/18 08/07/19 Fluticasone/Salmeterol [Advair 1 inh INH BID 02/13/19 08/07/19 250-50 Diskus] Atorvastatin [Lipitor] 40 mg PO QPM #30 tablet 06/28/19 08/07/19 Apixaban [Eliquis] 5 mg PO BID tablet 07/08/19 08/07/19 Digoxin [Lanoxin] 125 mcg PO DAILY tablet 07/08/19 08/07/19 Furosemide [Lasix] 20 mg PO BIDDIURETIC tablet 07/08/19 08/07/19 Metoprolol Succinate [Toprol Xl] 50 mg PO BID tablet 07/08/19 08/07/19 Nystatin [Nystop] 1 applic TOP BID bottle 07/08/19 08/07/19 Potassium Chloride [K-Dur] 20 meq PO BIDWM tablet 07/08/19 08/07/19 diltiaZEM CD [Cardizem Cd] 180 mg PO DAILY capsule 07/08/19 08/07/19 levETIRAcetam [Keppra] 750 mg PO BID tablet 07/08/19 08/07/19 Mirtazapine 7.5 mg PO DAILY PM 08/07/19 08/07/19 Sertraline [Zoloft] 50 mg PO DAILY PM 08/07/19 08/07/19 LORazepam [Ativan] 0.5 mg PO Q6H PRN #15 tablet 08/09/19 Morphine Sulfate [Morphine Sulf 5 mg PO Q4H PRN #30 ml 08/09/19 Oral (Roxanol)] - Allergies Allergies/Adverse Reactions: Allergies Allergy/AdvReac Type Severity Reaction Status Date / Time No Known Drug Allergies Allergy Verified 08/07/19 02:17 - Social History Does the pt smoke?: No Smoking Status: Never smoker Does the pt drink ETOH?: No Does the pt have substance abuse?: No - Immunizations Immunizations are current?: Yes - POLST Patient has POLST: No POLST Status: DNR PD ED PE NORMAL - Vitals Vital signs reviewed: Yes - General General: No acute distress - HEENT HEENT: Atraumatic, PERRL - Neck Neck: Supple, no meningeal sign - Cardiac Cardiac: Other (Irregularly irregular rhythm, mild tachycardia on my exam) - Respiratory Respiratory: No respiratory distress - Abdomen Abdomen: Soft, Non tender, Non distended - Derm Derm: Warm and dry - Extremities Extremities: No deformity - Neuro Neuro: Other (Alert, disoriented to year, thinks it is 1972. Knows that she is in [place], does not know exact events leading to her current hospitalization. She is able to answer some questions but seems confused and does not hold a conversation coherently for very long. She is moving all 4 extremities and has symmetric strength with hand squeeze ankle dorsiflexion and plantarflexion. Speech is clear, no focal deficits noted) - Psych Psych: Normal mood, Normal affect Results - Vitals Vitals: Oxygen O2 Source [With Activity] Nasal cannula O2 Source Room air - EKG (time done) 1:21 Other comments: Other comments (Rate 11, a-fibrillation, RBBB with LAFB, no ST elevation.) - Labs Labs: Microbiology 08/07/19 00:12 Blood Culture - Preliminary Blood - Right Hand NO GROWTH AFTER 2 DAYS Laboratory Tests 08/07/19 08/07/19 08/07/19 00:05 01:55 01:55 WBC 5.5 RBC 5.65 H Hgb 15.4 Hct 50.1 H MCV 88.7 MCH 27.3 MCHC 30.7 L RDW 14.5 Plt Count 138 MPV 12.9 H Neut # (Auto) 4.3 Lymph # (Auto) 0.6 L Parker # (Auto) 0.6 Eos # (Auto) 0.0 Baso # (Auto) 0.0 Absolute Nucleated RBC 0.00 Nucleated RBC % 0.0 VBG pH VBG pCO2 VBG pO2 VBG HCO3 VBG Total CO2 VBG O2 Saturation VBG Base Excess Sodium 135 Potassium 5.6 H Chloride 104 Carbon Dioxide 22 Anion Gap 9.0 BUN 35 H Creatinine 1.0 Estimated GFR (MDRD) 53 L Glucose 143 H Lactic Acid Calcium 9.0 Phosphorus Magnesium Total Bilirubin 0.6 AST 23 ALT 19 Alkaline Phosphatase 85 Troponin I High Sens B-Natriuretic Peptide Total Protein 6.7 Albumin 3.5 Globulin 3.2 Albumin/Globulin Ratio 1.1 Lipase 41 TSH Urine Color YELLOW Urine Clarity CLEAR Urine pH 5.5 Ur Specific [place] 1.020 Urine Protein NEGATIVE Urine Glucose (UA) NEGATIVE Urine Ketones NEGATIVE Urine Occult Blood NEGATIVE Urine Nitrite NEGATIVE Urine Bilirubin NEGATIVE Urine Urobilinogen 0.2 (NORMAL) Ur Leukocyte Esterase NEGATIVE Urine RBC None Seen Urine WBC 0-3 Ur Squamous Epith Cells RARE Squamous Urine Bacteria None Seen Urine Culture Comments NOT INDICATED Last Dose Date Last Dose Time Digoxin Ref Lab Test Result 08/07/19 08/07/19 08/07/19 01:55 01:55 01:55 WBC RBC Hgb Hct MCV MCH MCHC RDW Plt Count MPV Neut # (Auto) Lymph # (Auto) Parker # (Auto) Eos # (Auto) Baso # (Auto) Absolute Nucleated RBC Nucleated RBC % VBG pH VBG pCO2 VBG pO2 VBG HCO3 VBG Total CO2 VBG O2 Saturation VBG Base Excess Sodium Potassium Chloride Carbon Dioxide Anion Gap BUN Creatinine Estimated GFR (MDRD) Glucose Lactic Acid 1.6 Calcium Phosphorus Magnesium Total Bilirubin AST ALT Alkaline Phosphatase Troponin I High Sens 25.6 H* B-Natriuretic Peptide Total Protein Albumin Globulin Albumin/Globulin Ratio Lipase TSH 2.62 Urine Color Urine Clarity Urine pH Ur Specific [place] Urine Protein Urine Glucose (UA) Urine Ketones Urine Occult Blood Urine Nitrite Urine Bilirubin Urine Urobilinogen Ur Leukocyte Esterase Urine RBC Urine WBC Ur Squamous Epith Cells Urine Bacteria Urine Culture Comments Last Dose Date Last Dose Time Digoxin Ref Lab Test Result 08/07/19 08/07/19 08/07/19 01:55 01:55 06:30 WBC RBC Hgb Hct MCV MCH MCHC RDW Plt Count MPV Neut # (Auto) Lymph # (Auto) Parker # (Auto) Eos # (Auto) Baso # (Auto) Absolute Nucleated RBC Nucleated RBC % VBG pH 7.330 VBG pCO2 39.5 L VBG pO2 55.2 H VBG HCO3 20.4 L VBG Total CO2 21.6 L VBG O2 Saturation 88.4 H VBG Base Excess -5.1 L Sodium 135 Potassium 4.9 Chloride 103 Carbon Dioxide 23 Anion Gap 9.0 BUN 33 H Creatinine 0.9 Estimated GFR (MDRD) 60 L Glucose 108 H Lactic Acid Calcium 9.1 Phosphorus 3.3 Magnesium 2.1 Total Bilirubin AST ALT Alkaline Phosphatase Troponin I High Sens B-Natriuretic Peptide 216 H Total Protein Albumin Globulin Albumin/Globulin Ratio Lipase TSH Urine Color Urine Clarity Urine pH Ur Specific [place] Urine Protein Urine Glucose (UA) Urine Ketones Urine Occult Blood Urine Nitrite Urine Bilirubin Urine Urobilinogen Ur Leukocyte Esterase Urine RBC Urine WBC Ur Squamous Epith Cells Urine Bacteria Urine Culture Comments Last Dose Date UNK Last Dose Time UNK Digoxin < 0.2 Ref Lab Test Result 08/07/19 08/07/19 06:30 10:56 WBC RBC Hgb Hct MCV MCH MCHC RDW Plt Count MPV Neut # (Auto) Lymph # (Auto) Parker # (Auto) Eos # (Auto) Baso # (Auto) Absolute Nucleated RBC Nucleated RBC % VBG pH VBG pCO2 VBG pO2 VBG HCO3 VBG Total CO2 VBG O2 Saturation VBG Base Excess Sodium Potassium Chloride Carbon Dioxide Anion Gap BUN Creatinine Estimated GFR (MDRD) Glucose Lactic Acid Calcium Phosphorus Magnesium Total Bilirubin AST ALT Alkaline Phosphatase Troponin I High Sens 24.1 H* B-Natriuretic Peptide Total Protein Albumin Globulin Albumin/Globulin Ratio Lipase TSH Urine Color Urine Clarity Urine pH Ur Specific [place] Urine Protein Urine Glucose (UA) Urine Ketones Urine Occult Blood Urine Nitrite Urine Bilirubin Urine Urobilinogen Ur Leukocyte Esterase Urine RBC Urine WBC Ur Squamous Epith Cells Urine Bacteria Urine Culture Comments Last Dose Date Last Dose Time Digoxin Ref Lab Test Result REPORT - Rads (name of study) CXR Radiology: Other (Mild bilateral interstitial opacities, may reflect pulmonary edema) Head CT Radiology: Other (No acute intracranial abnormalities) PD MEDICAL DECISION MAKING - ED course Complexity details: considered differential (UTI, PNA, electrolyte abnormality, URI, COVID-19, ICH, HF, ACS) ED course: On arrival pt is tachycardic, in a-fib, non-toxic appearing. Respiratory precautions instated and I wore a gown, gloves, N-95 and eye protection during pt care. IV inserted, labs drawn, pt placed on the monitor. EKG shows RBB and a- fib without convincing signs of ischemia. CXR shows interstitial opacities that may be consistent with HF. She is afebrile and though she has an occasional cough, her family states this is her baseline. She was given a 250cc NS bolus with good improvement in her heart rate. CBC unremarkable, abdominal panel shows hyperkalemia, EKG shows no QRS prolongation. Troponin is very slightly elevated, but she is not having chest pain or shortness of breath and ACS seems highly unlikely. UA negative. Overall she appears to have failure to thrive, a-fib with RVR, hyperkalemia, and encephalopathy, though it sounds like many of her mental status changes have been relatively stable from her last hospitalization and she has multiple comorbidities that are likely contributing. I do not see convincing signs of infectious etiology at this time and will defer abx. She does have Covid-19 possible exposure and testing will be investigated by Dr. Field who is admitting the patient. She may also have a component of mild HF, though she overall appeared slightly hypovolemic on my exam and seemed to improve with a very gentle fluid bolus. Pt admitted for further treatment and evaluation. Departure - Departure Disposition: ED Place in Observation Clinical Impression: Encephalopathy, Hyperkalemia, Atrial fibrillation with RVR Condition: Serious Discharge Date/Time: 08/07/19 03:45
[2019-08-07] MEDS ORDERED: SODIUM CHLORIDE 0.9% 250 ML IV ONE (00:06)
--- NOTE | 2019-08-07 01:00 | XRAY Report ---
Reason: Cough, confusion Procedure Date: 08/07/2019 Accession Number: [id number] / [id number] Procedure: XR - Chest 1 View X-Ray CPT Code: 26362 Final Report FULL RESULT: EXAM: CHEST RADIOGRAPHY EXAM DATE: 08/07/2019 12:06 AM CLINICAL HISTORY: Cough, confusion. COMPARISON: CHEST 1 VIEW 06/30/2019 8:54 PM. TECHNIQUE: 1 view. FINDINGS: Lungs/Pleura: Mild interstitial and airspace opacities throughout both lungs. No pleural effusion. No pneumothorax. Mediastinum: Stable mild enlargement of the cardiomediastinal silhouette. Other: None. IMPRESSION: Mild interstitial and airspace opacities throughout both lungs, which may reflect mild pulmonary edema. Stable mild cardiomegaly. RADIA
[2019-08-07 01:17] LABS: BILIRUBIN,URINE NEGATIVE (NEGATIVE); CLARITY,URINE CLEAR (CLEAR); GLUCOSE, URINE (UA) NEGATIVE (NEGATIVE); KETONES,URINE (UA) NEGATIVE (NEGATIVE); LEUKOCYTE ESTERASE, URINE NEGATIVE (NEGATIVE); NITRITE,URINE NEGATIVE (NEGATIVE); OCCULT BLOOD,URINE NEGATIVE (NEGATIVE); PH,URINE 5.5 PH (5.0-7.5); PROTEIN,URINE NEGATIVE (NEGATIVE); UROBILINOGEN,URINE 0.2 (NORMAL) E.U./dL (NORMAL)
[2019-08-07 01:25] LABS: BACTERIA,URINE None Seen /HPF (None Seen); RBC,URINE None Seen /HPF (0-5); SQUAMOUS EPITHELIAL CELL,UR RARE Squamous (<= Few)
[2019-08-07 02:08] LABS: BASOPHILS % (AUTO) 0.2 %; EOSINOPHILS % (AUTO) 0.4 %; HGB - HEMOGLOBIN 15.4 g/dL (12.0-16.0); LYMPHOCYTES # (AUTO) 0.6 10^3/uL (1.5-3.5); LYMPHOCYTES % (AUTO) 10.5 %; MEAN CORPUSCULAR HEMOGLOBIN 27.3 pg (27.0-31.0); MEAN CORPUSCULAR HGB CONC 30.7 g/dL (32.0-36.0); MEAN CORPUSCULAR VOLUME 88.7 fL (81.0-99.0); MEAN PLATELET VOLUME 12.9 fL (7.9-10.8); MONOCYTES # (AUTO) 0.6 10^3/uL (0.0-1.0); MONOCYTES % (AUTO) 10.7 %; NEUTROPHILS # (AUTO) 4.3 10^3/uL (1.5-6.6); PLT - PLATELET COUNT 138 10^3/uL (130-450); RED BLOOD COUNT 5.65 10^6/uL (4.20-5.40); RED CELL DISTRIBUTION WIDTH 14.5 % (12.0-15.0); WHITE BLOOD COUNT 5.5 x10^3/uL (4.8-10.8)
[2019-08-07 02:16] LABS: VBG BASE EXCESS -5.1 mmol/L (-2 - +2); VBG PCO2 39.5 mmHg (41-51); VBG PH 7.33 (7.31-7.41); VBG PO2 55.2 mmHg (25-47); VBG TOTAL CO2 21.6 mmol/L (24-29)
[2019-08-07 02:20] LABS: ALBUMIN 3.5 g/dL (3.2-5.5); ALBUMIN/GLOBULIN RATIO 1.1 (1.0-2.2); BILIRUBIN,TOTAL 0.6 mg/dL (0.2-1.0); TOTAL PROTEIN 6.7 g/dL (6.7-8.2)
[2019-08-07] MEDS ORDERED: ACETAMINOPHEN 325 MG TABLET PO PRN (02:53)
[2019-08-07] MEDS ORDERED: ONDANSETRON 4 MG/2 ML VIAL IVP PRN (02:53)
[2019-08-07] MEDS ORDERED: SODIUM CHLORIDE FLUSH 0.9% 10 ML SYRINGE IVP PRN (02:53)
[2019-08-07] MEDS ORDERED: DEXTROSE 10% 250 ML IV STA (02:55)
[2019-08-07] MEDS ORDERED: INSULIN REGULAR HUMAN 300 UNIT/3 ML VIAL IVP ONE (02:55)
--- NOTE | 2019-08-07 03:07 | HISTORY & PHYSICAL EXAMINATION ---
Chief Complaint - Chief Complaint Chief Complaint: Confusion History of Present Illness - Admitted From Admitted From:: Home - History Obtained From Records Reviewed: Yes History obtained from: ER Physician, EMR Exam Limitations: Patient is confused and unable to provide a history - History of Present Illness HPI Comment/Other: This is a 83-year-old female with a past medical history significant for seizure, prior stroke, chronic atrial fibrillation on Eliquis, chronic diastolic heart failure, COPD, sleep apnea, cognitive decline who presents today from home as the family was concerned that she is becoming increasingly confused. The patient was admitted here back in early June for new onset seizures and healthcare associated pneumonia as well as atrial fibrillation with rapid ventricular response. She was treated with IV antibiotics for the pneumonia and started on Keppra for her seizures. Her heart rate was controlled metoprolol 50 mg twice daily and Cardizem 100 mg daily. After being hospitalized for 1 week, she was discharged to a [facility] facility. She has been at [facility] since being discharged on July 08. The family states that she was discharged about 1 week ago from [facility]. Family reports that since she has been discharged, her oral intake has decreased and she has become more confused. They state that at baseline, she is confused at times ever since her last 2 hospitalizations but this has progressed over the past few days. She is barely able to participate in a conversation. The patient is unable to provide much of a history as she just mumbles short answers. She is able to tell me she is in [place], [place]. She is able to tell me her date of . She believes it is June 1999. She is able to follow commands at times and is able to move all 4 extremities. She denies that she is in pain. She cannot answer as to why she is in the hospital or what building she is in. There is reportedly at [facility] who was hospitalized this past Tuesday and was found to have COVID-19. It is not clear at the moment if this patient may have potentially been exposed to the virus. The family reports she has been having a cough but this is chronic in nature and is not new. She is not febrile here in the emergency department and her chest x-ray shows mild pulmonary congestion without any obvious infiltrates. She has no white count. Given her altered mental status and delirium, medicine was consulted for admission. I was unable to discuss goals of care with the patient given her mental status but all prior documentation states that she is a DNR. She has recent POLST form which states that she is a DNR with selective treatment. History - Past Medical History Cardiovascular: reports: Congestive heart failure Respiratory: reports: COPD, Sleep apnea, CPAP use Neuro: reports: Dementia, CVA Endocrine/Autoimmune: reports: Other GI: reports: GERD, GI bleed, Chronic diarrhea, Chronic constipation, Diverticulitis, Cholelithiasis, Other TOGGLER: reports: Other : reports: Incontinence HEENT: reports: None Psych: reports: Depression Musculoskeletal: reports: Chronic back pain Derm: reports: Psoriasis MRSA Hx?: No - Past Surgical History General: reports: Cholecystectomy, Colonoscopy, Other /TOGGLER: reports: Hysterectomy - Family & Social History Family History Comment/Other: Review of prior medical records state that she reported no significant family history to her knowledge. Parents in their 80s. Her siblings had no significant medical problems except for obesity. She had 1 daughter who from non-Hodgkin's lymphoma Living arrangement: At home Living Situation: With family Social History Notes: She was recently discharged from [facility]. She has been staying with her daughter and family for the past week. She has been declining from a cognitive standpoint over the past few months. Prior review of records state that she was a smoker in the past but quit over 20 years ago. She never use illicit drugs or alcohol. - Substance History Use: Uses substance without health or social issues: NONE - POLST Patient has POLST: Yes POLST Status: Limited Interventions Meds/Allgy - Home Medications Home Medications: Ambulatory Orders Medication Instructions Recorded Confirmed Telmisartan [Micardis] 40 mg PO DAILY 04/19/15 08/07/19 Nitroglycerin [Nitrostat] 0.4 mg PO [id number] PRN MDD 3 doses 12/30/18 08/07/19 Fluticasone/Salmeterol [Advair 1 inh INH BID 02/13/19 08/07/19 250-50 Diskus] Atorvastatin [Lipitor] 40 mg PO QPM #30 tablet 06/28/19 08/07/19 Apixaban [Eliquis] 5 mg PO BID tablet 07/08/19 08/07/19 Digoxin [Lanoxin] 125 mcg PO DAILY tablet 07/08/19 08/07/19 Furosemide [Lasix] 20 mg PO BIDDIURETIC tablet 07/08/19 08/07/19 Metoprolol Succinate [Toprol Xl] 50 mg PO BID tablet 07/08/19 08/07/19 Nystatin [Nystop] 1 applic TOP BID bottle 07/08/19 08/07/19 Potassium Chloride [K-Dur] 20 meq PO BIDWM tablet 07/08/19 08/07/19 diltiaZEM CD [Cardizem Cd] 180 mg PO DAILY capsule 07/08/19 08/07/19 levETIRAcetam [Keppra] 750 mg PO BID tablet 07/08/19 08/07/19 Mirtazapine 7.5 mg PO DAILY PM 08/07/19 08/07/19 Sertraline [Zoloft] 50 mg PO DAILY PM 08/07/19 08/07/19 - Allergies Allergies/Adverse Reactions: Allergies Allergy/AdvReac Type Severity Reaction Status Date / Time No Known Drug Allergies Allergy Verified 08/07/19 02:17 Review of Systems - All Other Systems All Other Systems: reports: Other (Unable to obtain a review of systems due to her altered mental status. She did deny having any pain.) Prior Level of Functionality: She was just discharged from a skilled facility approximately 1 week ago. She is dependent for her ADLs. Exam - Vital Signs Reviewed Vital Signs: Yes Vital Signs: Vital Signs x48h Temp Pulse Resp BP Pulse Ox 08/06/19 23:37 36.9 C 105 H 16 148/93 H 98 - Physical Exam General Appearance: positive: Mild distress, Lethargic, Other (She is quite lethargic but will open her eyes to command although she quickly goes back to sleep. She will mumble a few words here and there.) Eyes Bilateral: positive: Normal inspection, No lid inflammation, Conjunctivae nml ENT: positive: ENT inspection nml, Dry mucous membranes Neck: positive: Nml inspection Respiratory: positive: No respiratory distress, Other (Diminished breath sounds bilaterally). negative: Wheezes, Rales, Rhonchi Cardiovascular: positive: No murmur, Irregularly irregular, Tachycardia. negative: Systolic murmur, Diastolic murmur Abdomen: positive: Non-tender, Nml bowel sounds, No distention. negative: Tenderness, Guarding, Rebound Skin: positive: No rash, Warm, Dry Extremities: positive: No pedal edema Neurologic/Psychiatric: positive: Disoriented to place, Disoriented to time, Other (She does not appear to have any focal motor deficits. She does follow commands at times. She is able to move all 4 extremities but not always to command. She is able to squeeze my hands with both of her upper extremities. She is able to move her toes. She opens her eyes to command.). negative: Disoriented to person Conclusion/Plan - Problem List (1) Altered mental status Conclusion/Plan: Family reports that she has been increasingly confused over the past few days and is unable to participate in a conversation. She is currently oriented to self but not to location, month, year. She knows what city she is in but does not know why she is at the hospital or that she is even in the hospital. Review of prior records state that she does have confusion at times although this quiana ears to be more significant compared to her baseline. There has been documentation of dementia in the past. Suspect her current delirium may be secondary to dehydration given her elevated BUN and her dry oral mucosa. Her urinalysis is unremarkable. CT of the head has been ordered and is pending. We will hydrate her with IV fluids and avoid sedatives. Check a digoxin level to rule out digoxin toxicity. Delirium precautions. This may ultimately be progression of her underlying dementia given her multiple hospitalizations over the past few months. Qualifiers: Altered mental status type: delirium Qualified Code(s): R41.0 - Disorient ation, unspecified (2) Chronic atrial fibrillation with rapid ventricular response Conclusion/Plan: Rates are elevated in the 110s to 120s. She is in A. fib and EKG shows old right bundle branch block and left anterior fascicular block. Her troponin is only mildly elevated. He is on digoxin, Toprol, diltiazem at home. We will give a one-time dose of Lopressor 5 mg IV now. We will resume her Cardizem and metoprolol. Continue Eliquis. We will hold her digoxin to check a digoxin level given her altered mental status. Monitor her on telemetry. (3) Viral disease exposure Conclusion/Plan: There is a patient at [facility] who was hospitalized at [facility] this past Tuesday and was diagnosed with COVID-19 this past [place]. It is unclear if this patient may have potentially been exposed to the virus or not at this moment. She is afebrile and her x-ray does not reveal infiltrates. We will contact the Department of Health for further guidance. In the meantime, the patient will be placed on droplet precautions. (4) Hyperkalemia Conclusion/Plan: She is hyperkalemic with a potassium of 5.6. She is on potassium supplementation at home. We will give her insulin and dextrose IV. We will recheck labs in the morning. Hold her home potassium supplementation. We will hydrate her with IV fluids. Monitor her renal function and urine output. (5) Elevated troponin Conclusion/Plan: Her troponin is slightly elevated in the mid 20s. All of her prior troponins have been elevated this is actually the lowest it has been over the past 6 months. Her EKG shows an old right bundle branch block and left anterior fascicular block. Unable to obtain good history given her ultimately status although she did deny pain. We will continue to trend her troponin and monitor her on telemetry. Her home beta-nanette and Lipitor have been resumed as well as her Eliquis. (6) Chronic diastolic heart failure Conclusion/Plan: This does not appear to be in exacerbation. Her BNP is in the 200s which is actually the lowest it has been in quite some time. Although her chest x-ray does show some mild pulmonary edema, she is not hypoxic or tachypneic. We will hold her home diuresis given we will be hydrating her. Will start with gentle IV fluids so we do not exacerbate her heart failure. (7) COPD (chronic obstructive pulmonary disease) Conclusion/Plan: Stable and not in exacerbation. She is on Advair at home and we will place her on formoterol and budesonide while hospitalized. Xopenex as needed. Qualifiers: COPD type: unspecified COPD Qualified Code(s): J44.9 - Chronic obstructive pulmonary disease, unspecified (8) HTN (hypertension) Conclusion/Plan: Is slightly hypertensive with systolic in the 140s. Will resume her home metoprolol, diltiazem. Will resume her home Micardis if her creatinine remains stable. Qualifiers: Hypertension type: essential hypertension Qualified Code(s): I10 - Essential (primary) hypertension (9) History of seizure Conclusion/Plan: No evidence of seizure at this moment although we are unable to obtain much of a history from the patient. We will continue her home Keppra. (10) History of CVA (cerebrovascular accident) Conclusion/Plan: She may possibly have vascular dementia secondary to her history of strokes. We will continue her home Lipitor and Eliquis given her atrial fibrillation. - Lab Results Lab results reviewed: Yes Fish Bones: 08/07/19 01:55 08/07/19 01:55 - Diagnostic Imaging Results Diagnostic Imaging Results: positive: Final report reviewed - EKG Results EKG Interpreted Independently: Yes EKG Findings: Her EKG showed a right bundle branch block and left anterior fascicular block. This is unchanged compared to prior EKG. Core Measures - Anticipated LOS I expect patient to be DC'd or transferred within 96 hours.: Yes - Issues Hospital Issues and Management Plan: 83-year-old female who presents with worsening altered mental status. Her labs unremarkable except for hyperkalemia and a mildly elevated BUN. Her troponin is also mildly elevated. We will observe her for further work-up of her altered mental status and hydrate her with IV fluids. - DVT/VTE - Prophylaxis VTE/DVT Device ordered at admit?: Yes VTE/DVT Prophylaxis med ordered at admit?: No Not Ordered - Medical Reason: Not indicated
[2019-08-07] MEDS ORDERED: METOPROLOL 5 MG/5 ML VIAL IVP STA (03:26)
[2019-08-07] MEDS ORDERED: INSULIN REGULAR HUMAN 100 UNIT/1 ML 10 ML MDV ONE (03:30)
--- NOTE | 2019-08-07 03:49 | CT Report ---
Reason: AMS Procedure Date: 08/07/2019 Accession Number: [id number] / [id number] Procedure: CT - HEAD WO CPT Code: Final Report FULL RESULT: EXAM: CT HEAD EXAM DATE: 08/07/2019 03:30 AM. CLINICAL HISTORY: AMS. COMPARISON: HEAD W/O 06/30/2019 9:04 AM. TECHNIQUE: Multiaxial CT images were obtained from the foramen magnum to the vertex. Reformats: Sagittal and coronal. IV contrast: None. In accordance with CT protocol optimization, one or more of the following dose reduction techniques were utilized for this exam: automated exposure control, adjustment of mA and/or KV based on patient size, or use of iterative reconstructive technique. FINDINGS: Parenchyma: No intraparenchymal hemorrhage. No evidence of mass, midline shift, or CT findings of infarction. Villegas-white differentiation is distinct. Right frontoparietal encephalomalacia is again noted consistent with a chronic infarct. Moderate patchy hypodensity is visualized throughout the periventricular, deep and subcortical white matter, nonspecific but likely secondary to chronic microvascular ischemia. Extraaxial Spaces: Stable sulcal prominence due to atrophy. No subdural or epidural collections identified. Ventricles: Mildly prominent due to atrophy, unchanged. Sinuses and Orbits: Imaged paranasal sinuses, orbits, and mastoids show no significant abnormality. Small polyp or mucus retention cyst is noted in the right maxillary sinus. Changes of cataract extraction are noted bilaterally. Bones: No evidence of fracture or calvarial defect. Other: Vascular calcification is visualized in the cavernous segments of the bilateral ICAs. IMPRESSION: 1. No evidence of acute intracranial pathology. 2. Chronic right frontoparietal infarct. 3. Stable diffuse atrophy and white matter changes typical of chronic microvascular ischemia. RADIA
[2019-08-07] MEDS: LACTATED RINGERS 1,000 ML IV SCH ×2 (04:30→16:42)
[2019-08-07 07:05] LABS: BUN - BLOOD UREA NITROGEN 33 mg/dL (6-20); CALCIUM 9.1 mg/dL (8.5-10.3); CARBON DIOXIDE - CO2 23 mmol/L (21-32); CHLORIDE 103 mmol/L (101-111); CREATININE 0.9 mg/dL (0.4-1.0); GFR - MDRD 60 (>89); GLUCOSE 108 mg/dL (70-100); MAGNESIUM 2.1 mg/dL (1.7-2.8); PHOSPHORUS 3.3 mg/dL (2.5-4.6); SODIUM 135 mmol/L (135-145)
[2019-08-07 07:23] LABS: DIGOXIN < 0.2 ng/mL
--- NOTE | 2019-08-07 07:46 | PHARMACY PROGRESS NOTE ---
- Best Possible Medication History Admit Date and Time: 08/07/19 0253 Processed by: Nursing Medication History completed: Yes As the person ultimately responsible for medication therapy, providers are able to order a medication from an existing home medication list in [facility] via the "Reconcile Routine" prior to Confirmation of that medication by account support analyst. Such practice is discouraged except when the physician, in their clinical judgment, deems that a medical need exists for a medication without regard to previous use.
[2019-08-07] MEDS: BUDESONIDE 0.5 MG/2 ML NEB INH SCH ×2 (08:44→22:23)
[2019-08-07] MEDS: FORMOTEROL FUMARATE NEB 20 MCG/2 ML INH SCH ×2 (08:44→22:23)
[2019-08-07] MEDS: LEVALBUTEROL 1.25 MG/3 ML NEB INH PRN ×2 (08:44→22:23)
[2019-08-07] MEDS: diltiaZEM CD 180 MG CAPSULE PO SCH (08:57)
[2019-08-07] MEDS: levETIRAcetam 250 MG TABLET PO SCH ×2 (08:57→21:46)
[2019-08-07] MEDS: METOPROLOL SUCCINATE 50 MG TABLET PO SCH ×2 (08:58→21:46)
[2019-08-07] MEDS: APIXABAN 5 MG TABLET PO SCH ×2 (08:58→21:46)
[2019-08-07] MEDS: SODIUM CHLORIDE FLUSH 0.9% 10 ML SYRINGE IVP SCH ×2 (08:58→16:43)
[2019-08-07] MEDS ORDERED: SERTRALINE 50 MG TABLET PO SCH (11:00)
[2019-08-07] MEDS: LOSARTAN 50 MG TABLET PO SCH (11:38)
[2019-08-07] MEDS: NYSTATIN POWDER 15 GM TOP SCH ×2 (11:53→21:34)
[2019-08-07] MEDS: DIGOXIN 125 MCG TABLET PO SCH (11:53)
[2019-08-07] MEDS: ATORVASTATIN 40 MG TABLET PO SCH ×2 (21:33→21:47)
[2019-08-08] MEDS: SODIUM CHLORIDE FLUSH 0.9% 10 ML SYRINGE IVP SCH ×4 (01:09→23:59)
[2019-08-08] MEDS: LACTATED RINGERS 1,000 ML IV SCH ×2 (05:00→19:19)
[2019-08-08 05:23] LABS: BASOPHILS % (AUTO) 0.5 %; EOSINOPHILS % (AUTO) 0.7 %; HGB - HEMOGLOBIN 14.5 g/dL (12.0-16.0); LYMPHOCYTES # (AUTO) 0.5 10^3/uL (1.5-3.5); LYMPHOCYTES % (AUTO) 12.2 %; MEAN CORPUSCULAR HEMOGLOBIN 28.5 pg (27.0-31.0); MEAN CORPUSCULAR HGB CONC 32.7 g/dL (32.0-36.0); MEAN PLATELET VOLUME 12.4 fL (7.9-10.8); MONOCYTES # (AUTO) 0.5 10^3/uL (0.0-1.0); NEUTROPHILS % (AUTO) 74.4 %; PLT - PLATELET COUNT 146 10^3/uL (130-450); RED BLOOD COUNT 5.09 10^6/uL (4.20-5.40); RED CELL DISTRIBUTION WIDTH 14.3 % (12.0-15.0); WHITE BLOOD COUNT 4.1 x10^3/uL (4.8-10.8)
[2019-08-08 05:30] LABS: CALCIUM 8.9 mg/dL (8.5-10.3); CREATININE 0.9 mg/dL (0.4-1.0)
[2019-08-08] MEDS ORDERED: SODIUM POLYSTYRENE SULFONATE 15 GM/60 ML BOTTLE PO ONE (07:39)
[2019-08-08] MEDS: LOSARTAN 50 MG TABLET PO SCH (08:05)
[2019-08-08] MEDS: DIGOXIN 125 MCG TABLET PO SCH (08:05)
[2019-08-08] MEDS: APIXABAN 5 MG TABLET PO SCH ×2 (08:05→20:44)
[2019-08-08] MEDS: levETIRAcetam 250 MG TABLET PO SCH ×2 (08:05→20:43)
[2019-08-08] MEDS: METOPROLOL SUCCINATE 50 MG TABLET PO SCH ×2 (08:05→20:44)
[2019-08-08] MEDS: diltiaZEM CD 180 MG CAPSULE PO SCH (08:05)
[2019-08-08] MEDS: NYSTATIN POWDER 15 GM TOP SCH ×2 (08:06→20:14)
[2019-08-08] MEDS: LEVALBUTEROL 1.25 MG/3 ML NEB INH PRN (08:15)
[2019-08-08] MEDS: FORMOTEROL FUMARATE NEB 20 MCG/2 ML INH SCH ×2 (08:15→20:13)
[2019-08-08] MEDS: BUDESONIDE 0.5 MG/2 ML NEB INH SCH ×2 (08:15→20:13)
--- NOTE | 2019-08-08 15:30 | PROVIDER PROGRESS NOTE ---
Subjective - Prog Note Date Prog Note Date: 08/08/19 - Subjective Pt reports feeling: Worse Subjective: pt is very confused again. pt pulled her IV out. pt's family declined pt to have IV access any more. palliative care provider Niurka was consulted and she met with pt's DPOA, pt's son, daughters and other pt's family member. their questions and concerns were appropriately answered in the meeting with Niurka and me. pt's DPOA and her family chose discharge with hospice care for pt, focus on comfortable measure for pt with PLOST. hospice care is referred. hospice care will open on tomorrow afternoon. social secretary was consulted as well. Current Medications - Current Medications Current Medications: Active Medications Acetaminophen (Tylenol) 650 mg PO Q4HR PRN PRN Reason: Pain 1 to 4 Last Admin: 08/08/19 08:05 Dose: 650 mg Apixaban (Eliquis) 5 mg PO BID [facility] Last Admin: 08/08/19 08:05 Dose: 5 mg Atorvastatin Calcium (Lipitor) 40 mg PO QPM [facility] Last Admin: 08/07/19 21:47 Dose: Not Given Budesonide (Pulmicort) 0.5 mg INH RTBID [facility] Last Admin: 08/08/19 08:15 Dose: 0.5 mg Digoxin (Lanoxin) 125 mcg PO DAILY [facility] Last Admin: 08/08/19 08:05 Dose: 125 mcg Diltiazem HCl (Cardizem Cd) 180 mg PO DAILY [facility] Last Admin: 08/08/19 08:05 Dose: 180 mg Formoterol Fumarate (Perforomist) 20 mcg INH RTBID [facility] Last Admin: 08/08/19 08:15 Dose: 20 mcg Lactated Ringer's (Lr) 1,000 mls @ 75 mls/hr IV .[id number] [facility] Last Infusion: 08/08/19 09:30 Dose: 0 mls/hr Levalbuterol HCl (Xopenex) 1.25 mg INH Q4H PRN PRN Reason: Shortness of Air/Wheezing Last Admin: 08/08/19 08:15 Dose: 1.25 mg Levetiracetam (Keppra) 750 mg PO BID [facility] Last Admin: 08/08/19 08:05 Dose: 750 mg Losartan Potassium (Cozaar) 50 mg PO DAILY [facility] Last Admin: 08/08/19 08:05 Dose: 50 mg Metoprolol Succinate (Toprol Xl) 50 mg PO BID [facility] Last Admin: 08/08/19 08:05 Dose: 50 mg Nystatin (Nystop) 1 applic TOP BID [facility] Last Admin: 08/08/19 08:06 Dose: 1 applic Ondansetron HCl (Zofran Inj) 4 mg IVP Q6HR PRN PRN Reason: Nausea / Vomiting Sodium Chloride (Normal Saline Flush 0.9%) 10 ml IVP PRN PRN PRN Reason: NEEDED PER PROVIDER ORDERS Last Admin: 08/07/19 04:55 Dose: 10 ml Sodium Chloride (Normal Saline Flush 0.9%) 10 ml IVP 0100,0900,1700 [facility] Last Admin: 08/08/19 16:30 Dose: Not Given Telmisartan [Micardis] 40 mg PO DAILY 04/19/15 Nitroglycerin [Nitrostat] 0.4 mg PO Q5MX3 PRN MDD 3 doses 12/30/18 Fluticasone/Salmeterol [Advair 250-50 Diskus] 1 inh INH BID 02/13/19 Mirtazapine 7.5 mg PO DAILY PM 08/07/19 Sertraline [Zoloft] 50 mg PO DAILY PM 08/07/19 Objective - Vital Signs/Intake & Output Reviewed Vital Signs: Yes Vital Signs: Vital Signs x48h Temp Pulse Pulse Resp BP Pulse Ox 08/08/19 15:02 36.8 C 105 H 20 95 08/08/19 13:00 36.8 C 82 20 111/51 L 96 08/08/19 08:15 105 H 18 08/08/19 07:47 37.4 C 100 16 154/111 H 96 Intake & Output: Intake & Output 08/05/19 08/06/19 08/07/19 08/08/19 23:59 23:59 23:59 23:59 Intake Total 1635 1470.0 Output Total 300 600 Balance 1335 870.0 - Objective General Appearance: positive: No acute distress, Alert. negative: Lethargic Eyes Bilateral: positive: Normal inspection, PERRL, No lid inflammation ENT: positive: ENT inspection nml, Pharynx nml. negative: Purulent nasal drainage Neck: positive: Nml inspection, Thyroid nml, No JVD, Trachea midline. negative: Thyromegaly, Lymphadenopathy (R), Lymphadenopathy (L), Stiff neck, Tracheal deviation Respiratory: positive: Chest non-tender, No respiratory distress. negative: Wheezes, Rales, Rhonchi Cardiovascular: positive: No murmur, No gallop, Irregularly irregular. negative: Extrasystoles, Tachycardia, Bradycardia, JVD present, Systolic murmur, Diastolic murmur Peripheral Pulses: 2+ Radial (R), 2+ Radial (L), 2+ Dorsalis pedis (R), 2+ Dorsalis pedis (L) Abdomen: positive: Non-tender, No organomegaly, Nml bowel sounds, No distention. negative: Tenderness, Guarding, Rebound Back: positive: Nml inspection Skin: positive: Color nml, No rash, Warm, Dry. negative: Cyanosis Extremities: positive: Non-tender. negative: Calf tenderness, Courtney's sign/cords Neurologic/Psychiatric: negative: Weakness, Sensory loss, Facial droop, Slur red/abnml speech - Lab Results Fish Bones: 08/09/19 05:05 08/09/19 05:05 Other Labs: Lab Results x24hrs 08/08/19 08/08/19 08/07/19 Range/Units 04:45 04:45 10:56 WBC 4.1 L (4.8-10.8) x10^3/uL RBC 5.09 (4.20-5.40) 10^6/uL Hgb 14.5 (12.0-16.0) g/dL Hct 44.3 (37.0-47.0) % MCV 87.0 (81.0-99.0) fL MCH 28.5 (27.0-31.0) pg MCHC 32.7 (32.0-36.0) g/dL RDW 14.3 (12.0-15.0) % Plt Count 146 (130-450) 10^3/uL MPV 12.4 H (7.9-10.8) fL Neut # (Auto) 3.0 (1.5-6.6) 10^3/uL Lymph # (Auto) 0.5 L (1.5-3.5) 10^3/uL [place] # (Auto) 0.5 (0.0-1.0) 10^3/uL Eos # (Auto) 0.0 (0.0-0.7) 10^3/uL Baso # (Auto) 0.0 (0.0-0.1) 10^3/uL Absolute Nucleated RBC 0.00 x10^3/uL Nucleated RBC % 0.0 /100WBC Sodium 138 (135-145) mmol/L Potassium 5.3 H (3.5-5.0) mmol/L Chloride 105 (101-111) mmol/L Carbon Dioxide 24 (21-32) mmol/L Anion Gap 9.0 (6-13) BUN 21 H (6-20) mg/dL Creatinine 0.9 (0.4-1.0) mg/dL Estimated GFR (MDRD) 60 L (>89) Glucose 109 H (70-100) mg/dL Calcium 8.9 (8.5-10.3) mg/dL Ref Lab Test Result REPORT ABX Reporting Has patient been on IV antibiotics over the past 48 hours?: No Assessment/Plan - Problem List (1) Hospice care Impression: pt had multiple times admission for altered mental status change. pt present a dvanced vascular dementia, diastolic heart failure, afib with difficult controlled RVR, stroke, recently developed seizure, poor oral intake, failure to thrive with significant weight loss, bedbound, easy irritated. now pt is confused again, and pulled her IV. pt's DPOA, son and other pt's family member request hospice care for pt. hospice care is referral, hospice care will open on tomorrow afternoon, plan d/c on tomorrow afternoon to her home for hospice care. (2) Failure to thrive pt presetn poor intake, multiple comorbidities, frequent hospitalizations. Patient has had 8% weight loss, continues to present with decreased intake, admitted with dehydration as well. (3)advanced vascular dementia pt had recent stroke. pt's daughter report pt's cognitive and memory declined dramatically recently, and often confused, she is unable to participate in a conversation. she can not care for herself at all. pt has hx of stroke, and recently developed seizure as well. family chose hospice car for pt, plan d/c on tomorrow for hospice care. (4)hx of stroke pt had hx of stroke. after stroke, pt developed seizure, and now pt's cognitive decline dramatically. DPAO chose hospice car for pt, plan d/c on tomorrow for hospice care. (5) Altered mental status Conclusion/Plan: Family reports that she has been increasingly confused over the past few days and is unable to participate in a conversation, and easy irritated. pt's advanced dementia presented with her multiple hospitalizations over the past few months. DPAO chose hospice car for pt, plan d/c on tomorrow for hospice care. (6) diastolic heart failure pt's ECHO on last admission about one month ago showed diastolic heart failure. Now pt present dehydration, pt is given IVF of NS. but pt pulled her IV access, and family declined to have IV access for pt any more. DPAO chose hospice car for pt, plan d/c on tomorrow for hospice care. (7) Chronic atrial fibrillation with rapid ventricular response Conclusion/Plan: difficult to be controlled on last admission, which lead pt long during at the hospital. Now pt took Metoprolol, Cardizem and digoxin (8) Viral disease exposure There is a patient at [facility] who was hospitalized at [facility] this past Tuesday and was diagnosed with COVID-19 this past Tuesday. Per pt's daughter report [facility] is large facility. The location pt was living is far away from that positive pt's location. pt did not present respiratory distress. pt has 97% sats on room air. pt did not have cough on today and did not show SOB. CXR reveals improved compared with last admission with her pneumonia. pt's Covid 19 virus test was sent out for test. advised and informed pt's DPOA and her family the prevention precaution, and [place] about Covid 19 documentation was given to pt's DPAO. pt's DPOA and family 's questions was appropriately answered. Test result will inform to pt's family by hospital as soon as hospital has. (9) Hyperkalemia improved. today K is 5.3. pt's home potassium supplement is hold now. (10) Elevated troponin Conclusion/Plan: pt has chronic slight elevated troponin. chronic (11) COPD (chronic obstructive pulmonary disease) Conclusion/Plan: pt was not in exacerbation. She is on Advair at home and we will place her on formoterol and budesonide while hospitalized. Xopenex as needed. (12) HTN (hypertension) Conclusion/Plan: resume her home metoprolol, diltiazem, stable (13) History of seizure Conclusion/Plan: continue her home Keppra, stable without acute seizure.
--- NOTE | 2019-08-08 17:51 | CONSULTATION NOTE ---
Palliative Care Consultation - Referral Referring Provider: Jerod ADAN Time of Visit: [id number] Referral setting: Hospitalized patient Referral Reason: Dementia/FTT/Goals of Care - Information Sources Records reviewed: RN notes reviewed, Previous records reviewed History/Review of Systems obtained from: Family (son Servando COATS and ; daughter Samantha main caregiver; Melia daughter lives in [place]), Caregiver (clinical staff/team) Exam limitations: Clinical condition (patient confused; worsening dementia) - History of Present Illness Brief History of Present Illness: This is an unfortunate 83-year-old woman who presents with failure to thrive, worsening dementia, bedbound status, and most recently admitted acutely with worsening metabolic encephalopathy, dehydration, and significant weight loss over the last several months. On admit 07/08 she was 106.5 kg, today she is 84.5. Her family reports she has had ongoing decline physically over these last several months. She did have an admit in December 2018 for an acute cerebrovascular accident with left body weakness, acute on chronic diastolic congestive heart failure, and did return to some improvement of function, and was transferred to the retirement facility for support. She never return to previous level of functioning, but was able to return home. She also had a stay in January 2019 at [facility] in [place], from acute respiratory failure with COPD exacerbation, atrial fib with RVR, and acute diastolic failure. She did transition home at that point in time, but was started on new medications, and was not taking them on a regular basis, and had another admit in with cardiac issues regarding atrial fib with RVR, junctional bradycardia, acute on chronic diastolic heart failure at that time, as well as worsening ischemic/vascular dementia, and concerned about compliance with her CPAP as well. She was at [facility], again but readmitted fairly quickly with another admit on zero 0, from the SNF, where she was brought in for respiratory distress atrial for both RVR, and seizures. They then discharged her this time to [facility]. She was discharged about 8 days ago, as she had not made any progress, had become weaker, was mostly bedbound, and she continued to deteriorate at home. They had hoped to transition her to a Medicaid bed, but unfortunately there were no openings at that point in time. They were able to initiate home health, but his patient's altered mental status worsened, intake continued to be poor, she then was acutely admitted to [facility] and an op stay on 08/07/19. To make things more complicated, Nahomy[facility]cooper had a patient that did transition to the hospital with Covid19, when they had called the facility to access more help, as it had been a poor discharge, they found it to be on lockdown. Patient does not have fever, has chronic cough effort, but no dry or moist cough noted or on exam, white count has been within normal limits, patient's chest x-ray was negative, unfortunately specimen sent for testing has been compromised in route, and new test was sent out this morning. She has been on droplet precautions, but suspect given her risk of exposure was low, and no symptomology, hopeful it is negative. Patient presents today is disoriented to place, she is able to recognize her children who came in, she does not initiate any conversations and is easily irritated. She had lost her IV access, she is a very difficult stick, and at this point is causing more harm than good. She wants to be left alone and just to sleep. She denies nausea, she does appear uncomfortable though denies pain. She is not willing to engage much in conversation, her lungs are clear, abdomen is soft, no lower extremity edema. She does seem mildly agitated, but not in acute distress. Palliative care has been asked to meet with the family regarding goals of care, as patient does present with failure to thrive with significant weight loss, continued poor intake, no underlying etiology other than her progressive dementia, and most likely not expected improvement in her functional or cognitive status. 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 Over the last several months, she has not been able to be left alone, needs supervision regarding her medications, and now with functional decline needs assistance with all ADLs. [place] her care needs were overwhelming particularly if she needed transferring or moving, she was quite weak difficult with cueing, and nursing reports patient has poor bed mobility and difficult following directions as well. Patient has been bedbound since she has been here, most likely will continue, does have a W ick catheter. Patient's son Servando, lives and works in [place], he is the D POA but they are participating in shared decision making as far as goals of care today. Family History - Family History Family History: Mother: (daughter from cancer), Father: , Other family: Medications/Allergies - Medications Active Medication List: Active Medications Acetaminophen (Tylenol) 650 mg PO Q4HR PRN PRN Reason: Pain 1 to 4 Last Admin: 08/08/19 08:05 Dose: 650 mg Apixaban (Eliquis) 5 mg PO BID [facility] Last Admin: 08/08/19 08:05 Dose: 5 mg Atorvastatin Calcium (Lipitor) 40 mg PO QPM [facility] Last Admin: 08/07/19 21:47 Dose: Not Given Budesonide (Pulmicort) 0.5 mg INH RTBID [facility] Last Admin: 08/08/19 08:15 Dose: 0.5 mg Digoxin (Lanoxin) 125 mcg PO DAILY [facility] Last Admin: 08/08/19 08:05 Dose: 125 mcg Diltiazem HCl (Cardizem Cd) 180 mg PO DAILY [facility] Last Admin: 08/08/19 08:05 Dose: 180 mg Formoterol Fumarate (Perforomist) 20 mcg INH RTBID [facility] Last Admin: 08/08/19 08:15 Dose: 20 mcg Lactated Ringer's (Lr) 1,000 mls @ 75 mls/hr IV .[id number] [facility] Last Infusion: 08/08/19 09:30 Dose: 0 mls/hr Levalbuterol HCl (Xopenex) 1.25 mg INH Q4H PRN PRN Reason: Shortness of Air/Wheezing Last Admin: 08/08/19 08:15 Dose: 1.25 mg Levetiracetam (Keppra) 750 mg PO BID [facility] Last Admin: 08/08/19 08:05 Dose: 750 mg Losartan Potassium (Cozaar) 50 mg PO DAILY [facility] Last Admin: 08/08/19 08:05 Dose: 50 mg Metoprolol Succinate (Toprol Xl) 50 mg PO BID [facility] Last Admin: 08/08/19 08:05 Dose: 50 mg Nystatin (Nystop) 1 applic TOP BID [facility] Last Admin: 08/08/19 08:06 Dose: 1 applic Ondansetron HCl (Zofran Inj) 4 mg IVP Q6HR PRN PRN Reason: Nausea / Vomiting Sodium Chloride (Normal Saline Flush 0.9%) 10 ml IVP PRN PRN PRN Reason: NEEDED PER PROVIDER ORDERS Last Admin: 08/07/19 04:55 Dose: 10 ml Sodium Chloride (Normal Saline Flush 0.9%) 10 ml IVP 0100,0900,1700 [facility] Last Admin: 08/08/19 16:30 Dose: Not Given Telmisartan [Micardis] 40 mg PO DAILY 04/19/15 Nitroglycerin [Nitrostat] 0.4 mg PO Q5MX3 PRN MDD 3 doses 12/30/18 Fluticasone/Salmeterol [Advair 250-50 Diskus] 1 inh INH BID 02/13/19 Mirtazapine 7.5 mg PO DAILY PM 08/07/19 Sertraline [Zoloft] 50 mg PO DAILY PM 08/07/19 - Allergies Allergies/Adverse Reactions: Allergies Allergy/AdvReac Type Severity Reaction Status Date / Time No Known Drug Allergies Allergy Verified 08/07/19 02:17 Review of Systems - Constitutional Constitutional: reports: Fatigue, Weight loss (106.5 on 06/30; today 84.5 8% wt loss in 1 month). denies: Fever - Eyes Eyes: reports: Vision loss - Ears, Nose & Throat Ears, Nose & Throat: reports: Hearing loss, Dry mouth - Cardiovascular Cardiovascular: reports: Exertional dyspnea, Decr. exercise tolerance - Respiratory Respiratory: reports: Cough (chronic mild COPD). denies: SOB at rest - Gastrointestinal Gastrointestinal: reports: Diarrhea, Other (minimal intake bites only; spitting out pills; was having more difficulty taking) - Genitourinary Genitourinary: reports: Incontinence, Other (in transition to hospice would like benito catheter for comfort) - Musculoskeletal Musculoskeletal: reports: Stiffness, Limited range of motion, Muscle weakness - Integumentary Integumentary: reports: Dryness - Neurological Neurological: reports: General weakness, Memory problems, Slurred speech - Psychiatric Psychiatric: reports: Depression, Anxiety, Hallucinations - Endocrine Endocrine: reports: Intolerance to cold - All Other Systems All Other Systems: reports: Other (limited ROS) Physical Exam - Vital Signs Vital Signs: Vital Signs x48h Temp Pulse Pulse Resp BP BP Pulse Ox 08/08/19 16:34 37.1 C 71 16 146/68 H 97 08/08/19 15:02 36.8 C 105 H 20 95 08/08/19 13:00 36.8 C 82 20 111/51 L 96 - Physical Exam General Appearance: positive: Mild distress, Lethargic Eyes Bilateral: positive: Other (keeps eyes closed most of time) ENT: positive: Other (edentulous) Neck: positive: No JVD, Trachea midline Cardiovascular: positive: Irregularly irregular, Tachycardia Respiratory: positive: No respiratory distress, Diminished in bases. negative: Wheezes, Rales, Rhonchi Abdomen: positive: Non-tender, Soft, Nml bowel sounds Skin: positive: Pallor, Bruising, Other (poor venous access; multiple UE pokes) Extremities: positive: No pedal edema Neurologic/Psychiatric: positive: Disoriented to place, Disoriented to time, Weakness, Slurred/abnml speech, Depressed mood/affect, Flat affect Palliative Care - POLST Patient has POLST: Yes POLST Status: DNR, Comfort Measures (completed with new goals for comfort) Pain: Pain worsening, Location (patient denies pain; but appears uncomfortable even with repositioning;) Tiredness/Fatigue: Severe (7-10), Comment (patient repeats "I am tired, I just w ant to sleep") Drowsiness/Sedation: Moderate (4-6) Nausea: None Anorexia: Severe (7-10), Weight loss Dyspnea: None Anxiety: Mild (1-3) Feelings of wellbeing/Perceived Quality of Life: Poor, Worsening, Comment (families perception has continued to deteriorate and quickly over last several weeks) Performance Status: Patient has been declining functionally rapidly last few weeks since last hospitalization; made no improvements at SNF for rehab, continued to be mostly bedbound at home this last week. - Palliative Care Discussion: Met with son darshan HASSAN, Claudia primary caregiver and other daughter as well as trucks for family conference. Reviewed patient's changes in decline since stroke, increasing care needs, feeling overwhelmed with her most recent deterioration. Introduced goals of care, what would be most important, patient does not have the funds to be placed, has initiated the [place] P[place] application, with the hope for placement at last SNF stay, but did not have a bed. Discussed in the context of patient's weight loss, worsening dementia, multiple hospital izations and comorbidities, and patient's failure to thrive the continuum of care, including focus on comfort focused care. Counseling provided regarding hospice and the hospice benefit, allowing natural with a comfort on focus and comfort eating, versus IVs recurrent hospitalizations. Reviewed hospice benefit of what it covers, but does not cover room and board. In the context of patient's ongoing fairly rapid decline, most recent hospitalization with dehydration, and poor intake would expect patient with a prognosis of days to weeks. They did feel if this was indeed her course, it would like to have her at home, Claudia felt if she was bedbound had a Benito and had hospice support she would be able to meet her needs. Their goal is to keep her comfortable, not to prolong her suffering, and have a comfortable respectful at home. This was communicated to the hospitalist, check did want to hear further his opinion on prognosis and patient's current condition, they were satisfied with information and felt prepared to move forward. Hospice referral made, POLST with focus on comfort and DNR completed with Srevando. Goals is to get equipment and Hospice set up for tomorrow evening. Been patient's poor venous access, and transition to comfort, will not restart IVs tonight. Results - Lab Results Lab results reviewed: Yes Fish Bones: 08/08/19 04:45 08/08/19 04:45 Lab and Imaging Results: Lab Results x24hrs 08/08/19 08/08/19 08/07/19 Range/Units 04:45 04:45 10:56 WBC 4.1 L (4.8-10.8) x10^3/uL RBC 5.09 (4.20-5.40) 10^6/uL Hgb 14.5 (12.0-16.0) g/dL Hct 44.3 (37.0-47.0) % MCV 87.0 (81.0-99.0) fL MCH 28.5 (27.0-31.0) pg MCHC 32.7 (32.0-36.0) g/dL RDW 14.3 (12.0-15.0) % Plt Count 146 (130-450) 10^3/uL MPV 12.4 H (7.9-10.8) fL Neut # (Auto) 3.0 (1.5-6.6) 10^3/uL Lymph # (Auto) 0.5 L (1.5-3.5) 10^3/uL [place] # (Auto) 0.5 (0.0-1.0) 10^3/uL Eos # (Auto) 0.0 (0.0-0.7) 10^3/uL Baso # (Auto) 0.0 (0.0-0.1) 10^3/uL Absolute Nucleated RBC 0.00 x10^3/uL Nucleated RBC % 0.0 /100WBC Sodium 138 (135-145) mmol/L Potassium 5.3 H (3.5-5.0) mmol/L Chloride 105 (101-111) mmol/L Carbon Dioxide 24 (21-32) mmol/L Anion Gap 9.0 (6-13) BUN 21 H (6-20) mg/dL Creatinine 0.9 (0.4-1.0) mg/dL Estimated GFR (MDRD) 60 L (>89) Glucose 109 H (70-100) mg/dL Calcium 8.9 (8.5-10.3) mg/dL Ref Lab Test Result REPORT Impression and Recommendations - Palliative Care Impression: This is an 83-year-old woman who has had a series of unfortunate events, including now on her fifth hospitalization including December for stroke, including 3 SNF stays, and now presents with altered mental status, weight loss, functional loss with bedbound status, more difficulty swallowing and no identifiable underlying etiology but with recent seizures, suspected worsening vascular dementia and sequela related to this. Palliative care meeting with family to identify goals of care, after family conference, decision was made to transition to comfort care and hospice on discharge. Recommendations/Counseling Done: 1. Failure to thrive. This is multifactorial in origin, including functional decline, worsening vascular dementia, multiple comorbidities, frequent hospitalizations, and poor intake. Patient has had 8% weight loss, continues to present with decreased intake, admitted with dehydration. Counseling provided regarding comfort feeding, offer food and fluids for comfort only, recognizing patient will continue to decrease her intake, and focuses on safety and enjoyment. 2. Acute on chronic heart failure. No exacerbation noted significantly of her heart failure, counseling provided regarding comfort at end-of-life, continue cardiac meds as long as patient able to swallow and are providing benefit. Patient has had shortness of breath and lower extremity edema concern for her comfort. 3. Seizure history. Patient currently on Keppra, worried about recurrent seizures, did discuss in the context for end-of-life, we do have short acting m edications i.e. lorazepam, and also can give the Keppra to the [place]'s catheter rectally to prevent any distress regarding patient's decline and end-of-life. 4. Advanced care planning. Family conference including Jerod ADAN at last portion, to discuss the continuum of care including discharge with support, patient would not meet criteria for SNF, or if goals consistent transition home with hospice support. Patient has had rapid decline, would not be surprised the patient dies in the next 6 months, most likely has days to weeks at the most particular with decreasing intake. After family meeting, decision was made to transition to comfort and to hospice support. Recommendation to initiate comfort medications available at this point in time, as patient does seem uncomfortable and also easily agitated. This is communicated to hospice as they did have an opening tomorrow afternoon, will have the equipment delivered tomorrow, will need BLS transport. Questions answered and review of hospice benefit and services. POLST was completed for DNA R/comfort measures with VAHID Al. Patient will need benito catheter placed and comfort medications sent to [facility] prior to discharge to allow teaching and access when patient is delivered to home setting. Time Spent: 75 minutes with greater than 50% of this done in counseling regarding the continuum of care, comfort care and transition to hospice. Goals of care and family planning meeting, and anticipatory guidance provided. Coordination of care with hospice, hospitalist, and clinical team.
[2019-08-08] MEDS: ATORVASTATIN 40 MG TABLET PO SCH (20:44)
[2019-08-09 05:22] LABS: BASOPHILS % (AUTO) 0.2 %; EOSINOPHILS % (AUTO) 0.7 %; HGB - HEMOGLOBIN 13.4 g/dL (12.0-16.0); LYMPHOCYTES # (AUTO) 0.4 10^3/uL (1.5-3.5); LYMPHOCYTES % (AUTO) 8.5 %; MEAN CORPUSCULAR HGB CONC 31.8 g/dL (32.0-36.0); MEAN CORPUSCULAR VOLUME 84.9 fL (81.0-99.0); MEAN PLATELET VOLUME 11.6 fL (7.9-10.8); MONOCYTES # (AUTO) 0.4 10^3/uL (0.0-1.0); MONOCYTES % (AUTO) 7.9 %; NEUTROPHILS # (AUTO) 3.8 10^3/uL (1.5-6.6); NEUTROPHILS % (AUTO) 82.5 %; PLT - PLATELET COUNT 145 10^3/uL (130-450); RED BLOOD COUNT 4.97 10^6/uL (4.20-5.40); RED CELL DISTRIBUTION WIDTH 14.2 % (12.0-15.0); WHITE BLOOD COUNT 4.6 x10^3/uL (4.8-10.8)
[2019-08-09 05:30] LABS: CALCIUM 8.5 mg/dL (8.5-10.3); CREATININE 0.7 mg/dL (0.4-1.0)
[2019-08-09] MEDS: BUDESONIDE 0.5 MG/2 ML NEB INH SCH (08:27)
[2019-08-09] MEDS: FORMOTEROL FUMARATE NEB 20 MCG/2 ML INH SCH (08:27)
[2019-08-09 08:33] VITALS: BP 148/85
[2019-08-09] MEDS: LACTATED RINGERS 1,000 ML IV SCH (08:59)
[2019-08-09] MEDS: levETIRAcetam 250 MG TABLET PO SCH (11:02)
[2019-08-09] MEDS: APIXABAN 5 MG TABLET PO SCH (11:02)
[2019-08-09] MEDS: diltiaZEM CD 180 MG CAPSULE PO SCH (11:02)
[2019-08-09] MEDS: DIGOXIN 125 MCG TABLET PO SCH (11:02)
[2019-08-09] MEDS: LOSARTAN 50 MG TABLET PO SCH (11:03)
[2019-08-09] MEDS: METOPROLOL SUCCINATE 50 MG TABLET PO SCH (11:03)
[2019-08-09] MEDS: SODIUM CHLORIDE FLUSH 0.9% 10 ML SYRINGE IVP SCH (11:03)
[2019-08-09] MEDS ORDERED: LORazepam 1 MG TABLET SL ONE (12:00)
--- NOTE | 2019-08-09 12:32 | Discharge Plan ---
Discharge Plan Problem Reviewed?: Yes Disposition: 50 Hospice/Home DC/Xfer Condition: Serious Prescriptions: LORazepam [Ativan] 0.5 mg PO Q6H PRN #15 tablet PRN Reason: Anxiety Morphine Sulfate [Morphine Sulf Oral (Roxanol)] 5 mg PO Q4H PRN #30 ml PRN Reason: Pain/Dyspnea Instruction Topics: Hospice Health Concerns: hospice care Plan of Treatment: followup hospice team for hospice care Care Goals: comfortable with hospice care Assessment: discussed with pt's DPOA and pt's family, DPOA and pt's family agreed to be d/c with hospice care. Additional Instructions or Follow Up instructions: pt may followup hospice care after d/c No Smoking: If you smoke, Please STOP! Call for help. Follow-up with: Daljit Brizuela MD [Primary Care Provider] -
--- NOTE | 2019-08-09 12:36 | DISCHARGE SUMMARY ---
"Discharge Summary Admit Date: 08/07/19 Discharge Date: 08/09/19 Discharging Provider: Jerod Parry Primary Care Provider: Dr. Brizuela Condition at Discharge: Serious Discharge Disposition: 50 Hospice/Home DC/Xfer Discharge Facility Name: home - DIAGNOSES Admission Diagnoses: (1) Altered mental status (2) Chronic atrial fibrillation with rapid ventricular response (3) Viral disease exposure (4) Hyperkalemia (5) Elevated troponin (6) Chronic diastolic heart failure (7) COPD (chronic obstructive pulmonary disease) (8) HTN (hypertension) (9) History of seizure (10) History of CVA (cerebrovascular accident) Discharge Diagnoses with Status of Each Condition: (1) Hospice care pt had multiple times admission for altered mental status change. pt present advanced vascular dementia, diastolic heart failure, afib with difficult controlled RVR, stroke, recently developed seizure, poor oral intake, failure to thrive with significant weight loss, bedbound, easy irritated. now pt is confused again, and pulled her IV. pt's DPOA, son and other pt's family member request hospice care for pt. hospice care is referral, hospice care will open on tomorrow afternoon, plan d/c on tomorrow afternoon to her home for hospice care. (2) Failure to thrive Followup hospice care. pt presetn poor intake, multiple comorbidities, frequent hospitalizations. Patient has had 8% weight loss, continues to present with decreased intake, admitted with dehydration as well. (3)advanced vascular dementia pt had recent stroke. pt's daughter report pt's cognitive and memory declined dramatically recently, and often confused, she is unable to participate in a conversation. she can not care for herself at all. pt has hx of stroke, and recently developed seizure as well. family chose hospice car for pt (4)hx of stroke pt had hx of stroke. after stroke, pt developed seizure, and now pt's cognitive decline dramatically. DPAO chose hospice car for pt (5) Altered mental status Conclusion/Plan: pt is more confused, and refused to take any medications today. Family reports that she has been increasingly confused over the past few days and is unable to participate in a conversation, and easy irritated. pt's advanced dementia presented with her multiple hospitalizations over the past few months. DPAO chose hospice car for pt. (6) diastolic heart failure pt's ECHO on last admission about one month ago showed diastolic heart failure. DPAO chose hospice car for pt (7) Chronic atrial fibrillation with rapid ventricular response Conclusion/Plan: pt refused to take her home meds of Metoprolol, Cardizem and digoxin, followup hospice care. (8) Viral disease exposure Covid 19 test still did not come back yet at pt was discharge. There is a patient at [facility] who was hospitalized at [facility] this past Tuesday and was diagnosed with COVID-19 this past Tuesday. Per pt's daughter report [facility] is large facility. The location pt was living is far away from that positive pt's location. pt did not present respiratory distress. pt has 97% sats on room air. pt did not have cough on today and did not show SOB. CXR reveals improved compared with last admission with her pneumonia. pt's Covid 19 virus test was sent out for test. advised and informed pt's DPOA and her family the prevention precaution, and [place] [employer] about Covid 19 documentation was given to pt's DPAO. pt's DPOA and family's questions was appropriately answered. Test result will be informed to pt's family by hosp ital as soon as hospital has. (9) Hyperkalemia resolved (10) Elevated troponin pt has chronic slight elevated troponin. chronic (11) COPD (chronic obstructive pulmonary disease) pt was not in exacerbation. followup hospice care (12) HTN (hypertension) chronic (13) History of seizure chronic, no acute seizure. - HPI History of Present Illness: refer from Dr. Field's HPI on 08/07/2019 This is a 83-year-old female with a past medical history significant for seizure, prior stroke, chronic atrial fibrillation on Eliquis, chronic diastolic heart failure, COPD, sleep apnea, cognitive decline who presents today from home as the family was concerned that she is becoming increasingly confused. The patient was admitted here back in early June for new onset seizures and healthcare associated pneumonia as well as atrial fibrillation with rapid ventricular response. She was treated with IV antibiotics for the pneumonia and started on Keppra for her seizures. Her heart rate was controlled metoprolol 50 mg twice daily and Cardizem 100 mg daily. After being hospitalized for 1 week, she was discharged to a snf facility. She has been at [facility] since being discharged on July 08. The family states that she was discharged about 1 week ago from [facility]. Family rep orts that since she has been discharged, her oral intake has decreased and she has become more confused. They state that at baseline, she is confused at times ever since her last 2 hospitalizations but this has progressed over the past few days. She is barely able to participate in a conversation. The patient is unable to provide much of a history as she just mumbles short answers. She is able to tell me she is in [place], [place]. She is able to tell me her date of . She believes it is June 1997. She is able to follow commands at times and is able to move all 4 extremities. She denies that she is in pain. She cannot answer as to why she is in the hospital or what rajan lding she is in. There is reportedly at [facility] who was hospitalized this past Tuesday and was found to have COVID-19. It is not clear at the moment if this patient may have potentially been exposed to the virus. The family reports she has been having a cough but this is chronic in nature and is not new. She is not febrile here in the emergency department and her chest x-ray shows mild pulmonary congestion without any obvious infiltrates. She has no white count. Given her altered mental status and delirium, medicine was consulted for admission. I was unable to discuss goals of care with the patient given her mental status but all prior documentation states that she is a DNR. She has recent POLST form which states that she is a DNR with selective treatment. - CONSULTS | PROCEDURES Consultations: consulted with palliative care Niurka Saavedra, hospice care, Procedures: d/c with hospice care. - HOSPITAL COURSE Hospital Course: pt was admitted for increasingly confused. pt recently had multiple admission for altered mental status. pt became more confused in hospital, she pulled out her IV access. Pt's family refused pt have another one. pt refused to take meds, refused to eat and drink today. CT of head was unremarkable for acute finding. pt present advanced vascular dementia, diastolic heart failure, afib with difficult controlled RVR, stroke, recently developed seizure, poor oral intake, failure to thrive with significant weight loss, bedbound, easy irritated. pt was consulted with palliative care. Finally pt's DPOA and her family together made the decision to d/c with hospice care. The detail hospital course care is as the below (1) Hospice care pt had multiple times admission for altered mental status change. pt present advanced vascular dementia, diastolic heart failure, afib with difficult controlled RVR, stroke, recently developed seizure, poor oral intake, failure to thrive with significant weight loss, bedbound, easy irritated. now pt is confused again, and pulled her IV. pt's DPOA, son and other pt's family member request hospice care for pt. hospice care is referral, hospice care will open on tomorrow afternoon, plan d/c on tomorrow afternoon to her home for hospice care. (2) Failure to thrive Followup hospice care. pt presetn poor intake, multiple comorbidities, frequent hospitalizations. Patient has had 8% weight loss, continues to present with decreased intake, admitted with dehydration as well. (3)advanced vascular dementia pt had recent stroke. pt's daughter report pt's cognitive and memory declined dramatically recently, and often confused, she is unable to participate in a conversation. she can not care for herself at all. pt has hx of stroke, and recently developed seizure as well. family chose hospice car for pt (4)hx of stroke pt had hx of stroke. after stroke, pt developed seizure, and now pt's cognitive decline dramatically. DPAO chose hospice car for pt (5) Altered mental status Conclusion/Plan: pt is more confused, and refused to take any medications today. Family reports that she has been increasingly confused over the past few days and is unable to participate in a conversation, and easy irritated. pt's advanced dementia presented with her multiple hospitalizations over the past few months. DPAO chose hospice car for pt. (6) diastolic heart failure pt's ECHO on last admission about one month ago showed diastolic heart failure. DPAO chose hospice car for pt (7) Chronic atrial fibrillation with rapid ventricular response Conclusion/Plan: pt refused to take her home meds of Metoprolol, Cardizem and digoxin, followup hospice care. (8) Viral disease exposure Covid 19 test still did not come back yet at pt was discharge. There is a patient at [facility] who was hospitalized at [facility] this past Tuesday and was diagnosed with COVID-19 this past Tuesday. Per pt's daughter report [facility] is large facility. The location pt was living is far away from that positive pt's location. pt did not present respiratory distress. pt has 97% sats on room air. pt did not have cough on today and did not show SOB. CXR reveals improved compared with last admission with her pneumonia. pt's Covid 19 virus test was sent out for test. advised and informed pt's DPOA and her family the prevention precaution, and [place] about Covid 19 documentation was given to pt's DPAO. pt's DPOA and family's questions was appropriately answered. Test result will be informed to pt's family by hospital as soon as hospital has. (9) Hyperkalemia resolved (10) Elevated troponin pt has chronic slight elevated troponin. chronic (11) COPD (chronic obstructive pulmonary disease) pt was not in exacerbation. followup hospice care (12) HTN (hypertension) chronic (13) History of seizure chronic, no acute seizure. - ALLERGIES Allergies/Adverse Reactions: Allergies Allergy/AdvReac Type Severity Reaction Status Date / Time No Known Drug Allergies Allergy Verified 08/07/19 02:17 - MEDICATIONS Home Medications: Ambulatory Orders Medication Instructions Recorded Confirmed Telmisartan [Micardis] 40 mg PO DAILY 04/19/15 08/07/19 Nitroglycerin [Nitrostat] 0.4 mg PO [id number] PRN MDD 3 doses 12/30/18 08/07/19 Fluticasone/Salmeterol [Advair 1 inh INH BID 02/13/19 08/07/19 250-50 Diskus] Atorvastatin [Lipitor] 40 mg PO QPM #30 tablet 06/28/19 08/07/19 Apixaban [Eliquis] 5 mg PO BID tablet 07/08/19 08/07/19 Digoxin [Lanoxin] 125 mcg PO DAILY tablet 07/08/19 08/07/19 Furosemide [Lasix] 20 mg PO BIDDIURETIC tablet 07/08/19 08/07/19 Metoprolol Succinate [Toprol Xl] 50 mg PO BID tablet 07/08/19 08/07/19 Nystatin [Nystop] 1 applic TOP BID bottle 07/08/19 08/07/19 Potassium Chloride [K-Dur] 20 meq PO BIDWM tablet 07/08/19 08/07/19 diltiaZEM CD [Cardizem Cd] 180 mg PO DAILY capsule 07/08/19 08/07/19 levETIRAcetam [Keppra] 750 mg PO BID tablet 07/08/19 08/07/19 Mirtazapine 7.5 mg PO DAILY PM 08/07/19 08/07/19 Sertraline [Zoloft] 50 mg PO DAILY PM 08/07/19 08/07/19 LORazepam [Ativan] 0.5 mg PO Q6H PRN #15 tablet 08/09/19 Morphine Sulfate [Morphine Sulf 5 mg PO Q4H PRN #30 ml 08/09/19 Oral (Roxanol)] - PHYSICAL EXAM AT DISCHARGE General Appearance: positive: No acute distress, Alert, Lethargic Eyes Bilateral: positive: Normal inspection ENT: positive: ENT inspection nml, Dry mucous membranes Neck: positive: Nml inspection, Thyroid nml. negative: Tracheal deviation Respiratory: positive: Chest non-tender Cardiovascular: positive: No murmur, Irregularly irregular. negative: Tachycardia, Bradycardia Peripheral Pulses: positive: 2+ Abdomen: positive: Non-tender, Nml bowel sounds, No distention Back: positive: Nml inspection Skin: positive: Color nml, Warm, Dry Extremities: positive: Non-tender. negative: Calf tenderness Neurologic/Psychiatric: negative: Sensory loss, Facial droop, Slurred/abnml speech - LABS Result Diagrams: 08/09/19 05:05 08/09/19 05:05 - FOLLOW UP Follow Up: followup hospice care - TIME SPENT Time Spent in Discharge (Minutes): 30"
[2019-08-09] MEDS: NYSTATIN POWDER 15 GM TOP SCH (13:32)
== END 2019-08-09 14:00 | disposition hospice, home (50) | DRG 57 ==
LOC: EDUNIT# → ED 23:27 → MS2 08-07 02:53 → OBSVTOIN 08-07 17:32
PROVIDERS: ADMIT Internal Medicine; ATTEND Nurse Practitioner Gerontology
DX: R41.0 Disorientation, unspecified (principal); I69.911 Memory deficit following unspecified cerebrovascular disease; I48.20 Chronic atrial fibrillation, unspecified; I50.32 Chronic diastolic (congestive) heart failure; I45.2 Bifascicular block; F01.50 Vascular dementia, unspecified severity, without behavioral disturbance, psychotic disturbance, mood disturbance, and anxiety; I11.0 Hypertensive heart disease with heart failure; E87.5 Hyperkalemia; I69.919 Unspecified symptoms and signs involving cognitive functions following unspecified cerebrovascular disease; E86.0 Dehydration; R79.89 Other specified abnormal findings of blood chemistry; J44.9 Chronic obstructive pulmonary disease, unspecified; G47.30 Sleep apnea, unspecified; I69.998 Other sequelae following unspecified cerebrovascular disease; R56.9 Unspecified convulsions; K52.9 Noninfective gastroenteritis and colitis, unspecified; K59.09 Other constipation; R62.7 Adult failure to thrive; R63.4 Abnormal weight loss; Z68.31 Body mass index [BMI] 31.0-31.9, adult; R32 Unspecified urinary incontinence; H91.90 Unspecified hearing loss, unspecified ear; L40.9 Psoriasis, unspecified; Z20.828 Contact with and (suspected) exposure to other viral communicable diseases; Z74.01 Bed confinement status; T44.7X6A Underdosing of beta-adrenoreceptor antagonists, initial encounter; T46.1X6A Underdosing of calcium-channel blockers, initial encounter; T46.0X6A Underdosing of cardiac-stimulant glycosides and drugs of similar action, initial encounter; Y92.230 Patient room in hospital as the place of occurrence of the external cause; Z51.5 Encounter for palliative care; Z66 Do not resuscitate; Z79.01 Long term (current) use of anticoagulants; Z79.899 Other long term (current) drug therapy
CPT/HCPCS: 36415; 51701; 70450; 71045; 80048; 80053; 80162; 80177; 81001; 81599; 82803; 83605; 83690; 83735; 83880; 84100; 84443; 84484; 85025; 87040; 93005; 94640; 96361; 96365; 96375; 99223; 99285; A9270; G0378; J1815; J3490; J7120; J7626; J8499; 87086

== ENCOUNTER 2019-08-09 14:13 | Outpatient (CLI) | payer MEDICARE, OTHER | END 2019-08-09 14:14 | disposition home or self-care (01) | LOC: EMS 14:13 | PROVIDERS: ATTEND Surgery | DX: R62.7 Adult failure to thrive (principal); R41.82 Altered mental status, unspecified | CPT/HCPCS: A0425; A0428 ==